=== PATIENT | male | born 1945 | race Caucasian/White ===

== ENCOUNTER 2018-06-09 17:07 | Emergency (ER) | payer MEDICARE, OTHER, SELFPAY ==
[2018-06-09 17:13] VITALS: BP 160/67; PULSE 70; RESP 17; TEMP 37.2; O2SAT 97
--- NOTE | 2018-06-09 17:29 | DI.RPTCT_ITS ---
SYMPTOM/DIAGNOSIS: FALL, PAIN NONCONTRAST HEAD CT: Comparison is made with 29 Oct 2017 There is a right frontal scalp laceration. No intracranial hemorrhage or skull fracture is seen. The ventricles are normal in size. The mastoid air cells are visualized. Sinuses appear clear. IMPRESSION: Right frontal scalp laceration. No acute abnormality. CT CERVICAL SPINE: Comparison is made with 05 October 2017. There has been no change in the previously noted C-7 compression fracture or change in alignment. No acute fracture is identified. Degenerative disc changes and facet degenerative changes are again noted. IMPRESSION: Old C-7 compression fracture. Degenerative changes. No acute abnormality.
--- NOTE | 2018-06-09 17:41 | ED.GENADUL ---
Disposition Clinical Impression: Head trauma, Laceration of head Disposition: HOME Condition: Stable Instructions: Laceration (ED) Additional Instructions: Have the sutures removed in approximately 7 days if redness spreads across the face, you have yellow/white discharge from the wound, new symptoms such as chest pain or abdominal pain return to the emergency department Medical Decision Making - Radiology Data Radiology results: report reviewed, image reviewed - Medical Decision Making pt here with fall that seems mechanical, no symptoms to suggest presyncope or syncope, do not feel lab work indicated or ecg. will obtain imaging of the head and c spine and will suture his laceration. patient's imaging shows no acute findings and he has no new pain, laceration closed without complications, will d/c home, return precautions given - Differential Diagnosis laceration, tbi, c spine injury History of Present Illness - General Chief complaint: Laceration Stated complaint: HEAD LACERATION Time Seen by Provider: 06/09/18 17:12 Source: patient Mode of arrival: ambulatory Limitations: no limitations - History of Present Illness Initial comments: 72 yo male comes in after he tripped while weed walking and hit his head on a rock. He did not lose consciousness and had not had vomit. He has a 5cm forehead laceration to right forehead. No stepoff deformities. Denies any precending symptoms such as chest pain, difficulty breathing, headaches or abodminal pain MD Complaint: head lac Onset/Timin -: hour(s) Location: head Radiation: non-radiation Severity scale (1-10): 3 Quality: aching Improves with: none Worsens with: none Treatments Prior to Arrival: none - Related Data Amlodipine Besylate [Norvasc] 1 tab PO QAM #90 01/22/13 Ascorbic Acid [Vitamin C] 1 tab PO DAILY 01/22/13 Cosopt Eye Drops 1 drp OU BID drp 01/22/13 Multivitamin [One Daily] 1 tab PO DAILY 01/22/13 [place]-3/Dha/Epa/Fish Oil [Fish Oil [place]-3 Softgel] 1 cap PO DAILY 01/22/13 Simvastatin 1 tab PO DAILY #90 tab 01/22/13 Travatan 0.004% Eye Drop 1 drp OP DAILY drp 01/22/13 Losartan Potassium [Cozaar] 1 tab PO QAM #90 tab 03/04/13 Spironolactone 25 mg PO DAILY #90 tab-cap 06/14/16 Vit A/Vit C/Vit E/Zinc/Copper [Preservision Areds Softgel] 2 each PO DAILY 10/26/17 Tamsulosin HCl 0.8 mg PO DAILY #90 tab-cap 05/10/18 Omeprazole [PriLOSEC] 10 mg PO PRN 06/09/18 Allergies Allergy/AdvReac Type Severity Reaction Status Date / Time No Known Allergies Allergy Unverified 05/10/18 12:58 Review of Systems Constitutional: denies: fever Respiratory: denies: shortness of breath Cardiovascular: denies: chest pain Gastrointestinal: denies: vomiting Musculoskeletal: denies: back pain Skin: denies: rash Comment: All other systems reviewed and negative Past Medical History - Past Medical History Medical history: arthritis, glaucoma, hyperlipidemia, hypertension Surgical history: other (hip replacement) - Social History Alcohol use: recent Drug use: none General Exam - General Limitations: no limitations General appearance: alert, in no apparent distress - Head Head exam: Present: normocephalic - Eye Eye exam: Present: normal apperance, PERRL, EOMI - ENT ENT exam: Present: mucous membranes moist - Neck Neck exam: Present: tenderness (left lateral chest pain) - Respiratory Respiratory exam: Absent: respiratory distress - Cardiovascular Cardiovascular Exam: Present: regular rate - GI/Abdominal GI/Abdominal exam: Present: soft. Absent: tenderness - Extremities Exam Extremities exam: Present: normal inspection. Absent: pedal edema, calf tenderness - Neurological Exam Neurological exam: Present: alert, oriented X3. Absent: motor sensory deficit - Psychiatric Psychiatric exam: Present: normal affect - Skin Skin exam: Present: warm Course Vital Signs - 24 hr 06/09/18 17:13 Temperature 99.0 F Pulse 70 Respiratory 17 Rate Blood Pressure 160/67 Pulse Oximetry 97 Procedures - Laceration Repair Consent Obtained: Verbal consent Time Out Performed: Yes Copious Irrigation performed: Yes (sterile saline) Laceration Length (cm): 5 Laceration Depth: Subcutaneous Bleeding Type/Amount: Minimal Complexity: Simple Anesthetic: Lidocaine 2%, With Epi Amount of Anesthetic (mls): 6 Material: Proline Suture Size: 4-0 Suture Number: 5
--- NOTE | 2018-06-09 18:49 | DI.VRAD_ITS ---
EXAM: CT Head Without Intravenous Contrast CLINICAL HISTORY: 72 years old, male; Signs and symptoms; Other: Fall, pain, head laceration. TECHNIQUE: Axial computed tomography images of the head/brain without intravenous contrast. All CT scans at this facility use at least one of these dose optimization techniques: automated exposure control; mA and/or kV adjustment per patient size (includes targeted exams where dose is matched to clinical indication); or iterative reconstruction. Coronal and sagittal reformatted images were created and reviewed. COMPARISON: No relevant prior studies available. FINDINGS: Brain: No acute intracranial hemorrhage. There is mild diffuse heterogeneity of the white matter attenuation, consistent with chronic white matter ischemic changes. Mild cerebral atrophy Ventricles: Unremarkable. No ventriculomegaly. Bones/joints: Unremarkable. No acute fracture. Soft tissues: Extracalvarial soft tissue swelling anteriorly on the right. Bubble of air in this region may indicate laceration. Sinuses: Unremarkable as visualized. No acute sinusitis. Mastoid air cells: Unremarkable as visualized. No mastoid effusion. IMPRESSION: 1. Extracalvarial soft tissue swelling anteriorly on the right. Bubble of air in this region may indicate laceration. 2. No acute intracranial hemorrhage. EXAM: CT Cervical Spine Without Intravenous Contrast CLINICAL HISTORY: 72 years old, male; Signs and symptoms; Other: Fall, pain, head laceration. TECHNIQUE: Axial computed tomography images of the cervical spine without intravenous contrast. All CT scans at this facility use at least one of these dose optimization techniques: automated exposure control; mA and/or kV adjustment per patient size (includes targeted exams where dose is matched to clinical indication); or iterative reconstruction. Coronal and sagittal reformatted images were created and reviewed. COMPARISON: CT - HEAD WITHOUT CONTRAST 2017-10-29 08:38 FINDINGS: Vertebrae: No acute fracture of the cervical spine. No subluxation or dislocation of the cervical spine. Compression fracture of C7 was present on the prior study. Increasing compression since the prior study. 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 Anterior osteophyte formation C3- T1. Posterior osteophyte formation C3-T1 Degenerative changes at C1/C2 Soft tissues: Unremarkable. Thyroid: The thyroid is unremarkable Lung apices: Unremarkable as visualized. IMPRESSION: 1. No acute fracture of the cervical spine. 2. No subluxation or dislocation of the cervical spine. Dictated and Authenticated by: Alesha Tamayo MD. Ordering:CAROLYN MCNALLY MD
[2018-06-09 18:59] VITALS: BP 153/87; PULSE 69; RESP 18; TEMP 37; O2SAT 97
== END 2018-06-09 18:57 | disposition home or self-care (01) ==
PROVIDERS: Emergency Provider Emergency Medicine; PCP Emergency Medicine
DX: S01.81XA Laceration without foreign body of other part of head, initial encounter (principal); S09.90XA Unspecified injury of head, initial encounter; W16.122A Fall into natural body of water striking bottom causing other injury, initial encounter; Y93.H2 Activity, gardening and landscaping; I10 Essential (primary) hypertension
CPT/HCPCS: 12013 ×2; 70450; 72125; 99281; 99284

== ENCOUNTER 2018-06-18 14:33 | Emergency (ER) | payer MEDICARE, OTHER, SELFPAY ==
[2018-06-18 14:40] VITALS: BP 143/76; PULSE 63; RESP 18; TEMP 36.9; O2SAT 97
--- NOTE | 2018-06-18 14:46 | ED.GENADUL_ITS ---
Disposition Clinical Impression: Encounter for removal of sutures Disposition: HOME Condition: Stable Instructions: Stitches Removal (ED) Additional Instructions: Watch for any signs of infection return immediately if these occur otherwise follow-up with your primary care provider as needed for reassessment. Continue to keep the wound clean and dry. Referrals: Aguila Thakur, [Primary Care Provider] - (As needed for reassessment) Medical Decision Making - Medical Decision Making Patient presenting the emergency department for suture removal. 5 sutures were removed from patient scalp without any complications and there were no signs of infection. Patient encouraged to watch for any signs of infection return immediately if these occur otherwise to keep wound clean dry and follow-up with primary care provider as needed. Patient denies any other complaints at this time. After discussion of diagnosis and plan of care with patient patient agreed and stated no further needs, questions, or concerns at this time. History of Present Illness - General Chief complaint: SutureRem Stated complaint: SUTURE REMOVAL Time Seen by Provider: 06/18/18 14:40 Source: patient, RN notes reviewed Mode of arrival: ambulatory Limitations: no limitations - History of Present Illness Initial comments: Patient reports he is presenting to the emergency department for suture removal from a laceration he suffered 1 week ago and had stitches placed in the emergency department. Patient denies any other symptoms states that he is otherwise well and has no complaints. Patient denies any redness, purulent drainage, or signs of complication that he is noticed. Onset/Timin -: days(s) Location: head Associated Symptoms: denies other symptoms Treatments Prior to Arrival: none - Related Data Amlodipine Besylate [Norvasc] 1 tab PO QAM #90 01/22/13 Ascorbic Acid [Vitamin C] 1 tab PO DAILY 01/22/13 Cosopt Eye Drops 1 drp OU BID drp 01/22/13 Multivitamin [One Daily] 1 tab PO DAILY 01/22/13 [place]-3/Dha/Epa/Fish Oil [Fish Oil [place]-3 Softgel] 1 cap PO DAILY 01/22/13 Simvastatin 1 tab PO DAILY #90 tab 01/22/13 Travatan 0.004% Eye Drop 1 drp OP DAILY drp 01/22/13 Losartan Potassium [Cozaar] 1 tab PO QAM #90 tab 03/04/13 Spironolactone 25 mg PO DAILY #90 tab-cap 04/04/16 Vit A/Vit C/Vit E/Zinc/Copper [Preservision Areds Softgel] 2 each PO DAILY 10/26 Tamsulosin HCl 0.8 mg PO DAILY #90 tab-cap 05/10/18 Omeprazole [PriLOSEC] 10 mg PO PRN 06/09/18 Allergies Allergy/AdvReac Type Severity Reaction Status Date / Time No Known Allergies Allergy Unverified 06/18/18 14:44 Review of Systems Constitutional: no symptoms reported Skin: as per HPI Neurological: denies: headache Past Medical History - Past Medical History Medical history: arthritis, glaucoma, hyperlipidemia, hypertension Surgical history: other (hip replacement) - Social History Smoking status: never smoker Alcohol use: recent Drug use: none General Exam - General Limitations: no limitations General appearance: alert, in no apparent distress - Head Head exam: Present: other (Patient has a scalp laceration to the right superior aspect of the scalp [address] with mild scab formation otherwise no erythema, no purulence, no dehiscence.) - Respiratory Respiratory exam: Absent: respiratory distress - Neurological Exam Neurological exam: Present: alert, oriented X3, normal gait. Absent: altered Course Vital Signs - 24 hr 06/18/18 14:40 Temperature 36.9 C Pulse 63 Respiratory 18 Rate Blood Pressure 143/76 Pulse Oximetry 97
== END 2018-06-18 15:00 | disposition home or self-care (01) ==
PROVIDERS: Emergency Provider Student in an Organized Health Care Education/Training Program; PCP Emergency Medicine
DX: S01.81XD Laceration without foreign body of other part of head, subsequent encounter (principal); W16.122D Fall into natural body of water striking bottom causing other injury, subsequent encounter; Z48.02 Encounter for removal of sutures

== ENCOUNTER 2018-11-11 11:34 | Outpatient (CLI) | payer MEDICARE, OTHER, SELFPAY ==
[2018-11-12 10:16] LABS: PSA, Diagnostic 7.8 ng/ml (0-6.5)
== END 2018-11-11 11:54 ==
PROVIDERS: PCP Emergency Medicine; Visit Provider Urology
DX: R97.20 Elevated prostate specific antigen [PSA] (principal)
CPT/HCPCS: 36415; 84153

== ENCOUNTER → 2018-12-10 11:01 | Outpatient (BNVA) | payer MEDICARE, OTHER, SELFPAY | PROVIDERS: PCP Emergency Medicine; Visit Provider Urology | DX: R35.0 Frequency of micturition (principal); R97.20 Elevated prostate specific antigen [PSA]; G20 Parkinson's disease | CPT/HCPCS: 99213 ==

== ENCOUNTER 2019-05-09 01:06 | Outpatient (CLI) | payer MEDICARE, OTHER, SELFPAY ==
--- NOTE | 2019-05-09 09:40 | DI.RAD_ITS ---
SYMPTOM/DIAGNOSIS: COUGH R05 CHEST X-RAY: PA and lateral. No priors. The heart is normal in size. The lungs are clear. The mediastinal structures and pleura appear intact. CONCLUSION: Normal chest.
== END 2019-05-09 01:26 ==
PROVIDERS: PCP Emergency Medicine; Visit Provider Emergency Medicine
DX: R05 Cough (principal)
CPT/HCPCS: 71046

== ENCOUNTER 2019-10-23 02:13 | Outpatient (CLI) | payer MEDICARE, OTHER, SELFPAY ==
--- NOTE | 2019-10-23 09:39 | DI.US_ITS ---
EXAM: US CAROTID CLINICAL HISTORY: absent right carotid pulse I65.21 OCCLUSION AND STENOSIS OF RT ARTERY TECHNIQUE: Ultrasound performed using standard protocol. COMPARISON: No exams were available for comparison FINDINGS: Bilateral duplex carotid ultrasound was performed according to the usual protocol. There is mild vis ible atheromatous plaque in the carotid bifurcations bilaterally. There is bilateral antegrade verte bral flow. Flow velocities in proximal internal carotid artery on the right are elevated with maximum observed p eak systolic velocity to 216 cm/second. These findings are consistent with 50-69 percent luminal slime meter stenosis. On the left, flow velocities are within normal limits in the common internal and external carotid art eries. 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
== END 2019-10-23 02:33 ==
PROVIDERS: PCP Emergency Medicine; Visit Provider Emergency Medicine
DX: I65.21 Occlusion and stenosis of right carotid artery (principal); R09.89 Other specified symptoms and signs involving the circulatory and respiratory systems
CPT/HCPCS: 36415; 80048; 84153; 93880

== ENCOUNTER 2019-10-23 10:02 | Outpatient (CLI) | payer MEDICARE, OTHER, SELFPAY ==
[2019-10-23 10:57] LABS: Anion Gap 9.5 mmol/L (3-11); BUN 18 mg/dL (7-18); CO2 27.5 mmol/L (21.0-32.0); CREATININE 0.75 mg/dL (0.70-1.30); Calcium 8.9 mg/dL (8.5-10.1); Chloride 106 mmol/L (98-107); Glucose 100 mg/dL (74-106); Potassium 4.2 mmol/L (3.5-5.1); Sodium 143 mmol/L (136-145)
[2019-10-24 10:14] LABS: PSA, Diagnostic 7.1 ng/mL (0.0-6.5)
== END 2019-10-23 10:22 ==
PROVIDERS: PCP Emergency Medicine; Visit Provider Emergency Medicine
DX: C61 Malignant neoplasm of prostate (principal); I10 Essential (primary) hypertension; I65.21 Occlusion and stenosis of right carotid artery
CPT/HCPCS: 36415; 80048; 84153

== ENCOUNTER → 2019-12-05 11:21 | Outpatient (BNVA) | payer MEDICARE, OTHER, SELFPAY | PROVIDERS: PCP Emergency Medicine; Referring Provider Emergency Medicine; Visit Provider Urology | DX: R97.20 Elevated prostate specific antigen [PSA] (principal) | CPT/HCPCS: 99213 ==

== ENCOUNTER 2020-06-04 17:04 | Emergency (ER) | payer MEDICARE, OTHER, SELFPAY ==
[2020-06-04 17:09] VITALS: PULSE 63; RESP 14; TEMP 36.5; O2SAT 95
--- NOTE | 2020-06-04 17:21 | ED.GENADUL_ITS ---
Discharge Plan Disposition Patient Disposition: HOME Condition: Stable Discharge Details Chief Complaint: HeadInjury Clinical Impression: Laceration of scalp Primary Care Provider: Aguila Thakur ED Provider: Clem Glez Home Meds and New Rx's Prescriptions: Continued tamsulosin 0.4 mg capsule 0.4 mg PO DAILY RF: 0 azelastine-fluticasone 137-50 mcg/spray spray,non-aerosol 1 spray DANYELLE BID Qty: 23 RF: 6 multivitamin [One Daily] 1 EACH tablet 1 tab PO DAILY RF: 0 amlodipine [Norvasc] 5 MG tablet 1 tab PO QAM Qty: 90 RF: 4 simvastatin 20 MG tablet 1 tab PO DAILY Qty: 90 RF: 4 COSOPT EYE DROPS 5 ML drops 1 drp OU BID RF: 0 TRAVATAN 0.004% EYE DROP 5 ML drops 1 drp Ophthalmic DAILY RF: 0 spironolactone 25 MG tablet 25 mg PO DAILY Qty: 90 RF: 3 PreserVision AREDS 1 EACH capsule 2 ea PO DAILY RF: 0 carbidopa-levodopa 25-100 mg tablet See Rx Instructions PO DAILY RF: 0 Discharge Instructions Instructions: Laceration (ED) Additional Instructions: return in 7-10 days for evaluation for suture removal if spreading redness, worsening pain, or yellow/white discharge return to the emergency department Medical Decision Making 74 yo male with hx of parkinson's and recent falls comes in with superior scalp laceration. Was oustide and tripped and hit his head on a rock. Denies preceding symptoms such as chest pain, pressure od difficulty breathing. Has no headache or neck pain now. HAs a small 1cm laceration on superior scalp. NO pain anywhere else. I recommended ct of his head and c spine which he declines. He has capacity to make his own decisions and understands risks of missing tbi and c spine injury including and possible disability and is willing to assume these risks. Will suture woud closed wound closed with 2 sutures. No complications and tolerated well. Will d/c and have him return in 7-10 days and sooner if signs of infection Differential Diagnosis Differential Diagnosis: laceration, abrasion Medical Records Medical records reviewed: Yes I reviewed the patient's medical records. HPI General Mode of arrival: ambulatory . Date/Time Provider Initiated Documentation: 06/04/20 17:05 . Limitations to Documentation: no limitations . Information obtained by: patient . History of Present Illness 74 year old M presents to the emergency department with the chief complaint of scalp laceration, described as mild, and is localized to the head. Patient reports no radiation. Patient started experiencing this hour(s) (2) and it has been constant. No relieving factors improve symptom(s), No exacerbating factors reported . Patient did receive the following treatments prior to arrival, none Related Data Home Medications Medication Instructions Recorded Confirmed Cosopt Eye Drops 1 drp OU BID drp 01/22/13 06/04/20 Travatan 0.004% Eye Drop 1 drp OPHTHALMIC DAILY drp 01/22/13 06/04/20 amlodipine [Norvasc] 1 tab PO QAM #90 01/22/13 06/04/20 multivitamin [One Daily] 1 tab PO DAILY 01/22/13 06/04/20 simvastatin 1 tab PO DAILY #90 tab 01/22/13 06/04/20 spironolactone 25 mg PO DAILY #90 tab-cap 04/04/16 06/04/20 PreserVision AREDS 2 ea PO DAILY 10/26/17 06/04/20 azelastine-fluticasone 137 mcg-50 1 spray DANYELLE BID #23 gm 10/03/18 06/04/20 mcg/spray nasal spray tamsulosin 0.4 mg capsule 0.4 mg PO DAILY tab-cap 10/03/18 06/04/20 carbidopa 25 mg-levodopa 100 mg See Rx Instructions PO DAILY tab 11/29/18 06/04/20 tablet Previous Rx's Medication Instructions Recorded azelastine-fluticasone 137 mcg-50 1 spray DANYELLE BID #23 gm 10/03/18 mcg/spray nasal spray Allergies Allergy/AdvReac Type Severity Reaction Status Date / Time No Known Allergies Allergy Verified 06/04/20 17:13 General Stated Complaint: HeadInjury MAY: 3 Review of Systems All systems reviewed & are unremarkable except as noted in HPI and below Constitutional Constitutional: Denies chills, Denies fever(s) and Denies weakness Cardiovascular Cardiovascular: Denies chest pain and Denies dyspnea Respiratory Respiratory: Denies cough and Denies dyspnea Gastrointestinal Gastrointestinal: Denies abdominal pain, Denies nausea and Denies vomiting Musculoskeletal Musculoskeletal: Denies joint swelling Neurologic Neurologic: Denies weakness Psychiatric Psychiatric: Denies depression [facility] Surgical History (Updated 01/03/19 @ 10:01 by Aguila Thakur DO) Colonoscopy - MAC (~2010) 2000; NEG 2010; 2 POLYPS Family History Mother Diabetes Personal history of malignant neoplasm breast Father Heart disease Sister No problems noted. Brother No problems noted. Brother No problems noted. Social History Smoking/Tobacco Use Status: Never Alcohol Intake: never Drug use: Never Substance use type: marijuana Do you feel safe at home: Yes Do you feel safe in your relationship?: Yes Exam Const General: no acute distress Orientation: alert HENMT Head: no palpable skull fracture Ears: external ears normal General nose exam: external nose normal Mouth: moist mucous membranes Eyes General: appearance normal, both eyes and all related structures Neck Neck: normal visual inspection Resp Effort & Inspection: normal respiratory effort and able to speak in complete sentences Cardio Rate: regular rate Skin General skin exam: no rashes or lesions noted Neuro General: patient alert and patient oriented x3 Extrem General: normal to inspection Psych Mental Status: mental status grossly normal Course Vital Signs Vital signs: Vital Signs Temperature 36.5 C 06/04/20 17:09 Pulse 63 06/04/20 17:09 Respiratory Rate 14 06/04/20 17:09 Pulse Oximetry 95 06/04/20 17:09 Temperature 36.5 C 06/04/20 17:09 Temperature Source Tympanic 06/04/20 17:09 Pulse 63 06/04/20 17:09 Respiratory Rate 14 06/04/20 17:09 Respiratory Effort Non-Labored 06/04/20 17:19 Respiratory Depth Normal 06/04/20 17:19 Respiratory Pattern Normal 06/04/20 17:19 Blood Pressure Position Sitting 06/04/20 17:09 Pulse Oximetry 95 06/04/20 17:09 Oxygen Delivery Method Room Air 06/04/20 17:09 Oxygen Flow Rate 0 06/04/20 17:09 Pain Level 0 06/04/20 17:09 Procedures Laceration Laceration 1: Site: scalp Size (cm): 1 Description: linear Depth: simple, single layer Local Anesthetic: Lidocaine 1% Amount of anesthesia used (mL): 4 Pre-repair: wound explored and irrigated extensively Skin layer closed with: nylon Size (cm): 5-0 Number of sutures: 2 Technique: simple, interrupted
== END 2020-06-04 17:43 | disposition home or self-care (01) ==
PROVIDERS: Emergency Provider Emergency Medicine; PCP Emergency Medicine
DX: S01.01XA Laceration without foreign body of scalp, initial encounter (principal); W01.198A Fall on same level from slipping, tripping and stumbling with subsequent striking against other object, initial encounter; R29.6 Repeated falls; G20 Parkinson's disease
CPT/HCPCS: 12001

== ENCOUNTER 2020-06-13 12:09 | Emergency (ER) | payer MEDICARE, OTHER, SELFPAY ==
[2020-06-13 12:13] VITALS: BP 152/72; PULSE 71; RESP 16; TEMP 36.3; O2SAT 98
--- NOTE | 2020-06-13 12:21 | ED.GENADUL_ITS ---
Discharge Plan Disposition Patient Disposition: HOME Condition: Stable Discharge Details Chief Complaint: SutureRem Clinical Impression: Encounter for removal of sutures Primary Care Provider: Aguila Thakur ED Provider: Imani Ricci Home Meds and New Rx's Prescriptions: No Action tamsulosin 0.4 mg capsule 0.4 mg PO DAILY RF: 0 azelastine-fluticasone 137-50 mcg/spray spray,non-aerosol 1 spray DANYELLE BID Qty: 23 RF: 6 multivitamin [One Daily] 1 EACH tablet 1 tab PO DAILY RF: 0 amlodipine [Norvasc] 5 MG tablet 1 tab PO QAM Qty: 90 RF: 4 simvastatin 20 MG tablet 1 tab PO DAILY Qty: 90 RF: 4 COSOPT EYE DROPS 5 ML drops 1 drp OU BID RF: 0 TRAVATAN 0.004% EYE DROP 5 ML drops 1 drp Ophthalmic DAILY RF: 0 spironolactone 25 MG tablet 25 mg PO DAILY Qty: 90 RF: 3 PreserVision AREDS 1 EACH capsule 2 ea PO DAILY RF: 0 carbidopa-levodopa 25-100 mg tablet See Rx Instructions PO DAILY RF: 0 Discharge Instructions Instructions: Stitches Removal (ED) Additional Instructions: Follow up with primary care provider in 3-5 days. Return to ED sooner if any worsening or concerns. Increase oral fluids. Please take Tylenol or Ibuprofen with food every 4-6 hours as needed for pain and swelling. Referrals: Aguila Thakur DO [Primary Care Provider] - [facility] General Mode of arrival: ambulatory . Date/Time Provider Initiated Documentation: 06/13/20 12:16 . Limitations to Documentation: no limitations . Information obtained by: patient . HPI Narrative: 75-year-old male presents to the ER with a chief complaint of suture removal. Patient had 2 simple interrupted sutures placed on 06/04/2020 after closed head injury. Patient denies any problems at home no complaints of headache, fever or vomiting. No surrounding erythema, swelling, drainage or signs of infection. Wound is well approximated. Related Data Home Medications Medication Instructions Recorded Confirmed Cosopt Eye Drops 1 drp OU BID drp 01/22/13 06/13/20 Travatan 0.004% Eye Drop 1 drp OPHTHALMIC DAILY drp 01/22/13 06/13/20 amlodipine [Norvasc] 1 tab PO QAM #90 01/22/13 06/13/20 multivitamin [One Daily] 1 tab PO DAILY 01/22/13 06/13/20 simvastatin 1 tab PO DAILY #90 tab 01/22/13 06/13/20 spironolactone 25 mg PO DAILY #90 tab-cap 04/04/16 06/13/20 PreserVision AREDS 2 ea PO DAILY 10/26/17 06/13/20 azelastine-fluticasone 137 mcg-50 1 spray DANYELLE BID #23 gm 10/03/18 06/13/20 mcg/spray nasal spray tamsulosin 0.4 mg capsule 0.4 mg PO DAILY tab-cap 10/03/18 06/13/20 carbidopa 25 mg-levodopa 100 mg See Rx Instructions PO DAILY tab 11/29/18 06/13/20 tablet Previous Rx's Medication Instructions Recorded azelastine-fluticasone 137 mcg-50 1 spray DANYELLE BID #23 gm 10/03/18 mcg/spray nasal spray Allergies Allergy/AdvReac Type Severity Reaction Status Date / Time No Known Allergies Allergy Verified 06/13/20 12:16 General Stated Complaint: SutureRem MAY: 5 Review of Systems All systems reviewed & are unremarkable except as noted in HPI and below PFSH Surgical History Colonoscopy - MAC (~2010) 2000; NEG 2010; 2 POLYPS Family History Mother Diabetes Personal history of malignant neoplasm breast Father Heart disease Sister No problems noted. Brother No problems noted. Brother No problems noted. Social History Smoking/Tobacco Use Status: Never Alcohol Intake: never Drug use: Never Substance use type: marijuana Do you feel safe at home: Yes Do you feel safe in your relationship?: Yes Exam Skin General skin exam: other (Repaired wound noted to middle of top of scalp. No signs of infection. ) Wounds: wounds noted (See above. 2 simple interrupted sutures in place) Course Vital Signs Vital signs: Vital Signs Temperature 36.3 C L 06/13/20 12:13 Pulse 71 06/13/20 12:13 Respiratory Rate 16 06/13/20 12:13 Blood Pressure 152/72 H 06/13/20 12:13 Pulse Oximetry 98 08/23/20 12:13 Temperature 36.3 C L 06/13/20 12:13 Temperature Source Skin 06/13/20 12:13 Pulse 71 06/13/20 12:13 Respiratory Rate 16 06/13/20 12:13 Respiratory Effort Non-Labored 06/13/20 12:13 Blood Pressure 152/72 H 06/13/20 12:13 Blood Pressure Position Sitting 06/13/20 12:13 Pulse Oximetry 98 06/13/20 12:13 Oxygen Delivery Method Room Air 06/13/20 12:13 Oxygen Flow Rate 0 06/13/20 12:13 Pain Level 0 06/13/20 12:13
== END 2020-06-13 12:26 | disposition home or self-care (01) ==
PROVIDERS: Emergency Provider Registered Nurse Emergency; PCP Emergency Medicine
DX: S01.01XD Laceration without foreign body of scalp, subsequent encounter (principal); X58.XXXD Exposure to other specified factors, subsequent encounter; Z48.02 Encounter for removal of sutures

== ENCOUNTER 2020-07-01 03:00 | Outpatient (CLI) | payer MEDICARE, OTHER, SELFPAY ==
[2020-07-01 23:07] LABS: PSA, Diagnostic 9.6 ng/mL (0.0-6.5)
== END 2020-07-01 03:20 ==
PROVIDERS: PCP Emergency Medicine; Visit Provider Urology
DX: R97.20 Elevated prostate specific antigen [PSA] (principal)
CPT/HCPCS: 36415; 84153

== ENCOUNTER → 2020-07-06 11:35 | Outpatient (BNVA) | payer MEDICARE, OTHER, SELFPAY | PROVIDERS: PCP Emergency Medicine; Referring Provider Emergency Medicine; Visit Provider Urology | DX: R97.20 Elevated prostate specific antigen [PSA] (principal) | CPT/HCPCS: 99213 ==

== ENCOUNTER 2020-07-16 20:11 | Emergency (ER) | payer MEDICARE, OTHER, SELFPAY ==
[2020-07-16 20:19] VITALS: BP 174/78; PULSE 79; RESP 16; TEMP 36.9; O2SAT 97
--- NOTE | 2020-07-16 20:27 | ED.GENADUL_ITS ---
Discharge Plan Disposition Patient Disposition: HOME Condition: Good Discharge Details Clinical Impression: Superficial laceration of hand Primary Care Provider: Aguila Thakur ED Provider: Jacob Anand Home Meds and New Rx's Prescriptions: New cephalexin [Keflex] 500 mg capsule 500 mg PO QID 7 Days Qty: 28 RF: 0 Continued azelastine-fluticasone 137-50 mcg/spray spray,non-aerosol 1 spray DANYELLE BID Qty: 23 RF: 6 multivitamin [One Daily] 1 EACH tablet 1 tab PO DAILY RF: 0 amlodipine [Norvasc] 5 MG tablet 1 tab PO QAM Qty: 90 RF: 4 simvastatin 20 MG tablet 1 tab PO DAILY Qty: 90 RF: 4 COSOPT EYE DROPS 5 ML drops 1 drp OU BID RF: 0 TRAVATAN 0.004% EYE DROP 5 ML drops 1 drp Ophthalmic DAILY RF: 0 spironolactone 25 MG tablet 25 mg PO DAILY Qty: 90 RF: 3 PreserVision AREDS 1 EACH capsule 2 ea PO DAILY RF: 0 carbidopa-levodopa 25-100 mg tablet See Rx Instructions PO DAILY RF: 0 polyethylene glycol 3350 [Miralax] 17 gram/dose powder 17 gm PO DAILY Qty: 510 RF: 8 No Action tamsulosin 0.4 mg capsule 0.4 mg PO DAILY RF: 0 Discharge Instructions Instructions: Laceration (ED) Additional Instructions: At this time you have a mild laceration that cannot be closed back up secondary to it occurring 3 to 4 days ago. At this time there does appear to be a very mild early amount of infection which I would like to treat with an antibiotic Keflex. Please take this as directed. If you notice any worsening of your symptoms, or any new symptoms such as worsening redness, swelling, vomiting, diarrhea, fever, chills, shortness of breath, chest pain, numbness, weakness, or fainting , please return immediately to the emergency department for reevaluation. Please follow up with your primary care provider as soon as possible for reassessment and reevaluation. As always, it was a pleasure participating in your medical care today. Referrals: Aguila Thakur, DO [Primary Care Provider] - Medical Decision Making 75-year-old male with a past medical history of Parkinson's, mild dementia, who presents today for evaluation of laceration onto his left hand/thumb. Patient and state that he had cut the palmar aspect of his left thumb 4 days ago on a piece of clean metal in their home. Did not immediately sought care. Presents today for evaluation of mild swelling. He denies any numbness tingling or weakness. Patient is a poor historian. whom I contacted later also states that he has been falling to a degree, and did have some bruising noted on his left side that occurred a few days ago. No other complaints at this time. No other modifying factors. Physical exam demonstrates a small superficial laceration to the palmar aspect of the left thumb at the proximal phalanges area. Notably superficial, each branch is roughly 1 cm. With the superficial component, and the laceration time being greater than 3 days ago, it is not recommended to suture at this time. He demonstrates good musculoskeletal strength, with no signs of weakness or tendon damage whatsoever. There is mild swelling around the thumb, no significant redness, this may be the very beginnings of mild cellulitis. Out of an abundance of precaution we will place the patient on Keflex, and give him his first dose now. The bruising on the left side of his abdomen has no associated tenderness, he has no tachycardia hypotension or other signs of blood loss. No peritoneal signs in the abdomen whatsoever, no pain or tenderness in the hip. No indication for further emergent imaging. I did ask the patient for his 's phone number, which she gave me, but it turns out this is actually his [id number]'s phone number. did contact us moments after this and was notably upset. I did go out to the lobby and talk to her personally after we were informed of where she was. We did a thorough discussion together about all of my findings. As well as her frustrations with not being allowed back. Per the patient's unfortunately it does not seem that she was given the opportunity on the initial assessment by the front end application developer team to make clear that the patient does have mild dementia. She was asked to stay outside of the ED abiding to current guidelines and hospital protocol. However after a long and thorough discussion with her the clear areas of problems were notably delineated, all of her questions were answered, and I did apologize personally for the challenge that this was and her frustrations which I can completely understand. The patient was walked out to the lobby where she was waiting. Patient was discharged home no further questions. Lobby where she was waiting. Patient was discharged home. No further questions by patient or family. Also of note with the patient's falls I did discuss with the patient's getting help at home or PT/OT and further assistance. Patient's made it very clear that the patient is very strong-willed and does not have a congruent line of thinking with this sort of help. She states he continues to refuse, and so because of this she would like to hold off on any additional help or assistance at home for the time being. I did encourage her to reach out anytime that she felt that the patient would be open to this. She does feel safe at home with him currently. HPI General Date/Time Provider Initiated Documentation: 07/16/20 20:19 . HPI Narrative: 75-year-old male with a past medical history of Parkinson's, mild dementia, who presents today for evaluation of laceration onto his left hand/thumb. Patient and state that he had cut the palmar aspect of his left thumb 4 days ago on a piece of clean metal in their home. Did not immediately sought care. Presents today for evaluation of mild swelling. He denies any numbness tingling or weakness. Patient is a poor historian. whom I contacted later also states that he has been falling to a degree, and did have some bruising noted on his left side that occurred a few days ago. No other complaints at this time. No other modifying factors. Related Data Home Medications Medication Instructions Recorded Confirmed Cosopt Eye Drops 1 drp OU BID drp 01/22/13 07/16/20 Travatan 0.004% Eye Drop 1 drp OPHTHALMIC DAILY drp 01/22/13 07/16/20 amlodipine [Norvasc] 1 tab PO QAM #90 01/22/13 07/16/20 multivitamin [One Daily] 1 tab PO DAILY 01/22/13 07/16/20 simvastatin 1 tab PO DAILY #90 tab 01/22/13 07/16/20 spironolactone 25 mg PO DAILY #90 tab-cap 04/04/16 07/16/20 PreserVision AREDS 2 ea PO DAILY 10/26/17 07/16/20 azelastine-fluticasone 137 mcg-50 1 spray DANYELLE BID #23 gm 10/03/18 07/16/20 mcg/spray nasal spray tamsulosin 0.4 mg capsule 0.4 mg PO DAILY tab-cap 10/03/18 07/16/20 carbidopa 25 mg-levodopa 100 mg See Rx Instructions PO DAILY tab 11/29/18 07/16/20 tablet polyethylene glycol 3350 17 17 gm PO DAILY #510 gm 06/23/20 07/16/20 gram/dose oral powder cephalexin [Keflex] 500 mg PO QID 7 Days #28 [facility] 07/16/20 Previous Rx's Medication Instructions Recorded azelastine-fluticasone 137 mcg-50 1 spray DANYELLE BID #23 gm 10/03/18 mcg/spray nasal spray polyethylene glycol 3350 17 17 gm PO DAILY #510 gm 06/23/20 gram/dose oral powder cephalexin [Keflex] 500 mg PO QID 7 Days #28 [facility] 07/16/20 Allergies Allergy/AdvReac Type Severity Reaction Status Date / Time No Known Allergies Allergy Verified 07/16/20 20:29 General Stated Complaint: Laceration MAY: 4 Review of Systems All systems reviewed & are unremarkable except as noted in HPI and below PFSH Surgical History Colonoscopy - MAC (~2010) 2000; NEG 2010; 2 POLYPS Family History Mother Diabetes Personal history of malignant neoplasm breast Father Heart disease Sister No problems noted. Brother No problems noted. Brother No problems noted. Social History Smoking/Tobacco Use Status: Never Alcohol Intake: never Drug use: Never Substance use type: marijuana Do you feel safe at home: Yes Do you feel safe in your relationship?: Yes Exam Narrative Exam Narrative: 1.Const: Well-nourished, Well-developed, appearing stated age 2.Eyes: PERRL, no conjunctival injection, and symmetrical lids. 3.ENT: Atraumatic external nose and ears. Moist MM. Neck: Symmetric, trachea midline, No thyromegaly. 4.CVS: +S1/S2, No murmurs or gallops. Peripheral pulses 2+ and equal in all extremities. Brisk capillary refill in all extremities. 5.RESP: Unlabored respiratory effort. Clear to auscultation bilaterally. No wheezes rales or rhonchi 6.GI: Soft, Nontender/Nondistended, No hepatosplenomegaly. No guarding or rebound. 7.MSK: Normocephalic. No midline cervical thoracic or lumbar spine tenderness. Mild bruising over the left lower abdomen, no pain or tenderness whatsoever, in this area on palpation. No pain or tenderness on palpation or movement of the hips. Patient ambulates well. Symmetrically palpable radial and ulnar pulses. Right hand demonstrates capillary refill less than 2 seconds to all digits. Intact sensation to light touch of the radial, median and ulnar nerves demonstrated by testing in the dorsal web space of the thumb, the distal palmar aspect of the index finger, and the lateral surface of the fifth finger. 2 point discrimination intact to 5mm (up to 6mm can be normal in digits 3-5) of discrimination in the affected digit. 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 Intact recurrent median nerve as demonstrated by ability to move maya mb fully through opposition, abduction and flexion. No snuffbox tenderness. 8.Skin: Warm, Dry. Mild bruising over the adipose tissue on the left side of the abdomen and over the hip. Small chevron shaped superficial laceration over the palmar aspect of the thumb at the proximal phalanges. Notably superficial, no deep component. 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 Sensation grossly intact, no focal neurologic deficits. 10.Psych: (AAO) x3. Appropriate mood and affect Course Vital Signs Vital signs: Vital Signs Temperature 36.9 C 07/16/20 20:19 Pulse 79 07/16/20 20:19 Respiratory Rate 16 07/16/20 20:19 Blood Pressure 174/78 H 07/16/20 20:19 Pulse Oximetry 97 07/16/20 20:19 Temperature 36.9 C 07/16/20 20:19 Temperature Source Temporal Artery Scan 07/16/20 20:19 Pulse 79 07/16/20 20:19 Respiratory Rate 16 07/16/20 20:19 Respiratory Effort Non-Labored 07/16/20 20:24 Blood Pressure 174/78 H 07/16/20 20:19 Blood Pressure Position Sitting 07/16/20 20:19 Pulse Oximetry 97 07/16/20 20:19 Oxygen Delivery Method Room Air 07/16/20 20:19 Oxygen Flow Rate 0 07/16/20 20:19 Pain Level 0 07/16/20 20:26
[2020-07-16] MEDS: Cephalexin 500 MG CAP, 4 CAPS/BTL PO (20:38)
[2020-07-16 20:47] VITALS: BP 172/79; PULSE 82; RESP 16; O2SAT 97
--- NOTE | 2020-07-17 19:19 | W.ED.FU ---
Patient's called and noted that swelling of the hand was worse and she had questions about dressing change. I advised that at this point 24 hours after initiation of antibiotics I would expect that infection should be improving. I advised that she should come to the emergency department if she is concerned about worsening condition. Patient's verbalized understanding of my instructions.
== END 2020-07-16 21:10 | disposition home or self-care (01) ==
PROVIDERS: Emergency Provider Student in an Organized Health Care Education/Training Program; PCP Emergency Medicine
DX: S61.012A Laceration without foreign body of left thumb without damage to nail, initial encounter (principal); W26.8XXA Contact with other sharp object(s), not elsewhere classified, initial encounter; L53.9 Erythematous condition, unspecified; G31.83 Neurocognitive disorder with Lewy bodies; F02.80 Dementia in other diseases classified elsewhere, unspecified severity, without behavioral disturbance, psychotic disturbance, mood disturbance, and anxiety
CPT/HCPCS: 99283

== ENCOUNTER 2020-12-03 02:31 | Outpatient (CLI) | payer MEDICARE, OTHER, SELFPAY ==
[2020-12-04 17:08] LABS: COVID-19 RT-PCR UVMMC Result Negative (Negative)
== END 2020-12-03 02:32 | disposition home or self-care (01) ==
LOC: LBO 02:32
PROVIDERS: PCP Emergency Medicine; Visit Provider Family Medicine
DX: Z20.822 Contact with and (suspected) exposure to COVID-19 (principal)
CPT/HCPCS: U0003; U0005

== ENCOUNTER 2020-12-07 03:30 | Outpatient (CLI) | payer MEDICARE, OTHER, SELFPAY ==
--- NOTE | 2020-12-08 08:56 | W.PFT ---
Date of service: 12/07/20 Time of Service: 02:05 Pulmonary Function Test Result Interpretation Spirometry: Borderline Mild obstructive airways disease with no bronchodilator response. This may represent a normal variant in an elderly patient Impression Borderline Mild obstructive airways disease with no bronchodilator response. This may represent a normal variant in an elderly patient Clinical Correlation therefore is recommended.
== END 2020-12-07 03:31 | disposition home or self-care (01) ==
LOC: RT 03:30
PROVIDERS: PCP Emergency Medicine; Visit Provider Emergency Medicine
DX: R06.09 Other forms of dyspnea (principal); G20 Parkinson's disease
CPT/HCPCS: 94060

== ENCOUNTER 2020-12-21 01:40 | Outpatient (CLI) | payer MEDICARE, OTHER, SELFPAY ==
--- NOTE | 2020-12-21 07:45 | DI.RAD_ITS ---
EXAM: XR CHEST 2V PA LATERAL CLINICAL HISTORY: dyspnea on exertion,r06.00 TECHNIQUE: 2D digital imaging was performed. COMPARISON: CR XR CHEST 2V PA LATERAL from 05/09/2019 FINDINGS: The heart is not enlarged. The lungs are clear and well expanded. No pleural effusion seen. Mediastin al contours appear intact. IMPRESSION: Normal chest. RADIATION DOSE DELIVERED: Total DLP
--- NOTE | 2020-12-21 14:00 | DI.US_ITS ---
APPROVED REPORT EXAM: Comprehensive 2D, Doppler, and color-flow Echocardiogram Patient Location: Out-Patient Room Designer: [place] Harrison RDCS (AE) Indications: DE LEON Other Information Study Quality: Fair. Technically limited study due to body habitus. Conclusion This is a technically difficult study. Left Ventricle : The left ventricle is normal size. The left ventricular systolic function is normal. The left ventricular ejection fraction is within the normal range. There is normal left ventricular wall thickness. There is normal LV segmental wall motion. The left ventricular diastolic function is normal. LVEF is 58%. Right Ventricle : Right ventricle is not well visualized. Right ventricular systolic function could n ot be assessed. The RVSP is 26.4 mmHg. Atria : The left atrium size is normal. The right atrium size is normal. Mitral Valve : The mitral valve is normal in structure. Mild mitral regurgitation. No evidence of rah ral valve stenosis. Great Vessels : The aortic root is normal in size. The ascending aorta is normal in size. Aortic arch is normal in caliber. IVC is normal in size and collapses >50% with inspiration. Please see remainder of study for further details. Wall motion Left Ventricle The left ventricle is normal size. The left ventricular systolic function is normal. The left ventric ular ejection fraction is within the normal range. There is normal left ventricular wall thickness. T here is normal LV segmental wall motion. The left ventricular diastolic function is normal. There is no ventricular septal defect visualized. LVEF is 58%. Right Ventricle Right ventricle is not well visualized. Right ventricular systolic function could not be assessed. Th e RVSP is 26.4 mmHg. Atria The left atrium size is normal. The right atrium size is normal. The interatrial septum is intact wit h no evidence for an atrial septal defect. Aortic Valve The Aortic valve is sclerotic. Aortic valve is trileaflet. There is no aortic valvular stenosis. No a ortic regurgitation is present. Mitral Valve The mitral valve is normal in structure. No evidence of mitral valve stenosis. Mild mitral regurgitat ion. Tricuspid Valve The tricuspid valve is normal in structure. There is no tricuspid valve stenosis. Trace tricuspid reg urgitation. Pulmonic Valve The pulmonary valve is normal in structure. There is no pulmonic valvular stenosis. Mild pulmonic reg urgitation. Great Vessels The aortic root is normal in size. The ascending aorta is normal in size. Aortic arch is normal in ca liber. IVC is normal in size and collapses >50% with inspiration. Pericardium There is no pericardial effusion. 2D Dimensions IVSD d PLAX 0.91 cm M: 0.6-1.2 LV Vol A2C d MOD 91.6 mL LVPW d PLAX 0.92 cm M: 0.6 - 1.2 LV Vol A4C d MOD 137.5 mL LVID d PLAX 4.54 cm M: 4.2 - 5.8 LV EF A4C MOD 58.9 % LVDs 3.15 cm M: 2.5 - 4.0 LV EF A2C MOD 56.0 % Ao Root d 3.44 cm M: 3.1 - 3.7 LV EF Biplane MOD 57.6 % RA Area A4C 13.97 cm2 SV 65.01 mL RA Vol/ BSA A4C s A-L 16.2 mL/m2 SV Index 29.53 mL/m2 Ao Asc Diam d 3.36 cm M: 2.6 - 3.4 LV EF Teichholz 57.2 % LVEF (Jones's) 57.56 % M: 52 - 72 LV Volume 82.12 mL M: 62 - 150 LV Volume Index 37.32 mL/m2 M: 34 - 74 LV Vol Biplane MOD 112.9 mL FS 29.85 % M-Mode TAPSE 2.11 cm (M/F) >1.7 LV Diastology MV E' medial 0.097 (>0.07 m/s) E/A Ratio 0.6 LV E/e MED 5.30 (<14) MV E Vmax 0.52 (0.4-1.3 m/s) MV E' lateral 0.086 (>0.1 m/s) MV A Vmax 0.85 (0.4-1.3 m/s) LV E/e LAT 6.00 (<14) MV E/A Ratio 0.61 MV E/E' medial 5.35 MV E/E' lateral 6.03 Aortic Valve LVOT Area 3.64 cm2 AoV Area Vmax 2.35 cm2 LVOT Vmax 0.90 m/s AoV Area/ BSA (Vmax) 1.07 cm2/m2 LVOT Mean Jose C. 0.60 m/s MARYAM Mean Jose C. 2.34 cm2 LVOT Peak Grad 3.2 mmHg MARYAM Mean Jose C. Index 1.06 cm2/m2 LVOT Mean Grad 1.7 mmHg LVOT VTI 0.174 m LVOT Diam s 2.15 cm AoV Vmax 1.39 m/s Velocity Ratio 0.64 AoV Mean Jose C. 0.93 m/s AoV Peak Grad 7.7 mmHg LVOT SV 63.24 mL AoV Mean Grad 4.0 mmHg AoV VTI 0.255 m AoV Area VTI 2.48 cm2 AoV Area/ BSA (VTI) 1.13 cm/m2 Mitral Valve MV DT 443 (160-240 msec) MV PHT 129 msec MV Area PHT 1.71 cm2 MV VTI 0.284 m MV Area VTI 2.23 (4.0-6.0 cm2) Pulmonary Valve PV Vmax 1.02 (0.5-1.5 m/s) RVOT Peak Gr. 1.82 mmHg PV Peak Grad 4.1 mmHg RVOT Mean Gr. 0.80 mmHg PV Mean Grad 1.9 mmHg RVOT VTI 0.128 m PV VTI 0.150 m RVOT Vmax 0.68 m/s Tricuspid Valve TR Peak Grad 23.4 mmHg TR Vmax 2.42 m/s RA Pressure 3.00 mmHg RVSP (TR) 26.4 mmHg
== END 2020-12-21 02:00 ==
PROVIDERS: PCP Emergency Medicine; Visit Provider Emergency Medicine
DX: R06.00 Dyspnea, unspecified (principal); I34.0 Nonrheumatic mitral (valve) insufficiency
CPT/HCPCS: 93306; 71046

== ENCOUNTER 2020-12-23 04:04 | Outpatient (CLI) | payer MEDICARE, OTHER, SELFPAY ==
[2020-12-23 14:45] LABS: Abs Immature Grans 0.03 10^3/uL (0.0-0.06); Absolute Basophil Count 0.02 10^3/uL (0.0-0.2); Absolute Eosinophil Count 0.04 10^3/uL (0.0-0.7); Absolute Lymphocyte Count 2.09 10^3/uL (1.2-3.4); Absolute Monocyte Count 0.56 10^3/uL (0.1-0.8); Basophils % 0.2; Eosinophils % 0.5; HCT 39.8 % (40.0-50.0); HGB 13.1 g/dL (13.5-17.5); Immature Grans % 0.4; Lymphocytes % 24.5; MCH 31.3 pg (27.0-33.0); MCHC 32.9 % (32.0-36.0); MPV 9.9 fL (8.0-11.0); Monocytes % 6.6; Neutrophils % 67.8; Nucleated RBC 0 %; Platelet Count 182 10^3/uL (130-400); RBC 4.19 10^6/uL (4.36-5.78); RDW-SD 45.1 fL; WBC 8.54 10^3/uL (4.4-10.8)
[2020-12-23 15:18] LABS: ALT 12 U/L (16-63); AST 16 U/L (15-37); Albumin 3.9 g/dL (3.4-5.0); Alkaline Phosphatase 74 U/L (46-116); Anion Gap 7.1 mmol/L (3-11); BUN 19 mg/dL (7-18); Bilirubin, Total 0.8 mg/dL (0.2-1.0); CO2 29.9 mmol/L (21.0-32.0); CREATININE 0.9 mg/dL (0.70-1.30); Chloride 105 mmol/L (98-107); Glucose 81 mg/dL (74-106); NT-proBNP 95 pg/mL (<300); Potassium 4.4 mmol/L (3.5-5.1); Sodium 142 mmol/L (136-145); Total Protein 6.9 g/dL (6.4-8.2)
[2020-12-23 15:31] LABS: C-Reactive Protein < 0.05 mg/dL (0.0-0.3)
[2020-12-23 22:22] LABS: PSA, Diagnostic 10.1 ng/mL (0.0-6.5)
[2020-12-23 22:41] LABS: ESR 5 mm/hr (<or=20)
== END 2020-12-23 04:05 | disposition home or self-care (01) ==
LOC: LBO 04:04
PROVIDERS: PCP Emergency Medicine; Visit Provider Urology
DX: I10 Essential (primary) hypertension (principal); R06.09 Other forms of dyspnea; I50.9 Heart failure, unspecified; R97.20 Elevated prostate specific antigen [PSA]
CPT/HCPCS: 36415; 80053; 85652; 83880; 84153; 85025; 86140

== ENCOUNTER → 2021-01-04 09:55 | Outpatient (BNVA) | payer MEDICARE, OTHER, SELFPAY | PROVIDERS: PCP Emergency Medicine; Referring Provider Emergency Medicine; Visit Provider Nurse Practitioner Gerontology | DX: N40.0 Benign prostatic hyperplasia without lower urinary tract symptoms (principal); G20 Parkinson's disease | CPT/HCPCS: 99213 ==

== ENCOUNTER 2021-06-20 12:40 | Emergency (ER) | payer OTHER, SELFPAY ==
[2021-06-20] VITALS (21 sets, daily range): BP systolic 129–147; BP diastolic 56–68; PULSE 65–75; RESP 17–18; TEMP 36.2; O2SAT 96–99
--- NOTE | 2021-06-20 12:45 | DI.RAD_ITS ---
Exam(s) XR HIP LT COMPLETE AP PELVIS EXAM: XR HIP LT COMPLETE AP PELVIS CLINICAL HISTORY: fall left hip pain. TECHNIQUE: 2D digital imaging was performed. COMPARISON: CR Pelvis - 1 View from 06/28/2017 CR Pelvis - 1 View from 06/28/2017 FINDINGS: BONES: There is an oblique fracture of the proximal left femur. The fracture involves the proximal d iaphysis and extends superiorly to involve the lesser trochanter. No bony destructive lesion is seen . JOINTS: No dislocation present. The patient has a left total hip replacement. SOFT TISSUE: Normal. IMPRESSION: Acute fracture involving the proximal left femur from the proximal diaphysis laterally into the lesse r trochanter medially. DATA REPOSITORY: RADIATION DOSE DELIVERED:
--- NOTE | 2021-06-20 12:45 | DI.CT_ITS ---
Exam(s) CT HEAD CERVICAL SPINE WO EXAM: CT HEAD CERVICAL SPINE WO CLINICAL HISTORY: fall, [place]. TECHNIQUE: Imaging Protocol: Axial computed tomography images with coronal and sagittal reformatted images were created and reviewed COMPARISON: CT HEAD AND CSPINE W/O CONTRAST from 06/09/2018 FINDINGS: CT Head: Ventricles and Extra axial spaces: Normal in size and morphology for the patient's age. Hemorrhage: None. Cerebral parenchyma: No acute territorial infarct. There are areas of decreased attenuation in the w samuel matter most consistent with small vessel ischemic disease. There is again seen a radiopaque for eign body in the left periorbital soft tissues. Midline shift: None. Brainstem/Cerebellum: Normal. Calvarium: Normal. Visualized Paranasal sinuses/Mastoids: Clear. Soft Tissues: Unremarkable. CT Cervical Spine: Bones: No acute fracture or subluxation. There is an old C7 compression fracture deformity. Multilev el degenerative changes are seen throughout the cervical spine. Soft Tissues: Unremarkable. Lung Apices: Clear. Thyroid gland: Unremarkable. IMPRESSION: 1. No acute intracranial process. 2. No acute fracture or subluxation in the cervical spine. 3. Results of this exam have been verbally communicated with provider. RADIATION DOSE DELIVERED: 1,632.43mGy.cm Total DLP DATA REPOSITORY: All CT scans at this facility are submitted to the National Radiology Data Registry (NRDR) Dose Index Registry (DIR) with the [employer] ([employer]). RADIATION OPTIMIZATION: All CT scans at this facility use at least one of these dose optimization te chniques: automated exposure control; mA and/or kV adjustment per patient size (includes targeted exa ms where dose is matched to clinical indication); or iterative reconstruction.
--- NOTE | 2021-06-20 12:45 | DI.RAD_ITS ---
Exam(s) XR ELBOW LT COMPLETE EXAM: XR ELBOW LT COMPLETE CLINICAL HISTORY: fall. TECHNIQUE: 2D digital imaging was performed. COMPARISON: No exams were available for comparison FINDINGS: BONES: No acute fracture is present. No bony destructive lesion is seen. Calcific tendinitis is seen at the olecranon. JOINTS: The elbow is normally aligned. No joint effusion is seen. SOFT TISSUE: Normal. IMPRESSION: No acute fracture or dislocation. DATA REPOSITORY: RADIATION DOSE DELIVERED:
--- NOTE | 2021-06-20 12:56 | DI.RAD_ITS ---
Exam(s) XR CHEST 1V IN DI DEPT EXAM: XR CHEST 1V IN DI DEPT CLINICAL HISTORY: fall, hip injury TECHNIQUE: 2D digital imaging was performed. COMPARISON: No exams were available for comparison FINDINGS: MEDIASTINUM: Normal. HEART: Normal. PULMONARY VASCULATURE: Normal. LUNGS: Clear. PLEURAL SPACE: No pleural effusion or pneumothorax. BONE:Within normal limits for the patient's age. OTHER FINDINGS:Normal. IMPRESSION: No acute pulmonary findings. DATA REPOSITORY: RADIATION DOSE DELIVERED:
--- NOTE | 2021-06-20 13:06 | ED.GENADUL_ITS ---
Discharge Plan Disposition Patient Disposition: [facility] Condition: Stable Discharge Details Clinical Impression: Swapna-prosthetic fracture around prosthetic hip, Parkinsons disease Primary Care Provider: Aguila Thakur ED Provider: Dora Alfredo Home Meds and New Rx's Prescriptions: Continued tamsulosin 0.4 mg capsule 0.4 mg PO DAILY RF: 0 carboxymethylcellulose sodium 0.5 % drops 1 drp ophthalmic (eye) 4-6XD PRNRF: 0 dorzolamide-timolol 22.3-6.8 mg/mL drops 1 drp ophthalmic (eye) BID RF: 0 latanoprost 0.005 % drops 1 drp ophthalmic (eye) QPM RF: 0 glycopyrrolate 1 mg tablet 1 mg PO TID RF: 0 multivitamin [One Daily] 1 EACH tablet 1 tab PO DAILY RF: 0 amlodipine [Norvasc] 5 MG tablet 1 tab PO QAM Qty: 90 RF: 4 simvastatin 20 MG tablet 1 tab PO DAILY Qty: 90 RF: 4 spironolactone 25 MG tablet 25 mg PO DAILY Qty: 90 RF: 3 PreserVision AREDS 1 EACH capsule 2 ea PO DAILY RF: 0 carbidopa-levodopa 25-100 mg tablet See Rx Instructions PO DAILY RF: 0 polyethylene glycol 3350 [Miralax] 17 gram/dose powder 17 gm PO DAILY Qty: 510 RF: 8 losartan 50 mg tablet 50 mg PO DAILY Qty: 90 RF: 3 Medical Decision Making I spent an extended period of time managing his with this patient approximately 2 hours on the phone with [facility], the patient was finally accepted by Dr. Ferraro, orthopedic Patient has full CODE STATUS, he has been calm and cooperative throughout the evaluation He does have a slight leukocytosis but afebrile nontoxic COVID-19 negative He declined opiate analgesia but has been agreeable to accepting acetaminophen IV, he received 1 dose of 650 mg She has remained n.p.o. since [address] head and cervical spine per radiology rotation do not show acute abnormality, x-ray of left elbow does not show acute abnormality Mistry catheter was placed for comfort Patient will be transported to [facility] after 7 PM, in stable condition Medical Records Medical records reviewed: Yes I reviewed the patient's medical records. Lab Data Lab results reviewed: Yes I reviewed the patient's lab results. HPI General Mode of arrival: ambulatory . Date/Time Provider Initiated Documentation: 06/20/21 12:41 . Limitations to Documentation: no limitations . Information obtained by: patient . HPI Narrative: 76-year-old gentleman presents with report of left elbow pain, left hip pain, head injury status. 4. Patient reportedly fell from standing. He lost his balance going down Into the garage and fell onto concrete. There was no loss of consciousness. Patient denies any additional injuries. He was able to pull himself into and call family member who is inside. He is having difficulty ambulating secondary to pain his left hip which is why he called the ambulance. He has not reportedly anticoagulated. He denies any chest pain, shortness of breath, palpitations. He states the following mechanical in nature. He denies any additional complaints at this time. Describes the pain as sharp. He denies any additional complaints at this time. Has reportedly been at baseline for the past several hours R elated Data Home Medications Medication Instructions Recorded Confirmed amlodipine [Norvasc] 1 tab PO QAM #90 01/22/13 06/20/21 multivitamin [One Daily] 1 tab PO DAILY 01/22/13 06/20/21 simvastatin 1 tab PO DAILY #90 tab 01/22/13 06/20/21 spironolactone 25 mg PO DAILY #90 tab-cap 04/04/16 06/20/21 PreserVision AREDS 2 ea PO DAILY 10/26/17 06/20/21 tamsulosin 0.4 mg capsule 0.4 mg PO DAILY tab-cap 10/03/18 06/20/21 carbidopa 25 mg-levodopa 100 mg See Rx Instructions PO DAILY tab 11/29/18 06/20/21 tablet polyethylene glycol 3350 17 17 gm PO DAILY #510 gm 06/23/20 06/20/21 gram/dose oral powder losartan 50 mg tablet 50 mg PO DAILY #90 tab 12/02/20 06/20/21 carboxymethylcellulose sodium 0.5 1 drp OPHTHALMIC (EYE) 4-6XD PRN 03/29/21 06/20/21 % eye drops dorzolamide 22.3 mg-timolol 6.8 1 drp OPHTHALMIC (EYE) BID 03/29/21 06/20/21 mg/mL eye drops glycopyrrolate 1 mg tablet 1 mg PO TID 03/29/21 06/20/21 latanoprost 0.005 % eye drops 1 drp OPHTHALMIC (EYE) QPM 03/29/21 06/20/21 Previous Rx's Medication Instructions Recorded polyethylene glycol 3350 17 17 gm PO DAILY #510 gm 06/23/20 gram/dose oral powder losartan 50 mg tablet 50 mg PO DAILY #90 tab 12/02/20 Allergies Allergy/AdvReac Type Severity Reaction Status Date / Time No Known Allergies Allergy Verified 03/29/21 14:28 General Stated Complaint: Trauma MAY: 3 Review of Systems All systems reviewed & are unremarkable except as noted in HPI and below PFSH Medical History (Updated 06/20/21 @ 18:32 by YOVANA Linn) DE LEON (dyspnea on exertion) Foot pain Surgical History Colonoscopy - MAC (~2010) 2000; NEG 2010; 2 POLYPS Family History Mother Diabetes Personal history of malignant neoplasm breast Father Heart disease Sister No problems noted. Brother No problems noted. Brother No problems noted. Social History (Updated 03/30/21 @ 14:38 by Steff Madden) Smoking/Tobacco Use Status: Never Second Hand Exposure: No Smoking risk assessment performed?: Yes Alcohol Intake: former Drug use: Never Household members: spouse and children Housing: house Communication Needs: Hard of Hearing and Corrective Lenses Do you need help understanding health information?: Often Pets and animals: Yes Pets and animals: dog(s) Sexually active: No Do you think of yourself as: straight/heterosexual Current gender identity: male What is your relationship status?: How often do you talk on the phone with friends or family?: once per week How often do you attend orthodoxy or mosque services?: 1-3 times per year Do you belong to any clubs or organized social groups?: no Panel score (0-1 are the most socially isolated patients): 1 What type of physical activity do you participate in: other Details: boxing Frequency: 1-2 times per week Kenna/Zoroastrian: Congregational Seatbelt use: always Helmet use: No Drive intox or ride w/intox stage driver: No Do you feel safe at home: Yes Do you feel safe in your relationship?: Yes Exam Const General: cooperative [facility] Head images: 1. Abrasion, no hemotympanum Other: Uvula midline Eyes Pupils: PERRL Neck Other: No visible sign of trauma, paraspinal tenderness Chest Chest: normal inspection of the chest Other: No crepitus Resp Effort & Inspection: normal respiratory effort Auscultation: clear to auscultation bilaterally Cardio Rate: regular rate Rhythm: regular rhythm Other: Development intact GI Other: No CVA tenderness, no abdominal tenderness, no bruising, Skin General skin exam: no rashes or lesions noted Neuro General: patient alert and patient oriented x3 Cranial Nerves: CN's II-XI intact bilaterally and tongue midline Speech: speech normal Extrem Other: Tenderness, no tenderness to the left hip abrasion noted Large hematoma no tenderness to left elbow, left shoulder Course Vital Signs Vital signs: Vital Signs Temperature 36.2 C L 06/20/21 12:41 Pulse 70 06/20/21 12:41 Respiratory Rate 17 06/20/21 12:41 Blood Pressure 138/68 06/20/21 12:41 Pulse Oximetry 96 06/20/21 12:41 Temperature 36.2 C L 06/20/21 12:41 Temperature Source Skin 06/20/21 12:41 Pulse 70 06/20/21 12:41 Respiratory Rate 17 06/20/21 12:41 Respiratory Effort 06/20/21 12:56 Blood Pressure 138/68 06/20/21 12:41 Blood Pressure Position Supine 06/20/21 12:41 Pulse Oximetry 96 06/20/21 12:41 Oxygen Delivery Method Room Air 06/20/21 12:41 Oxygen Flow Rate 0 06/20/21 12:41 Pain Level 2 06/20/21 12:41
[2021-06-20 14:59] LABS: Source Nasal/Nares
[2021-06-20 16:04] LABS: Abs Immature Grans 0.06 10^3/uL (0.0-0.06); Absolute Lymphocyte Count 1.63 10^3/uL (1.2-3.4); Absolute Monocyte Count 0.71 10^3/uL (0.1-0.8); Basophils % 0.1; Eosinophils % 0.1; HCT 37.9 % (40.0-50.0); HGB 12.7 g/dL (13.5-17.5); Immature Grans % 0.4; MCH 31.5 pg (27.0-33.0); MCHC 33.5 % (32.0-36.0); MPV 9.1 fL (8.0-11.0); Monocytes % 5.2; Neutrophils % 82.2; Nucleated RBC 0 %; Platelet Count 173 10^3/uL (130-400); RBC 4.03 10^6/uL (4.36-5.78); RDW 11.9 % (11.8-14.1); RDW-SD 41.3 fL; WBC 13.56 10^3/uL (4.4-10.8)
[2021-06-20 16:05] LABS: Absolute Basophil Count 0.01 10^3/uL (0.0-0.2); Absolute Eosinophil Count 0.01 10^3/uL (0.0-0.7); Absolute Neutrophil Count 11.15 10^3/uL (1.2-6.7)
--- NOTE | 2021-06-20 16:06 | NUR.NOTE ---
pt took his own parkinson med , provider is aware Nursing Note:
[2021-06-20 16:11] LABS: COVID-19 PCR Negative (Negative)
[2021-06-20 16:16] LABS: Anion Gap 9.4 mmol/L (3-11); BUN 15 mg/dL (7-18); CO2 26.6 mmol/L (21.0-32.0); CREATININE 0.7 mg/dL (0.70-1.30); Chloride 104 mmol/L (98-107); Glucose 120 mg/dL (74-106); Potassium 4.2 mmol/L (3.5-5.1); Sodium 140 mmol/L (136-145)
[2021-06-20] MEDS: Lidocaine 2% Jelly 11 ML SYR UR (18:09)
== END 2021-06-20 20:25 | disposition short-term general hospital (02) ==
PROVIDERS: Emergency Provider Physician Assistant; PCP Emergency Medicine
DX: S72.092A Other fracture of head and neck of left femur, initial encounter for closed fracture (principal); M97.02XA Periprosthetic fracture around internal prosthetic left hip joint, initial encounter; G20 Parkinson's disease; D72.829 Elevated white blood cell count, unspecified; S00.81XA Abrasion of other part of head, initial encounter; W10.8XXA Fall (on) (from) other stairs and steps, initial encounter
CPT/HCPCS: 51702; 80048; 87635; 96365; 99285; 70450; 71045; 72125; 73080; 73502; 85025; 99284; J0131

== ENCOUNTER 2021-06-24 18:06 | Emergency (ER) | payer OTHER, SELFPAY ==
[2021-06-24] VITALS (59 sets, daily range): BP systolic 107–144; BP diastolic 42–52; PULSE 70–84; RESP 13–39; TEMP 36.7–37; O2SAT 94–98
--- NOTE | 2021-06-24 18:15 | RT.EKG_ITS ---
APPROVED REPORT Exam: Resting ECG Reason for Exam: altered mentation Patient Location: E HR:74 bpm ECG Measurements Heart Rate 74 AXIS IL 166 P 42 QRSd 88 QRS -17 QT 403 T 38 QTc 446 Conclusion Sinus rhythm...normal P axis, V-rate 60- 99 Ventricular premature complex...V complex w/ short R-R interval
--- NOTE | 2021-06-24 18:15 | DI.CT_ITS ---
Exam(s) CT HEAD WO EXAM: CT HEAD WO CLINICAL HISTORY: altered mentation. TECHNIQUE: Imaging Protocol: Axial computed tomography images with coronal and sagittal reformatted images were created and reviewed COMPARISON: CT CT HEAD CERVICAL SPINE WO from 06/20/[address] HEAD CERVICAL SPINE WO from 06/20/2021 FINDINGS: Ventricles and Extra axial spaces: Normal in size and morphology for the patient's age. Hemorrhage: None. Cerebral parenchyma: Minimal white matter changes of microvascular disease. Midline shift: None. Brainstem/Cerebellum: Normal. Calvarium: Normal. Visualized Paranasal sinuses/Mastoids: Clear. Soft Tissues: Metallic foreign body left infraorbital fat, otherwiseunremarkable. IMPRESSION: No acute intracranial process. RADIATION DOSE DELIVERED: 788.27mGy.cm Total DLP DATA REPOSITORY: All CT scans at this facility are submitted to the National Radiology Data Registry (NRDR) Dose Index Registry (DIR) with the [employer] ([employer]). RADIATION OPTIMIZATION: All CT scans at this facility use at least one of these dose optimization te chniques: automated exposure control; mA and/or kV adjustment per patient size (includes targeted exa ms where dose is matched to clinical indication); or iterative reconstruction.
[2021-06-24 18:45] LABS: Abs Immature Grans 0.05 10^3/uL (0.0-0.06); Absolute Basophil Count 0.02 10^3/uL (0.0-0.2); Absolute Eosinophil Count 0.02 10^3/uL (0.0-0.7); Absolute Monocyte Count 0.93 10^3/uL (0.1-0.8); Absolute Neutrophil Count 9.15 10^3/uL (1.2-6.7); Basophils % 0.2; Eosinophils % 0.2; HCT 23.3 % (40.0-50.0); HGB 7.7 g/dL (13.5-17.5); Immature Grans % 0.4; Lymphocytes % 12.1; MCH 30.7 pg (27.0-33.0); MCV 92.8 fL (80-95); MPV 10.1 fL (8.0-11.0); Neutrophils % 79.1; Nucleated RBC 0 %; Platelet Count 162 10^3/uL (130-400); RBC 2.51 10^6/uL (4.36-5.78); RDW 13.3 % (11.8-14.1); RDW-SD 44.5 fL; WBC 11.57 10^3/uL (4.4-10.8)
--- NOTE | 2021-06-24 19:07 | W.ED.GENAD ---
Discharge Plan Disposition Patient Disposition: HOME Condition: Improving Discharge Details Clinical Impression: Altered mental status, Postoperative anemia Primary Care Provider: Aguila Thakur ED Provider: Elizabeth Go Home Meds and New Rx's Prescriptions: Continued tamsulosin 0.4 mg capsule 0.4 mg PO DAILY RF: 0 carboxymethylcellulose sodium 0.5 % drops 1 drp ophthalmic (eye) 4-6XD PRNRF: 0 dorzolamide-timolol 22.3-6.8 mg/mL drops 1 drp ophthalmic (eye) BID RF: 0 latanoprost 0.005 % drops 1 drp ophthalmic (eye) QPM RF: 0 glycopyrrolate 1 mg tablet 1 mg PO TID RF: 0 multivitamin [One Daily] 1 EACH tablet 1 tab PO DAILY RF: 0 amlodipine [Norvasc] 5 MG tablet 1 tab PO QAM Qty: 90 RF: 4 simvastatin 20 MG tablet 1 tab PO DAILY Qty: 90 RF: 4 spironolactone 25 MG tablet 25 mg PO DAILY Qty: 90 RF: 3 PreserVision AREDS 1 EACH capsule 2 ea PO DAILY RF: 0 carbidopa-levodopa 25-100 mg tablet See Rx Instructions PO DAILY RF: 0 polyethylene glycol 3350 [Miralax] 17 gram/dose powder 17 gm PO DAILY Qty: 510 RF: 8 losartan 50 mg tablet 50 mg PO DAILY Qty: 90 RF: 3 aspirin 325 mg Tablet 325 mg PO DAILY RF: 0 oxycodone 5 mg Tablet 5 mg PO .Q4 HOURS RF: 0 enoxaparin 40 mg/0.4 mL Syringe 40 mg subcut DAILY RF: 0 Discharge Instructions Instructions: Anemia (ED) Additional Instructions: Your blood counts revealed that you are anemic with a hemoglobin of 7.7. You were given 1 unit of packed red blood cells. Your hemoglobin level should be rechecked in 1 to 2 days to ensure improvement. Please contact your primary care physician to arrange follow-up. Please follow-up with your orthopedic surgeon. Return to the ER for any worsening or concerning symptoms including persistently elevated fever, further alteration of mental status, or any other concerning symptom. Referrals: Aguila Thakur DO [Primary Care Provider] - Discharge Data Discharge Date/Time-TO BE ENTERED AT DEPARTURE: 06/25/21 00:55 Medical Decision Making <Dinesh Poe MD - Last Filed: 07/07/21 20:50> 1900 --76-year-old male with history of Parkinson's disease, here with 3 days status post ORIF left hip periprosthetic fracture, concern from nursing staff home who just excepted the patient today in transfer from [facility] that he seemed lethargic. Patient's is with him and notes that he was fatigued today and seem more tired than usual. She notes that now he seems more alert and close to baseline. She is concerned that fatigue is likely related to stress of surgery, frequent nighttime assessments with poor sleep, and medications related to surgery. I agree with this concern but will rule out other causes including urinary tract infection. Patient did hit his head with his initial trauma and had negative CT head here on Sunday, I will repeat CT today to assess for subsequent bleeding. Does have patient does have baseline difficulty handling secretions with his Parkinson's disease. Consider aspiration. Will obtain chest x-ray. Screening labs were reviewed, mild leukocytosis noted likely reactive secondary to surgery. Patient is anemic with hemoglobin of 7.7. He did have significant blood loss during surgery. There is no ongoing active bleeding. 2100 --labs reviewed and nondiagnostic. Hematuria secondary to catheterization while hospitalized, no indication of urinary tract infection. CT of the head was interpreted by radiology: No acute intracranial abnormality. Chest x-ray was reviewed and interpreted by radiology: No acute cardiopulmonary abnormality. --I reviewed outside hospital records discharge summary from 06/20/2021 [facility] that notes patient had a hemoglobin of 7.4 and received 2 units of PRBCs, hemoglobin did improve to 8.0 noted on labs on 06/20/2021. Patient was reassessed and has remained stable. notes that mentation improved. Results results were reviewed with patient's . Plan to give 1 unit PRBC as I think he would benefit from this. <Elizabeth Go DO - Last Filed: 06/26/21 15:00> 2300 --please see Dr. Poe's note for initial presentation, exam and plan. Plan is for patient to be discharged after finishing his 1 unit of blood if he remains in no acute distress and hemodynamically stable. 0040 --patient received 1 unit of blood. A repeat hemoglobin was obtained. He remains hemodynamically stable. We will discharge back to the [facility] with plan for recheck of his hemoglobin in the next few days. His repeat hemoglobin after 1 unit of prbc resulted after discharge and it increased minimally from 7.7 to 7.8. Medical Records Medical records reviewed: Yes I reviewed the patient's medical records. HPI <Dinesh Poe MD - Last Filed: 07/07/21 20:50> General Mode of arrival: EMS. Date/Time Provider Initiated Documentation: 06/24/21 18:15. Limitations to Documentation: altered mental status. Information obtained by: family and EMS. HPI Narrative: 76-year-old male with history of Parkinson's presents 3 days status post left hip ORIF, sent from [facility] with concern for lethargy. [facility] concerned that he seems to fatigue and having trouble with secretions. History limited secondary to altered mental status. Patient's is here with him who notes she was with him at the sn[facility] and states that he did seem somewhat fatigued today and difficult to arouse but that he now status normal and appropriate. She wonders if the medications with surgery and postoperative pain management in combination with the stress of the surgery itself resulting in increase fatigue. Patient denies complaints. Related Data Home Medications Medication Instructions Recorded Confirmed amlodipine [Norvasc] 1 tab PO QAM #90 01/22/13 06/24/21 multivitamin [One Daily] 1 tab PO DAILY 01/22/13 06/24/21 simvastatin 1 tab PO DAILY #90 tab 01/22/13 06/24/21 spironolactone 25 mg PO DAILY #90 tab-cap 04/04/16 06/24/21 PreserVision AREDS 2 ea PO DAILY 10/26/17 06/24/21 tamsulosin 0.4 mg capsule 0.4 mg PO DAILY tab-cap 10/03/18 06/24/21 carbidopa 25 mg-levodopa 100 mg See Rx Instructions PO DAILY tab 11/29/18 06/24/21 tablet polyethylene glycol 3350 17 17 gm PO DAILY #510 gm 06/23/20 06/24/21 gram/dose oral powder losartan 50 mg tablet 50 mg PO DAILY #90 tab 12/02/20 06/24/21 carboxymethylcellulose sodium 0.5 1 drp OPHTHALMIC (EYE) 4-6XD PRN 03/29/21 06/24/21 % eye drops dorzolamide 22.3 mg-timolol 6.8 1 drp OPHTHALMIC (EYE) BID 03/29/21 06/24/21 mg/mL eye drops glycopyrrolate 1 mg tablet 1 mg PO TID 03/29/21 06/24/21 latanoprost 0.005 % eye drops 1 drp OPHTHALMIC (EYE) QPM 03/29/21 06/24/21 aspirin 325 mg PO DAILY 06/24/21 06/24/21 enoxaparin 40 mg SUBCUT DAILY 06/24/21 06/24/21 oxycodone 5 mg PO .Q4 HOURS 06/24/21 06/24/21 Previous Rx's Medication Instructions Recorded polyethylene glycol 3350 17 17 gm PO DAILY #510 gm 06/23/20 gram/dose oral powder losartan 50 mg tablet 50 mg PO DAILY #90 tab 12/02/20 Allergies Allergy/AdvReac Type Severity Reaction Status Date / Time No Known Allergies Allergy Verified 06/24/21 18:19 General Stated Complaint: GenMedical MAY: 3 Review of Systems <Dinesh Poe MD - Last Filed: 07/07/21 20:50> Narrative: Review of systems limited secondary to altered mentation, patient denies pain Constitutional Constitutional: Denies fever(s) Gastrointestinal Gastrointestinal: Denies abdominal pain PFSH <Dinesh Poe MD - Last Filed: 07/07/21 20:50> Medical History (Updated 06/24/21 @ 21:14 by Dinesh Poe MD) DE LEON (dyspnea on exertion) Foot pain Parkinsons disease Surgical History Colonoscopy - MAC (~2010) 2000; NEG 2010; 2 POLYPS Family History Mother Diabetes Personal history of malignant neoplasm breast Father Heart disease Sister No problems noted. Brother No problems noted. Brother No problems noted. Social History Smoking/Tobacco Use Status: Never Second Hand Exposure: No Smoking risk assessment performed?: Yes Alcohol Intake: former Drug use: Never Household members: spouse and children Housing: house Communication Needs: Hard of Hearing and Corrective Lenses Do you need help understanding health information?: Often Pets and animals: Yes Pets and animals: dog(s) Sexually active: No Do you think of yourself as: straight/heterosexual Current gender identity: male What is your relationship status?: How often do you talk on the phone with friends or family?: once per week How often do you attend lutheran or adventism services?: 1-3 times per year Do you belong to any clubs or organized social groups?: no Panel score (0-1 are the most socially isolated patients): 1 What type of physical activity do you participate in: other Details: boxing Frequency: 1-2 times per week Kenna/Judaism: Latter-Day Seatbelt use: always Helmet use: No Drive intox or ride w/intox regional refrigerated cdl truck driver: No Do you feel safe at home: Yes Do you feel safe in your relationship?: Yes Exam <Dinesh Poe MD - Last Filed: 07/07/21 20:50> Const General: cooperative and no acute distress HENMT Head: normocephalic and atraumatic Mouth: moist mucous membranes Eyes Conjunctivae: normal conjunctivae Sclera: normal sclerae Neck Neck: trachea midline and supple Resp Auscultation: clear to auscultation bilaterally, no rales, no rhonchi and no wheezes Cardio Rate: regular rate and not tachycardic Rhythm: regular rhythm GI Palpation: soft, not firm, no guarding, no masses, not rigid and nontender Skin General skin exam: no rashes or lesions noted Neuro General: oriented Patient Orientation: Person and Confused and tone normal Cognition: abnormal cognition Speech: speech normal Motor: other (Rebecca) Sensory Exam: no sensory deficits noted Extrem General: edema Laterality: left Left lower extremity: hip/thigh (No erythema surrounding surgical wound) Psych Appearance: grossly normal Course <Dinesh Poe MD - Last Filed: 07/07/21 20:50> Vital Signs Vital signs: Vital Signs Temperature 37.0 C 06/24/21 18:09 Pulse 84 06/24/21 18:09 Respiratory Rate 06/24/21 18:09 Blood Pressure 116/50 L 06/24/21 18:09 Pulse Oximetry 94 06/24/21 18:09 Temperature 37.0 C 06/24/21 18:09 Temperature Source Oral 06/24/21 18:09 Pulse 84 06/24/21 18:09 Respiratory Rate 06/24/21 18:09 Respiratory Effort Non-Labored 06/24/21 18:09 Blood Pressure 116/50 L 06/24/21 18:09 Blood Pressure Position Supine 06/24/21 18:09 Pulse Oximetry 94 06/24/21 18:09 Oxygen Delivery Method Room Air 06/24/21 18:09 Oxygen Flow Rate 0 06/24/21 18:09 Pain Level 0 06/24/21 18:09 Lab/Test Results Lab/Test Results: Laboratory Tests Range/Units 06/24/21 17:47 WBC (4.4-10.8) 10^3/uL 11.57 H RBC (4.36-5.78) 10^6/uL 2.51 L Hgb (13.5-17.5) g/dL 7.7 L Hct (40.0-50.0) % 23.3 L MCV (80-95) fL 92.8 MCH (27.0-33.0) pg 30.7 MCHC (32.0-36.0) % 33.0 RDW (11.8-14.1) % 13.3 Plt Count (130-400) 10^3/uL 162 MPV (8.0-11.0) fL 10.1 Immature Gran % 0.4 Neutrophils % 79.1 Lymphocytes % 12.1 Monocytes % 8.0 Eosinophils % 0.2 Basophils % 0.2 Nucleated RBC % % 0 Absolute Neutrophils (1.2-6.7) 10^3/uL 9.15 H Absolute Lymphocytes (1.2-3.4) 10^3/uL 1.40 Absolute Monocytes (0.1-0.8) 10^3/uL 0.93 H Absolute Eosinophils (0.0-0.7) 10^3/uL 0.02 Absolute Basophils (0.0-0.2) 10^3/uL 0.02 Sign Out <Dinesh Poe MD - Last Filed: 07/07/21 20:50> Sign Out Data: Sign Out Comment: Reassess patient post transfusion, plan will be for likely discharge back to [facility] after blood transfusion Last updated by Dinesh Poe MD at 06/24/21 23:37
[2021-06-24 19:15] LABS: ALT 10 U/L (16-63); AST 30 U/L (15-37); Albumin 2.4 g/dL (3.4-5.0); Alkaline Phosphatase 48 U/L (46-116); Anion Gap 6.5 mmol/L (3-11); BUN 14 mg/dL (7-18); Bilirubin, Total 0.8 mg/dL (0.2-1.0); CO2 28.5 mmol/L (21.0-32.0); CREATININE 0.7 mg/dL (0.70-1.30); Chloride 103 mmol/L (98-107); Glucose 126 mg/dL (74-106); Potassium 3.9 mmol/L (3.5-5.1); Sodium 138 mmol/L (136-145); Total Protein 5.5 g/dL (6.4-8.2)
--- NOTE | 2021-06-24 19:15 | DI.RAD_ITS ---
Exam(s) XR CHEST 2V PA LATERAL EXAM: XR CHEST 2V PA LATERAL CLINICAL HISTORY: altered from baseline TECHNIQUE: 2D digital imaging was performed. COMPARISON: CR XR ELBOW LT COMPLETE from 06/20/2021 FINDINGS: Limited exam due to patient immobility and AMS. MEDIASTINUM: Normal. HEART: Normal. Aortic calcification. PULMONARY VASCULATURE: Normal. LUNGS: Expiratory. Clear. PLEURAL SPACE: No pleural effusion or pneumothorax. BONE:Unremarkable for age. IMPRESSION: No acute abnormality. DATA REPOSITORY: RADIATION DOSE DELIVERED:
[2021-06-24 19:16] LABS: Troponin I < 0.05 ng/mL (<0.06)
--- NOTE | 2021-06-24 19:23 | DI.VRAD_ITS ---
PROCEDURE INFORMATION: Exam: CT Head Without Contrast Exam date and time: 06/24/2021 6:20 PM Age: 76 years old Clinical indication: Other: Altered mentation TECHNIQUE: Imaging protocol: Computed tomography of the head without contrast. Radiation optimization: All CT scans at this facility use at least one of these dose optimization techniques: automated exposure control; mA and/or kV adjustment per patient size (includes targeted exams where dose is matched to clinical indication); or iterative reconstruction. COMPARISON: CT HEAD CERVICAL SPINE WO 06/20/2021 1:47 PM FINDINGS: Brain: No acute large territorial infarction or intracranial hemorrhage. Mild parenchymal volume loss and nonspecific white matter hypodensity, likely chronic microangiopathy. No mass effect or midline shift. Cerebral ventricles: No hydrocephalus. Paranasal sinuses: Visualized sinuses are unremarkable. No fluid levels. Mastoid air cells: Visualized mastoid air cells are well aerated. Vasculature: Intracranial atherosclerosis. Bones/joints: No displaced calvarial fracture. Soft tissues: Unremarkable. IMPRESSION: No acute intracranial abnormality. Dictated and Authenticated by: Sandee Vela MD. Ordering:EULALIA Montiel MD
--- NOTE | 2021-06-24 20:04 | DI.VRAD_ITS ---
PROCEDURE INFORMATION: Exam: XR Chest Exam date and time: 06/24/2021 7:28 PM Age: 76 years old Clinical indication: Other: Altered mental status TECHNIQUE: Imaging protocol: XR of the chest. Views: 2 views. COMPARISON: CR XR CHEST 1V IN DI DEPT 06/20/2021 2:04 PM FINDINGS: Lungs: Lung volumes are low. Lungs are clear without consolidation. Pulmonary vessels are not congested. Pleural spaces: Unremarkable. No pleural effusion. No pneumothorax. Heart/Mediastinum: Unremarkable. No cardiomegaly. Bones/joints: Moderate degenerative changes are noted in the thoracic spine. IMPRESSION: No acute cardiopulmonary abnormality. Dictated and Authenticated by: Clem Ferrell MD. Ordering:EULALIA Montiel MD
[2021-06-24 20:30] LABS: Bilirubin Negative (Negative); Blood Large (Negative); Clarity Sl Cloudy (Clear); Glucose Negative (Negative); Ketones 40 mg/dL (Negative); Leukocyte Esterase Negative (Negative); Nitrite Negative (Negative); Specific Gravity >= 1.030 (1.005-1.025); Urobilinogen 0.2 EU/dL (Up TO 0.2); pH 5.5 (5-8)
[2021-06-24 20:39] LABS: Bacteria Negative HPF (Negative); Epithelial Cells Negative HPF (Negative); RBC >50 HPF (0-2)
[2021-06-24 20:40] LABS: C & S Indicated? No; Crystals Negative HPF (Negative); Mucus Heavy (Negative)
--- NOTE | 2021-06-24 22:46 | NUR.NOTE ---
Nursing Note: changed pt sheets, cleaned pt after bowel movement. Repositioned pt.
[2021-06-25] VITALS (8 sets, daily range): BP systolic 111–131; BP diastolic 46–54; PULSE 70–99; RESP 14–24; TEMP 36.7–36.8; O2SAT 96–97
[2021-06-25 01:00] LABS: HCT 23.5 % (40.0-50.0); HGB 7.8 g/dL (13.5-17.5); MCHC 33.2 % (32.0-36.0); MCV 93.3 fL (80-95); Platelet Count 153 10^3/uL (130-400); RBC 2.52 10^6/uL (4.36-5.78); RDW 13.6 % (11.8-14.1); RDW-SD 46.7 fL; WBC 11.87 10^3/uL (4.4-10.8)
== END 2021-06-25 00:55 | disposition home or self-care (01) ==
PROVIDERS: Student in an Organized Health Care Education/Training Program; Emergency Provider Physician Assistant; PCP Emergency Medicine
DX: R41.82 Altered mental status, unspecified (principal); D62 Acute posthemorrhagic anemia
CPT/HCPCS: 36430; 80053; 85027; 86850; 86900; 86901; 86920; 93005; 99285; 70450; 71046; 81003; 81015; 83735; 84484; 85025; 93010; 99284; P9016

== ENCOUNTER 2021-06-28 16:32 | Outpatient (REF) | payer SELFPAY ==
[2021-06-28 18:58] LABS: Abs Immature Grans 0.07 10^3/uL (0.0-0.06); Absolute Basophil Count 0.03 10^3/uL (0.0-0.2); Absolute Eosinophil Count 0.16 10^3/uL (0.0-0.7); Absolute Lymphocyte Count 1.32 10^3/uL (1.2-3.4); Absolute Monocyte Count 0.65 10^3/uL (0.1-0.8); Absolute Neutrophil Count 7.59 10^3/uL (1.2-6.7); Basophils % 0.3; Eosinophils % 1.6; HCT 25.5 % (40.0-50.0); HGB 8.2 g/dL (13.5-17.5); Immature Grans % 0.7; Lymphocytes % 13.4; MCH 30.9 pg (27.0-33.0); MCHC 32.2 % (32.0-36.0); MCV 96.2 fL (80-95); Monocytes % 6.6; Neutrophils % 77.4; Nucleated RBC 0 %; RBC 2.65 10^6/uL (4.36-5.78); RDW 13.9 % (11.8-14.1); RDW-SD 48.3 fL; WBC 9.82 10^3/uL (4.4-10.8)
[2021-06-28 19:00] LABS: Platelet Count 341 10^3/uL (130-400)
[2021-06-28 19:04] LABS: Magnesium 2.2 mg/dL (1.8-2.4)
[2021-06-28 19:38] LABS: ALT 44 U/L (16-63); AST 46 U/L (15-37); Albumin 2.7 g/dL (3.4-5.0); Alkaline Phosphatase 59 U/L (46-116); Anion Gap 9.6 mmol/L (3-11); BUN 16 mg/dL (7-18); Bilirubin, Total 1.5 mg/dL (0.2-1.0); CO2 27.4 mmol/L (21.0-32.0); CREATININE 0.8 mg/dL (0.70-1.30); Calcium 8.4 mg/dL (8.5-10.1); Chloride 102 mmol/L (98-107); Glucose 116 mg/dL (74-106); Potassium 4.2 mmol/L (3.5-5.1); Sodium 139 mmol/L (136-145); TSH (W/Ref FT4) 0.76 uIU/mL (0.36-3.74); Total Protein 5.7 g/dL (6.4-8.2); Vitamin B12 558 pg/mL (193-986)
[2021-06-28 19:42] LABS: Iron 35 ug/dL (65-175); Total Iron Binding Capacity 189 ug/dL (250-450); Transferrin Sat 19 % (20-55)
[2021-06-28 19:49] LABS: Folate > 20.0 ng/mL (8.6-20.0)
== END 2021-06-28 16:33 | disposition home or self-care (01) ==
LOC: LBN 16:32
PROVIDERS: PCP Emergency Medicine; Visit Provider Nurse Practitioner Gerontology
DX: M62.81 Muscle weakness (generalized) (principal); R53.1 Weakness; I10 Essential (primary) hypertension; E11.9 Type 2 diabetes mellitus without complications; R26.89 Other abnormalities of gait and mobility
CPT/HCPCS: 80053; 82607; 82746; 83540; 83550; 83735; 84443; 85025

== ENCOUNTER 2021-07-05 21:36 | Outpatient (REF) | payer MEDICARE, OTHER, SELFPAY ==
[2021-07-05 22:07] LABS: Abs Immature Grans 0.05 10^3/uL (0.0-0.06); Absolute Basophil Count 0.07 10^3/uL (0.0-0.2); Absolute Eosinophil Count 0.15 10^3/uL (0.0-0.7); Absolute Lymphocyte Count 1.13 10^3/uL (1.2-3.4); Absolute Monocyte Count 0.51 10^3/uL (0.1-0.8); Absolute Neutrophil Count 8.17 10^3/uL (1.2-6.7); Basophils % 0.7; Eosinophils % 1.5; HCT 30.7 % (40.0-50.0); HGB 9.4 g/dL (13.5-17.5); Immature Grans % 0.5; Lymphocytes % 11.2; MCH 31.3 pg (27.0-33.0); MCHC 30.6 % (32.0-36.0); MCV 102.3 fL (80-95); MPV 9.4 fL (8.0-11.0); Monocytes % 5.1; Nucleated RBC 0 %; Platelet Count 434 10^3/uL (130-400); RDW 15.6 % (11.8-14.1); RDW-SD 55.8 fL; WBC 10.08 10^3/uL (4.4-10.8)
== END 2021-07-05 21:37 | disposition home or self-care (01) ==
LOC: LBN 21:36
PROVIDERS: Visit Provider Internal Medicine
DX: R53.1 Weakness (principal)
CPT/HCPCS: 85025

== ENCOUNTER 2021-07-26 23:23 | Outpatient (REF) | payer MEDICARE, OTHER, SELFPAY ==
[2021-07-26 23:44] LABS: Abs Immature Grans 0.01 10^3/uL (0.0-0.06); Absolute Basophil Count 0.03 10^3/uL (0.0-0.2); Absolute Lymphocyte Count 1.67 10^3/uL (1.2-3.4); Absolute Monocyte Count 0.47 10^3/uL (0.1-0.8); Absolute Neutrophil Count 4.66 10^3/uL (1.2-6.7); Basophils % 0.4; Eosinophils % 1.4; HCT 33.6 % (40.0-50.0); HGB 10.3 g/dL (13.5-17.5); Immature Grans % 0.1; Lymphocytes % 24.1; MCH 30.7 pg (27.0-33.0); MCHC 30.7 % (32.0-36.0); MPV 9.8 fL (8.0-11.0); Monocytes % 6.8; Neutrophils % 67.2; Nucleated RBC 0 %; Platelet Count 240 10^3/uL (130-400); RBC 3.36 10^6/uL (4.36-5.78); RDW-SD 51.6 fL; WBC 6.94 10^3/uL (4.4-10.8)
[2021-07-27] LABS: ALT 19 U/L (16-63); AST 19 U/L (15-37); Albumin 2.9 g/dL (3.4-5.0); Alkaline Phosphatase 102 U/L (46-116); Anion Gap 5.1 mmol/L (3-11); BUN 9 mg/dL (7-18); Bilirubin, Total 0.5 mg/dL (0.2-1.0); CO2 29.9 mmol/L (21.0-32.0); CREATININE 0.7 mg/dL (0.70-1.30); Calcium 8.5 mg/dL (8.5-10.1); Chloride 107 mmol/L (98-107); Glucose 133 mg/dL (74-106); Iron 34 ug/dL (65-175); Potassium 4.1 mmol/L (3.5-5.1); Sodium 142 mmol/L (136-145); Total Iron Binding Capacity 182 ug/dL (250-450); Total Protein 5.7 g/dL (6.4-8.2); Transferrin Sat 19 % (20-55)
== END 2021-07-26 23:24 | disposition home or self-care (01) ==
LOC: LBN 23:23
PROVIDERS: PCP Emergency Medicine; Visit Provider Nurse Practitioner Gerontology
DX: D64.9 Anemia, unspecified (principal)
CPT/HCPCS: 80053; 83540; 83550; 85025

== ENCOUNTER 2021-09-27 14:04 | Outpatient (REF) | payer MEDICARE, OTHER, SELFPAY ==
[2021-09-27 21:38] LABS: Abs Immature Grans 0.01 10^3/uL (0.0-0.06); Absolute Basophil Count 0.03 10^3/uL (0.0-0.2); Absolute Eosinophil Count 0.04 10^3/uL (0.0-0.7); Absolute Lymphocyte Count 2.34 10^3/uL (1.2-3.4); Absolute Monocyte Count 0.46 10^3/uL (0.1-0.8); Absolute Neutrophil Count 4.33 10^3/uL (1.2-6.7); Basophils % 0.4; Eosinophils % 0.6; HCT 39.6 % (40.0-50.0); HGB 12.6 g/dL (13.5-17.5); Immature Grans % 0.1; Lymphocytes % 32.5; MCH 29.6 pg (27.0-33.0); MCHC 31.8 % (32.0-36.0); MPV 10.2 fL (8.0-11.0); Monocytes % 6.4; Nucleated RBC 0 %; Platelet Count 212 10^3/uL (130-400); RBC 4.26 10^6/uL (4.36-5.78); RDW 13.2 % (11.8-14.1); RDW-SD 44.7 fL; WBC 7.21 10^3/uL (4.4-10.8)
[2021-09-27 22:05] LABS: Iron 55 ug/dL (65-175); Total Iron Binding Capacity 239 ug/dL (250-450); Transferrin Sat 23 % (20-55)
[2021-09-27 22:07] LABS: ALT 15 U/L (16-63); AST 15 U/L (15-37); Albumin 3.8 g/dL (3.4-5.0); Alkaline Phosphatase 158 U/L (46-116); Anion Gap 5.5 mmol/L (3-11); BUN 12 mg/dL (7-18); Bilirubin, Total 0.6 mg/dL (0.2-1.0); CO2 30.5 mmol/L (21.0-32.0); CREATININE 0.7 mg/dL (0.70-1.30); Calcium 9.2 mg/dL (8.5-10.1); Chloride 106 mmol/L (98-107); Glucose 106 mg/dL (74-106); Potassium 4.6 mmol/L (3.5-5.1); Sodium 142 mmol/L (136-145); TSH 0.87 uIU/mL (0.36-3.74); Total Protein 6.9 g/dL (6.4-8.2)
[2021-09-28 23:10] LABS: PSA, Diagnostic 11.4 ng/mL (0.0-6.5)
== END 2021-09-27 14:05 | disposition home or self-care (01) ==
LOC: LBN 14:04
PROVIDERS: Nurse Practitioner Gerontology; PCP Emergency Medicine; Visit Provider Emergency Medicine
DX: D64.9 Anemia, unspecified (principal); G20 Parkinson's disease; M25.552 Pain in left hip; E03.9 Hypothyroidism, unspecified; N40.0 Benign prostatic hyperplasia without lower urinary tract symptoms; R97.20 Elevated prostate specific antigen [PSA]
CPT/HCPCS: 80053; 83540; 83550; 84153; 84443; 85025

== ENCOUNTER → 2021-10-27 15:09 | Outpatient (BNVA) | payer MEDICARE, OTHER, SELFPAY | PROVIDERS: PCP Emergency Medicine; Referring Provider Emergency Medicine; Visit Provider Nurse Practitioner Gerontology | DX: N40.0 Benign prostatic hyperplasia without lower urinary tract symptoms (principal); G20 Parkinson's disease; R97.20 Elevated prostate specific antigen [PSA] | CPT/HCPCS: 99214 ==

== ENCOUNTER 2021-11-03 04:28 | Outpatient (CLI) | payer MEDICARE, OTHER, SELFPAY ==
[2021-11-03 12:44] LABS: Abs Immature Grans 0.02 10^3/uL (0.0-0.06); Absolute Basophil Count 0.03 10^3/uL (0.0-0.2); Absolute Eosinophil Count 0.04 10^3/uL (0.0-0.7); Absolute Monocyte Count 0.45 10^3/uL (0.1-0.8); Absolute Neutrophil Count 4.74 10^3/uL (1.2-6.7); Basophils % 0.4; Eosinophils % 0.5; HCT 38.1 % (40.0-50.0); HGB 12.2 g/dL (13.5-17.5); Immature Grans % 0.3; Lymphocytes % 27.5; MCH 30.3 pg (27.0-33.0); MCV 94.5 fL (80-95); MPV 9.2 fL (8.0-11.0); Monocytes % 6.2; Neutrophils % 65.1; Nucleated RBC 0 %; Platelet Count 217 10^3/uL (130-400); RBC 4.03 10^6/uL (4.36-5.78); RDW 13.3 % (11.8-14.1); RDW-SD 46.5 fL; WBC 7.28 10^3/uL (4.4-10.8)
[2021-11-03 13:32] LABS: Iron 93 ug/dL (65-175); Total Iron Binding Capacity 218 ug/dL (250-450); Transferrin Sat 43 % (20-55)
[2021-11-03 14:00] LABS: ALT 11 U/L (16-63); AST 13 U/L (15-37); Albumin 3.5 g/dL (3.4-5.0); Alkaline Phosphatase 95 U/L (46-116); Bilirubin, Direct 0.2 mg/dL (0.0-0.2); Bilirubin, Total 0.6 mg/dL (0.2-1.0); C-Reactive Protein 1.88 mg/dL (0.0-0.3); GGT 27 U/L (15-85); Total Protein 6.8 g/dL (6.4-8.2)
== END 2021-11-03 04:29 | disposition home or self-care (01) ==
LOC: LBO 04:29
PROVIDERS: PCP Emergency Medicine; Visit Provider Emergency Medicine
DX: D64.9 Anemia, unspecified (principal)
CPT/HCPCS: 36415; 80076; 82977; 83540; 83550; 85025; 86140

== ENCOUNTER 2021-12-16 04:09 | Observation (INO) | payer OTHER, MEDICARE, SELFPAY ==
[2021-12-16] VITALS (122 sets, daily range): BP systolic 106–162; BP diastolic 44–102; PULSE 55–76; RESP 11–34; TEMP 36.3–36.6; O2SAT 96–100
--- NOTE | 2021-12-16 04:00 | RT.EKG_ITS ---
APPROVED REPORT Exam: Resting ECG Reason for Exam: altered Patient Location: E HR:57 bpm ECG Measurements Heart Rate 57 AXIS ID [id number] P [id number] QRSd 98 QRS 1 QT 441 T 59 QTc 431 Conclusion Junctional rhythm...absent P waves, slow V-rate Physician: no stemi.
--- NOTE | 2021-12-16 04:00 | DI.CT_ITS ---
Exam(s) CT HEAD WO EXAM: CT HEAD WO CLINICAL HISTORY: altered, combative. TECHNIQUE: Imaging Protocol: Axial computed tomography images with coronal and sagittal reformatted images were created and reviewed COMPARISON: No exams were available for comparison FINDINGS: There are no skull fractures nor fluid in the visualized paranasal sinuses. There is no evidence of intracranial hemorrhage, mass effect, or shift of midline structures. There are no extra-axial fluid collections. The ventricles are not enlarged or shifted and there is no blo od within the ventricular system nor within the basal cisterns. IMPRESSION: No acute intracranial findings on this noninfused CT scan of the brain. RADIATION DOSE DELIVERED: 851.52mGy.cm Total DLP DATA REPOSITORY: All CT scans at this facility are submitted to the National Radiology Data Registry (NRDR) Dose Index Registry (DIR) with the [employer] ([employer]). RADIATION OPTIMIZATION: All CT scans at this facility use at least one of these dose optimization te chniques: automated exposure control; mA and/or kV adjustment per patient size (includes targeted exa ms where dose is matched to clinical indication); or iterative reconstruction.
--- NOTE | 2021-12-16 04:00 | DI.CT_ITS ---
Exam(s) CT CHEST WO EXAM: CT CHEST WO CLINICAL HISTORY: altered, combative, r/o pneumonia. TECHNIQUE: Multi planar reconstructions were performed. CONTRAST MATERIAL: None COMPARISON: No exams were available for comparison FINDINGS: CHEST: LUNGS: Mild increased markings-infiltrate noted in the left lung base posterior basal segment. No as sociated pleural effusion. The right hemidiaphragm is elevated. There are no focal findings in the right lung. Small benign calcific pleural based density seen posteriorly in the superior segment of the left lower lobe. Nodular density is noted in the lower trachea at the carinal level. MEDIASTINUM: There is no obvious hilar nor mediastinal adenopathy. Visualized thyroid unremarkable.No obvious axillary adenopathy CARDIAC: Heart size is normal. There is no pericardial effusion.Caliber of the thoracic aorta is wit hin normal limits. VISUALIZED UPPER ABDOMEN:No significant adrenal masses. OSSEOUS: No significant osseous lesions.. IMPRESSION: 1. There is mild infiltrate in the left lower lobe posterior basal segment. No pleural effusions 2. No intrathoracic adenopathy. Study 1st read by [facility] Final report called by myself to ER physician 12/16/2021 7:58 a.m. RADIATION DOSE DELIVERED: 537.94mGy.cm Total DLP DATA REPOSITORY: All CT scans at this facility are submitted to the National Radiology Data Registry (NRDR) Dose Index Registry (DIR) with the [employer] ([employer]). RADIATION OPTIMIZATION: All CT scans at this facility use at least one of these dose optimization te chniques: automated exposure control; mA and/or kV adjustment per patient size (includes targeted exa ms where dose is matched to clinical indication); or iterative reconstruction.
--- NOTE | 2021-12-16 04:28 | ED.GENADUL_ITS ---
Discharge Plan Disposition Patient Disposition: [facility] INPATIENT Condition: Stable Discharge Details Clinical Impression: Acute confusion, Delirium Primary Care Provider: Aguila Thakur ED Provider: Fabiano Otero Home Meds and New Rx's Prescriptions: Continued carbidopa-levodopa 25-100 mg tablet 2 tab PO Q1-4H 0RF glycopyrrolate 1 mg tablet 1 mg PO TID 0RF Label Comments: TAKE 1 TABLET BY MOUTH THREE TIMES DAILY tamsulosin 0.4 mg Capsule 0.4 mg PO DAILY 0RF spironolactone 25 mg Tablet 25 mg PO DAILY 0RF losartan 50 mg Tablet 50 mg PO DAILY 0RF latanoprost 0.005 % Drops 1 drp OPHTHALMIC (EYE) QPM 0RF dorzolamide-timolol 22.3-6.8 mg/mL Drops 1 drp ophthalmic (eye) BID 0RF No Action tamsulosin 0.4 mg capsule 0.4 mg PO DAILY 0RF carboxymethylcellulose sodium 0.5 % drops 1 drp ophthalmic (eye) 4-6XD PRN0RF dorzolamide-timolol 22.3-6.8 mg/mL drops 1 drp ophthalmic (eye) BID 0RF latanoprost 0.005 % drops 1 drp ophthalmic (eye) QPM 0RF glycopyrrolate 1 mg tablet 1 mg PO TID 0RF multivitamin [One Daily] 1 EACH tablet 1 tab PO DAILY 0RF amlodipine [Norvasc] 5 MG tablet 1 tab PO QAM Qty: 90 4RF simvastatin 20 MG tablet 1 tab PO DAILY Qty: 90 4RF spironolactone 25 MG tablet 25 mg PO DAILY Qty: 90 3RF PreserVision AREDS 1 EACH capsule 2 ea PO DAILY 0RF carbidopa-levodopa 25-100 mg tablet See Rx Instructions PO DAILY 0RF Label Comments: start date 11/22/[address] Smith. 1/2 tab x1 week ,then 1/2 tab bid x 1 week, then 1/2 tab tid x 1 week, then 1 tab bid x 1 week, then 1 tab tid Rx Instructions: start date 11/22/[address] Smith. 1/2 tab x1 week ,then 1/2 tab bid x 1 week, then 1/2 tab tid x 1 week, then 1 tab bid x 1 week, then 1 tab tid polyethylene glycol 3350 [Miralax] 17 gram/dose powder 17 gm PO DAILY Qty: 510 8RF losartan 50 mg tablet 50 mg PO DAILY Qty: 90 3RF aspirin 325 mg Tablet 325 mg PO DAILY 0RF oxycodone 5 mg Tablet 5 mg PO .Q4 HOURS 0RF enoxaparin 40 mg/0.4 mL Syringe 40 mg subcut DAILY 0RF Discharge Instructions Instructions: Acute Delirium (ED) Additional Instructions: At this time your work-up is very reassuring. There is no evidence of significant laboratory abnormality, signs of stroke, or infection as the cause of the symptoms last night. It was likely combination as we discussed together of his PTSD and owning. Please make sure that he is drinking plenty of fluids staying well-hydrated. If you notice any worsening of your symptoms, or any new symptoms such as vomiting, diarrhea, fever, chills, shortness of breath, chest pain, numbness, weakness, or fainting , please return immediately to the emergency department for reevaluation. Please follow up with your primary care provider as soon as possible for reassessment and reevaluation. As always, it was a pleasure participating in your medical care today. Referrals: Aguila Thakur DO [Primary Care Provider] - Medical Decision Making <Jacob Anand DO - Last Filed: 12/16/21 07:12> 86-year-old male with no known past medical history who presents with the [place] presents via EMS after progression and altered mental status. EMS states they were called to the family members Patient because he was acting defensively, providing, and being violent against family thinks was not his tong status. Family told EMS normally functioning very well with apparently mild dementia. Tonight he became notably confrontational and family was uncertain if this is the reason why this. Upon EMS arrival patient was notably violent, so EMS passed for [employer] control to administer ketamine to bring the patient in for medical evaluation. 160 mg of ketamine was administered IM the patient was brought to the ER for further evaluation. Currently the patient is notably sedated, but breathing well, protecting his airway well with stable vital signs. EMS has no additional lab historical components. No apparent known modifying factors at this time Exam demonstrates a well sedation patient that was administered ketamine by EMS. No evidence of gross trauma on exam. Lung sounds are clear. No nuchal rigidity. Vital signs stable. Will evaluate for potential metabolic cause of his altered mental status and aggression. We will get a CT scan of the head and chest. Monitor closely and reassess. Family is on their way but not currently here yet. And we will gain the duration of this to work with records at that time. Patient is a [facility] we will seek his records from there. 5:04 AM After the patient's arrived it appears that he is actually not new to the system, but rather we were just given the wrong age/date of as well as the wrong spelling of the last name by EMS which led to a negative search on our original system. Patient has been to [facility] before. In fact I had seen him in the distant past for a skin laceration a few years ago. Patient's past medical history is positive for Parkinson's disease, mild Alzheimer's, high cholesterol, BPH, hypertension. Patient has been doing well here in the ER during his time. He is gradually waking up. CT scan of the head is negative for acute process. CT scan of the chest is negative for any evidence of pneumonia or other significant abnormality. is at bedside, and she feels that tonight's episode sundowning for him, and she expects that if she is feeling better when he wakes up she can take him home. She states that she feels safe taking him home. We will continue to evaluate for metabolic cause of his confrontational affect this evening, but this may simply be a combination of sundowning and his history of PTSD from [place] and agent orange. feels that this is likely a combination of those social issues. 6:52 AM Patient's laboratory work-up has returned unremarkable. CT scan of the chest and head is negative for acute process. No clear metabolic or infectious reason for the patient's previous agitation at home. I suspect clinically that it was likely secondary to sundowning and his PTSD. Patient has remained stable while here. He still remains quite sleepy, and his states that he is very sensitive to medications, additionally he did not sleep at all through the night secondary to him being notably aggressive and altered at home. We will continue to let the patient return to his normal mental status. In a safe and monitored environment, and then when his team appropriate for discharge he will be discharged with family. Case will be signed out to my colleague Dr. Sherley Jama for reassessment and then expected discharge. Additionally as of note the patient was watching a lot of the current [place] invasion of [place], and is concerned that this triggered his PTSD last night. FINDINGS: Lungs: Trace linear atelectasis in the left lower lobe. No significant airspace consolidation concerning for pneumonia. Pleural spaces: No pleural effusion. No pneumothorax. Heart: Mild coronary calcifications noted. The heart is within normal limits for size. Aorta: The aorta is nonaneurysmal. Lymph nodes: The supraclavicular region appears normal. There are no enlarged lymph nodes in the axilla. There are no enlarged lymph nodes in the mediastinal or hilar regions. Diaphragm: Mild elevation of the FINDINGS: Brain: There is no evidence of acute infarct, mass, shift of midline or parenchymal hemorrhage. Patchy periventricular white matter low attenuation present, a nonspecific finding but likely related to chronic small vessel ischemic change. No acute extra-axial fluid collection Cerebral ventricles: Moderate dilatation of the ventricular system and sulci diffusely, compatible with volume loss. Paranasal sinuses: Visualized sinuses are unremarkable. No fluid levels. Mastoid air cells: Visualized mastoid air cells are well aerated. Bones/joints: Unremarkable. No acute fracture. Soft tissues: Unremarkable. IMPRESSION: No evidence of acute intracranial process Thank you for allowing us to participate in the care of your patient. <Fabiano Otero MD - Last Filed: 12/16/21 12:08> 86-year-old male with no known past medical history who presents with the [facility] after progression and altered mental status. EMS states they were called to the family members Patient because he was acting defensively, providing, and being violent against family thinks was not his tong status. Family told EMS normally functioning very well with apparently mild dementia. Tonight he became notably confrontational and family was uncertain if this is the reason why this. Upon EMS arrival patient was notably violent, so EMS passed for med control to administer ketamine to bring the patient in for medical evaluation. 160 mg of ketamine was administered IM the patient was brought to the ER for further evaluation. Currently the patient is notably sedated, but breathing well, prote cting his airway well with stable vital signs. EMS has no additional lab historical components. No apparent known modifying factors at this time Exam demonstrates a well sedation patient that was administered ketamine by EMS. No evidence of gross trauma on exam. Lung sounds are clear. No nuchal rigidity. Vital signs stable. Will evaluate for potential metabolic cause of his altered mental status and aggression. We will get a CT scan of the head and chest. Monitor closely and reassess. Family is on their way but not currently here yet. And we will gain the duration of this to work with records at that time. Patient is a [facility] patient compliant we will seek his records from there. 5:04 AM After the patient's arrived it appears that he is actually not new to the system, but rather we were just given the wrong age/date of as well as the wrong spelling of the last name by EMS which led to a negative search on our original system. Patient has been to [facility] before. In fact I had seen him in the distant past for a skin laceration a few years ago. Patient's past medical history is positive for Parkinson's disease, mild Alzheimer's, high cholesterol, BPH, hypertension. Patient has been doing well here in the ER during his time. He is gradually waking up. CT scan of the head is negative for acute process. CT scan of the chest is negative for any evidence of pneumonia or other significant abnormality. is at bedside, and she feels that tonight's episode sundowning for him, and she expects that if she is feeling better when he wakes up she can take him home. She states that she feels safe taking him home. We will continue to evaluate for metabolic cause of his confrontational affect this evening, but this may simply be a combination of sundowning and his history of PTSD from [place] and agent orange. feels that this is likely a combination of those social issues. 6:52 AM Patient's laboratory work-up has returned unremarkable. CT scan of the chest and head is negative for acute process. No clear metabolic or infectious reason for the patient's previous agitation at home. I suspect clinically that it was likely secondary to sundowning and his PTSD. Patient has remained stable while here. He still remains quite sleepy, and his states that he is very sensitive to medications, additionally he did not sleep at all through the night secondary to him being notably aggressive and altered at home. We will continue to let the patient return to his normal mental status. In a safe and monitored environment, and then when his team appropriate for discharge he will be discharged with family. Case will be signed out to my colleague Dr. Sherley Jama for reassessment and then expected discharge. Additionally as of note the patient was watching a lot of the current [place] invasion of [place], and is concerned that this triggered his PTSD last night. FINDINGS: Lungs: Trace linear atelectasis in the left lower lobe. No significant airspace consolidation concerning for pneumonia. Pleural spaces: No pleural effusion. No pneumothorax. Heart: Mild coronary calcifications noted. The heart is within normal limits for size. Aorta: The aorta is nonaneurysmal. Lymph nodes: The supraclavicular region appears normal. There are no enlarged lymph nodes in the axilla. There are no enlarged lymph nodes in the mediastinal or hilar regions. Diaphragm: Mild elevation of the FINDINGS: Brain: There is no evidence of acute infarct, mass, shift of midline or parenchymal hemorrhage. Patchy periventricular white matter low attenuation present, a nonspecific finding but likely related to chronic small vessel ischemic change. No acute extra-axial fluid collection Cerebral ventricles: Moderate dilatation of the ventricular system and sulci diffusely, compatible with volume loss. Paranasal sinuses: Visualized sinuses are unremarkable. No fluid levels. Mastoid air cells: Visualized mastoid air cells are well aerated. Bones/joints: Unremarkable. No acute fracture. Soft tissues: Unremarkable. IMPRESSION: No evidence of acute intracranial process Thank you for allowing us to participate in the care of your patient. 12: 06 patient persistently in a semicatatonic state, intermittently moving to stimuli and commands however staring blankly the space, a second VBG was drawn to assess for CO2 narcosis however his respiratory rate and CO2 level are normal. Imaging and labs unremarkable, no evidence of pneumonia clinically patient is afebrile not hypoxic no cough no white count consider CT showing atelectasis. Concern for patient safety if discharged as he has nonfunctional at this point in I believe his have a hard time caring for him at home, I called the hospitalist was assessed the patient at the bedside and agrees the patient should be admitted for further observation rest and to continue with his carbidopa levodopa consider component of dementia. If patient does not improve potential for placement. HPI <Jacob Anand DO - Last Filed: 12/16/21 07:12> General Date/Time Provider Initiated Documentation: 12/16/21 04:10 . HPI Narrative: 86-year-old male with no known past medical history who [facility] with [facility] after progression and altered mental status. EMS states they were called to the family members Patient because he was acting defensively, providing, and being violent against family thinks was not his tong status. Family told EMS normally functioning very well with apparently mild dementia. Tonight he became notably confrontational and family was uncertain if this is the reason why this. Upon EMS arrival patient was notably violent, so EMS passed for med control to administer ketamine to bring the patient in for medical evaluation. 160 mg of ketamine was administered IM the patient was brought to the ER for further evaluation. Currently the patient is notably sedated, but breathing well, protecting his airway well with stable vital signs. EMS has no additional lab historical components. No apparent known modifying factors at this time Related Data Home Medications Medication Instructions Recorded Confirmed amlodipine 5 mg tablet (Norvasc) 1 tab PO QAM #90 01/22/13 12/16/21 multivitamin (One Daily) 1 tab PO DAILY 01/22/13 12/16/21 simvastatin 20 mg tablet 1 tab PO DAILY #90 tab 01/22/13 12/16/21 spironolactone 25 mg tablet 25 mg PO DAILY #90 tab-cap 04/04/16 12/16/21 vitamins A,C,T-ocfe-phbwua 14,320 2 ea PO DAILY 10/26/17 12/16/21 unit-226 mg-200 unit capsule (PreserVision AREDS) tamsulosin 0.4 mg capsule 0.4 mg PO DAILY tab-cap 10/03/18 12/16/21 carbidopa 25 mg-levodopa 100 mg See Rx Instructions PO DAILY tab 11/29/18 12/16/21 tablet polyethylene glycol 3350 17 17 gm PO DAILY #510 gm 06/23/20 12/16/21 gram/dose oral powder (Miralax) losartan 50 mg tablet 50 mg PO DAILY #90 tab 12/02/20 12/16/21 carboxymethylcellulose sodium 0.5 1 drp OPHTHALMIC (EYE) 4-6XD PRN 03/29/21 12/16/21 % eye drops dorzolamide 22.3 mg-timolol 6.8 1 drp OPHTHALMIC (EYE) BID 03/29/21 12/16/21 mg/mL eye drops glycopyrrolate 1 mg tablet 1 mg PO TID 03/29/21 12/16/21 latanoprost 0.005 % eye drops 1 drp OPHTHALMIC (EYE) QPM 03/29/21 12/16/21 aspirin 325 mg tablet 325 mg PO DAILY 06/24/21 12/16/21 enoxaparin 40 mg/0.4 mL 40 mg SUBCUT DAILY 06/24/21 12/16/21 subcutaneous syringe oxycodone 5 mg tablet 5 mg PO .Q4 HOURS 06/24/21 12/16/21 carbidopa 25 mg-levodopa 100 mg 2 tab PO Q1-4H 12/16/21 12/16/21 tablet dorzolamide 22.3 mg-timolol 6.8 1 drp OPHTHALMIC (EYE) BID 12/16/21 12/16/21 mg/mL eye drops glycopyrrolate 1 mg tablet 1 mg PO TID 12/16/21 12/16/21 latanoprost 0.005 % eye drops 1 drp OPHTHALMIC (EYE) QPM 12/16/21 12/16/21 losartan 50 mg tablet 50 mg PO DAILY 12/16/21 12/16/21 spironolactone 25 mg tablet 25 mg PO DAILY 12/16/21 12/16/21 tamsulosin 0.4 mg capsule 0.4 mg PO DAILY 12/16/21 12/16/21 Previous Rx's Medication Instructions Recorded polyethylene glycol 3350 17 17 gm PO DAILY #510 gm 06/23/20 gram/dose oral powder (Miralax) losartan 50 mg tablet 50 mg PO DAILY #90 tab 12/02/20 Allergies Allergy/AdvReac Type Severity Reaction Status Date / Time No Known Allergies Allergy Verified 12/16/21 08:01 General Stated Complaint: GenMedical MAY: 1 Review of Systems <Jacob Anand DO - Last Filed: 12/16/21 07:12> All systems reviewed & are unremarkable except as noted in HPI and below PFSH <Jacob Anand DO - Last Filed: 12/16/21 07:12> All Active Problems (Updated 12/16/21 @ 12:08 by Fabiano Otero MD) Acute confusion (Acute) Delirium (Acute) Pain in left hip (Chronic) History of Surgical Procedure (Chronic) a. Colonoscopy for which he's had excision of a polyp. b. Perirectal abscess treated in the past. c. Tonsillectomy. d. Extraction of molars. 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 Glaucoma (Chronic) Hearing decreased (Chronic) Elevated PSA (Chronic) a. In April 2013. 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) RIGHT EAR CANAL BCCa left upper chest 2018: excised Cellulitis (Chronic) Glaucoma (Chronic) decreased vision left Hyperlipidemia (Chronic) Polyp of colon (Chronic 09/20/10) Raised prostate specific antigen (Chronic 03/05/13) 6.82 06/19/16, 8.29 05/19/15 @ [facility] check value [facility] december and june Status post left hip replacement (Chronic 07/31/14) Parkinsons disease (Chronic) Constipation (Chronic) Sensorineural hearing loss of both ears (Acute) [place] LE[place] (dyspnea on exertion) (Acute) Foot pain (Acute) Swapna-prosthetic fracture around prosthetic hip (Acute) Altered mental status (Acute) Postoperative anemia (Acute) Fx femur shaft-closed (Acute) left ORIF Anemia (Chronic) Impacted cerumen, bilateral (Acute) Conductive hearing loss, external ear (Acute) Surgical History (Updated 12/16/21 @ 08:01 by Tamara Resendiz) Colonoscopy - MAC (~2010) 2000; NEG 2010; 2 POLYPS Family History (System 12/16/21 @ 08:01 by Tamara Resendiz) Mother Diabetes Personal history of malignant neoplasm breast Father Heart disease Sister No problems noted. Brother No problems noted. Brother No problems noted. Social History (System 12/16/21 @ 08:01 by Tamara Resendiz) Smoking/Tobacco Use Status: Never Second Hand Exposure: No Smoking risk assessment performed?: Yes Alcohol Intake: never Drug use: Never Household members: spouse and children Housing: house Communication Needs: Hard of Hearing and Corrective Lenses Do you need help understanding health information?: Often Pets and animals: Yes Pets and animals: dog(s) Sexually active: No Do you think of yourself as: straight/heterosexual Current gender identity: male What is your relationship status?: How often do you talk on the phone with friends or family?: once per week How often do you attend mormon or orthodoxy services?: 1-3 times per year Do you belong to any clubs or organized social groups?: no Panel score (0-1 are the most socially isolated patients): 1 What type of physical activity do you participate in: other Details: boxing Frequency: 1-2 times per week Kenna/Confucianism: Orthodoxy Seatbelt use: always Helmet use: No Drive intox or ride w/intox utility driver: No Do you feel safe at home: Yes Do you feel safe in your relationship?: Yes Exam <Jacob Anand DO - Last Filed: 12/16/21 07:12> Narrative Exam Narrative: 1.Const: Well-nourished, Well-developed, appearing stated age 2.Eyes: PERRL, no conjunctival injection, and symmetrical lids. 3.ENT: Atraumatic external nose and ears. Dry MM. Neck: Symmetric, trachea midline, No thyromegaly. No nuchal rigidity. 4.CVS: +S1/S2, No murmurs or gallops. Peripheral pulses 2+ and equal in all extremities. Brisk capillary refill in all extremities. 5.RESP: Unlabored respiratory effort. Clear to auscultation bilaterally. No wheezes rales or rhonchi 6.GI: Soft, Nontender/Nondistended, No hepatosplenomegaly. No guarding or rebound. 7.MSK: Normocephalic/Atraumatic, Extremities w/o deformity or ttp No cyanosis or clubbing. 8.Skin: Warm, Dry. There is a small abrasion of the patient's left hand. No other significant trauma. 9.Neuro: Patient is sedated from ketamine, breathing well with an intact gag reflex. 10.Psych: (AAO) x0 Course <Jacob Anand DO - Last Filed: 12/16/21 07:12> Vital Signs Vital signs: Vital Signs Temperature 36.5 C 12/16/21 04:09 Pulse 62 12/16/21 04:09 Respiratory Rate 20 12/16/21 04:09 Blood Pressure 106/55 L 12/16/21 04:09 Pulse Oximetry 98 12/16/21 04:09 Temperature 36.5 C 12/16/21 04:09 Temperature Source Temporal Artery Scan 12/16/21 04:09 Pulse 62 02/25/22 04:09 Respiratory Rate 20 12/16/21 04:09 Blood Pressure 106/55 L 12/16/21 04:09 Blood Pressure Position Supine 12/16/21 04:09 Pulse Oximetry 98 12/16/21 04:09 Oxygen Delivery Method Room Air 12/16/21 04:09 Oxygen Flow Rate 0 12/16/21 04:09 Lab/Test Results Lab/Test Results: 12/16/21 04:12 Blood Blood Culture - Pending 12/16/21 04:12 Blood Blood Culture - Pending Sign Out <Jacob Anand DO - Last Filed: 12/16/21 07:12> Sign Out Data: Sign Out Comment: Had sundowning and delirium last night, was given 160 mg of ketamine via EMS. Still slightly sleepy, pending reassessment after fatigue wears off. Suspect that it is secondary to ketamine administration. Work-up otherwise unremarkable. Last updated by Jacob Anand DO at 12/16/21 06:58
[2021-12-16 04:35] LABS: Source Nasal/Nares
[2021-12-16 04:36] LABS: Abs Immature Grans 0.02 10^3/uL (0.0-0.06); Absolute Basophil Count 0.03 10^3/uL (0.0-0.2); Absolute Eosinophil Count 0.05 10^3/uL (0.0-0.7); Absolute Lymphocyte Count 1.45 10^3/uL (1.2-3.4); Absolute Monocyte Count 0.53 10^3/uL (0.1-0.8); Absolute Neutrophil Count 5.47 10^3/uL (1.2-6.7); Basophils % 0.4; Eosinophils % 0.7; HCT 37.6 % (40.0-50.0); HGB 12.3 g/dL (13.5-17.5); Immature Grans % 0.3; Lactate 1.5 mmol/L (0.6-1.4); Lymphocytes % 19.2; MCH 31.3 pg (27.0-33.0); MCHC 32.7 % (32.0-36.0); MCV 95.7 fL (80-95); MPV 9.1 fL (8.0-11.0); Neutrophils % 72.4; Nucleated RBC 0 %; Platelet Count 180 10^3/uL (130-400); RBC 3.93 10^6/uL (4.36-5.78); RDW 12.7 % (11.8-14.1); RDW-SD 45.1 fL; WBC 7.55 10^3/uL (4.4-10.8)
[2021-12-16] MEDS: Normal Saline 1,000 ML 150 ML IV (04:42)
[2021-12-16 04:44] LABS: Bilirubin Negative (Negative); Blood Trace-intact (Negative); Clarity Clear (Clear); Glucose Negative (Negative); Ketones Negative (Negative); Leukocyte Esterase Negative (Negative); Nitrite Negative (Negative); Specific Gravity >= 1.030 (1.005-1.025); Urobilinogen 0.2 EU/dL (Up TO 0.2); pH 5.5 (5-8)
--- NOTE | 2021-12-16 04:45 | DI.VRAD_ITS ---
PROCEDURE INFORMATION: Exam: CT Head Without Contrast Exam date and time: 12/16/2021 4:11 AM Age: 86 years old Clinical indication: Other: Altered, combative, TECHNIQUE: Imaging protocol: Computed tomography of the head without contrast. Radiation optimization: All CT scans at this facility use at least one of these dose optimization techniques: automated exposure control; mA and/or kV adjustment per patient size (includes targeted exams where dose is matched to clinical indication); or iterative reconstruction. COMPARISON: No relevant prior studies available. FINDINGS: Brain: There is no evidence of acute infarct, mass, shift of midline or parenchymal hemorrhage. Patchy periventricular white matter low attenuation present, a nonspecific finding but likely related to chronic small vessel ischemic change. No acute extra-axial fluid collection Cerebral ventricles: Moderate dilatation of the ventricular system and sulci diffusely, compatible with volume loss. Paranasal sinuses: Visualized sinuses are unremarkable. No fluid levels. Mastoid air cells: Visualized mastoid air cells are well aerated. Bones/joints: Unremarkable. No acute fracture. Soft tissues: Unremarkable. IMPRESSION: No evidence of acute intracranial process Dictated and Authenticated by: Jessica Griffin MD. Ordering:EZRA James MD
[2021-12-16 04:57] LABS: INR 1.1 (0.9-1.1); PTT Activated 24.7 sec (21.0-27.5)
[2021-12-16 04:58] LABS: Ammonia 14 umol/L (11-32)
--- NOTE | 2021-12-16 05:00 | DI.VRAD_ITS ---
PROCEDURE INFORMATION: Exam: CT Chest Without Contrast; Diagnostic Exam date and time: 12/16/2021 4:11 AM Age: 86 years old Clinical indication: Other: Altered, combative, R/O pna TECHNIQUE: Imaging protocol: Diagnostic computed tomography of the chest without contrast. 3D rendering (Not supervised by radiologist): MIP and/or 3D reconstructed images were created by the technologist. Radiation optimization: All CT scans at this facility use at least one of these dose optimization techniques: automated exposure control; mA and/or kV adjustment per patient size (includes targeted exams where dose is matched to clinical indication); or iterative reconstruction. COMPARISON: No relevant prior studies available. FINDINGS: Lungs: Trace linear atelectasis in the left lower lobe. No significant airspace consolidation concerning for pneumonia. Pleural spaces: No pleural effusion. No pneumothorax. Heart: Mild coronary calcifications noted. The heart is within normal limits for size. Aorta: The aorta is nonaneurysmal. Lymph nodes: The supraclavicular region appears normal. There are no enlarged lymph nodes in the axilla. There are no enlarged lymph nodes in the mediastinal or hilar regions. Diaphragm: Mild elevation of the right hemidiaphragm. Intestine: Interposition of the colon along the anterior margin of the liver and diaphragm. Bones/joints: Multilevel degenerative changes in the spine. Soft tissues: Unremarkable. IMPRESSION: No significant airspace consolidation concerning for pneumonia. Dictated and Authenticated by: Bradly Montez MD. Ordering:EZRA James MD
[2021-12-16 05:07] LABS: Salicylate < 2.8 mg/dL (<2.8)
[2021-12-16 05:08] LABS: Acetaminophen < 2 ug/mL (10-30)
[2021-12-16 05:09] LABS: ALT 6 U/L (16-63); AST 17 U/L (15-37); Albumin 3.5 g/dL (3.4-5.0); Alkaline Phosphatase 88 U/L (46-116); Anion Gap 9.7 mmol/L (3-11); BUN 15 mg/dL (7-18); Bilirubin, Total 0.8 mg/dL (0.2-1.0); CO2 26.3 mmol/L (21.0-32.0); CREATININE 0.7 mg/dL (0.70-1.30); Chloride 104 mmol/L (98-107); Glucose 111 mg/dL (74-106); Potassium 3.4 mmol/L (3.5-5.1); Sodium 140 mmol/L (136-145); TSH (W/Ref FT4) 1.42 uIU/mL (0.36-3.74); Total Protein 6.9 g/dL (6.4-8.2); Troponin I < 50 ng/L (<or=60)
[2021-12-16 05:13] LABS: ETHANOL BLOOD < 3.0 mg/dL (<10)
[2021-12-16 05:14] LABS: Bacteria Few HPF (Negative); Casts 10-20 Hyaline LPF (Negative); Crystals Few Calcium Oxalate HPF (Negative); Epithelial Cells Rare HPF (Negative); Mucus Moderate (Negative); Other Cells Rare Renal (Negative)
[2021-12-16 05:15] LABS: C & S Indicated? No
[2021-12-16 05:21] LABS: COVID-19 PCR Negative (Negative)
[2021-12-16 05:32] LABS: BE (Venous) 0 mmol/L (-2-3); HCO3 (Venous) 26 mmol/L (23-28); O2 Sat (Venous) 93 %; TCO2 (Venous) 23 mmol/L (24-29); pCO2 (Venous) 44 mmHg (41-51); pH (Venous) 7.37 (7.31-7.41); pO2 (Venous) 63 mmHg
[2021-12-16 09:06] LABS: BE (Venous) 3 mmol/L (-2-3); HCO3 (Venous) 29 mmol/L (23-28); O2 Sat (Venous) 55 %; TCO2 (Venous) 26 mmol/L (24-29); pCO2 (Venous) 50 mmHg (41-51); pH (Venous) 7.37 (7.31-7.41); pO2 (Venous) 30 mmHg
[2021-12-16] MEDS: Carbidopa 25/Levodopa 100 TAB PO ×5 (12:14→21:07)
--- NOTE | 2021-12-16 12:21 | W.PM.HP.N ---
Date of service: 12/16/21 Time of Service: 12:21 Assessment and Plan Assessment and plan (1) Altered mental status: Status: Acute Assessment and plan: I think his altered mental status is a combination of underlying dementia along with lack of sleep over the last few nights along with worsening of his parkinsonism. Furthermore patient was treated with ketamine which also probably altered his mental status. Present time I be try to get his usual doses of his Sinemet into him and give him something for sleep tonight to ensure that he gets adequate sleep. I am trying to avoid any atypical antipsychotic medication such as Seroquel or Geodon because of the interaction with his Sinemet. Patient received IV fluids in the emergency department which should correct his dehydration. His BUN and creatinine were not really elevated but his urinalysis suggests that he was on the dry side. I will withhold his spironolactone for now. I will repeat his BMP in the morning. He will receive some oral potassium supplementation and will recheck his labs in the morning. I will consult PT to evaluate and treat him to evaluate his ambulatory status. He will be admitted on observation and assuming that he improves we will discharge him in the morning. (2) Parkinsons disease: Status: Chronic Assessment and plan: Resume his Sinemet at the previous dose of 25-102 tablets p.o. every 3 hours x5 doses per day. Note his neurologist is Dr. Smith in [facility]. (3) Dehydration: Status: Acute Assessment and plan: Patient's received adequate fluids in the emergency department. If he does not eat and drink we may need to resume IV fluids. (4) Hypertension: Status: Chronic Assessment and plan: Continue his losartan and Norvasc but hold his spironolactone. Qualifiers: Hypertension type: essential hypertension Qualified Code(s): I10 - Essential (primary) hypertension (5) Glaucoma: Status: Chronic Assessment and plan: Resume his home eyedrops of latanoprost and dorzolamide/timolol (6) Hypokalemia: Status: Acute Assessment and plan: Correct with oral supplementation repeat levels in the morning (7) DVT prophylaxis: Status: Acute Assessment and plan: Enoxaparin for DVT prophylaxis (8) Discharge planning issues: Status: Acute Assessment and plan: Discharge home in the morning assuming that he is back to his baseline. He may need referral for home health including nursing and PT. History of Present Illness History of Present Illness Chief Complaint: delirium Narrative: 76-year-old male with a history of parkinsonism, essential hypertension, mild dementia, PTSD, of the [place] War who lives with his who called EMS early this morning because of acute agitation and combativeness that began around 1:00 this morning. Patient has been having difficulty sleeping at night and the patient's sat up with him last night until he went to sleep. She says that he has been obsessed with watching the news regarding the [place] invasion of [facility]. She thinks this may have set off his PTSD. She says in the past when he has not been getting enough sleep he would become more agitated but usually this resolves with a good night sleep. He will occasionally have periods which will have exacerbation of his parkinsonism which will become more stiff but with a good night's sleep and his Sinemet he usually improves. Today when he became combative adn agitated she could not control him and she called EMS who gave him ketamine. In the ER he has been nearly catatonic and very stiff almost rigid. Dr. Farmer, ER attending, did a workup that included routine labs including CBC, CMP, TSH, UA, SARS-COV2 PCR, troponin I and CT scan of head and chest. CT head did not demonstrate any acute abnormalities. CT of the chest suggested a mild infiltrate in left lung base. Clinically he did not present w/ pneumonia (i.e., no fever, dyspnea or leukocytosis . His CMP was remarkable for mild hypokalemia (K+ 3.4, but otherwise was unremarkable w/ normal renal and liver function. CBC showed a mild stable anemia w/ Hb 12.3 gm and no leukocytosis nor any left shift. UA was remarkable for dehydration w/ SG >1.030 w/ trace of blood and 5-10 RBC/HPF, no leukocyte esterase and neg for nitrites. But w/ calcium oxalate crystals and 10 to 120 hyaline casts. Patient was given iv fluids (NS X 1000 mL) and was given a dose of his Sinemet. I evaluated the patient in the ER and spoke w/ his . He has some dysphagia problems and requires supervised feedings and takes a dysphagia diet of pureed foods and thickened liquids. He sometime will have choking spells but was able to take his meds while in the ER despite his nearly catatonic state. Review of Systems Unobtainable due to mental condition [facility] All Active Problems (Updated 12/16/21 @ 19:35 by Ananth Yates) DVT prophylaxis (Acute) Discharge planning issues (Acute) Hypokalemia (Acute) Dehydration (Acute) Acute confusion (Acute) Delirium (Acute) Pain in left hip (Chronic) History of Surgical Procedure (Chronic) a. Colonoscopy for which he's had excision of a polyp. b. Perirectal abscess treated in the past. c. Tonsillectomy. d. Extraction of molars. 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 Glaucoma (Chronic) Hearing decreased (Chronic) Elevated PSA (Chronic) a. In April 2013. 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) RIGHT EAR CANAL BCCa left upper chest 2018: excised Cellulitis (Chronic) Glaucoma (Chronic) decreased vision left Hyperlipidemia (Chronic) Polyp of colon (Chronic 09/20/10) Raised prostate specific antigen (Chronic 03/05/13) 6.82 06/19/16, 8.29 [facility] Status post left hip replacement (Chronic 07/31/14) Parkinsons disease (Chronic) Constipation (Chronic) Sensorineural hearing loss of both ears (Acute) DE LEON (dyspnea on exertion) (Acute) Foot pain (Acute) Swapna-prosthetic fracture around prosthetic hip (Acute) Altered mental status (Acute) Postoperative anemia (Acute) Fx femur shaft-closed (Acute) left ORIF Anemia (Chronic) Impacted cerumen, bilateral (Acute) Conductive hearing loss, external ear (Acute) Surgical History Colonoscopy - MAC (~2010) 2000; NEG 2010; 2 POLYPS Family History Mother Diabetes Personal history of malignant neoplasm breast Father Heart disease Sister No problems noted. Brother No problems noted. Brother No problems noted. Social History Smoking/Tobacco Use Status: Never Second Hand Exposure: No Smoking risk assessment performed?: Yes Alcohol Intake: never Drug use: Never Household members: spouse and children Housing: house Communication Needs: Hard of Hearing and Corrective Lenses Do you need help understanding health information?: Often Pets and animals: Yes Pets and animals: dog(s) Sexually active: No Do you think of yourself as: straight/heterosexual Current gender identity: male What is your relationship status?: How often do you talk on the phone with friends or family?: once per week How often do you attend shinto or zoroastrianism services?: 1-3 times per year Do you belong to any clubs or organized social groups?: no Panel score (0-1 are the most socially isolated patients): 1 What type of physical activity do you participate in: other Details: boxing Frequency: 1-2 times per week Kenna/Presybeterian: Denominational Seatbelt use: always Helmet use: No Drive intox or ride w/intox city bus driver: No Do you feel safe at home: Yes Do you feel safe in your relationship?: Yes Meds Allergies and Home Medications Allergies Allergy/AdvReac Type Severity Reaction Status Date / Time No Known Allergies Allergy Verified 12/16/21 08:01 Home Medications Medication Instructions Recorded Confirmed Type amlodipine 5 mg tablet (Norvasc) 1 tab PO QAM #90 01/22/13 12/16/21 History multivitamin (One Daily) 1 tab PO DAILY 01/22/13 12/16/21 History simvastatin 20 mg tablet 1 tab PO DAILY #90 tab 01/22/13 12/16/21 History tamsulosin 0.4 mg capsule 0.4 mg PO DAILY tab-cap 10/03/18 12/16/21 History carbidopa 25 mg-levodopa 100 mg 2 tab PO 5X/DAY tab 11/29/18 12/16/21 History tablet polyethylene glycol 3350 17 17 gm PO DAILY #510 gm 06/23/20 12/16/21 Rx gram/dose oral powder (Miralax) losartan 50 mg tablet 50 mg PO DAILY #90 tab 12/02/20 12/16/21 Rx carboxymethylcellulose sodium 0.5 1 drp OPHTHALMIC (EYE) 4-6XD PRN 03/29/21 12/16/21 History % eye drops glycopyrrolate 1 mg tablet 1 mg PO TID 03/29/21 12/16/21 History latanoprost 0.005 % eye drops 1 drp OPHTHALMIC (EYE) QPM 03/29/21 12/16/21 History carbidopa 25 mg-levodopa 100 mg 2 tab PO HS PRN PRN 12/16/21 12/16/21 History tablet dorzolamide 22.3 mg-timolol 6.8 1 drp OPHTHALMIC (EYE) BID 12/16/21 12/16/21 History mg/mL eye drops spironolactone 25 mg tablet 25 mg PO DAILY 12/16/21 12/16/21 History Exam Narrative Exam Narrative: Elderly white male lying on a gurney in the emergency department lying on his back in a semifowler position. 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 He is staring at the ceiling. There is no facial fasciculations. He does track me with his eyes as I move around the room. He does not respond to anything I ask him and does not respond any simple commands. HEENT is remarkable for some dry mucous membranes. No facial asymmetry. He is speechless. Neck is nontender and although I cannot say that his neck is supple there is no meningismus. Veins are flat carotid pulses are normal Lungs are clear to auscultation Heart regular rate and rhythm Abdomen soft nondistended normal bowel sounds Lower extremities without peripheral cyanosis or edema. He has hammertoes of both feet. Neuro exam he is very stiff and rigid it is extremities but has normal pole frame construction worker strength in his hands. I cannot get him to follow any simple commands. He is speechless. Visual ochoa could not be assessed but grossly he seemed to see me and track me with his eyes as I moved around the room. Results Labs Result diagrams: 12/16/21 04:20 12/16/21 04:20 Labs: Laboratory Results - last 24 hr 12/16/21 12/16/21 12/16/21 04:20 04:20 04:20 WBC RBC Hgb Hct MCV MCH MCHC RDW Plt Count MPV Immature Gran % Neutrophils % Lymphocytes % Monocytes % Eosinophils % Basophils % Nucleated RBC % Absolute Neutrophils Absolute Lymphocytes Absolute Monocytes Absolute Eosinophils Absolute Basophils PT INR APTT VBG pH VBG pCO2 VBG pO2 VBG HCO3 VBG Total CO2 VBG O2 Saturation VBG Base Excess VBG Lactate 1.5 H Sodium 140 Potassium 3.4 L Chloride 104 Carbon Dioxide 26.3 Anion Gap 9.7 BUN 15 Creatinine 0.7 Estimated GFR/1.73 m2 >= 60.00 Glucose 111 H Calcium 9.0 Total Bilirubin 0.8 AST 17 ALT 6 L Alkaline Phosphatase 88 Ammonia 14 Troponin I < 50 Total Protein 6.9 Albumin 3.5 TSH 1.42 Urine Color Urine Clarity Urine pH Ur Specific [place] Urine Protein Urine Ketones Urine Blood Urine Nitrite Urine Bilirubin Urine Urobilinogen Ur Leukocyte Esterase Urine RBC Urine WBC Ur Epithelial Cells Urine Crystals Urine Bacteria Urine Casts Urine Mucus Urine Other Ur Culture Indicated? Urine Glucose Salicylates Acetaminophen Ethyl Alcohol < 3.0 COVID-19 Source SARS-CoV-2 (PCR) 12/16/21 12/16/21 12/16/21 04:20 04:20 04:27 WBC 7.55 RBC 3.93 L Hgb 12.3 L Hct 37.6 L MCV 95.7 H MCH 31.3 MCHC 32.7 RDW 12.7 Plt Count 180 MPV 9.1 Immature Gran % 0.3 Neutrophils % 72.4 Lymphocytes % 19.2 Monocytes % 7.0 Eosinophils % 0.7 Basophils % 0.4 Nucleated RBC % 0 Absolute Neutrophils 5.47 Absolute Lymphocytes 1.45 Absolute Monocytes 0.53 Absolute Eosinophils 0.05 Absolute Basophils 0.03 PT 11.0 INR 1.1 APTT 24.7 VBG pH VBG pCO2 VBG pO2 VBG HCO3 VBG Total CO2 VBG O2 Saturation VBG Base Excess VBG Lactate Sodium Potassium Chloride Carbon Dioxide Anion Gap BUN Creatinine Estimated GFR/1.73 m2 Glucose Calcium Total Bilirubin AST ALT Alkaline Phosphatase Ammonia Troponin I Total Protein Albumin TSH Urine Color Urine Clarity Urine pH Ur Specific [place] Urine Protein Urine Ketones Urine Blood Urine Nitrite Urine Bilirubin Urine Urobilinogen Ur Leukocyte Esterase Urine RBC Urine WBC Ur Epithelial Cells Urine Crystals Urine Bacteria Urine Casts Urine Mucus Urine Other Ur Culture Indicated? Urine Glucose Salicylates Acetaminophen Ethyl Alcohol COVID-19 Source Nasal/Nares SARS-CoV-2 (PCR) Negative 12/16/21 12/16/21 12/16/21 04:36 04:37 04:37 WBC RBC Hgb Hct MCV MCH MCHC RDW Plt Count MPV Immature Gran % Neutrophils % Lymphocytes % Monocytes % Eosinophils % Basophils % Nucleated RBC % Absolute Neutrophils Absolute Lymphocytes Absolute Monocytes Absolute Eosinophils Absolute Basophils PT INR APTT VBG pH 7.37 VBG pCO2 44 VBG pO2 63 VBG HCO3 26 VBG Total CO2 23 L VBG O2 Saturation 93 VBG Base Excess 0 VBG Lactate Sodium Potassium Chloride Carbon Dioxide Anion Gap BUN Creatinine Estimated GFR/1.73 m2 Glucose Calcium Total Bilirubin AST ALT Alkaline Phosphatase Ammonia Troponin I Total Protein Albumin TSH Urine Color Yellow Urine Clarity Clear Urine pH 5.5 Ur Specific [place] >= 1.030 H Urine Protein Negative Urine Ketones Negative Urine Blood Trace-intact H Urine Nitrite Negative Urine Bilirubin Negative Urine Urobilinogen 0.2 Ur Leukocyte Esterase Negative Urine RBC 5-10 H Urine WBC 3-5 Ur Epithelial Cells Rare Urine Crystals Few Calcium Oxalate Urine Bacteria Few Urine Casts 10-20 Hyaline Urine Mucus Moderate Urine Other Rare Renal Ur Culture Indicated? No Urine Glucose Negative Salicylates < 2.8 Acetaminophen < 2 Ethyl Alcohol COVID-19 Source SARS-CoV-2 (PCR) 12/16/21 08:55 WBC RBC Hgb Hct MCV MCH MCHC RDW Plt Count MPV Immature Gran % Neutrophils % Lymphocytes % Monocytes % Eosinophils % Basophils % Nucleated RBC % Absolute Neutrophils Absolute Lymphocytes Absolute Monocytes Absolute Eosinophils Absolute Basophils PT INR APTT VBG pH 7.37 VBG pCO2 50 VBG pO2 30 VBG HCO3 29 H VBG Total CO2 26 VBG O2 Saturation 55 VBG Base Excess 3 VBG Lactate Sodium Potassium Chloride Carbon Dioxide Anion Gap BUN Creatinine Estimated GFR/1.73 m2 Glucose Calcium Total Bilirubin AST ALT Alkaline Phosphatase Ammonia Troponin I Total Protein Albumin TSH Urine Color Urine Clarity Urine pH Ur Specific [place] Urine Protein Urine Ketones Urine Blood Urine Nitrite Urine Bilirubin Urine Urobilinogen Ur Leukocyte Esterase Urine RBC Urine WBC Ur Epithelial Cells Urine Crystals Urine Bacteria Urine Casts Urine Mucus Urine Other Ur Culture Indicated? Urine Glucose Salicylates Acetaminophen Ethyl Alcohol COVID-19 Source SARS-CoV-2 (PCR) Last Vital Signs Temp 36.5 C 12/16/21 04:09 Pulse 70 12/16/21 10:16 Resp 22 12/16/21 10:16 BP 136/69 12/16/21 10:16 Pulse Ox 97 12/16/21 10:16
--- NOTE | 2021-12-16 13:27 | NUR.NOTE ---
At 10:[address] Otero pt was given his Carbidopa-Levadopa 2 tabs from home bottle, administered whole in applesauce by his , María.
[2021-12-16] MEDS: Enoxaparin 40 MG/0.4 ML SYR SC (14:10)
[2021-12-16] MEDS: Glycopyrrolate 1 MG TAB PO ×2 (14:10→18:27)
[2021-12-16] MEDS: Milk of Magnesia 30 ML CUP PO (18:49)
[2021-12-16] MEDS: Simvastatin 20 MG TAB PO (21:07)
[2021-12-16] MEDS: Potassium Chloride 10 MEQ CAPCR 20 MEQ PO (21:07)
[2021-12-16] MEDS: Zolpidem 6.25 MG TABCR PO (21:07)
[2021-12-17 05:57] VITALS: BP 153/76; PULSE 61; RESP 16; TEMP 36.6; O2SAT 98
[2021-12-17] MEDS: Carbidopa 25/Levodopa 100 TAB PO ×3 (07:10→13:51)
[2021-12-17] MEDS: Tamsulosin 0.4 MG CAPCR PO (08:01)
[2021-12-17] MEDS: Glycopyrrolate 1 MG TAB PO (08:01)
[2021-12-17] MEDS: Aspirin 325 MG TAB PO (08:01)
[2021-12-17] MEDS: amLODIPine 5 MG TAB PO (08:02)
[2021-12-17] MEDS: Multivitamin TAB 1 TAB PO (08:02)
[2021-12-17] MEDS: Losartan 50 MG TAB PO (08:02)
[2021-12-17] MEDS: Normal Saline Flush 10 ML SYR IVP (08:02)
[2021-12-17 08:43] LABS: Anion Gap 7.8 mmol/L (3-11); BUN 9 mg/dL (7-18); CO2 27.2 mmol/L (21.0-32.0); CREATININE 0.7 mg/dL (0.70-1.30); Chloride 106 mmol/L (98-107); Glucose 89 mg/dL (74-106); Sodium 141 mmol/L (136-145)
--- NOTE | 2021-12-17 10:00 | PDOC.CMIN ---
- If Service Date Differs Date of service: 12/17/21 Time of Service: 10:00 Care Management Initial Assess REASON FOR HOSPITALIZATION:: altered mental status PAST MEDICAL HISTORY/PAST SURGICAL HISTORY:: All Active Problems (Updated 12/16/21 @ 19:35 by Ananth Yates). DVT prophylaxis (Acute). Discharge planning issues (Acute). Hypokalemia (Acute). Dehydration (Acute). Acute confusion (Acute). Delirium (Acute). Pain in left hip (Chronic). History of Surgical Procedure (Chronic). a. Colonoscopy for which he's had excision of a polyp. b. Perirectal abscess treated in the past. c. Tonsillectomy. d. Extraction of molars. Back pain (Chronic). a. Related to DJD. Glaucoma (Chronic). Hearing decreased (Chronic). Elevated PSA (Chronic). a. In April 2013. Hypertension (Chronic). Elevated lipids (Chronic). Difficult intubation (Chronic). Abnormal gait (Chronic 11/19/17). BPH (benign prostatic hyperplasia) (Chronic). Basal cell carcinoma of right ear (Chronic). RIGHT EAR CANAL. BCCa left upper chest 2018: excised. Cellulitis (Chronic). Glaucoma (Chronic). decreased vision left. Hyperlipidemia (Chronic). Polyp of colon (Chronic 09/20/10). Raised prostate specific antigen (Chronic 03/05/13). 6.82 06/19/16, 8.29 [facility]. Status post left hip replacement (Chronic 07/31/14). Parkinsons disease (Chronic). Constipation (Chronic). Sensorineural hearing loss of both ears (Acute). DE LEON (dyspnea on exertion) (Acute). Foot pain (Acute). Swapna-prosthetic fracture around prosthetic hip (Acute). Altered mental status (Acute). Postoperative anemia (Acute). Fx femur shaft-closed (Acute). left ORIF. Anemia (Chronic). Impacted cerumen, bilateral (Acute). Conductive hearing loss, external ear (Acute). Surgical History . Colonoscopy - MAC (~2010). 2000; NEG. 2010; 2 POLYPS PREVIOUS FUNCTIONAL STATUS/SOCIAL/FAMILY SUPPORTS:: Dominic lives in [place] with his Shaila. He has Parkinson's Disease and mild dementia and needs assistance with meals and ADLs which his provides. CURRENT FUNCTIONAL STATUS:: Zach was very agitated today. He was up pacing in the room and required a sitter to keep him safe. He had just finally fallen asleep when CM came to see him and CM was asked not to wake him. The decision was made to discharge him back home with his to a familiar environment. ADVANCE DIRECTIVES:: none on file Has patient been provided with info about the portal/API?: Yes Did the patient sign up for the portal?: No CODE STATUS:: Full Code INSURANCE COVERAGE / FINANCIAL ISSUES:: Medicare. [facility] PRIMARY CARE PHYSICIAN:: Aguila Thakur POTENTIAL DISCHARGE NEEDS:: follow up with community providers and plan of care PATIENT/FAMILY EDUCATION NEEDS:: Review of discharge instructions, limitations, activity, follow up plan, discuss Ask Me Three TRANSPORTATION:: via private vehicle with PLAN:: Zach will be discharged home with his with no new services. He will follow up with his community providers and plan of care and transport with his spouse.
[2021-12-17] MEDS: ALPRAZolam 0.25 MG TAB PO (10:44)
--- NOTE | 2021-12-17 10:50 | PT.INIE ---
Date of service: 12/17/21 Time of Service: 10:50 PT Notes Visit Reasons: Exacerbation of Parkinson's disease,Catatonia Physical Therapy Inpatient Initial Evaluation Date: 12/17/2021 Referring Doctor: Fabiano Walsh MD PT Orders: PT CONSULT: Eval/treat. Precautions: Fall. Standard. Activity as tolerated. Impaired safety awareness. Patient Profile/Admitting Diagnosis: Zach is a 76-year-old male with diagnosis of altered mental status, Parkinson's disease, dehydration, hypertension, glaucoma, and hypokalemia with referral to physical therapy to evaluate ambulatory status. PMHX: All Active Problems?(Updated 12/16/21 @ 19:35 by Ananth Yates) DVT prophylaxis (Acute) Discharge planning issues (Acute) Hypokalemia (Acute) Dehydration (Acute) Acute confusion (Acute) Delirium (Acute) Pain in left hip (Chronic) History of Surgical Procedure (Chronic) a. Colonoscopy for which he's had excision of a polyp. b. Perirectal abscess treated in the past. c. Tonsillectomy. . Extraction of molars. 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Glaucoma (Chronic) Hearing decreased (Chronic) Elevated PSA (Chronic) a. 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 Colonoscopy - MAC (~2010) 2000; NEG 2010; 2 POLYPS Social History/Home Situation: Lives with in a private home with 4 steps to enter without rails. There is 15 steps to the second floor of the house where his bedroom is. Equipment Owned/DME: FWW Subjective: Agreeable to PT consult. Objective: General Observation: in NAD. Seated on chair. Sitter/MAMMAL KEEPER Ana with patient on arrivla of PT. Nurse Harper assiting with mobility assessment for safety. Mental Status: Alert and able to follow single step commands albeit a little delayed each time. Pain: Denies ROM: Right Upper Extremity: Grossly WFL Left Upper Extremity: Grossly WFL Right Lower Extremity: Grossly WFL Left Lower Extremity: Grossly WFL Strength: Right Upper Extremity: Grossly 5/5 Left Upper Extremity: Grossly 5/5 Right Lower Extremity: Grossly 5/5 Left Lower Extremity: Grossly 5/5 Bed Mobility/Transfers: Sit to stand with standby assist Stand to sit with standby assist Bed to reclining chair with standby assist Gait: Instructed patient with level surface ambulation of 250 feet requiring contact-guard assist to FWW as patient has a poor ability to manage walker. Minimal path deviation. Requires constant holding onto walker by caregiver as patient deviates path or has trouble changing directions. Nurse Harper assisted with ambulation assessment for safety. Balance: Static Sitting: Normal Dynamic Sitting: Normal Static Standing: Good Dynamic Standing: Fair Special Tests: Mobility Limitations Standardized Measure [facility] AM-PAC 6 clicks Basic Mobility Inpatient Short Form: Raw Score: 21 CMS Score: 29% deficit Informed Consent/Education: Patient was instructed in purpose of PT consult and plan of care. Agreeable to proceed with established PT POC to achieve personal goals. Assessment: Zach is able to negotiate level surface ambulation with front-wheeled walker as long as there is constant supervision of another caregiver. May perform well at home where everything and everybody are familiar to him. Patient is assessed as a 24226 moderate complexity based on the following: History: 76-year-old malewith past medical history as indicated above Examination: Demonstrable impairment in strength, balance, and mobility level with underlying impairments and functional limitations as exhibited above as well as deficit score of 29% utilizing the [facility] Mobility Inpatient Short Form Presentation: Evolving Decision Makin moderate complexity Goals: Goals X1 week 1. Supine-Sit supervision 2. Sit-Supine supervision 3. Sit-Stand supervision 4. Stand-Sit supervision with FWW 5. Bed-Chair supervision with FWW 6. Chair-Bed supervision with FWW 7. Supervision gait on level surface with use of FWW for at least 300 feet without report of pain nor dyspnea Plan of Care/Treatment Plan: 1-2x/day, 7 days/week x 1 week. Plan of care has been reviewed with the SUPERINTENDENT TRANSMISSION providing the service under Physical Therapy direction. Initiate Physical Therapy intervention for pain management as needed, strengthening, bed mobility, transfers, gait, stairs, balance training, and use of assistive device. DISCHARGE RECOMMENDATIONS: [] Home with no services [] [X] Home with services. Home when medically cleared by hospitalist. Patient will benefit from home health PT services in order to progress mobility level using least restrictive assistive ambulatory device, assess home safety, identify additional equipment needs, and establish a functional maintenance program that will increase ability of patient to remain at home. [] Home with outpatient PT [] [] SNF for continued rehabilitation [] [] Group Home Care [] [] SNF versus LTC based on ability to participate and progress [] TREATMENT CODE/TIME: 24684 x 25 minutes beginning at 10:50 AM. Thank you for the opportunity to participate in the care of this patient. Adali Delvalle PT, DPT, CLT [facility] [place], [place]
--- NOTE | 2021-12-17 13:44 | W.PM.DS.N ---
Date of service: 12/17/21 Time of Service: 13:44 DS: Diagnosis Discharge Diagnosis (1) Altered mental status: Status: Acute (2) Parkinsons disease: Status: Chronic (3) Dehydration: Status: Acute (4) Hypertension: Status: Chronic (5) Glaucoma: Status: Chronic (6) Hypokalemia: Status: Acute (7) DVT prophylaxis: Status: Acute (8) Discharge planning issues: Status: Acute Discharge Plan Disposition Patient Disposition: HOME Condition: Stable Discharge Details Reason For Visit: Exacerbation of Parkinson's disease,Catatonia Admit Date/Time: 12/16/21 11:53 Admit Provider: Ananth Yates Attending Provider: Ananth Yates Primary Care Provider: Aguila Thakur Hospital Course Hospital Course: 76-year-old male with a history of parkinsonism, essential hypertension, mild dementia, PTSD, of the [place] War who lives with his who called EMS early this morning because of acute agitation and combativeness that began around 1:00 this morning.? Patient has been having difficulty sleeping at night and the patient's sat up with him last night until he went to sleep.? She says that he has been obsessed with watching the news regarding the [place] invasion of [facility].? She thinks this may have set off his PTSD.? She says in the past when he has not been getting enough sleep he would become more agitated but usually this resolves with a good night sleep.? He will occasionally have periods which will have exacerbation of his parkinsonism which will become more stiff but with a good night's sleep and his Sinemet he usually improves. Today when he became combative adn agitated she could not control him and she called EMS who gave him ketamine. In the ER he was nearly catatonic and very stiff almost rigid. Dr. Farmer, ER attending, did a workup that included routine labs including CBC, CMP, TSH, UA, SARS-COV2 PCR, troponin I and CT scan of head and chest. CT head did not demonstrate any acute abnormalities. CT of the chest suggested a mild infiltrate in left lung base. Clinically he did not present w/ pneumonia (i.e., no fever, dyspnea or leukocytosis . His CMP was remarkable for mild hypokalemia (K+ 3.4, but otherwise was unremarkable w/ normal renal and liver function. CBC showed a mild stable? anemia w/ Hb 12.3 gm and no leukocytosis nor any left shift. UA was remarkable for dehydration w/ SG >1.030? w/ trace of blood and 5-10 RBC/HPF, no leukocyte esterase and neg for nitrites. But w/ calcium oxalate crystals and 10 to 120 hyaline casts. Patient was given iv fluids (NS X 1000 mL) and was given a dose of his Sinemet. He has some dysphagia problems and requires supervised feedings and takes a dysphagia diet of pureed foods and thickened liquids. He sometime will have choking spells but was able to take his meds while in the ER despite his nearly catatonic state. With the resumption of his Sinemet, he returned to his baseline level of mobility, though he tended to fatigued more readily it appeared to his . He was given Ambien CR 6.25mg at night and slept well. His will administer Ambien prn on the nights when he is restless. F/U with PCP in 1-2 weeks. Home Meds and New Rx's Prescriptions: New aspirin 325 mg Tablet 325 mg PO DAILY Qty: 0 0RF polyethylene glycol 3350 17 gram Powder In Packet 17 g PO DAILY PRN PRN (Reason: Constipation) Qty: 0 0RF zolpidem [Ambien CR] 6.25 mg tablet,ext release multiphase 6.25 mg PO QHS PRNQty: 30 0RF zolpidem [Ambien CR] 6.25 mg tablet,ext release multiphase 6.25 mg PO QHS PRNQty: 30 0RF zolpidem [Ambien CR] 6.25 mg tablet,ext release multiphase 6.25 mg PO QHS PRNQty: 7 0RF Continued tamsulosin 0.4 mg capsule 0.4 mg PO DAILY 0RF carboxymethylcellulose sodium 0.5 % drops 1 drp ophthalmic (eye) 4-6XD PRN0RF latanoprost 0.005 % drops 1 drp ophthalmic (eye) QPM 0RF glycopyrrolate 1 mg tablet 1 mg PO TID 0RF multivitamin [One Daily] 1 EACH tablet 1 tab PO DAILY 0RF amlodipine [Norvasc] 5 MG tablet 1 tab PO QAM Qty: 90 4RF simvastatin 20 MG tablet 1 tab PO DAILY Qty: 90 4RF carbidopa-levodopa 25-100 mg tablet 2 tab PO 5X/DAY 0RF polyethylene glycol 3350 [Miralax] 17 gram/dose powder 17 gm PO DAILY Qty: 510 8RF losartan 50 mg tablet 50 mg PO DAILY Qty: 90 3RF carbidopa-levodopa 25-100 mg tablet 2 tab PO HS PRN PRN0RF spironolactone 25 mg Tablet 25 mg PO DAILY 0RF dorzolamide-timolol 22.3-6.8 mg/mL Drops 1 drp ophthalmic (eye) BID 0RF Discharge Instructions Referrals: Aguila Thakur DO [Primary Care Provider] - Activity:: Activity as Tolerated Equipment/Supplies:: No Equipment Needed Diet:: Resume home diet Discharge Orders Discharge Orders: Discharge Order (Routine); Ordered 12/17/21 Ordered By: Fabiano Walsh DS: Summary Time Spent with Patient providing and/or coordinating discharge services: Greater than 30 minutes Status at Discharge Functional status at discharge: independent ambulation Overall status at discharge: patient is back to baseline Mental Status: other Speech and Movement: other (Verbalizes with single words or very short sentences. Intelligable speech) Mood: other Affect: blunted Exam Narrative Exam Narrative: Elderly white male sitting reclined in the recliner. He is staring at the ceiling and doesn't answer my questions. He does, however, respond and answer questions asked by the sitter. HEENT: sclera clear. Lungs are clear to auscultation Heart regular rate and rhythm Abdomen soft nondistended normal bowel sounds Lower extremities without edema. He has hammertoes of both feet. Neuro exam he is very stiff and rigid it is extremities but has normal clinical laboratory technologist strength in his hands. He intermittently flexes at knees and then extends. He doesn't follow commands. Psych Mental Status: other Speech and Movement: other (Verbalizes with single words or very short sentences. Intelligable speech) Mood: other Affect: blunted DS: Data Vitals/I&O Vitals and I&O: Vital Signs Temperature 36.6 C 12/17/21 05:57 Temperature Source Tympanic 12/17/21 05:57 Pulse 61 12/17/21 05:57 Pulse Rhythm Regular 12/17/21 07:19 Pulse 70 12/16/21 10:16 Respiratory Rate 16 12/17/21 05:57 Respiratory Effort Non-Labored 12/17/21 07:19 Respiratory Depth Normal 12/17/21 07:19 Respiratory Pattern Normal 12/17/21 07:19 Blood Pressure 153/76 H 12/17/21 05:57 Blood Pressure Mean 81 12/16/21 12:44 Blood Pressure Position Supine 12/16/21 04:09 Pulse Oximetry 98 12/17/21 05:57 Respiratory End-tidal CO2 37 12/16/21 09:46 Oxygen Delivery Method Room Air 12/17/21 05:57 Oxygen Flow Rate 0 12/17/21 05:57 Pain Level 0 12/16/21 23:10 Comment 12/17/21 05:57 Intake & Output 12/16/21 12/17/21 12/17/21 23:59 11:59 23:59 Intake Total 1480 / 1780 360 / 360 Balance 1480 / 755 360 / 360 Intake: IV 1000 / 1000 Oral 480 / 780 360 / 360 Other: Urine Color Yellow Urine Appearance Clear Clear Urine Odor Normal Comment Pt went to the bathroom and was unable to sit on toilet and urinated on the floor. Stool Size Small Stool Characteristics Soft Formed Voiding Methods Incontinent Data Completed and Pending Labs on day of discharge: Labs from last 24 hours 12/17/21 08:05 Sodium 141 Potassium 4.0 Chloride 106 Carbon Dioxide 27.2 Anion Gap 7.8 BUN 9 D Creatinine 0.7 Estimated GFR/1.73 m2 >= 60.00 Glucose 89 Calcium 9.0 Preliminary micro results at discharge 12/16/21 04:37 Blood Culture - Preliminary Blood NO GROWTH 24 HOURS PFSH All Active Problems DVT prophylaxis (Acute) Discharge planning issues (Acute) Hypokalemia (Acute) Dehydration (Acute) Acute confusion (Acute) Delirium (Acute) Pain in left hip (Chronic) History of Surgical Procedure (Chronic) a. Colonoscopy for which he's had excision of a polyp. b. Perirectal abscess treated in the past. c. Tonsillectomy. d. Extraction of molars. 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 Glaucoma (Chronic) Hearing decreased (Chronic) Elevated PSA (Chronic) a. In April 2013. 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) RIGHT EAR CANAL BCCa left upper chest 2018: excised Cellulitis (Chronic) Glaucoma (Chronic) decreased vision left Hyperlipidemia (Chronic) Polyp of colon (Chronic 09/20/10) Raised prostate specific antigen (Chronic 03/05/13) 6.82 06/19/16, 8.29 05/19/15 [facility] june Status post left hip replacement (Chronic 07/31/14) Parkinsons disease (Chronic) Constipation (Chronic) Sensorineural hearing loss of both ears (Acute) DE LEON (dyspnea on exertion) (Acute) Foot pain (Acute) Swapna-prosthetic fracture around prosthetic hip (Acute) Altered mental status (Acute) Postoperative anemia (Acute) Fx femur shaft-closed (Acute) left ORIF Anemia (Chronic) Impacted cerumen, bilateral (Acute) Conductive hearing loss, external ear (Acute) Surgical History Colonoscopy - MAC (~2010) 2000; NEG 2010; 2 POLYPS Family History Mother Diabetes Personal history of malignant neoplasm breast Father Heart disease Sister No problems noted. Brother No problems noted. Brother No problems noted. Social History Smoking/Tobacco Use Status: Never Second Hand Exposure: No Smoking risk assessment performed?: Yes Alcohol Intake: never Drug use: Never Household members: spouse and children Housing: house Communication Needs: Hard of Hearing and Corrective Lenses Do you need help understanding health information?: Often Pets and animals: Yes Pets and animals: dog(s) Sexually active: No Do you think of yourself as: straight/heterosexual Current gender identity: male What is your relationship status?: How often do you talk on the phone with friends or family?: once per week How often do you attend yazidism or protestant services?: 1-3 times per year Do you belong to any clubs or organized social groups?: no Panel score (0-1 are the most socially isolated patients): 1 What type of physical activity do you participate in: other Details: boxing Frequency: 1-2 times per week Kenna/Presybeterian: Restoration Seatbelt use: always Helmet use: No Drive intox or ride w/intox milk pickup driver: No Do you feel safe at home: Yes Do you feel safe in your relationship?: Yes
--- NOTE | 2021-12-17 15:56 | PDOC.CMDIS ---
- If Service Date Differs Date of service: 12/17/21 Time of Service: 15:56 LACE Index Scoring Tool - Questions: Length of Stay (in days): 1 Acuity (Admit via E.D.?): Yes Comorbidities: Dementia E.D. Visits: 3 - Answers: Total Score: 10 Risk of Readmission: High Risk Care Management Discharge Reason for Hospitalization: altered mental status Discharge Plan: Zach will be discharged home with his with no new services. He will follow up with his community providers and plan of care and transport with his spouse. Patient/Family Education Needs: Review of discharge instructions, limitations, activity, follow up plan, discuss Ask Me Three
--- NOTE | 2021-12-19 17:30 | PT.INDS ---
Date of service: 12/19/21 PT Notes Visit Reasons: Exacerbation of Parkinson's disease,Catatonia Physical Therapy Discharge Summary Date: 12/19/2021 Dates of Service: 12/19/2021 only This is a clinical summary of care provided for the duration of dates listed above. No charge was made in the completion of this documentation. Referring Doctor: Fabiano Walsh MD PT Orders: PT CONSULT: Eval/treat. Precautions: Fall. Standard. Activity as tolerated.? Impaired safety awareness. Patient Profile/Admitting Diagnosis: Zach is a 76-year-old male with diagnosis of altered mental status, Parkinson's disease, dehydration, hypertension, glaucoma, and hypokalemia with referral to physical therapy to evaluate ambulatory status. PMHX: All Active Problems?(Updated 12/16/21 @ 19:35 by Ananth Yates) DVT prophylaxis (Acute) Discharge planning issues (Acute) Hypokalemia (Acute) Dehydration (Acute) Acute confusion (Acute) Delirium (Acute) Pain in left hip (Chronic) History of Surgical Procedure (Chronic) a. Colonoscopy for which he's had excision of a polyp. b. Perirectal abscess treated in the past. c. Tonsillectomy. . Extraction of molars. 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Glaucoma (Chronic) Hearing decreased (Chronic) Elevated PSA (Chronic) a. 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 Colonoscopy - MAC (~2010) 2001; NEG 2011; 2 POLYPS Social History/Home Situation: Lives with in a private home with 4 steps to enter without rails.? There is 15 steps to the second floor of the house where his bedroom is. Equipment Owned/DME: FWW Subjective: NT. See most recent FIREWALL ADMINISTRATOR notes. Objective: General Observation: iNT. See most recent FIREWALL ADMINISTRATOR notes. Mental Status: NT. See most recent FIREWALL ADMINISTRATOR notes. Pain: NT. See most recent FIREWALL ADMINISTRATOR notes. ROM: Right Upper Extremity: ? Grossly WFL Left Upper Extremity:? Grossly WFL Right Lower Extremity: Grossly WFL Left Lower Extremity: Grossly WFL Strength: Right Upper Extremity: Grossly 5/5 Left Upper Extremity: Grossly 5/5 Right Lower Extremity: Grossly 5/5 Left Lower Extremity: Grossly 5/5 Bed Mobility/Transfers: Sit to stand with standby assist Stand to sit with standby assist Bed to reclining chair with standby assist Gait: Instructed patient with level surface ambulation of 250 feet requiring contact-guard assist to FWW as patient has a poor ability to manage walker.? Minimal path deviation.? Requires constant holding onto walker by caregiver as patient deviates path or has trouble changing directions.? Nurse Harper assisted with ambulation assessment for safety. Balance: Static Sitting: Normal Dynamic Sitting: Normal Static Standing: Good Dynamic Standing: Fair Assessment: Zach is able to negotiate level surface ambulation with front-wheeled walker as long as there is constant supervision of another caregiver.? May perform well at home where everything and everybody are familiar to him.? Goals: Goals X1 week 1. Supine-Sit supervision NOT MET 2. Sit-Supine supervision NOT MET 3. Sit-Stand supervision NOT MET 4. Stand-Sit supervision with FWW NOT MET 5. Bed-Chair supervision with FWW NOT MET 6. Chair-Bed supervision with FWW NOT MET 7.? Supervision gait on level surface with use of FWW for at least 300 feet without report of pain nor dyspnea NOT MET DISCHARGE RECOMMENDATIONS: [] ? Home with no services [] [X] ? Home with services.? Home when medically cleared by hospitalist.? Patient will benefit from home health PT services in order to progress mobility level using least restrictive assistive ambulatory device, assess home safety, identify additional equipment needs, and establish a functional maintenance program that will increase ability of patient to remain at home. [] ? Home with outpatient PT [] [] ? SNF for continued rehabilitation [] [] ? [facility] [] [] ? SNF versus LTC based on ability to participate and progress [] TREATMENT CODE/TIME: NC Thank you for the opportunity to participate in the care of this patient. Adali Delvalle PT, DPT, CLT [facility] [place], [place]
== END 2021-12-17 14:33 | disposition home or self-care (01) ==
LOC: ER 12:26 → MS 13:05
PROVIDERS: Student in an Organized Health Care Education/Training Program; Admitting Provider Internal Medicine; Emergency Provider Emergency Medicine; PCP Emergency Medicine; Visit Provider Internal Medicine
DX: E86.0 Dehydration; F06.1 Catatonic disorder due to known physiological condition; G20 Parkinson's disease; R41.82 Altered mental status, unspecified; I10 Essential (primary) hypertension; H40.9 Unspecified glaucoma; F02.80 Dementia in other diseases classified elsewhere, unspecified severity, without behavioral disturbance, psychotic disturbance, mood disturbance, and anxiety; E87.6 Hypokalemia; F43.10 Post-traumatic stress disorder, unspecified; E78.5 Hyperlipidemia, unspecified; D64.9 Anemia, unspecified; Z85.3 Personal history of malignant neoplasm of breast
CPT/HCPCS: 36415; 51702; 71250; 80048; 80053; 82805; 87040; 87635; 93005; 96360; 96361; 97162; 99285; J1650; 70450; 80320; 80329; 81003; 81015; 82140; 83605; 84443; 84484; 85025; 85610; 85730; 93010; 99217; 99219; G0378; J3490

== ENCOUNTER 2021-12-30 09:52 | Inpatient (IN) | payer OTHER, SELFPAY ==
[2021-12-30] VITALS (17 sets, daily range): BP systolic 101–123; BP diastolic 49–60; PULSE 58–68; RESP 17–25; TEMP 36.5–37.9; O2SAT 96–100
--- NOTE | 2021-12-30 10:00 | DI.RAD_ITS ---
Exam(s) XR ELBOW LT COMPLETE EXAM: XR ELBOW LT COMPLETE CLINICAL HISTORY: fall, injury. TECHNIQUE: 2D digital imaging was performed. COMPARISON: CR XR ELBOW LT COMPLETE from 06/20/2021 FINDINGS: There is no evidence of acute fracture or joint effusion and there is no swelling of the olecranon bu rsa. Two small calcific densities are again noted in the olecranon bursa region, unchanged and witho ut swelling in this region. The radial head and neck appear unremarkable as does the capitellum. So me bony density off the medial epicondyles again noted consistent with probable epicondylitis. No ra diopaque foreign body. IMPRESSION: No acute fracture. No obvious joint effusion. Other findings as above. DATA REPOSITORY: RADIATION DOSE DELIVERED:
--- NOTE | 2021-12-30 10:00 | RT.EKG_ITS ---
APPROVED REPORT Exam: Resting ECG Reason for Exam: falls, chest pain Patient Location: E HR:61 bpm ECG Measurements Heart Rate 61 AXIS ND 62 P 0 QRSd 95 QRS -25 QT 422 T 40 QTc 424 Conclusion Sinus rhythm...normal P axis, V-rate 60- 99
--- NOTE | 2021-12-30 10:00 | DI.CT_ITS ---
Exam(s) CT CHEST/ABD/PEL W EXAM: CT CHEST/ABD/PEL W CLINICAL HISTORY: fall, left rib pain, ams. TECHNIQUE: Imaging Protocol: Axial computed tomography images with coronal and sagittal reformatted images were created and reviewed CONTRAST MATERIAL: Intravenous: Omnipaque 350 Contrast volume:100 ml Oral: None COMPARISON: CR XR CHEST 2V PA LATERAL from 12/21/[address] CHEST WO from 12/16/2021 FINDINGS: CHEST: LUNGS: There is now patchy infiltrate throughout the entire left lung as well as part of the right up per lobe. There is no large pleural effusion or pneumothorax. No new significant findings in the op posite-right lung. There is subcutaneous emphysema over the anterior lateral left chest wall, without evidence of acute left rib fractures. This extends to the supraclavicular region.. Healed fractures of the left 7th a nd 8th ribs are again noted. No acute ipsilateral clavicle nor scapular fracture nor humeral head-ne ck fracture. Degenerative changes in the left glenohumeral joint and loose intra-articular body agai n noted. No subcutaneous emphysema over the opposite-right hemithorax nor right rib fractures. No v ertebral fractures evident. No sternal fracture. MEDIASTINUM: No evidence of mediastinal hematoma. Visualized thyroid unremarkable. There is no nghia r nor mediastinal adenopathy. CARDIAC: Heart size is normal. There is no pericardial effusion.Caliber of the thoracic aorta is wit hin normal limits. No dissection. OSSEOUS: No significant osseous lesions.No acute fractures. ABDOMEN: There is no ascites. No evidence of mesenteric nor bowel wall hematoma. LIVER: There are no focal hepatic lesions nor dilatation of intrahepatic ducts. No evidence of a pat ent laceration. GALLBLADDER/BILIARY: No obvious gallbladder pathology. CBD is not dilated. PANCREAS: Atrophic. No obvious pancreatic mass. SPLEEN: Spleen size normal. No evidence of splenic laceration. Splenic and portal veins are patent. ADRENALS: There are no significant adrenal masses. KIDNEYS: No evidence of renal laceration or subcapsular hematoma none. A benign cyst in the lower po le of the right kidney measuring 2.5 x 2.2 cm is noted.. No calculi. No solid renal masses. No hyd ronephrosis. ABDOMINAL AORTA: Abdominal aorta is not enlarged. LYMPH NODES: There is no retroperitoneal nor paraaortic adenopathy. ABDOMINAL WALL: No evidence of significant anterior abdominal wall nor inguinal hernia. GI: Abundant fecal material noted in the colon, similar to previous.No evidence of mesenteric nor bow el wall hematoma. PELVIS: LYMPH NODES: There is no intrapelvic nor inguinal adenopathy. GI: No evidence of appendicitis.Prominent amount fecal material noted rectum.. No evidence of acute diverticulitis in the sigmoid. URINARY BLADDER: No calculi nor masses evident REPRODUCTIVE: Enlarged prostate. Extends into the urinary bladder. Bladder is not distended. OSSEOUS: No acute fractures. Left hip prosthesis noted. Ankylosis of the SI joints noted. Multilev el chronic degenerative disc disease. No compression fractures. IMPRESSION: 1. The main finding is a prominent amount of infiltrate involving most of the left lower lobe and par t of the left upper lobe with a minimal amount of left pleural fluid. There is subcutaneous emphysem a over the left chest wall but not associated with acute rib fractures. There are unchanged healed f ractures of the left 7th and 8th ribs. 2. No significant trauma sequelae in the abdomen and pelvis. Report called by myself to ER provider peer RADIATION DOSE DELIVERED: 1,539.25mGy.cm Total DLP DATA REPOSITORY: All CT scans at this facility are submitted to the National Radiology Data Registry (NRDR) Dose Index Registry (DIR) with the [employer] (ACR). RADIATION OPTIMIZATION: All CT scans at this facility use at least one of these dose optimization te chniques: automated exposure control; mA and/or kV adjustment per patient size (includes targeted exa ms where dose is matched to clinical indication); or iterative reconstruction.
--- NOTE | 2021-12-30 10:36 | W.ED.GENAD ---
Discharge Plan Disposition Patient Disposition: HOME Condition: Serious Discharge Details Clinical Impression: Subcutaneous emphysema due to trauma, Aspiration pneumonia, Parkinsons disease, Skin tear of elbow without complication Primary Care Provider: Raad Strauss ED Provider: Dora Alfredo Discharge Data Discharge Date/Time-TO BE ENTERED AT DEPARTURE: 12/30/21 14:25 Medical Decision Making Case discussed with Dr. Mandujano knee surgery and recommend monitoring clinically for pneumothorax and treating with supplemental oxygen with respiratory assessment and spirometry regularly Patient also has pneumonia, aspiration related given history, he will be treated empirically with Zosyn Knee.. Or SIRS criteria and so I did not order blood pressure blockade I discussed with regarding patient's CODE STATUS and he is to be maintained They are agreeable to admission at this time Patient at baseline mentation per CT scan results discussed with Dr. Borja, radiology cutaneous emphysema left with right upper lobe lower lobe infiltrate X-ray of left elbow does not show abnormality covid test pending, declines new respiratory complaints Case discussed with Dr. Walsh, agreeable to admitting patient Medical Records Medical records reviewed: Yes I reviewed the patient's medical records. Lab Data Lab results reviewed: Yes I reviewed the patient's lab results. HPI General Date/Time Provider Initiated Documentation: 12/30/21 10:00. HPI Narrative: This 76-year-old male presents with Report of fall today at approximately 3 AM. EMS was called and placed him back in bed, however secondary to persistent pain this morning he presents. He reportedly is at his baseline since being discharged recently. As patient is unable to contribute to HPI secondary to dementia history, history is obtained from and EMS. states she thinks he injured his left ribs. Denies any loss of consciousness denies any acute change in mentation. denies vomiting or known loc. has been more tired in the past several weeks reportedly Related Data Home Medications Medication Instructions Recorded Confirmed amlodipine 5 mg tablet (Norvasc) 1 tab PO QAM #90 01/22/13 12/30/21 multivitamin (One Daily) 1 tab PO DAILY 01/22/13 12/30/21 simvastatin 20 mg tablet 1 tab PO DAILY #90 tab 01/22/13 12/30/21 tamsulosin 0.4 mg capsule 0.4 mg PO DAILY tab-cap 10/03/18 12/30/21 carbidopa 25 mg-levodopa 100 mg 2 tab PO 5X/DAY tab 11/29/18 12/30/21 tablet polyethylene glycol 3350 17 17 gm PO DAILY #510 gm 06/23/20 12/30/21 gram/dose oral powder (Miralax) losartan 50 mg tablet 50 mg PO DAILY #90 tab 12/02/20 12/30/21 carboxymethylcellulose sodium 0.5 1 drp OPHTHALMIC (EYE) 4-6XD PRN 03/29/21 12/30/21 % eye drops glycopyrrolate 1 mg tablet 1 mg PO TID 03/29/21 12/30/21 latanoprost 0.005 % eye drops 1 drp OPHTHALMIC (EYE) QPM 03/29/21 12/30/21 carbidopa 25 mg-levodopa 100 mg 2 tab PO HS PRN PRN 12/16/21 12/30/21 tablet dorzolamide 22.3 mg-timolol 6.8 1 drp OPHTHALMIC (EYE) BID 12/16/21 12/30/21 mg/mL eye drops spironolactone 25 mg tablet 25 mg PO DAILY 12/16/21 12/30/21 aspirin 325 mg tablet 325 mg PO DAILY #0 tab 12/17/21 12/30/21 polyethylene glycol 3350 17 gram 17 g PO DAILY PRN PRN #0 ea 12/17/21 12/30/21 oral powder packet zolpidem 6.25 mg tablet,extended 6.25 mg PO QHS PRN #30 tab 12/17/21 12/30/21 release,multiphase (Ambien CR) Previous Rx's Medication Instructions Recorded polyethylene glycol 3350 17 17 gm PO DAILY #510 gm 06/23/20 gram/dose oral powder (Miralax) losartan 50 mg tablet 50 mg PO DAILY #90 tab 12/02/20 aspirin 325 mg tablet 325 mg PO DAILY #0 tab 12/17/21 polyethylene glycol 3350 17 gram 17 g PO DAILY PRN PRN #0 ea 12/17/21 oral powder packet zolpidem 6.25 mg tablet,extended 6.25 mg PO QHS PRN #30 tab 12/17/21 release,multiphase (Ambien CR) Allergies Allergy/AdvReac Type Severity Reaction Status Date / Time No Known Allergies Allergy Verified 12/30/21 10:15 General Stated Complaint: Trauma MAY: 3 Review of Systems All systems reviewed & are unremarkable except as noted in HPI and below PFSH All Active Problems (Updated 12/31/21 @ 08:32 by YOVANA Linn) Skin tear of elbow without complication (Acute) Aspiration pneumonia (Acute) Subcutaneous emphysema due to trauma (Acute) Pain in left hip (Chronic) History of Surgical Procedure (Chronic) a. Colonoscopy for which he's had excision of a polyp. b. Perirectal abscess treated in the past. c. Tonsillectomy. d. Extraction of molars. 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 Glaucoma (Chronic) Hearing decreased (Chronic) Elevated PSA (Chronic) a. In April 2013. 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 Brother No problems noted. Brother No problems noted. Social History Smoking/Tobacco Use Status: Never Second Hand Exposure: No Smoking risk assessment performed?: Yes Alcohol Intake: never Drug use: Never Household members: spouse and children Housing: house Communication Needs: Hard of Hearing and Corrective Lenses Do you need help understanding health information?: Often Pets and animals: Yes Pets and animals: dog(s) Sexually active: No Do you think of yourself as: straight/heterosexual Current gender identity: male What is your relationship status?: How often do you talk on the phone with friends or family?: once per week How often do you attend adventist or druze services?: 1-3 times per year Do you belong to any clubs or organized social groups?: no Panel score (0-1 are the most socially isolated patients): 1 What type of physical activity do you participate in: other Details: boxing Frequency: 1-2 times per week Kenna/Evangelical: Moravian Seatbelt use: always Helmet use: No Drive intox or ride w/intox local flatbed driver: No Do you feel safe at home: Yes Do you feel safe in your relationship?: Yes Exam Const General: cooperative, comfortable and no acute distress Orientation: alert and confused HENMI Head: normal to inspection Other: Uvula midline, no evidence of intraoral trauma Eyes Pupils: PERRL Neck Other: No visible sign of trauma Chest Other: Left-sided crepitus overlying anterior chest wall Resp Effort & Inspection: normal respiratory effort Auscultation: clear to auscultation bilaterally Other: Rhonchi noted Cardio Rate: regular rate Rhythm: regular rhythm GI Inspection: normal to inspection Back/Spine/Pelvis Other: No visible sign of trauma Skin General skin exam: no rashes or lesions noted Neuro General: patient alert Extrem Other: Left elbow with skin tear noted no evidence of open fracture, neuro vascularly intactvascularly intact Course Vital Signs Vital signs: Vital Signs Temperature 36.7 C 12/30/21 10:02 Pulse 62 12/30/21 10:02 Respiratory Rate 18 12/30/21 10:02 Blood Pressure 107/54 L 12/30/21 10:02 Pulse Oximetry 99 12/30/21 10:02 Temperature 36.7 C 12/30/21 10:02 Temperature Source Temporal Artery Scan 12/30/21 10:02 Pulse 62 12/30/21 10:02 Respiratory Rate 18 12/30/21 10:02 Respiratory Effort 12/30/21 10:09 Respiratory Depth Normal 12/30/21 10:09 Respiratory Pattern Normal 12/30/21 10:09 Blood Pressure 107/54 L 12/30/21 10:02 Blood Pressure Position Supine 12/30/21 10:02 Pulse Oximetry 99 12/30/21 10:02 Oxygen Delivery Method Room Air 12/30/21 10:02 Oxygen Flow Rate 0 12/30/21 10:02 Comment 12/30/21 10:02
[2021-12-30] MEDS: MORPHine 10 MG/ML VIAL 2 MG IVP (10:42)
[2021-12-30 10:43] LABS: Abs Immature Grans 0.04 10^3/uL (0.0-0.06); Absolute Basophil Count 0.04 10^3/uL (0.0-0.2); Absolute Monocyte Count 0.63 10^3/uL (0.1-0.8); Basophils % 0.3; Eosinophils % 0.2; HCT 36.8 % (40.0-50.0); Immature Grans % 0.3; Lymphocytes % 15.9; MCH 31.3 pg (27.0-33.0); MCHC 32.6 % (32.0-36.0); MCV 96.1 fL (80-95); MPV 8.8 fL (8.0-11.0); Monocytes % 5.2; Neutrophils % 78.1; Nucleated RBC 0 %; Platelet Count 217 10^3/uL (130-400); RBC 3.83 10^6/uL (4.36-5.78); RDW 12.5 % (11.8-14.1); RDW-SD 43.8 fL; WBC 12.05 10^3/uL (4.4-10.8)
[2021-12-30] MEDS: Lactated Ringers 1,000 ML 500 ML IV (10:43)
[2021-12-30 10:44] LABS: Absolute Eosinophil Count 0.02 10^3/uL (0.0-0.7); Absolute Lymphocyte Count 1.92 10^3/uL (1.2-3.4); Absolute Neutrophil Count 9.41 10^3/uL (1.2-6.7)
[2021-12-30 10:46] LABS: Bilirubin Negative (Negative); Blood Negative (Negative); Clarity Clear (Clear); Glucose Negative (Negative); Ketones Trace mg/dL (Negative); Leukocyte Esterase Negative (Negative); Nitrite Negative (Negative); Specific Gravity >= 1.030 (1.005-1.025); Urobilinogen 0.2 EU/dL (Up TO 0.2)
[2021-12-30 10:53] LABS: Bacteria Negative HPF (Negative); C & S Indicated? No; Casts Negative LPF (Negative); Crystals Negative HPF (Negative); Epithelial Cells Rare HPF (Negative); Mucus Negative (Negative); RBC 0-2 HPF (0-2); WBC 0-2 HPF (0-5)
[2021-12-30 11:06] LABS: ALT 7 U/L (16-63); AST 19 U/L (15-37); Albumin 3.4 g/dL (3.4-5.0); Alkaline Phosphatase 82 U/L (46-116); Anion Gap 7.2 mmol/L (3-11); BUN 16 mg/dL (7-18); CO2 26.8 mmol/L (21.0-32.0); CREATININE 0.7 mg/dL (0.70-1.30); Calcium 8.8 mg/dL (8.5-10.1); Chloride 104 mmol/L (98-107); Glucose 107 mg/dL (74-106); Magnesium 2.2 mg/dL (1.8-2.4); Potassium 3.9 mmol/L (3.5-5.1); Sodium 138 mmol/L (136-145); Total Protein 7.1 g/dL (6.4-8.2); Troponin I < 50 ng/L (<or=60)
--- NOTE | 2021-12-30 11:09 | CMPROGNOTE_ITS ---
- If Service Date Differs Date of service: 12/30/21 Time of Service: 11:09 Care Management Progress Note Dominic presents in the ED for persistent pain after falling out of bed during the international specialist hours. At the request of ED provider, CM meets with Dominic and his , Shaila, to assess needs. Shaila shares that Dominic is disabled and his disability is 100% service connected due to exposure to agent orange while in the . She states the [facility] pays her to be her 's caregive r. Shaila goes on to say that she is doing okay but she would like to have an afternoon off each week so she can attend to her own health needs and says she has recently met with someone who is an COMPUTERIZED MACHINE FABRIC CUTTER who might be available to care for Dominic one afternoon per week. Shaila states she is working closely with Tiera Benson RN Care Manager at the [facility], and Tiera has been a great resource for her. CM will contact Tiera to ensure close follow up.
--- NOTE | 2021-12-30 11:09 | PDOC.ERCMPRO ---
- If Service Date Differs Date of service: 12/30/21 Time of Service: 11:09 Care Management Progress Note Dominic presents in the ED for persistent pain after falling out of bed during the behavioral technician hours. At the request of ED provider, PARRISH meets with Dominic and his , Shaila, to assess needs. Shaila shares that Dominic is disabled and his disability is 100% service connected due to exposure to agent orange while in the . She states the [facility] pays her to be her 's caregiver. Shaila goes on to say that she is doing okay but she would like to have an afternoon off each week so she can attend to her own health needs and says she has recently met with someone who is an PIPE PRODUCTION WORKER who might be available to care for Dominic one afternoon per week. Shaila states she is working closely with Tiera Benson RN Care Manager at the [facility], and Tiera has been a great resource for her. PARRISH will contact Tiera to ensure close follow up.
--- NOTE | 2021-12-30 11:21 | DI.CT_ITS ---
Exam(s) CT HEAD CERVICAL SPINE WO EXAM: CT HEAD CERVICAL SPINE WO CLINICAL HISTORY: fall, unwitness, ams. TECHNIQUE: Imaging Protocol: Axial computed tomography images with coronal and sagittal reformatted images were created and reviewed COMPARISON: CT CT HEAD CERVICAL SPINE WO from 06/20/[address] HEAD WO from 12/16/2021 FINDINGS: BRAIN: There are no skull fractures nor fluid in the visualized paranasal sinuses. There is no evidence of intracranial hemorrhage, mass effect, or shift of midline structures. There are no extra-axial fluid collections. The ventricles are not enlarged or shifted and there is no blo od within the ventricular system nor within the basal cisterns. CERVICAL SPINE: There is wedge compression of C7 vertebral body, unchanged from prior CT scan of 06/20/2021. Multilevel chronic degenerative disc disease and degenerative facet joint changes are again noted. There is no significant facet joint malalignment. No significant osseous lesions evident. IMPRESSION: No acute intracranial findings on this noninfused CT scan of the brain. No evidence of acute cervical spine fracture, malalignment, nor acute compromise of the cervical spin al canal. Nonacute compression deformity of C7 vertebral body is again noted. RADIATION DOSE DELIVERED: 1,628.54mGy.cm Total DLP DATA REPOSITORY: All CT scans at this facility are submitted to the National Radiology Data Registry (NRDR) Dose Index Registry (DIR) with the [employer] (ACR). RADIATION OPTIMIZATION: All CT scans at this facility use at least one of these dose optimization te chniques: automated exposure control; mA and/or kV adjustment per patient size (includes targeted exa ms where dose is matched to clinical indication); or iterative reconstruction.
[2021-12-30] MEDS: Omnipaque 350 MG/ML 100 ML BTL IJ (11:29)
[2021-12-30] MEDS: PIPERACILLIN/TAZO 3.375 GM in Normal Saline 50 ML IVPB ×3 (12:31→23:53)
[2021-12-30 12:55] LABS: Source Nasal/Nares
[2021-12-30 13:41] LABS: COVID-19 PCR Negative (Negative)
[2021-12-30] MEDS: Carbidopa 25/Levodopa 100 TAB PO ×3 (16:23→21:06)
[2021-12-30] MEDS: Glycopyrrolate 1 MG TAB PO ×2 (16:23→21:06)
--- NOTE | 2021-12-30 19:07 | HPE_ITS ---
Date of service: 12/30/21 Time of Service: 17:05 Assessment and Plan Assessment and plan (1) Subcutaneous emphysema due to trauma: Status: Acute Assessment and plan: General surgery following. No supplemental O2 currently required. IS CXR this AM pending. No chest wall pain/tenderness (2) Hypertension: Status: Chronic Assessment and plan: BP controlled. Cont losartan and amlodipine Monitor Qualifiers: Hypertension type: essential hypertension Qualified Code(s): I10 - Essential (primary) hypertension (3) Hyperlipidemia: Status: Chronic Assessment and plan: Cont simvistatin (4) BPH (benign prostatic hyperplasia): Status: Chronic Assessment and plan: Cont tamsulosin and monitor for urinary retention. (5) Aspiration pneumonia: Status: Acute Assessment and plan: Left sided infiltrates. Cont Zosyn WBC count decreasing; monitor. (6) Parkinsons disease: Status: Chronic Assessment and plan: Cont home Sinemet dosing; can take extra dose in the night prn. Cont robinul for secretions. Modified diet. (7) Skin tear of elbow without complication: Status: Acute Assessment and plan: Simple skin dress; telfa then gauze. History of Present Illness History of Present Illness Chief Complaint: Fall onto left side with chest wall pain Narrative: This is a 76 yo male with a PMH of HTN, HLD, BPH, Parkinsons disease, sensorineural hearing loss. He presented to the ED after a fall with complaint of left chest pain. Initially, his called EMS and they placed him back in bed during the night prior to presentation. The pain persisted the following day (day of presentation) and he presented to the ED. No CP/palpitations noted prior to the fall. No fever/chills. No N/V/abd pain. No cough/congestion. In the ED CT of chest/abd/pelvis showed: prominent amount of infiltrate involving most of the left lower lobe and part of the left upper lobe with a minimal amount of left pleural fluid.? There is subcutaneous emphysema over the left chest wall but not associated with acute rib fractures.? There are unchanged healed fractures of the left 7th and 8th ribs. CT head/c-spine showed no acute findings. It did show a nonacute compression deformity of C7 vertebral body that was previously known. Xray of left elbow w/o acute findings. His WBC count was 12.05. Hgb 12.0. Lytes normal. Urine unremarkable Surgery consulted for evaluation of subcutaneous emphysema. No pneumothorax no rachana. Suggested IS and repeat CXR in AM. Zosyn initiated in the ED for presummed aspiration pneumonia. Review of Systems All systems reviewed & are unremarkable except as noted in HPI and below PFSH All Active Problems (Updated 12/31/21 @ 07:52 by Fabiano Walsh MD) Skin tear of elbow without complication (Acute) Aspiration pneumonia (Acute) Subcutaneous emphysema due to trauma (Acute) Pain in left hip (Chronic) History of Surgical Procedure (Chronic) a. Colonoscopy for which he's had excision of a polyp. b. Perirectal abscess treated in the past. c. Tonsillectomy. d. Extraction of molars. 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 Glaucoma (Chronic) Hearing decreased (Chronic) Elevated PSA (Chronic) a. In April 2013. 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 Brother No problems noted. Brother No problems noted. Social History Smoking/Tobacco Use Status: Never Second Hand Exposure: No Smoking risk assessment performed?: Yes Alcohol Intake: never Drug use: Never Household members: spouse and children Housing: house Communication Needs: Hard of Hearing and Corrective Lenses Do you need help understanding health information?: Often Pets and animals: Yes Pets and animals: dog(s) Sexually active: No Do you think of yourself as: straight/heterosexual Current gender identity: male What is your relationship status?: How often do you talk on the phone with friends or family?: once per week How often do you attend scientologist or mandaen services?: 1-3 times per year Do you belong to any clubs or organized social groups?: no Panel score (0-1 are the most socially isolated patients): 1 What type of physical activity do you participate in: other Details: boxing Frequency: 1-2 times per week Kenna/Caodaism: Presybeterian Seatbelt use: always Helmet use: No Drive intox or ride w/intox class c driver: No Do you feel safe at home: Yes Do you feel safe in your relationship?: Yes Meds Allergies and Home Medications Allergies Allergy/AdvReac Type Severity Reaction Status Date / Time No Known Allergies Allergy Verified 12/30/21 10:15 Home Medications Medication Instructions Recorded Confirmed Type amlodipine 5 mg tablet (Norvasc) 1 tab PO QAM #90 01/22/13 12/30/21 History multivitamin (One Daily) 1 tab PO DAILY 01/22/13 12/30/21 History simvastatin 20 mg tablet 1 tab PO DAILY #90 tab 01/22/13 12/30/21 History tamsulosin 0.4 mg capsule 0.4 mg PO DAILY tab-cap 10/03/18 12/30/21 History carbidopa 25 mg-levodopa 100 mg 2 tab PO 5X/DAY tab 11/29/18 12/30/21 History tablet polyethylene glycol 3350 17 17 gm PO DAILY #510 gm 06/23/20 12/30/21 Rx gram/dose oral powder (Miralax) losartan 50 mg tablet 50 mg PO DAILY #90 tab 12/02/20 12/30/21 Rx carboxymethylcellulose sodium 0.5 1 drp OPHTHALMIC (EYE) 4-6XD PRN 03/29/21 12/30/21 History % eye drops glycopyrrolate 1 mg tablet 1 mg PO TID 03/29/21 12/30/21 History latanoprost 0.005 % eye drops 1 drp OPHTHALMIC (EYE) QPM 03/29/21 12/30/21 History carbidopa 25 mg-levodopa 100 mg 2 tab PO HS PRN PRN 12/16/21 12/30/21 History tablet dorzolamide 22.3 mg-timolol 6.8 1 drp OPHTHALMIC (EYE) BID 12/16/21 12/30/21 History mg/mL eye drops spironolactone 25 mg tablet 25 mg PO DAILY 12/16/21 12/30/21 History aspirin 325 mg tablet 325 mg PO DAILY #0 tab 12/17/21 12/30/21 Rx polyethylene glycol 3350 17 gram 17 g PO DAILY PRN PRN #0 ea 12/17/21 12/30/21 Rx oral powder packet zolpidem 6.25 mg tablet,extended 6.25 mg PO QHS PRN #30 tab 12/17/21 12/30/21 Rx release,multiphase (Ambien CR) Exam Narrative Exam Narrative: Lying supine bed. is at the bedside. Const General: cooperative and no acute distress Nutritional Appearance: average body habitus Orientation: alert [facility] Head: atraumatic, no abrasions and no contusions Ears: hearing grossly abnormal bilaterally Eyes General: appearance normal, both eyes and all related structures Sclera: sclerae normal Chest Chest: normal inspection of the chest, normal palpation of entire chest wall and no tenderness Resp Effort & Inspection: normal respiratory effort Auscultation: rhonchi upper bilaterally Cardio Rate: regular rate Rhythm: regular rhythm Heart Sounds: S1 normal and S2 normal GI Palpation: soft and nontender Auscultation: normal bowel sounds Skin General skin exam: no rashes or lesions noted Trauma: laceration (left elbow skin tear; hemostatic) Neuro General: moves all extremities (rigidity of joints noted) Speech: speech normal (low word volume with speech) Motor: other (cogwheel rigidity of BUEs) Extrem General: no pedal edema and no calf tenderness Psych Appearance: grossly normal Affect: blunted Results Labs Result diagrams: 12/31/21 06:38 12/31/21 06:38 Labs: Laboratory Results - last 24 hr 12/30/21 12/30/21 12/30/21 10:30 10:30 10:30 WBC 12.05 H RBC 3.83 L Hgb 12.0 L Hct 36.8 L MCV 96.1 H MCH 31.3 MCHC 32.6 RDW 12.5 Plt Count 217 MPV 8.8 Immature Gran % 0.3 Neutrophils % 78.1 Lymphocytes % 15.9 Monocytes % 5.2 Eosinophils % 0.2 Basophils % 0.3 Nucleated RBC % 0 Absolute Neutrophils 9.41 H Absolute Lymphocytes 1.92 Absolute Monocytes 0.63 Absolute Eosinophils 0.02 Absolute Basophils 0.04 Sodium 138 Potassium 3.9 Chloride 104 Carbon Dioxide 26.8 Anion Gap 7.2 BUN 16 Creatinine 0.7 Estimated GFR/1.73 m2 >= 60.00 Glucose 107 H Calcium 8.8 Magnesium 2.2 Total Bilirubin 1.0 AST 19 ALT 7 L Alkaline Phosphatase 82 Troponin I < 50 Total Protein 7.1 Albumin 3.4 Urine Color Urine Clarity Urine pH Ur Specific [place] Urine Protein Urine Ketones Urine Blood Urine Nitrite Urine Bilirubin Urine Urobilinogen Ur Leukocyte Esterase Urine RBC Urine WBC Ur Epithelial Cells Urine Crystals Urine Bacteria Urine Casts Urine Mucus Ur Culture Indicated? Urine Glucose COVID-19 Source SARS-CoV-2 (PCR) Patient ABO/Rh O Positive Antibody Screen NEGATIVE 12/30/21 12/30/21 10:30 12:55 WBC RBC Hgb Hct MCV MCH MCHC RDW Plt Count MPV Immature Gran % Neutrophils % Lymphocytes % Monocytes % Eosinophils % Basophils % Nucleated RBC % Absolute Neutrophils Absolute Lymphocytes Absolute Monocytes Absolute Eosinophils Absolute Basophils Sodium Potassium Chloride Carbon Dioxide Anion Gap BUN Creatinine Estimated GFR/1.73 m2 Glucose Calcium Magnesium Total Bilirubin AST ALT Alkaline Phosphatase Troponin I Total Protein Albumin Urine Color Yellow Urine Clarity Clear Urine pH 6.0 Ur Specific [place] >= 1.030 H Urine Protein Trace H Urine Ketones Trace H Urine Blood Negative Urine Nitrite Negative Urine Bilirubin Negative Urine Urobilinogen 0.2 Ur Leukocyte Esterase Negative Urine RBC 0-2 Urine WBC 0-2 Ur Epithelial Cells Rare Urine Crystals Negative Urine Bacteria Negative Urine Casts Negative Urine Mucus Negative Ur Culture Indicated? No Urine Glucose Negative COVID-19 Source Nasal/Nares SARS-CoV-2 (PCR) Negative Patient ABO/Rh Antibody Screen Last Vital Signs Temp 36.6 C 12/30/21 14:55 Pulse 61 12/30/21 14:55 Resp 17 12/30/21 14:55 BP 101/59 L 12/30/21 14:55 Pulse Ox 97 12/30/21 14:55
[2021-12-30] MEDS: Simvastatin 20 MG TAB PO (21:06)
[2021-12-30] MEDS: Latanoprost 0.005% 2.5 ML BTL OP (21:07)
[2021-12-30] MEDS: Acetaminophen 325 MG TAB PO (21:20)
--- NOTE | 2021-12-30 21:33 | SCONE_ITS ---
Date of service: 12/30/21 Time of Service: 13:30 Assessment and Plan Assessment and plan (1) Subcutaneous emphysema due to trauma: Status: Acute Assessment and plan: -Recommend treatment similar to pneumothorax; telemtry, supplemental oxygen, incentive spirometer if able to participate, chest x-ray in AM -Infiltrates could be complicated by pulmonary contusion, difficult to rule out entirely -Recommend PT evaluation to ensure optimal home safety measures being taken to prevent future falls (2) Back pain: Status: Chronic (3) Hypertension: Status: Chronic Qualifiers: Hypertension type: essential hypertension Qualified Code(s): I10 - Essential (primary) hypertension (4) Abnormal gait: Status: Chronic (5) Parkinsons disease: Status: Chronic History of Present Illness Narrative: 76 year old male with history of parkinsons who had a mechanical fall overnight which resulted in left sided chest discomfort. Patient's is at the bedside and reports he gets up at night in the dark and tries to get around with his walker and often has mechanical falls. He is able to yell and get assistance getting up and back into bed. He went back to sleep after the fall but was still not feeling right. Patient denies head trauma or loss of consciousness. CT scans done in the ER revealed old rib fractures and isolated left sided subcutaneous emphysema as well as pneumonia vs pulmonary contusions. Patient's reports the patient never having pneumonia before but on review of previous CT scans he has had a left basilar infiltrate in the past. Likely aspiration pneumonia given his advanced Parkinsonism and liquid diet. Regardless, I was asked to see the patient secondary to traumatic injury and subcutaneous emphysema. Recommended tr eatment relayed to ER provider similar to pneumothorax with telemetry, supplemental oxygen and incentive spirometer with repeat chest x-ray in AM. Consults Consult date: 12/30/21 Requesting physician: Fabiano Walsh Review of Systems Constitutional Constitutional: Reports as per HPI, Reports frequent falls, Reports poor appetite and Reports weakness ENT Ears, Nose, Mouth, and Throat: Reports dysphagia (chronic ) Cardiovascular Cardiovascular: Reports chest pain, Reports chest pain with activity and Denies dyspnea Respiratory Respiratory: Denies dyspnea Gastrointestinal Gastrointestinal: Denies abdominal pain, Reports dysphagia (chronic ), Denies nausea and Denies vomiting Musculoskeletal Musculoskeletal: Reports abnormal gait and Reports muscle weakness Neurologic Neurologic: Reports as per HPI, Reports abnormal gait, Reports frequent falls and Reports weakness PFSH All Active Problems (Updated 12/30/21 @ 21:45 by Mary Harmon DO) Subcutaneous emphysema due to trauma (Acute) Pain in left hip (Chronic) History of Surgical Procedure (Chronic) a. Colonoscopy for which he's had excision of a polyp. b. Perirectal abscess treated in the past. c. Tonsillectomy. d. Extraction of molars. 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 Glaucoma (Chronic) Hearing decreased (Chronic) Elevated PSA (Chronic) a. In April 2013. 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 Brother No problems noted. Brother No problems noted. Social History Smoking/Tobacco Use Status: Never Second Hand Exposure: No Smoking risk assessment performed?: Yes Alcohol Intake: never Drug use: Never Household members: spouse and children Housing: house Communication Needs: Hard of Hearing and Corrective Lenses Do you need help understanding health information?: Often Pets and animals: Yes Pets and animals: dog(s) Sexually active: No Do you think of yourself as: straight/heterosexual Current gender identity: male What is your relationship status?: How often do you talk on the phone with friends or family?: once per week How often do you attend judaism or hinduism services?: 1-3 times per year Do you belong to any clubs or organized social groups?: no Panel score (0-1 are the most socially isolated patients): 1 What type of physical activity do you participate in: other Details: boxing Frequency: 1-2 times per week Kenna/Denominational: Taoist Seatbelt use: always Helmet use: No Drive intox or ride w/intox wheelchair van driver: No Do you feel safe at home: Yes Do you feel safe in your relationship?: Yes Exam Const General: cooperative, comfortable, no acute distress, well developed, ill appearing and lethargic Nutritional Appearance: average body habitus Eyes Periorbital: periorbital findings normal Eyelids: eyelids normal Conjunctivae: conjunctivae normal Resp Effort & Inspection: normal respiratory effort, no audible wheezes, no respiratory distress, no stridor, not tachypneic and no use of accessory muscles Other: no crepitus appreciated Cardio Rate: regular rate Rhythm: regular rhythm GI Inspection: normal to inspection and non-distended Palpation: soft and nontender Percussion: normal to percussion Skin General skin exam: no rashes or lesions noted Neuro General: patient alert, patient awake and patient oriented x3 Cognition: normal cognition Motor: fasciculations, muscle tone abnormal and strength abnormal Results Last Vital Signs Temp 100.2 F H 12/30/21 21:20 Pulse 61 12/30/21 14:55 Resp 17 12/30/21 14:55 BP 101/59 L 12/30/21 14:55 Pulse Ox 97 12/30/21 14:55 Labs Result diagrams: 12/30/21 10:30 12/30/21 10:30 Labs: Laboratory Results - last 24 hr 12/30/21 12/30/21 12/30/21 10:30 10:30 10:30 WBC 12.05 H RBC 3.83 L Hgb 12.0 L Hct 36.8 L MCV 96.1 H MCH 31.3 MCHC 32.6 RDW 12.5 Plt Count 217 MPV 8.8 Immature Gran % 0.3 Neutrophils % 78.1 Lymphocytes % 15.9 Monocytes % 5.2 Eosinophils % 0.2 Basophils % 0.3 Nucleated RBC % 0 Absolute Neutrophils 9.41 H Absolute Lymphocytes 1.92 Absolute Monocytes 0.63 Absolute Eosinophils 0.02 Absolute Basophils 0.04 Sodium 138 Potassium 3.9 Chloride 104 Carbon Dioxide 26.8 Anion Gap 7.2 BUN 16 Creatinine 0.7 Estimated GFR/1.73 m2 >= 60.00 Glucose 107 H Calcium 8.8 Magnesium 2.2 Total Bilirubin 1.0 AST 19 ALT 7 L Alkaline Phosphatase 82 Troponin I < 50 Total Protein 7.1 Albumin 3.4 Urine Color Urine Clarity Urine pH Ur Specific [place] Urine Protein Urine Ketones Urine Blood Urine Nitrite Urine Bilirubin Urine Urobilinogen Ur Leukocyte Esterase Urine RBC Urine WBC Ur Epithelial Cells Urine Crystals Urine Bacteria Urine Casts Urine Mucus Ur Culture Indicated? Urine Glucose COVID-19 Source SARS-CoV-2 (PCR) Patient ABO/Rh O Positive Antibody Screen NEGATIVE 12/30/21 12/30/21 10:30 12:55 WBC RBC Hgb Hct MCV MCH MCHC RDW Plt Count MPV Immature Gran % Neutrophils % Lymphocytes % Monocytes % Eosinophils % Basophils % Nucleated RBC % Absolute Neutrophils Absolute Lymphocytes Absolute Monocytes Absolute Eosinophils Absolute Basophils Sodium Potassium Chloride Carbon Dioxide Anion Gap BUN Creatinine Estimated GFR/1.73 m2 Glucose Calcium Magnesium Total Bilirubin AST ALT Alkaline Phosphatase Troponin I Total Protein Albumin Urine Color Yellow Urine Clarity Clear Urine pH 6.0 Ur Specific [place] >= 1.030 H Urine Protein Trace H Urine Ketones Trace H Urine Blood Negative Urine Nitrite Negative Urine Bilirubin Negative Urine Urobilinogen 0.2 Ur Leukocyte Esterase Negative Urine RBC 0-2 Urine WBC 0-2 Ur Epithelial Cells Rare Urine Crystals Negative Urine Bacteria Negative Urine Casts Negative Urine Mucus Negative Ur Culture Indicated? No Urine Glucose Negative COVID-19 Source Nasal/Nares SARS-CoV-2 (PCR) Negative Patient ABO/Rh Antibody Screen
[2021-12-30] MEDS: Zolpidem 6.25 MG TABCR PO (23:53)
[2021-12-31 00:13] VITALS: TEMP 36.5
[2021-12-31 03:23] VITALS: BP 129/70; PULSE 68; RESP 16; TEMP 36.6; O2SAT 98
[2021-12-31] MEDS: PIPERACILLIN/TAZO 3.375 GM in Normal Saline 50 ML IVPB (05:20)
[2021-12-31] MEDS: Carbidopa 25/Levodopa 100 TAB PO ×3 (05:21→14:25)
[2021-12-31 07:21] LABS: Abs Immature Grans 0.03 10^3/uL (0.0-0.06); Absolute Basophil Count 0.04 10^3/uL (0.0-0.2); Absolute Eosinophil Count 0.08 10^3/uL (0.0-0.7); Absolute Lymphocyte Count 1.45 10^3/uL (1.2-3.4); Absolute Monocyte Count 0.61 10^3/uL (0.1-0.8); Absolute Neutrophil Count 8.69 10^3/uL (1.2-6.7); Basophils % 0.4; Eosinophils % 0.7; HCT 34.6 % (40.0-50.0); HGB 11.2 g/dL (13.5-17.5); Immature Grans % 0.3; Lymphocytes % 13.3; MCH 30.9 pg (27.0-33.0); MCHC 32.4 % (32.0-36.0); MCV 95.3 fL (80-95); MPV 9.2 fL (8.0-11.0); Monocytes % 5.6; Neutrophils % 79.7; Nucleated RBC 0 %; Platelet Count 208 10^3/uL (130-400); RBC 3.63 10^6/uL (4.36-5.78); RDW 12.4 % (11.8-14.1); RDW-SD 43.5 fL
[2021-12-31 07:28] VITALS: BP 125/73; PULSE 71; RESP 19; TEMP 37.3; O2SAT 95
[2021-12-31 07:33] LABS: Anion Gap 6.6 mmol/L (3-11); BUN 11 mg/dL (7-18); CO2 26.4 mmol/L (21.0-32.0); CREATININE 0.7 mg/dL (0.70-1.30); Calcium 8.5 mg/dL (8.5-10.1); Chloride 106 mmol/L (98-107); Glucose 100 mg/dL (74-106); Potassium 3.7 mmol/L (3.5-5.1); Sodium 139 mmol/L (136-145)
--- NOTE | 2021-12-31 08:05 | INITIAL_ITS ---
- If Service Date Differs Date of service: 12/31/21 Time of Service: 08:05 Care Management Initial Assess REASON FOR HOSPITALIZATION:: Aspiration Pneumonia. PAST MEDICAL HISTORY/PAST SURGICAL HISTORY:: All Active Problems: Skin tear of elbow without complication (Acute),. Aspiration pneumonia (Acute), Subcutaneous emphysema due to trauma (Acute), Pain in left hip (Chronic), History of Surgical Procedure (Chronic) - a. Colonoscopy for which he's had excision of a polyp, b. Perirectal abscess treated in the past, c. Tonsillectomy, d. Extraction of molars, Back pain (Chronic) - a. Related to DJD, Glaucoma (Chronic), Hearing decreased (Chronic), Elevated PSA (Chronic) - a. In April 2013, Hypertension (Chronic), Elevated lipids (Chronic), Difficult intubation (Chronic), Abnormal gait (Chronic 11/19/17), BPH (benign prostatic hyperplasia) (Chronic), Basal cell carcinoma of right ear (Chronic) - RIGHT EAR CANAL, BCCa left upper chest 2018: excised, Cellulitis (Chronic),. Glaucoma (Chronic) - decreased vision left, Hyperlipidemia (Chronic),. 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 Parkinsons disease (Chronic), Constipation (Chronic), Sensorineural hearing loss of both ears (Acute), DE LEON (dyspnea on exertion) (Acute),. Foot pain (Acute), Swapna-prosthetic fracture around prosthetic hip (Acute),. Postoperative anemia (Acute), Fx femur shaft-closed (Acute) - left ORIF,. Anemia (Chronic), Impacted cerumen, bilateral (Acute), and Conductive hearing loss, external ear (Acute). Surgical History: [place] [facility] [place]; NEG and 2010; 2 POLYPS. PREVIOUS FUNCTIONAL STATUS/SOCIAL/FAMILY SUPPORTS:: Dominic lives in [place] with his , Shaila. He has Parkinson's Disease, mild dementia, and has 100% service [facility] disability [facility]. His provides assistance with meals and is his caregiver. CURRENT FUNCTIONAL STATUS:: Dominic is laying in bed when CM comes to meet with him. He minimally engages in conversation and says he is doing okay. A Palliative Care consult has been ordered and will occur on an outpatient basis if Dominic is discharged from the hospital before Sunday. CM will continue to follow. ADVANCE DIRECTIVES:: None on file. Has patient been provided with info about the portal/API?: Yes Did the patient sign up for the portal?: No CODE STATUS:: Full Code INSURANCE COVERAGE / FINANCIAL ISSUES:: [place] [employer] [place] and Medicare. CURRENT HOME/COMMUNITY SERVICES/EQUIPMENT:: FWW and hospital bed. His , Shaila, is his caregiver. PRIMARY CARE PHYSICIAN:: Raad Strauss MD ([facility]). POTENTIAL DISCHARGE NEEDS:: Follow up appointment with PCP and discharge plan of care. PATIENT/FAMILY EDUCATION NEEDS:: Review discharge instructions with Dominic and his , Shaila, including medications and follow up plan of care. ANTICIPATED BARRIERS TO DISCHARGE:: None identified at this time. TRANSPORTATION:: Via private vehicle with . PLAN:: Dominic will be discharged home with no new services when medically cleared by provider. He will follow up with his PCP and plan of care as directed. His will transport him home via private vehicle when ready. CM will continue to follow. Readmission - Within the Past 30 Days Yes or No: Y - Date of First Admission Date of 1st Admission: 12/16/21 - Date of this Admission Date of Admission: 12/30/21 This admission was: Through ED - Office Visit Since 1st Admission Have you seen your PCP in the office since discharge?: No Had an appointment Been Scheduled?: No - I. Interview patient and/or Family Difficulty reaching your doctor or getting an office appt?: No Have you had trouble purchasing/ or taking medication?: No How do you take your medications and set up your pills?: gives medications as prescribed. Have you had trouble with getting meals at home?: No Describe your typical meals since you have been home: cooks meals. Did you feel ready for discharge when you left the last time: Yes Did you call your physician beore you came to the ED?: No How do you think you became sick enough to come back?: Per , patient fell out of bed in the middle of the night. In the morning, he complained of pain so she drove him to the hospital. - Ask the Care Team Members: What do you think caused the patient to be readmitted: Patient is believed to have aspiration pneumonia due to liquid diet. - ED visits How many ED visits in the past 12 months: 4 - Assessment for Readmission Summary of readmission circumstances, based upon interviews: Dominic fell out of bed in the middle of the night. called EMS and Dominic was placed back in bed. The next morning, Dominic complained of left chest pain and he subsequently presented in the ED after the pain continued to persist. In the ED, he was presumed to have aspiration pneumonia, so was admitted to inpatient for treatment.
[2021-12-31 08:14] VITALS: PULSE 72
--- NOTE | 2021-12-31 08:30 | DI.RAD_ITS ---
Exam(s) XR PORTABLE CHEST AP EXAM: XR PORTABLE CHEST AP CLINICAL HISTORY: trauma, subcutaneous emphysema. TECHNIQUE: 2D digital imaging was performed. COMPARISON: CR,XR XR CHEST 2V PA LATERAL from 06/24/2021 FINDINGS: Single AP portable view Heart size is upper normal. The mediastinum is not widened. There is increasing infiltrate in the left lower lobe. Right lung clear. No pleural effusions. IMPRESSION: Left lower lobe infiltrate. No obvious pleural effusions on this portable AP view. DATA REPOSITORY: RADIATION DOSE DELIVERED: All CT scans at this facility use at least one of these dose optimization techniques: automated exposure control; mA and/or kV adjustment per patient size (includes targeted e xams where dose is matched to clinical indication); or iterative reconstruction.
--- NOTE | 2021-12-31 08:51 | DI.VRAD_ITS ---
PROCEDURE INFORMATION: Exam: XR Chest Exam date and time: 12/31/2021 12:00 AM Age: 76 years old Clinical indication: Other: Trauma, subcutaneous emphysema TECHNIQUE: Imaging protocol: XR of the chest. Views: 1 view. COMPARISON: CT CHEST/ABD/PEL W 12/30/2021 11:22 AM FINDINGS: Tubes, catheters and devices: Overlying telemetry leads. Lungs: Lungs are hypoinflated. Patchy opacities of the lung appear similar to recent CT. Pleural spaces: No radiographically evident pneumothorax. No pleural effusion. Heart/Mediastinum: Heart size is normal. Atherosclerosis of aortic arch. Bones/joints: Degenerative changes of spine. Soft tissues: Subtle soft tissue gas at the left chest wall and neck again noted. IMPRESSION: Patchy left pulmonary opacities appear unchanged from recent CT. Dictated and Authenticated by: Holly Packer MD. Ordering:DELISA Hernandez MD
[2021-12-31] MEDS: Polyethylene Glycol 3350 17 GM PACKET PO (09:49)
[2021-12-31] MEDS: Normal Saline Flush 10 ML SYR IVP ×2 (09:49→14:24)
[2021-12-31] MEDS: Aspirin 325 MG TAB PO (09:50)
[2021-12-31] MEDS: Tamsulosin 0.4 MG CAPCR PO (09:50)
[2021-12-31] MEDS: Losartan 50 MG TAB PO (09:51)
[2021-12-31] MEDS: Glycopyrrolate 1 MG TAB PO ×2 (09:51→14:26)
[2021-12-31] MEDS: amLODIPine 5 MG TAB PO (09:51)
[2021-12-31] MEDS: Multivitamin TAB 1 TAB PO (09:51)
[2021-12-31] MEDS: Spironolactone 25 MG TAB PO (09:51)
[2021-12-31] MEDS: Acetaminophen 325 MG TAB PO (09:51)
[2021-12-31 11:41] VITALS: BP 131/68; PULSE 67; RESP 19; TEMP 36.5; O2SAT 92
[2021-12-31] MEDS: LORazepam 0.5 MG TAB PO (12:29)
--- NOTE | 2021-12-31 13:51 | W.PM.DS.N ---
Date of service: 12/31/21 Time of Service: 13:52 DS: Diagnosis Discharge Diagnosis (1) Subcutaneous emphysema due to trauma: Status: Acute (2) Hypertension: Status: Chronic (3) Hyperlipidemia: Status: Chronic (4) BPH (benign prostatic hyperplasia): Status: Chronic (5) Aspiration pneumonia: Status: Acute (6) Parkinsons disease: Status: Chronic (7) Skin tear of elbow without complication: Status: Acute Discharge Plan Disposition Patient Disposition: HOME Condition: Good Discharge Details Reason For Visit: Aspiration Pneumonia Admit Date/Time: 12/30/21 12:50 Admit Provider: Fabiano Walsh Attending Provider: Fabiano Walsh Primary Care Provider: Raad Strauss Hospital Course Hospital Course: This is a 76 yo male with a PMH of HTN, HLD, BPH, Parkinsons disease, sensorineural hearing loss.? He presented to the ED after a fall with complaint of left chest pain. Initially, his called EMS and they placed him back in bed during the night prior to presentation.? The pain persisted the following day (day of presentation) and he presented to the ED.? No CP/palpitations noted prior to the fall.? No fever/chills.? No N/V/abd pain.? No cough/congestion. In the ED CT of chest/abd/pelvis showed:?prominent amount of infiltrate involving most of the left lower lobe and part of the left upper lobe with a minimal amount of left pleural fluid.? There is subcutaneous emphysema over the left chest wall but not associated with acute rib fractures.? There are unchanged healed fractures of the left 7th and 8th ribs. CT head/c-spine showed no acute findings.? It did show a nonacute compression deformity of C7 vertebral body that was previously known. Xray of left elbow w/o acute findings. His WBC count was 12.05.? Hgb 12.0. Lytes normal. Urine unremarkable Surgery consulted for evaluation of subcutaneous emphysema.? No pneumothorax noted.? Suggested IS and repeat CXR in AM.? Zosyn initiated in the ED for presummed aspiration pneumonia.??? He remained afebrile. WBC count decreased to a near normal level. No hypoxia, cough/sputum. He pulled his IV out and Augmentin was initiated; he will continue Augmentin 875mg BID for 12 doses. Follow up with PCP in 1-2 weeks. Home Meds and New Rx's Prescriptions: New amoxicillin-pot clavulanate 875-125 mg Tablet 1 tab PO BID Qty: 12 0RF Continued tamsulosin 0.4 mg capsule 0.4 mg PO DAILY 0RF carboxymethylcellulose sodium 0.5 % drops 1 drp ophthalmic (eye) 4-6XD PRN0RF latanoprost 0.005 % drops 1 drp ophthalmic (eye) QPM 0RF glycopyrrolate 1 mg tablet 1 mg PO TID 0RF multivitamin [One Daily] 1 EACH tablet 1 tab PO DAILY 0RF amlodipine [Norvasc] 5 MG tablet 1 tab PO QAM Qty: 90 4RF simvastatin 20 MG tablet 1 tab PO DAILY Qty: 90 4RF carbidopa-levodopa 25-100 mg tablet 2 tab PO 5X/DAY 0RF polyethylene glycol 3350 [Miralax] 17 gram/dose powder 17 gm PO DAILY Qty: 510 8RF carbidopa-levodopa 25-100 mg tablet 2 tab PO HS PRN PRN0RF spironolactone 25 mg Tablet 25 mg PO DAILY 0RF dorzolamide-timolol 22.3-6.8 mg/mL Drops 1 drp ophthalmic (eye) BID 0RF aspirin 325 mg Tablet 325 mg PO DAILY Qty: 0 0RF polyethylene glycol 3350 17 gram Powder In Packet 17 g PO DAILY PRN PRN (Reason: Constipation) Qty: 0 0RF zolpidem [Ambien CR] 6.25 mg tablet,ext release multiphase 6.25 mg PO QHS PRNQty: 30 0RF No Action losartan 50 mg tablet 50 mg PO DAILY Qty: 90 3RF Discharge Instructions Activity:: Activity as Tolerated Equipment/Supplies:: No Equipment Needed Diet:: Resume usual diet Discharge Orders Discharge Orders: Discharge Order (Routine); Ordered 12/31/21 Ordered By: Fabiano Walsh DS: Summary Time Spent with Patient providing and/or coordinating discharge services: Greater than 30 minutes Status at Discharge Functional status at discharge: uses cane/walker Overall status at discharge: patient is back to baseline Mental Status: mental status grossly normal Speech and Movement: other (Speech clear; pausity of verbage. Stiff movements.) Mood: congruent mood Affect: blunted (Parkinsons facies) Exam Narrative Exam Narrative: Lying supine bed. is at the bedside. Const General: cooperative and no acute distress Nutritional Appearance: average body habitus Orientation: alert HENOR Head: atraumatic, no abrasions and no contusions Ears: hearing grossly abnormal bilaterally Eyes General: appearance normal, both eyes and all related structures Sclera: sclerae normal Chest Chest: normal inspection of the chest, normal palpation of entire chest wall and no tenderness Resp Effort & Inspection: normal respiratory effort Auscultation: rhonchi upper bilaterally Cardio Rate: regular rate Rhythm: regular rhythm Heart Sounds: S1 normal and S2 normal GI Palpation: soft and nontender Auscultation: normal bowel sounds Skin General skin exam: no rashes or lesions noted Trauma: laceration (left elbow skin tear; hemostatic) Neuro General: moves all extremities (rigidity of joints noted) Speech: speech normal (low word volume with speech) Motor: other (cogwheel rigidity of BUEs) Extrem General: no pedal edema and no calf tenderness Psych Appearance: grossly normal Mental Status: mental status grossly normal Speech and Movement: other (Speech clear; pausity of verbage. Stiff movements.) Mood: congruent mood Affect: blunted (Parkinsons facies) DS: Data Vitals/I&O Vitals and I&O: Vital Signs Temperature 36.5 C 12/31/21 11:41 Temperature Source Tympanic 12/31/21 11:41 Pulse 67 12/31/21 11:41 Pulse Rhythm Regular 12/31/21 08:17 Pulse 61 12/30/21 13:31 Respiratory Rate 19 12/31/21 11:41 Respiratory Effort Non-Labored 12/31/21 08:17 Respiratory Depth Normal 12/31/21 08:17 Respiratory Pattern Normal 12/31/21 08:17 Blood Pressure 131/68 12/31/21 11:41 Blood Pressure Mean 70 12/30/21 13:31 Blood Pressure Position Supine 12/30/21 10:02 Pulse Oximetry 92 12/31/21 11:41 Oxygen Delivery Method Room Air 12/31/21 11:41 Oxygen Flow Rate 0 12/31/21 11:41 Pain Level 0 12/30/21 22:38 Comment 12/30/21 10:02 Intake & Output 12/30/21 12/31/21 12/31/21 23:59 11:59 23:59 Intake Total 1290 / 1355 190 / 280 90 / 280 Balance 1290 / 955 190 / 280 90 / 280 Intake: IV 1050 / 1115 100 / 100 Oral 240 / 240 90 / 180 90 / 180 Other: Urine Color Yellow Urine Appearance Clear Clear Comment diaper change incontinent in brief Stool Size Moderate Small Stool Characteristics Soft Liquid Liquid Brown Voiding Methods Diaper Diaper Incontinent Data Completed and Pending Labs on day of discharge: Labs from last 24 hours 12/31/21 12/31/21 06:38 06:38 WBC 10.90 H RBC 3.63 L Hgb 11.2 L Hct 34.6 L MCV 95.3 H MCH 30.9 MCHC 32.4 RDW 12.4 Plt Count 208 MPV 9.2 Immature Gran % 0.3 Neutrophils % 79.7 Lymphocytes % 13.3 Monocytes % 5.6 Eosinophils % 0.7 Basophils % 0.4 Nucleated RBC % 0 Absolute Neutrophils 8.69 H Absolute Lymphocytes 1.45 Absolute Monocytes 0.61 Absolute Eosinophils 0.08 Absolute Basophils 0.04 Sodium 139 Potassium 3.7 Chloride 106 Carbon Dioxide 26.4 Anion Gap 6.6 BUN 11 Creatinine 0.7 Estimated GFR/1.73 m2 >= 60.00 Glucose 100 Calcium 8.5 12/30/21 22:38 Blood Blood Culture - Pending 12/30/21 22:32 Blood Blood Culture - Pending Preliminary micro results at discharge 12/30/21 22:38 Blood Culture - Pending Blood 12/30/21 22:32 Blood Culture - Pending Blood PFSH All Active Problems Skin tear of elbow without complication (Acute) Aspiration pneumonia (Acute) Subcutaneous emphysema due to trauma (Acute) Pain in left hip (Chronic) History of Surgical Procedure (Chronic) a. Colonoscopy for which he's had excision of a polyp. b. Perirectal abscess treated in the past. c. Tonsillectomy. d. Extraction of molars. 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 Glaucoma (Chronic) Hearing decreased (Chronic) Elevated PSA (Chronic) a. In April 2013. 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 Brother No problems noted. Brother No problems noted. Social History Smoking/Tobacco Use Status: Never Second Hand Exposure: No Smoking risk assessment performed?: Yes Alcohol Intake: never Drug use: Never Household members: spouse and children Housing: house Communication Needs: Hard of Hearing and Corrective Lenses Do you need help understanding health information?: Often Pets and animals: Yes Pets and animals: dog(s) Sexually active: No Do you think of yourself as: straight/heterosexual Current gender identity: male What is your relationship status?: How often do you talk on the phone with friends or family?: once per week How often do you attend orthodox or scientologist services?: 1-3 times per year Do you belong to any clubs or organized social groups?: no Panel score (0-1 are the most socially isolated patients): 1 What type of physical activity do you participate in: other Details: boxing Frequency: 1-2 times per week Kenna/Denominational: Hoahaoism Seatbelt use: always Helmet use: No Drive intox or ride w/intox p d driver: No Do you feel safe at home: Yes Do you feel safe in your relationship?: Yes
--- NOTE | 2021-12-31 15:28 | PDOC.CMDIS ---
- If Service Date Differs Date of service: 12/31/21 Time of Service: 15:28 LACE Index Scoring Tool - Questions: Length of Stay (in days): 1 Acuity (Admit via E.D.?): Yes Comorbidities: Dementia E.D. Visits: 4 - Answers: Total Score: 11 Risk of Readmission: High Risk Care Management Discharge Reason for Hospitalization: Aspiration Pneumonia. Discharge Plan: Dominic is discharged home on oral antibiotics with no new services. He will follow up with his PCP and plan of care as directed. His drives him home via private vehicle. Patient/Family Education Needs: Review discharge instructions including medications and follow up plan of care.
== END 2021-12-31 14:40 | disposition home or self-care (01) | DRG 199 ==
LOC: ER 14:11 → MS 14:24
PROVIDERS: Admitting Provider Family Medicine; Emergency Provider Physician Assistant; PCP Family Medicine; Visit Provider Family Medicine
DX: T79.7XXA Traumatic subcutaneous emphysema, initial encounter (principal); J69.0 Pneumonitis due to inhalation of food and vomit; S51.012A Laceration without foreign body of left elbow, initial encounter; M25.552 Pain in left hip; G89.29 Other chronic pain; H40.9 Unspecified glaucoma; I10 Essential (primary) hypertension; E78.5 Hyperlipidemia, unspecified; M47.819 Spondylosis without myelopathy or radiculopathy, site unspecified; R26.9 Unspecified abnormalities of gait and mobility; N40.0 Benign prostatic hyperplasia without lower urinary tract symptoms; G20 Parkinson's disease; K59.00 Constipation, unspecified; D64.9 Anemia, unspecified; W19.XXXA Unspecified fall, initial encounter
CPT/HCPCS: 36415; 51701; 74177; 80048; 80053; 86850; 86900; 86901; 87040; 87635; 93005; 96361; 96374; 96375; 99285; 70450; 71045; 71260; 72125; 73080; 81003; 81015; 83735; 84484; 85025; 93010; 99223; 99239; J0131; J2270; J2543; J3490

== ENCOUNTER 2022-01-06 14:42 | Inpatient (IN) | payer OTHER, SELFPAY ==
[2022-01-06] VITALS (11 sets, daily range): BP systolic 90–114; BP diastolic 45–61; PULSE 58–71; RESP 16–25; TEMP 36.2–36.7; O2SAT 94–99
--- NOTE | 2022-01-06 14:45 | RT.EKG_ITS ---
APPROVED REPORT Exam: Resting ECG Reason for Exam: [facility] Patient Location: E HR:62 bpm ECG Measurements Heart Rate 62 AXIS UT 194 P 51 QRSd 93 QRS -9 QT 413 T 27 QTc 420 Conclusion Sinus rhythm...normal P axis, V-rate 60- 99
[2022-01-06] MEDS: Normal Saline 500 ML IV (14:50)
--- NOTE | 2022-01-06 15:06 | ED.GENADUL_ITS ---
Discharge Plan Disposition Patient Disposition: [facility] INPATIENT Condition: Stable Discharge Details Clinical Impression: Agitation due to dementia Admit Date/Time: 01/06/22 16:49 Admit Provider: Ananth Yates Attending Provider: Ananth Yates Primary Care Provider: Raad Strauss ED Provider: Dora Alfredo Discharge Data Discharge Date/Time-TO BE ENTERED AT DEPARTURE: 01/06/22 18:21 Medical Decision Making <YOVANA Linn - Last Filed: 01/07/22 19:04> I had a long discussion with Shaila, patient's , she says she does not feel comfortable with patient going home appears very agitated and hard her today When asked specifically regarding placement patient feels like she would try to take patient home tomorrow She feels as though patient needs something to help him sleep and report but his psychiatrist was going to start him on a new medication, however is yet to begin this medication She request patient is admitted to the hospital for mood stabilization Patient was initially quite sedated from 5 mg of Versed and was administered by EMS, he is maintaining his airway He does open his eyes to position change At time of reassessment he is slightly agitated, he will likely have a second- generation antipsychotic administered upstairs, I will give him 1 mg of Ativan in the emergency department He had imaging, however he had CT scan approximately a week ago and it did not show acute abnormality and he had no additional trauma present time Also not a new presentation for this patient His urinalysis does not show evidence of acute abnormality aside from red blood cells, no obvious secondary infection Case discussed with Dr. Gregg, willing to admit at this time Medical Records Medical records reviewed: Yes I reviewed the patient's medical records. Lab Data Lab results reviewed: Yes I reviewed the patient's lab results. ECG Data Prior ECG tracings: available for review HPI <YOVANA Linn - Last Filed: 01/07/22 19:04> General Date/Time Provider Initiated Documentation: 01/06/22 14:57 . HPI Narrative: This 76-year-old gentleman with history of dementia and Parkinson's disease with recent hospitalization for fall presents with acute agitation. Patient was out running errands with his when reports he became very agitated, grabbing her arm and not releasing. EMS called concern for safety and patient was very combative and agitated with EMS. They administered 5 mg of Versed secondary to safety concerns. Unable patient unable to give additional history secondary to sedation Related Data Home Medications Medication Instructions Recorded Confirmed amlodipine 5 mg tablet (Norvasc) 1 tab PO QAM #90 01/22/13 01/06/22 multivitamin (One Daily) 1 tab PO DAILY 01/22/13 01/06/22 simvastatin 20 mg tablet 1 tab PO DAILY #90 tab 01/22/13 01/06/22 tamsulosin 0.4 mg capsule 0.4 mg PO DAILY tab-cap 10/03/18 01/06/22 carbidopa 25 mg-levodopa 100 mg 2 tab PO 5X/DAY tab 11/29/18 01/06/22 tablet polyethylene glycol 3350 17 17 gm PO DAILY #510 gm 06/23/20 01/06/22 gram/dose oral powder (Miralax) losartan 50 mg tablet 50 mg PO DAILY #90 tab 12/02/20 01/06/22 carboxymethylcellulose sodium 0.5 1 drp OPHTHALMIC (EYE) 4-6XD PRN 03/29/21 01/06/22 % eye drops glycopyrrolate 1 mg tablet 1 mg PO TID 03/29/21 01/06/22 latanoprost 0.005 % eye drops 1 drp OPHTHALMIC (EYE) QPM 03/29/21 01/06/22 carbidopa 25 mg-levodopa 100 mg 2 tab PO HS PRN PRN 12/16/21 01/06/22 tablet dorzolamide 22.3 mg-timolol 6.8 1 drp OPHTHALMIC (EYE) BID 12/16/21 01/06/22 mg/mL eye drops spironolactone 25 mg tablet 25 mg PO DAILY 12/16/21 01/06/22 aspirin 325 mg tablet 325 mg PO DAILY #0 tab 12/17/21 01/06/22 polyethylene glycol 3350 17 gram 17 g PO DAILY PRN PRN #0 ea 12/17/21 01/06/22 oral powder packet zolpidem 6.25 mg tablet,extended 6.25 mg PO QHS PRN #30 tab 12/17/21 01/06/22 release,multiphase (Ambien CR) amoxicillin 875 mg-potassium 1 tab PO BID #12 tab 12/31/21 01/06/22 clavulanate 125 mg tablet Previous Rx's Medication Instructions Recorded polyethylene glycol 3350 17 17 gm PO DAILY #510 gm 06/23/20 gram/dose oral powder (Miralax) losartan 50 mg tablet 50 mg PO DAILY #90 tab 12/02/20 aspirin 325 mg tablet 325 mg PO DAILY #0 tab 12/17/21 polyethylene glycol 3350 17 gram 17 g PO DAILY PRN PRN #0 ea 12/17/21 oral powder packet zolpidem 6.25 mg tablet,extended 6.25 mg PO QHS PRN #30 tab 12/17/21 release,multiphase (Ambien CR) amoxicillin 875 mg-potassium 1 tab PO BID #12 tab 12/31/21 clavulanate 125 mg tablet Allergies Allergy/AdvReac Type Severity Reaction Status Date / Time No Known Allergies Allergy Verified 01/06/22 17:32 General Stated Complaint: AMS/LOC MAY: 3 Review of Systems <YOVANA Linn - Last Filed: 01/07/22 19:04> Unobtainable due to mental status PFSH <YOVANA Linn - Last Filed: 01/07/22 19:04> All Active Problems (Updated 01/07/22 @ 19:03 by YOVANA Linn) Agitation due to dementia (Acute) Skin tear of elbow without complication (Acute) Aspiration pneumonia (Acute) Subcutaneous emphysema due to trauma (Acute) Pain in left hip (Chronic) Glaucoma (Chronic) Hearing decreased (Chronic) Hypertension (Chronic) Elevated lipids (Chronic) Abnormal gait (Chronic 11/19/17) BPH (benign prostatic hyperplasia) (Chronic) Glaucoma (Chronic) decreased vision left Hyperlipidemia (Chronic) Raised prostate specific antigen (Chronic 03/05/13) 6.82 06/19/16, 8.29 05/19/15 [facility] june Parkinsons disease (Chronic) Constipation (Chronic) Sensorineural hearing loss of both ears (Acute) Foot pain (Acute) Swapna-prosthetic fracture around prosthetic hip (Acute) Postoperative anemia (Acute) Fx femur shaft-closed (Acute) left ORIF Anemia (Chronic) Conductive hearing loss, external ear (Acute) Medical History (Updated 01/07/22 @ 19:03 by YOVANA Linn) Basal cell carcinoma of right ear RIGHT EAR CANAL BCCa left upper chest 2018: excised Difficult intubation Elevated PSA a. In April 2013. Polyp of colon (09/20/10) Surgical History (Updated 01/06/22 @ 19:17 by Ananth Yates) Colonoscopy - MAC (~2010) 2000; NEG 2010; 2 POLYPS History of Surgical Procedure a. Colonoscopy for which he's had excision of a polyp. b. Perirectal abscess treated in the past. c. Tonsillectomy. d. Extraction of molars. Status post left hip replacement (07/31/14) Family History Mother Diabetes Personal history of malignant neoplasm breast Father Heart disease Sister No problems noted. Brother No problems noted. Brother No problems noted. Social History Smoking/Tobacco Use Status: Never Second Hand Exposure: No Smoking risk assessment performed?: Yes Alcohol Intake: never Drug use: Never Substance use type: does not use Household members: spouse and children Housing: house Communication Needs: Hard of Hearing and Corrective Lenses Do you need help understanding health information?: Often Pets and animals: Yes Pets and animals: dog(s) Sexually active: No Do you think of yourself as: straight/heterosexual Current gender identity: male What is your relationship status?: How often do you talk on the phone with friends or family?: once per week How often do you attend uatsdin or episcopalian services?: 1-3 times per year Do you belong to any clubs or organized social groups?: no Panel score (0-1 are the most socially isolated patients): 1 What type of physical activity do you participate in: other Details: boxing Frequency: 1-2 times per week Kenna/Methodist: Alevism Seatbelt use: always Helmet use: No Drive intox or ride w/intox driver starting gate: No Do you feel safe at home: Yes Do you feel safe in your relationship?: Yes Exam <YOVANA Linn - Last Filed: 01/07/22 19:04> Const General: well hydrated and other (sleeping) Nutritional Appearance: average body habitus Other: awakes to rub HENMT Head: normal to inspection Throat: uvula midline Other: moist mucous membranes Eyes Pupils: PERRL Neck Other: no visible signs of trauma Chest Chest: normal inspection of the chest Resp Effort & Inspection: normal respiratory effort Auscultation: clear to auscultation bilaterally Cardio Rate: regular rate Rhythm: regular rhythm GI Inspection: normal to inspection Rectal Exam: visual inspection normal Skin General skin exam: no rashes or lesions noted Neuro General: patient alert Other: Alert/agitated reassessment, confused Extrem General: normal to inspection Course <YOVANA Linn - Last Filed: 01/07/22 19:04> Vital Signs Vital signs: Vital Signs Temperature 36.7 C 01/06/22 14:46 Pulse 66 01/06/22 14:46 Respiratory Rate 16 01/06/22 14:46 Blood Pressure 93/45 L 01/06/22 14:46 Pulse Oximetry 97 01/06/22 14:46 Temperature 36.7 C 01/06/22 14:46 Temperature Source Temporal Artery Scan 01/06/22 14:46 Pulse 66 01/06/22 14:46 Respiratory Rate 16 01/06/22 14:46 Respiratory Effort Non-Labored 01/06/22 14:51 Blood Pressure 93/45 L 01/06/22 14:46 Blood Pressure Position Supine 01/06/22 14:46 Pulse Oximetry 97 01/06/22 14:46 Oxygen Delivery Method Room Air 01/06/22 14:46 Oxygen Flow Rate 0 01/06/22 14:46 Pain Level 0 01/06/22 14:46 Assessment & Plan <YOVANA Linn - Last Filed: 01/07/22 19:04> Plan Detail Total time on date of encounter, ([id number] and non afar-[id number]-nvyp) (minutes): 30 Time was spent: reviewing prior notes and diagnostics <Andrea Zhao MD - Last Filed: 01/06/22 17:39> Plan Patient independently examined, discussed with Ms. Alfredo. I agree with her assessment and plan.
[2022-01-06 15:15] LABS: Abs Immature Grans 0.02 10^3/uL (0.0-0.06); Absolute Basophil Count 0.01 10^3/uL (0.0-0.2); Absolute Eosinophil Count 0.04 10^3/uL (0.0-0.7); Absolute Lymphocyte Count 1.33 10^3/uL (1.2-3.4); Absolute Monocyte Count 0.58 10^3/uL (0.1-0.8); Absolute Neutrophil Count 6.04 10^3/uL (1.2-6.7); Basophils % 0.1; Eosinophils % 0.5; HCT 33.1 % (40.0-50.0); HGB 10.8 g/dL (13.5-17.5); Immature Grans % 0.2; Lymphocytes % 16.6; MCH 31.1 pg (27.0-33.0); MCHC 32.6 % (32.0-36.0); MCV 95.4 fL (80-95); Monocytes % 7.2; Neutrophils % 75.4; Nucleated RBC 0 %; Platelet Count 240 10^3/uL (130-400); RBC 3.47 10^6/uL (4.36-5.78); RDW 12.4 % (11.8-14.1); RDW-SD 43.2 fL; WBC 8.02 10^3/uL (4.4-10.8)
[2022-01-06 15:25] LABS: ALT 13 U/L (16-63); AST 17 U/L (15-37); Albumin 2.9 g/dL (3.4-5.0); Alkaline Phosphatase 66 U/L (46-116); Anion Gap 8.5 mmol/L (3-11); BUN 18 mg/dL (7-18); Bilirubin, Total 0.5 mg/dL (0.2-1.0); CO2 27.5 mmol/L (21.0-32.0); CREATININE 0.7 mg/dL (0.70-1.30); Calcium 8.7 mg/dL (8.5-10.1); Chloride 105 mmol/L (98-107); Glucose 103 mg/dL (74-106); Magnesium 2.2 mg/dL (1.8-2.4); Potassium 3.8 mmol/L (3.5-5.1); Sodium 141 mmol/L (136-145); Total Protein 6.6 g/dL (6.4-8.2)
--- NOTE | 2022-01-06 15:28 | DI.RAD_ITS ---
Exam(s) XR PORTABLE CHEST AP EXAM: XR PORTABLE CHEST AP CLINICAL HISTORY: ams. TECHNIQUE: 2D digital imaging was performed. COMPARISON: CR,XR XR PORTABLE CHEST AP from 12/31/2021 FINDINGS: LUNGS: Clear. No pleural abnormality seen. HEART: Normal. MEDIASTINUM: Normal. OTHER FINDINGS: None. IMPRESSION: No acute pulmonary findings. DATA REPOSITORY: RADIATION DOSE DELIVERED: Total DLP
[2022-01-06 15:48] LABS: Bilirubin Negative (Negative); Blood Trace-lysed (Negative); Clarity Clear (Clear); Glucose Negative (Negative); Ketones Trace mg/dL (Negative); Leukocyte Esterase Negative (Negative); Nitrite Negative (Negative); Specific Gravity 1.025 (1.005-1.025); Urobilinogen 0.2 EU/dL (Up TO 0.2)
[2022-01-06 16:19] LABS: Bacteria Negative HPF (Negative); C & S Indicated? No; Casts Negative LPF (Negative); Crystals Negative HPF (Negative); Epithelial Cells Negative HPF (Negative); Mucus Negative (Negative); Other Cells Negative (Negative); RBC 20-50 HPF (0-2); WBC 0-2 HPF (0-5)
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
[2022-01-06] MEDS: LORazepam 1 MG TAB PO (17:23)
[2022-01-06] MEDS: Midazolam 2 MG/2 ML VIAL IM (18:03)
[2022-01-06 18:04] LABS: Source Nasal/Nares
[2022-01-06 19:01] LABS: COVID-19 PCR Negative (Negative)
--- NOTE | 2022-01-06 19:15 | RT.EKG_ITS ---
APPROVED REPORT Exam: Resting ECG Reason for Exam: QTc monitoring Patient Location: I HR:61 bpm ECG Measurements Heart Rate 61 AXIS HI 188 P 21 QRSd 92 QRS -27 QT 423 T 35 QTc 426 Conclusion Sinus rhythm...normal P axis, V-rate 50- 99 Borderline left axis deviation...QRS axis (-15,-29) Borderline low voltage, extremity leads...all extremity leads <0.6mV
[2022-01-06] MEDS: Ziprasidone 20 MG VIAL IM (19:33)
[2022-01-06] MEDS: Water,Injection,Sterile 10 ML VIAL (19:36)
[2022-01-06] MEDS: Enoxaparin 40 MG/0.4 ML SYR SC (19:41)
[2022-01-07 03:35] VITALS: BP 117/61; PULSE 57; RESP 20; TEMP 36.6; O2SAT 97
[2022-01-07] MEDS: amLODIPine 5 MG TAB PO (08:30)
[2022-01-07] MEDS: Aspirin 325 MG TAB PO (08:30)
[2022-01-07] MEDS: Multivitamin TAB 1 TAB PO (08:30)
[2022-01-07] MEDS: Glycopyrrolate 1 MG TAB PO ×3 (08:30→19:47)
[2022-01-07] MEDS: Spironolactone 25 MG TAB PO (08:31)
[2022-01-07] MEDS: Tamsulosin 0.4 MG CAPCR PO (08:31)
[2022-01-07] MEDS: Losartan 50 MG TAB PO (08:31)
[2022-01-07] MEDS: Amoxicillin 875/Clav. 125 TAB PO ×2 (08:31→19:47)
--- NOTE | 2022-01-07 08:40 | PDOC.CMIN ---
- If Service Date Differs Date of service: 01/07/22 Time of Service: 08:40 Care Management Initial Assess REASON FOR HOSPITALIZATION:: Agitation due to dementia, Aspiration pneumonia PAST MEDICAL HISTORY/PAST SURGICAL HISTORY:: All Active Problems (Updated 01/06/22 @ 19:20 by Ananth Yates). Agitation due to dementia (Acute). Skin tear of elbow without complication (Acute). Aspiration pneumonia (Acute). Subcutaneous emphysema due to trauma (Acute). Pain in left hip (Chronic). Glaucoma (Chronic). Hearing decreased (Chronic). Hypertension (Chronic). Elevated lipids (Chronic). Abnormal gait (Chronic 11/19/17). BPH (benign prostatic hyperplasia) (Chronic). Glaucoma (Chronic). decreased vision left. Hyperlipidemia (Chronic). Raised prostate specific antigen (Chronic 03/05/13). 6.82 06/19/16, 8.29 05/19/15 @ [place]. check value in december and june. Parkinsons disease (Chronic). Constipation (Chronic). Sensorineural hearing loss of both ears (Acute). Foot pain (Acute). Swapna-prosthetic fracture around prosthetic hip (Acute). Postoperative anemia (Acute). Fx femur shaft-closed (Acute). left ORIF. Anemia (Chronic). Conductive hearing loss, external ear (Acute). Medical History (Updated 01/06/22 @ 19:20 by Ananth Yates). Basal cell carcinoma of right ear. RIGHT EAR CANAL. BCCa left upper chest 2018: excised. Difficult intubation. Elevated PSA. a. In April 2013. Polyp of colon (09/20/10). Surgical History (Updated 01/06/22 @ 19:17 by Ananth Yates). Colonoscopy - MAC (~2010). 2000; NEG. 2010; 2 POLYPS. History of Surgical Procedure. a. Colonoscopy for which he's had excision of a polyp. b. Perirectal abscess treated in the past. c. Tonsillectomy. d. Extraction of molars. Status post left hip replacement (07/31/14) PREVIOUS FUNCTIONAL STATUS/SOCIAL/FAMILY SUPPORTS:: Dominic lives in [place] with his , Shaila. He has Parkinson's Disease, mild dementia, and has 100% [facility]. His provides assistance with meals and is his caregiver. CURRENT FUNCTIONAL STATUS:: Dominic was lying in bed sleeping when CM tried to meet with him. ADVANCE DIRECTIVES:: None on file Has patient been provided with info about the portal/API?: Yes Did the patient sign up for the portal?: No CODE STATUS:: Full Code INSURANCE COVERAGE / FINANCIAL ISSUES:: [employer] [place] [employer] [place] and Medicare. CURRENT HOME/COMMUNITY SERVICES/EQUIPMENT:: FWW and hospital bed. His , Shaila, is his caregiver. He is followed by neurology at [place] PRIMARY CARE PHYSICIAN:: Raad Strauss MD ([facility]). POTENTIAL DISCHARGE NEEDS:: Follow up appointment with PCP and discharge plan of care. PATIENT/FAMILY EDUCATION NEEDS:: Review discharge instructions with Dominic and his , Shaila, including medications and follow up plan of care. ANTICIPATED BARRIERS TO DISCHARGE:: None identified at this time. TRANSPORTATION:: Via private vehicle with . PLAN:: Dominic requires inpatient admission for medication managment and additional testing/monitoring. Anticipate, Dominic will be discharged home when medically cleared by provider. He will follow up with his community providers and plan of care as directed. His will transport him home via private vehicle when ready. CM will continue to follow. Readmission - Within the Past 30 Days Yes or No: Y - Date of First Admission Date of 1st Admission: 12/17/21 ([facility]) - Date of this Admission Date of Admission: 12/31/21 ( ) This admission was: Through ED - Office Visit Since 1st Admission Have you seen your PCP in the office since discharge?: No Had an appointment Been Scheduled?: Yes Date of Scheduled Appointment: 01/23/22 - Speicalist Appointments Have you seen any other specialist since your 1st Admission?: No - I. Interview patient and/or Family Difficulty reaching your doctor or getting an office appt?: No Have you had trouble purchasing/ or taking medication?: No How do you take your medications and set up your pills?: gives medications as prescribed. Have you had trouble with getting meals at home?: No Describe your typical meals since you have been home: cooks meals. Did you feel ready for discharge when you left the last time: Yes Did you call your physician beore you came to the ED?: No How do you think you became sick enough to come back?: Dominic has a hx of dementia and Parkinson's disease with recent hospitalization for fall presents with acute agitation. Per they were out running errands when he became very agitated. would like to bring him home when he is ready. - Ask the Care Team Members: What do you think caused the patient to be readmitted: He became agitated due to his dementia. - ED visits How many ED visits in the past 12 months: 5 - Assessment for Readmission Summary of readmission circumstances, based upon interviews: Dominic has a hx of dementia and Parkinson's disease with recent hospitalization for fall presents with acute agitation. Per they were out running errands when he became very agitated. would like to bring him home when he is ready.
[2022-01-07] MEDS: Carbidopa 25/Levodopa 100 TAB PO ×4 (10:32→19:47)
[2022-01-07 15:16] VITALS: BP 94/55; PULSE 76; RESP 16; TEMP 36.2; O2SAT 92
--- NOTE | 2022-01-07 16:21 | PGE_ITS ---
Date of Service Date of service: 01/07/22 Time of Service: 16:21 Assessment and Plan Assessment and plan (1) Agitation due to dementia: Status: Acute Assessment and plan: decr. geodon to 20 mg bid; monitor response; goal is for calming demeanor but avoid excessive somnolence; avoids benzodiazepines. (2) Parkinsons disease: Status: Chronic Assessment and plan: continue his current Sinemet treatment. He is followed by neurology at [place]. Pharmacy has worked w/ nursing and patient's to give his Sinement every 3hr (3) Aspiration pneumonia: Status: Acute Assessment and plan: He is not hypoxemic and not febrile. This is a dx he had one week ago when he was hospitalized from 12/30 to 12/31. I will continue his Augmentin for 3 more days and recheck his CXR (4) Skin tear of elbow without complication: Status: Acute Assessment and plan: topical care w/ Mepilex. Nursing also reports redness of his sacral area and nursing has applied Mepilex to this area as well. (5) Constipation: Status: Chronic Assessment and plan: will keep him on bowel regimen that he has been on at home of Miralax Qualifiers: Constipation type: drug induced constipation Qualified Code(s): K59.03 - Drug induced constipation (6) Glaucoma: Status: Chronic Assessment and plan: continue his current glaucoma eye drops (7) Hypertension: Status: Chronic Assessment and plan: continue his spironolactone and norvasc and losartan Qualifiers: Hypertension type: essential hypertension Qualified Code(s): I10 - Essential (primary) hypertension (8) BPH (benign prostatic hyperplasia): Status: Chronic Assessment and plan: continue flomax Subjective Subjective Interval history since last seen: Patient is very sedated this afternoon. He has been medicated with his Geodon. I think that his dose needs to be reduced. He is currently on 40 mg twice a day. I will cut this dose down to 20 mg twice a day. I met with his today she was upset that the patient has not been getting his Sinemet every 3 hours as he takes at home. I have asked nursing staff to coordinate with pharmacist to make sure he gets his Sinemet every 3 hours 5 times a day. He also has dysphagia problems from his parkinsonism is indicates that he takes pur?ed foods and nectar consistency thickened liquids. Certain foods he does not like taking pur?ed but sounds like he cannot swallow whole pieces of fruit and meats. Exam Narrative Exam Narrative: Patient is somnolent difficult to arouse. He has some coarse upper airway noises. Lungs with diminished breath sounds at the left base right side is clear. Heart regular rate and rhythm Abdomen soft nondistended Objective Last Vital Signs Temp 36.2 C L 01/07/22 15:16 Pulse 76 01/07/22 15:16 Resp 16 01/07/22 15:16 BP 94/55 L 01/07/22 15:16 Pulse Ox 92 01/07/22 15:16 Laboratory Results - last 24 hr 01/06/22 18:00 COVID-19 Source Nasal/Nares SARS-CoV-2 (PCR) Negative
[2022-01-07] MEDS: Ziprasidone 20 MG CAP PO (18:00)
[2022-01-07] MEDS: Enoxaparin 40 MG/0.4 ML SYR SC (18:01)
[2022-01-07] MEDS: Simvastatin 20 MG TAB PO (19:48)
[2022-01-07 23:20] VITALS: BP 101/63; PULSE 73; RESP 16; TEMP 37.9; O2SAT 96
[2022-01-08] VITALS (7 sets, daily range): BP systolic 112–147; BP diastolic 55–67; PULSE 63–94; RESP 20–26; TEMP 36.6–38; O2SAT 91–96
[2022-01-08 06:03] LABS: HCT 34.6 % (40.0-50.0); HGB 11.4 g/dL (13.5-17.5); MCH 31.2 pg (27.0-33.0); MCHC 32.9 % (32.0-36.0); MCV 94.8 fL (80-95); MPV 8.9 fL (8.0-11.0); Platelet Count 270 10^3/uL (130-400); RBC 3.65 10^6/uL (4.36-5.78); RDW 12.5 % (11.8-14.1); RDW-SD 43.8 fL; WBC 10.61 10^3/uL (4.4-10.8)
--- NOTE | 2022-01-08 07:15 | NUR.NOTE ---
pt met barely responsive, his V/S were stable. Lungs clear, HR regular. Pt was barely able to take his med and choked on one episode. Suctioned the airway. Pt became more unresponsive later in the shift. parish nurse notified who informed the MD. MD ordered NPO and to continue to monitor at this time. pt was repositioned 2hly and V/S were stable throughout the shift. The last set of vitals were Bp:125/55, R 24, o2 92, P 66. Report given to Caty for further mgtment
[2022-01-08] MEDS: Glycopyrrolate 1 MG TAB PO ×3 (08:43→21:08)
[2022-01-08] MEDS: Multivitamin TAB 1 TAB PO (08:44)
[2022-01-08] MEDS: amLODIPine 5 MG TAB PO (08:44)
[2022-01-08] MEDS: Docusate Sodium 100 MG CAP PO ×3 (08:44→21:08)
[2022-01-08] MEDS: Amoxicillin 875/Clav. 125 TAB PO (08:44)
[2022-01-08] MEDS: Tamsulosin 0.4 MG CAPCR PO (08:44)
[2022-01-08] MEDS: Losartan 50 MG TAB PO (08:44)
[2022-01-08] MEDS: Spironolactone 25 MG TAB PO (08:44)
[2022-01-08] MEDS: Aspirin 325 MG TAB PO (08:45)
[2022-01-08] MEDS: Carbidopa 25/Levodopa 100 TAB PO ×4 (10:41→19:02)
--- NOTE | 2022-01-08 11:17 | PHA.REVIEW ---
Pharmacy Admission Review - Admission Clinical Review (Last Updated 01/06/22 @ 19:17 by Ananth Yates) Agitation due to dementia (Acute) Skin tear of elbow without complication (Acute) Aspiration pneumonia (Acute) No Known Allergies Allergy (Verified 01/06/22 17:32) Resuscitation Status Full Code Height 6 ft Weight 77.4 kg - Renal Dosing Renal Dosing: BUN 18 mg/dL (7-18) 01/06/22 14:55 Creatinine 0.7 mg/dL (0.70-1.30) 01/06/22 14:55 Medications needing adjustments: N/A (crcr ~86ml/min) - Anticoagulation Anticoagulation: Hgb 11.4 g/dL (13.5-17.5) L 01/08/22 05:44 Hct 34.6 % (40.0-50.0) L 01/08/22 05:44 Plt Count 270 10^3/uL (130-400) 01/08/22 05:44 Creatinine 0.7 mg/dL (0.70-1.30) 01/06/22 14:55 DVT Prophylaxis: Reviewed Medications: Enoxaparin Therapeutic Anticoagulation: N/A - Relevant Labs Sodium 141 mmol/L (136-145) 01/06/22 14:55 Potassium 3.8 mmol/L (3.5-5.1) 01/06/22 14:55 Chloride 105 mmol/L (98-107) 01/06/22 14:55 Magnesium 2.2 mg/dL (1.8-2.4) 01/06/22 14:55 Electrolytes, C-Reactive P, ESR: Reviewed - DM Control DM Control: Glucose 103 mg/dL (74-106) 01/06/22 14:55 Finger Stick Blood Glucose 107 Finger Stick Blood Glucose 107 Insulin Dosing: N/A - BP Control BP Control: Blood Pressure 128/67 Blood Pressure 125/55 Blood Pressure 112/64 Blood Pressure 101/63 If elevated: N/A - Qtc Review If Elevated: N/A (420 on admission) - Home Meds Home Med List reviewed: Reviewed (zolpidem not ordered) - Current meds Current Medication Order Review: Reviewed - Comments Comments/Follow Ups: tried ziprasidone but pt had decreased responsive episode and med is now stopped
--- NOTE | 2022-01-08 13:17 | W.PM.PROGNOT ---
Date of Service Date of service: 01/08/22 Time of Service: 13:17 Assessment and Plan Assessment and plan (1) Agitation due to dementia: Status: Acute Assessment and plan: Patient would benefit from a telepsych consult. Apparently his PCP Dr. Candelario has arranged for the patient to see a team of psychiatrist and psychologist at the [facility]. Patient's parkinsonism is being managed by Dr. Smith from [facility]. (2) Aspiration pneumonia: Status: Acute Assessment and plan: Continue Augmentin and recheck chest x-ray I will ask for speech therapy to evaluate his dysphagia. (3) Parkinsons disease: Status: Chronic Assessment and plan: Continue current Sinemet schedule of 2 tablets 5 times a day given 3 hours apart. This is a schedule that his insists on and is prescribed by Dr. Smith. I think the patient would benefit from a second opinion neurology consult. I do not believe that his parkinsonism is as well-controlled as it could be. (4) Dysphagia: Status: Acute Assessment and plan: patient currently on pureed foods w/ moderately thickened liquids. I will ask for S.T. consult Subjective Subjective Interval history since last seen: Patient became very sedated yesterday from Geodon. Geodon has since been discontinued. He is more alert and reactive this afternoon. His is feeding him lunch. Patient does have choking episodes after feedings. Patient is currently on a pur?ed diet with moderately thickened liquids. His was given him a strawberry shake when he had a couple of coughing choking spells which she was able to clear once he was sitting bolt upright and would bear down. Unfortunately she was feeding him in a semifowler position in which his head of his bed was only about 60 degrees. I explained her that he should be bolt upright at 90 degrees at all times for feedings. He should remain upright for 30 minutes after meals and 15 minutes after meds. I told his that I would reach out to Dr. Hodges, psychiatrist contracted with [facility] to perform a telepsych consult on her to make recommendations on the best antipsychotic medications with the least antiparkinsonism effect. Exam Narrative Exam Narrative: Elderly white male sitting up in bed just having finished having a coughing choking spell after eating. He did seem to clear his throat after much coughing. He is very rigid and stiff. Lungs with diminished breath sounds at the bases no rhonchi Heart regular rate and rhythm Abdomen soft nondistended Objective Last Vital Signs Temp 37.0 C 01/08/22 07:55 Pulse 63 01/08/22 07:55 Resp 26 H 01/08/22 07:55 BP 128/67 01/08/22 07:55 Pulse Ox 96 01/08/22 07:55 Laboratory Results - last 24 hr 01/08/22 05:44 WBC 10.61 RBC 3.65 L Hgb 11.4 L Hct 34.6 L MCV 94.8 MCH 31.2 MCHC 32.9 RDW 12.5 Plt Count 270 MPV 8.9
[2022-01-08] MEDS: Enoxaparin 40 MG/0.4 ML SYR SC (18:05)
[2022-01-08] MEDS: Latanoprost 0.005% 2.5 ML BTL OP (21:08)
[2022-01-08] MEDS: QUEtiapine 25 MG TAB 12.5 MG PO (21:08)
[2022-01-08] MEDS: Simvastatin 20 MG TAB PO (21:09)
[2022-01-08] MEDS: Acetaminophen 325 MG TAB PO (21:19)
[2022-01-09] VITALS (8 sets, daily range): BP systolic 88–130; BP diastolic 50–78; PULSE 68–77; RESP 14–18; TEMP 36.1–36.6; O2SAT 91–95
[2022-01-09] MEDS: Carbidopa 25/Levodopa 100 TAB PO ×5 (06:59→18:41)
[2022-01-09] MEDS: Glycopyrrolate 1 MG TAB PO ×3 (08:14→19:39)
[2022-01-09] MEDS: Spironolactone 25 MG TAB PO (08:14)
[2022-01-09] MEDS: Losartan 50 MG TAB PO (08:15)
[2022-01-09] MEDS: amLODIPine 5 MG TAB PO (08:15)
[2022-01-09] MEDS: QUEtiapine 25 MG TAB 12.5 MG PO ×2 (08:15→19:39)
[2022-01-09] MEDS: Tamsulosin 0.4 MG CAPCR PO (08:15)
[2022-01-09] MEDS: Aspirin 325 MG TAB PO (08:26)
--- NOTE | 2022-01-09 09:34 | NS.NUTBLAN_ITS ---
Date of service: 01/09/22 Time of Service: 09:34 Nutritional Consult ASSESSMENT: 76 year old male admitted with agitation/dementia with dysphagia and noted with a 36 lbs weight loss in last 12 months. NPO today, over weekend, started on puree/mildly thick liquids. LABOR RELATIONS OFFICER consult pending. PO intake over weekend varied from 25-50%. Estimated Needs: 3064-2311 kcal, 77-92 g protein, 2300 ml fluid. Not meeting nutrient needs. NUTRITIONAL DIAGNOSIS: Moderate malnutrition in view of significant weight loss in last year. Inadequate nutrient intake due to poor appetite INTERVENTION: Diet per LABOR RELATIONS OFFICER recommendations supplement with ensure plus shake BID. Consider appetite stimulant such as megace as marinol contraindicated MONITORING AND EVALUATION: weight, poi ntake, labs Time Spent in Nutritional Counseling and Treatment: 20
[2022-01-09] MEDS: Acetaminophen 325 MG TAB PO (10:04)
--- NOTE | 2022-01-09 11:45 | RT.EKG_ITS ---
APPROVED REPORT Exam: Resting ECG Reason for Exam: chest pain Patient Location: I HR:69 bpm ECG Measurements Heart Rate 69 AXIS MO 54 P 0 QRSd 100 QRS -39 QT 399 T 17 QTc 428 Conclusion Sinus rhythm...normal P axis, V-rate 50- 99 Ventricular premature complex...V complex w/ short R-R interval Short MO interval...MO <110mS RSR' in V1 or V2, probably normal variant...small R' only Inferior infarct, old...Q >35mS, II III aVF
--- NOTE | 2022-01-09 12:10 | W.PM.PROGNOT ---
Date of Service Date of service: 01/09/22 Time of Service: 12:10 Assessment and Plan Assessment and plan (1) Agitation due to dementia: Status: Acute Assessment and plan: Agitation has improved on the Seroquel. I will keep the current dose 12.5 mg bid for couple days but if his behavior worsens then will titrate by 25 mg/day until desired effect. (2) Aspiration pneumonia: Status: Acute Assessment and plan: check follow up CXR today; oxygen applied as his room air saturation was only 88 to 89% (3) Parkinsons disease: Status: Chronic Assessment and plan: Continue current Sinemet schedule of 2 tablets 5 times a day given 3 hours apart. This is a schedule that his insists on and is prescribed by Dr. Smith. I think the patient would benefit from a second opinion neurology consult. I do not believe that his parkinsonism is as well-controlled as it could be. I will talk w/ Dr. Smith per his 's request. (4) Dysphagia: Status: Acute Assessment and plan: patient currently on pureed foods w/ moderately thickened liquids. I have consulted S.T. Subjective Subjective Interval history since last seen: Patient's behavior has responded well to the Seroquel w/out over sedation. However this morning he developed left sided chest pain (pressure) and complained of throat discomfort. Throat discomfort was alleviated after nursing suctioned his oropharynx. Patient has severe dysphagia problems from his Parkinsonism. Patient has no known CAD. He has a moist cough and has been on treatment for left sided aspiration pneumonia. Exam Narrative Exam Narrative: Elderly white male sitting upright in bed, stairing straight a head, has masked facies appearance typical for Parkinsonism Chest wall is nontender to palpation LUngs: left base w/ rhonchi and some expiratory wheezing; right side is clear Abdomen: soft, nontender Objective Last Vital Signs Temp 36.1 C L 01/09/22 11:43 Pulse 77 01/09/22 11:43 Resp 18 01/09/22 11:43 BP 102/78 01/09/22 11:43 Pulse Ox 94 01/09/22 11:43
[2022-01-09 12:46] LABS: Troponin I < 50 ng/L (<or=60)
[2022-01-09] MEDS: Docusate Sodium 100 MG CAP PO (14:26)
[2022-01-09 16:49] LABS: Troponin I < 50 ng/L (<or=60)
--- NOTE | 2022-01-09 16:53 | PDOC.CMPRO ---
- If Service Date Differs Date of service: 01/09/22 Time of Service: 16:54 Care Management Progress Note S/O: Dominic remains inpatient at this time. Per MD, agitation has improved with addition of Seroquel. CM continues to follow. A: 76 year old admitted 01/06/22 for dementia w/agitation and aggressive behavior P: Dominic requires inpatient admission for medication managment and additional testing/monitoring. Anticipate, Dominic will be discharged home when medically cleared by provider. He will follow up with his community providers and plan of care as directed. His will transport him home via private vehicle when ready. CM will continue to follow.
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
[2022-01-09] MEDS: Simvastatin 20 MG TAB PO (19:39)
[2022-01-09] MEDS: Latanoprost 0.005% 2.5 ML BTL OP (19:58)
[2022-01-10 06:00] VITALS: O2SAT 92
[2022-01-10] MEDS: Carbidopa 25/Levodopa 100 TAB PO ×5 (06:29→19:30)
[2022-01-10 07:27] VITALS: BP 123/61; PULSE 61; RESP 28; TEMP 36.4; O2SAT 91
[2022-01-10] MEDS: Losartan 50 MG TAB PO (09:36)
[2022-01-10] MEDS: Spironolactone 25 MG TAB PO (09:36)
[2022-01-10] MEDS: Aspirin 325 MG TAB PO (09:36)
[2022-01-10] MEDS: Glycopyrrolate 1 MG TAB PO ×3 (09:36→19:29)
[2022-01-10] MEDS: amLODIPine 5 MG TAB PO (09:37)
[2022-01-10] MEDS: Docusate Sodium 100 MG CAP PO ×2 (09:37→13:00)
[2022-01-10] MEDS: QUEtiapine 25 MG TAB 12.5 MG PO ×3 (09:37→21:33)
[2022-01-10] MEDS: Tamsulosin 0.4 MG CAPCR PO (09:37)
[2022-01-10] MEDS: Multivitamin TAB 1 TAB PO (09:37)
--- NOTE | 2022-01-10 10:07 | IN_ITS ---
Date of service: 01/10/22 Time of Service: 10:07 PT Notes Visit Reasons: Dementia w/Agitation and Aggressive Behavior Physical Therapy Inpatient Initial Evaluation Date: 01/10/2022 Referring Doctor: Ananth Yates MD PT Orders: PT CONSULT: Evaluate and treat for general weakness d/t Parknsonism Precautions: Fall. Standard. Activity as tolerated.? Impaired safety awareness. Patient Profile/Admitting Diagnosis: Zach is a 76-year-old male with diagnosis of altered mental status, Parkinson's disease, dehydration, hypertension, glaucoma, and hypokalemia with referral to physical therapy to evaluate ambulatory status. PMHX: All Active Problems?(Updated 01/06/22 @ 19:20 by Ananth Yates) Agitation due to dementia (Acute) Skin tear of elbow without complication (Acute) Aspiration pneumonia (Acute) Subcutaneous emphysema due to trauma (Acute) Pain in left hip (Chronic) Glaucoma (Chronic) Hearing decreased (Chronic) Hypertension (Chronic) Elevated lipids (Chronic) Abnormal gait (Chronic 11/19/17) BPH (benign prostatic hyperplasia) (Chronic) Glaucoma (Chronic) decreased vision left Hyperlipidemia (Chronic) Raised prostate specific antigen (Chronic 03/05/13) 6.82 06/19/16, 8.29 05/19/15 [facility] de[facility] and june Parkinsons disease (Chronic) Constipation (Chronic) Sensorineural hearing loss of both ears (Acute) Foot pain (Acute) Swapna-prosthetic fracture around prosthetic hip (Acute) Postoperative anemia (Acute) Fx femur shaft-closed (Acute) left ORIF Anemia (Chronic) Conductive hearing loss, external ear (Acute) Medical History?(Updated 01/06/22 @ 19:20 by Ananth Yates) Basal cell carcinoma of right ear RIGHT EAR CANAL BCCa left upper chest 2018: excised Difficult intubation Elevated PSA a. In April 2013. Polyp of colon (09/20/10) Surgical History?(Updated 01/06/22 @ 19:17 by Ananth Yates) Colonoscopy - MAC (~2010) 2000; NEG 2010; 2 POLYPS History of Surgical Procedure a. Colonoscopy for which he's had excision of a polyp. b. Perirectal abscess treated in the past. c. Tonsillectomy. d. Extraction of molars. Status post left hip replacement (07/31/14) Social History/Home Situation: Lives with in a private home with 4 steps to enter without rails.? There are 15 steps to the second floor of the house where his bedroom is however states that he no longer needs to go upstairs as they have made everything accessible for on the main floor. Independent with FWW indoors. Equipment Owned/DME: FWW Subjective: Agreeable to PT consult.?Nurse Selena assisted with encouraging patient to participate in therapy. Objective: General Observation: in NAD.? Supine in bed eyes closed but was able to open eyes as his name was called.? Nurse Harper assiting with mobility assessment for safety. Bradykinesic. Mental Status: Alert and able to follow single step commands. Responses both motor and verbal delayed. Pain: Denies ROM: Right Upper Extremity: ? Grossly WFL Left Upper Extremity:? Grossly WFL Right Lower Extremity: Grossly WFL Left Lower Extremity: Grossly WFL Strength: Right Upper Extremity: Grossly 4/5 Left Upper Extremity: Grossly 4/5 Right Lower Extremity: Grossly 4/5 Left Lower Extremity: Grossly 4/5 Bed Mobility/Transfers: Nurse Saleem assisting with mobility assessment for safety. Supine to sit standby assist Sit to supine minimal assist to BLE as patient reports fatigue after ambulation activity Sit to stand with hand-held assist x2 Stand to sit with hand-held assist x2 Bed to reclining chair with hand-held assist x2 Gait: Instructed patient with level surface ambulation of 300 feet requiring hand-held assist x 2.? Minimal path deviation.? Nurse Harper assisted with ambulation assessment for safety. Cues given for direction only. Breanne decreased. Step height decreased. Stairs: Able to negotiate up-and-down 6 x 4 inch steps and 4 x 6 inch steps holding onto bilateral rails with contact-guard assist using step over step pattern. Balance: Static Sitting: Good Dynamic Sitting: Fair Static Standing: Fair Dynamic Standing: Fair Special Tests: Mobility Limitations Standardized Measure [facility] AM-PAC 6 clicks Basic Mobility Inpatient Short Form: Raw Score: 19 ? CMS Score: 42% deficit? ? ? Informed Consent/Education:? Patient was instructed in purpose of PT consult and plan of care. Agreeable to proceed with established PT POC to achieve personal goals. Assessment: Zach requires the assistance of 2 caregivers at this time for safety. Patient presents with clinical signs and symptoms consistent with current/admitting diagnoses that have resulted to mobility limitations, gait instability, generalized weakness, and overall ADL decline as demonstrated by the following impairment level findings: 1. Decreased strength to B UEs/LE major muscle groups 2. Impaired sitting/standing balance 3. Impaired activity tolerance 4. Impaired safety awareness Impairments are contributing to the following functional limitations: 1. Decline in bed mobility skills 2. Decline in transfer skills 3. Difficulty with ambulation without physical assistance 4. Increased completion time for mobility ADL performance 5. Increased risk for falls 6. Difficulty with managing steps alone safely Patient is assessed [place] a 41670 moderatecomplexity based on the following: History: 76-year-old male with past medical history as indicated above Examination: Demonstrable impairment in strength, balance, and mobility level with underlying impairments and functional limitations as exhibited above as well as deficit score of 42% utilizing the [facility] Mobility Inpatient Short Form Presentation: Evolving Decision Makin moderate complexity Goals: Goals X1 week 1. Supine-Sit independent 2. Sit-Supine independent 3. Sit-Stand independent 4. Stand-Sit independent with FWW 5. Bed-Chair independent with FWW 6. Chair-Bed independent with FWW 7.? Supervision gait on level surface with use of FWW for at least 300 feet without report of pain nor dyspnea Plan of Care/Treatment Plan: 1-2x/day, 7 days/week x 1 week. Plan of care has been reviewed with the MEDICAL TECHNOLOGIST CLINICAL providing the service under Physical Therapy direction. Initiate Physical Therapy intervention for pain management as needed, strengthening, bed mobility, transfers, gait, stairs, balance training, and use of assistive device. DISCHARGE RECOMMENDATIONS: [] ? Home with no services [] [X] ? Home with services.? Home when medically cleared by hospitalist.? Patient will benefit from home health PT services in order to progress mobility level using least restrictive assistive ambulatory device, assess home safety, identify additional equipment needs, and establish a functional maintenance program that will increase ability of patient to remain at home. [] ? Home with outpatient PT [] [] ? SNF for continued rehabilitation [] [] ? Field Specialist Care [] [] ? SNF versus LTC based on ability to participate and progress [] TREATMENT CODE/TIME: 81746 x 26 minutes beginning at 10:07 AM. Thank you for the opportunity to participate in the care of this patient. Adali Delvalle PT, DPT, CLT [facility] [place], [place]
--- NOTE | 2022-01-10 11:35 | PDOC.CMPRO ---
- If Service Date Differs Date of service: 01/10/22 Time of Service: 11:35 Care Management Progress Note S/O: Per PT, Dominic did well and followed directives while holding the hand of TAPAN Jeffrey and walked the loop of the M/S floor. CERTIFIED COURT INTERPRETER reports Dominic enjoys the sunlight coming in his room during the day. He has been drowsy, but appropriate in behavior per report. S/T recommendations noted in chart. Dominic remains inpatient at this time. CM continues to follow. A: 76 year old admitted 01/06/22 for dementia w/agitation and aggressive behavior P: Dominic will be discharged home when medically cleared by provider with increased services (RN/ST) anticipated unless his refuses. He will follow up with his community providers and plan of care as directed. His will transport him home via private vehicle when ready, she has refused palliative consult and [facility] neurology at this time. CM will continue to follow.
--- NOTE | 2022-01-10 14:00 | PT.INTREAT ---
Date of service: 01/10/22 Time of Service: 14:00 PT Notes Visit Reasons: Dementia w/Agitation and Aggressive Behavior Physical Therapy Inpatient Treatment Note Date: 01/10/2022 Precautions: Fall. Standard. Activity as tolerated.? Impaired safety awareness. Subjective: Agreeable to PT session with nurse Selena present to assist with encouraging patient to move. Objective: General Observation: In NAD.? Supine in bed with eyes closed but was able to open eyes as his name was called.? Nurse Harper assisting with mobility assessment for safety.? Bradykinesic. Mental Status: Alert and able to follow single step commands.? Responses both motor and verbal delayed. Pain: Denies Bed Mobility/Transfers: Nurse Harper assisting with mobility assessment for safety. Supine to sit standby assist Sit to supine standby assist Sit to stand with contact-guard assist Stand to sit with contact-guard assist Bed to reclining chair with contact-guard assist Gait: Instructed patient with level surface ambulation of 200 feet + 200 feet requiring contact-guard assist of PT and standby assist of for safety.? Minimal path deviation.? Verbal cues given for direction only, tactile cues provided for walker management. Breanne decreased.? Step height decreased. Stairs: Able to negotiate up-and-down 6 x 4 inch steps and 4 x 6 inch steps holding onto bilateral rails with contact-guard assist using step over step pattern.? Balance: Static Sitting: Good Dynamic Sitting: Fair Static Standing: Fair Dynamic Standing: Fair Assessment: Performed a lot better in the afternoon using the FWW with needing minimal help just to manage the FWW and for direcitonal changes. is hopeful that they may be able to go home as soon as they are cleared. Will do well in a familiar environement with HH PT/OT/ST. has ll equipment at home. DISCHARGE RECOMMENDATIONS: [] ? Home with no services [] [X] ? Home with services.? Home when medically cleared by hospitalist.? Patient will benefit from home health PT services in order to progress mobility level using least restrictive assistive ambulatory device, assess home safety, identify additional equipment needs, and establish a functional maintenance program that will increase ability of patient to remain at home. [] ? Home with outpatient PT [] [] ? SNF for continued rehabilitation [] [] ? [facility]chandising Lead [facility] [] [] ? SNF versus LTC based on ability to participate and progress [] TREATMENT CODE/TIME: 15000 x 20 minutes, 46920 x 32 minutes beginning at 14:00 PM.
[2022-01-10 15:40] VITALS: BP 103/64; PULSE 68; RESP 24; TEMP 36.4; O2SAT 92
--- NOTE | 2022-01-10 15:48 | W.SPSTE ---
Date of service: 01/10/22 Time of Service: 14:30 Subjective Patient was initially contacted in the morning, somnolent, difficult to rouse, frequently falling asleep. Over the course of several visits throughout the day to monitor his appropriateness for PO intake and MBSS, he was intermittently alert and responsive but frequently again becoming somnolent/minimally responsive. Patient unwilling to participate in MBSS this date. Per RN he received seroquel this morning and has been more sedated today than yesterday, though per PT, he did participate in 2 physical therapy sessions this date. Per MD, plan to hold AM seroquel to improve alertness, will maintain evening dose to target improved overnight sleep. Continues to be sensitive to light. Patient's expressing frustration with level of concern that hospital staff have re: swallow function he's been like this for 4 years, it's nothing new, SEE PRIOR INNOVATIONS PARAPROFESSIONAL RECOMMENDATIONS NOTE for HPI, referral info, and additional medical history. Objective Objective Respiratory Status: Tolerating room air without s/sx dyspnea. Patient with congested cough, wet vocal quality intermittently at baseline, noting expectoration of miramontes/brown sputum without PO intake. Mental Status: Fluctuating - patient largely observed to be somnolent this date, difficult to rouse, but intermittently responsive and agreeable to participate in PO trials. Improved responsiveness to RN and his . Communication Status: 1-2 word utterances, sporadically responsive 2/2 AMS Oral Motor Exam: Not completed, patient unable to respond to most requests/directions this date - especially those that are not naturalistic (e.g., opening mouth in response to spoon touching lips). - Patient appears with adequate cough strength, but at times unable to coordinate cough and will phonate instead. Food items tested: ?? Ice: x IDDSI 0: 1/2 tsp x3 IDDSI 1: x IDDSI 2: via cup edge, feeding assist x IDDSI 3: via cup edge, feeding assist IDDSI 4: IDDSI 5: IDDSI 6: IDDSI 7: x Pill/tablet: one at a time with (3) Moderately thickened liquids Oral phase: WFL Leakage from mouth Difficulty with bolus manipulation X Difficulty with a-p transport (patient noted to expectorate pill after swallowing liquid) Difficulty chewing Pocketing x Residue (very mild with puree) ? Pharyngeal phase: WFL X Delayed swallow initiation Reduced hyolaryngeal elevation/excursion X Cough after swallow X Voice change after swallow? X Throat clearing? Endorsed stasis? Education provided: ? X Anatomy/physiology of swallowing mechanism ? X Overt s/sx aspiration ? X Rationale for improved oral care and instructions ? X Relationship between respiratory fxn and deglutition ? X Rationale for recommended strategies as below ? Assessment Patient presents with moderate-severe s/sx aspiration across all liquid consistencies, though appears with increased tolerance and comfort with moderately thickened liquids at this time over thin liquids (delayed vs immediate cough, less severe cough). With puree (applesauce trialed this date), he demonstrates mildly delayed, significant wet vocal quality. Patient with tendency to spontaneously cough/clear pharyngeal vs laryngeal residue, benefits from verbal cues to complete secondary swallow. Suspect significant delayed swallow onset per palpitation this date. Patient/caregiver are aware of aspiration risk across consistencies, and wish to continue to prioritize PO intake at this time. Suspect further diet modifications or strategies will not significantly impact patient's risk of aspiration at this time. Oral care should be a primary focus in minimizing risk of pulmonary complications at this time as patient's is reluctant to discuss additional swallow strategies. With time was able to discuss her goals of care for Dominic (prioritizing quality of life/enjoyment of food over reduction/elimination of aspiration risk), though also voicing concern re: caloric intake throughout sessions (he needs to eat,). At this time he does appear with significant discomfort with PO intake, but also observed requesting water and food at times. Agree with recommendation for palliative consult. Suspect patient will continue to decline MBSS, and results not likely to significantly impact our diet recommendations given apparent severity and chronic/progressive nature of his symptoms. Will revisit this possibility pending patient status and goals of care. Discharge: Pt to continue to work with established INNOVATIONS PARAPROFESSIONAL on outpatient basis through [facility]. Recommendations: Diet Texture Modification(s): IDDSI Level(s) 4-Pureed Solids 3-Moderately Thick Liquids S/sx aspiration are likely to occur, but continue to offer PO per patient's preference (patient/ are aware of current aspiration risk) except as follows: STOP PO INTAKE IF PATIENT RESPIRATORY STATUS WORSENS (shortness of breath, wheezing, nasal flaring, increased respiratory rate, color changes, etc). Medication Intake: Whole with 4-Extremely Thick Liquids/Puree - one at a time Alter medications only as advised by MD or Pharmacist Oral hygiene - Assist patient with frequent, thorough oral care, including use of in-line suctioning as needed Frequency: q4h/every 4 hours and before/after PO intake using friction with toothbrush on all oral structures as tolerated HOB upright as tolerated; upright for all PO intake. Encourage physical mobility as tolerated. Level of Assistance/Supervision: 1:1 close supervision for all PO intake, assistive feeding by trained staff/family PO intake only when awake/alert? Strategies/Adaptations/Assistive Equipment: Reduce auditory and/or visual distractions when eating, Provide verbal and/or visual cues to use recommended strategies, Small sips and bites when eating, Slow rate of intake, Alternate intake of liquids and solids, Sensory enhancement (flavor, texture, temperature), Small+frequent meals throughout day Posture/Positioning Needs: Maintain upright position at least 30 minutes after meals, Avoid meals/snacks 2-3 hours prior to reclining/sleeping, Sleep with head of bed elevated to reduce likelihood of nocturnal reflux Plan INNOVATIONS PARAPROFESSIONAL to follow patient while on unit. Oxygen System Tester Goals: = Short Term Goals, for now 1. Patient/caregivers will demonstrate or verbalize understanding of education r/t role of INNOVATIONS PARAPROFESSIONAL, normal vs disordered swallow function, impact of Parkinson's disease on swallow function, rationale for diet modification and recommended strategies including increased frequency of oral care x1-2 sessions. Yusra Caba MS, [facility]-INNOVATIONS PARAPROFESSIONAL Speech Language Pathologist ? INNOVATIONS PARAPROFESSIONAL CPT Code: 59048 Clinical Swallowing Evaluation Time spent: 75 minutes Coding
--- NOTE | 2022-01-10 17:07 | W.PM.PROGNOT ---
Date of Service Date of service: 01/10/22 Time of Service: 17:07 Assessment and Plan Assessment and plan (1) Agitation due to dementia: Status: Acute Assessment and plan: Decrease seroquel to 12.5 mg PO QHS with 12.5 mg prn for agitation as needed. (2) Aspiration pneumonia: Status: Acute Assessment and plan: Aspiration is a recurrent issue and an old issue. The is not interested in making adjustments in the diet at this time. There is no clinical evidence of PNA. Not requiring O2 at this time. Continue pureed diet with thickened liquids. (3) Parkinsons disease: Status: Chronic Assessment and plan: Dr Smith recommended addition of sinemet ER 50/200 at HS to the current short acting regimen. (4) Dysphagia: Status: Acute Assessment and plan: As above: continue pureed foods w/ moderately thickened liquids. (5) Discharge planning issues: Status: Acute Assessment and plan: Full code Patient's is not interested in palliative care at this time. Plan is for discharge home when more consistently awake during the day (hopefully, tomorrow). (6) DVT prophylaxis: Status: Acute Assessment and plan: SC enoxaparin Subjective Subjective Interval history since last seen: Mr Rodriguez has been somnolent today. He was able to work with PT. He is not awake enough to answer my questions. He was not able to participate with a swallow eval. The made it clear that she was comfortable with staying with his previously prescribed diet. She requested that I make contact with the patient's neurologist, which I did. Dr Clark recommended scheduling 12.5 mg of seroquel at night with 12.5 mg of prn seroquel for agitation and addition of sinemet ER 50/200 mg at night. The is ok with these changes. She is not interested in having a palliative care consult. Exam Narrative Exam Narrative: General: Lethargic/somnolent elderly male who does not wake up enough to answer my questions or follow commands HEENT: eyes closed, MMM Heart: RRR Lungs: CTAB Abdomen: soft, nontender, nondistended Extremities: no edema BLEs Objective Last Vital Signs Temp 36.4 C L 01/10/22 15:40 Pulse 68 01/10/22 15:40 Resp 24 01/10/22 15:40 BP 103/64 01/10/22 15:40 Pulse Ox 92 01/10/22 15:40
[2022-01-10] MEDS: Simvastatin 20 MG TAB PO (19:28)
[2022-01-10] MEDS: Latanoprost 0.005% 2.5 ML BTL OP (19:32)
[2022-01-10] MEDS: Carbidopa 50/Levodopa 200 CR TABCR 1 TAB PO (21:33)
[2022-01-10 23:10] VITALS: BP 125/65; PULSE 72; RESP 24; TEMP 36.8; O2SAT 93
[2022-01-11] MEDS: QUEtiapine 25 MG TAB 12.5 MG PO ×2 (01:43→16:39)
[2022-01-11] MEDS: Acetaminophen 325 MG TAB PO (01:44)
[2022-01-11 07:08] VITALS: BP 130/67; PULSE 61; RESP 32; TEMP 36.4; O2SAT 93
--- NOTE | 2022-01-11 08:43 | STREC_ITS ---
Date of service: 01/11/22 Time of Service: 08:[address] Speech [address] ST Recommendations: SHOW WORKER Communication / Non-Treatment Note Chart reviewed. SHOW WORKER spoke with patient's RN re: current patient status: patient is receiving assistance with oral feeding by staff currently this AM; discussed importance of thorough oral care recommendations and intermittent need for oral suctioning as patient demonstrates significant difficulties w ith swallow initiation, however is likely to request oral intake for oral gratification - Offering controlled po intake with assist continues to be appropriate at this time, as long as current risk management guidelines are followed; reviewed patient-centered plan of care/discussion from previous date between spouse & SHOW WORKER with RN this AM; RN verbalized comprehension. No changes in po intake / risk management recommendations at this time. Plan: SHOW WORKER to return this afternoon PRN, pending patient level of alertness/need for counseling and/or education with spouse, provide updated recommendations PRN; patient is otherwise recommended to continue with outpatient SHOW WORKER services via [facility] and/or SHOW WORKER per patient/spouse preference upon discharge. M/S staff encouraged to contact SHOW WORKER dept if any concerns arise in the meantime. Current Recommendations: Please see SHOW WORKER note dated 01/10. Janelle Euceda MA CCC-SHOW WORKER Speech-Language Pathologist [place]#[phone] Coding
--- NOTE | 2022-01-11 08:43 | PDOC.STREC ---
Date of service: 01/11/22 Time of Service: 08:[address] Speech Therapy [address] ST Recommendations: NATURAL RESOURCES ENGINEER Communication / Non-Treatment Note Chart reviewed. NATURAL RESOURCES ENGINEER spoke with patient's RN re: current patient status: patient is receiving assistance with oral feeding by staff currently this AM; discussed importance of thorough oral care recommendations and intermittent need for oral suctioning as patient demonstrates significant difficulties with swallow initiation, however is likely to request oral intake for oral gratification - Offering controlled po intake with assist continues to be appropriate at this time, as long as current risk management guidelines are followed; reviewed patient-centered plan of care/discussion from previous date between spouse & NATURAL RESOURCES ENGINEER with RN this AM; RN verbalized comprehension. No changes in po intake / risk management recommendations at this time. Plan: NATURAL RESOURCES ENGINEER to return this afternoon PRN, pending patient level of alertness/need for counseling and/or education with spouse, provide updated recommendations PRN; patient is otherwise recommended to continue with outpatient NATURAL RESOURCES ENGINEER services via [facility] and/or NATURAL RESOURCES ENGINEER per patient/spouse preference upon discharge. M/S staff encouraged to contact NATURAL RESOURCES ENGINEER dept if any concerns arise in the meantime. Current Recommendations: Please see NATURAL RESOURCES ENGINEER note dated 01/10. Janelle Euceda MA CCC-NATURAL RESOURCES ENGINEER Speech-Language Pathologist [place]#[phone] Coding
[2022-01-11] MEDS: Losartan 50 MG TAB PO (08:49)
[2022-01-11] MEDS: Aspirin 325 MG TAB PO (08:50)
[2022-01-11] MEDS: Tamsulosin 0.4 MG CAPCR PO (08:50)
[2022-01-11] MEDS: amLODIPine 5 MG TAB PO (08:50)
[2022-01-11] MEDS: Carbidopa 25/Levodopa 100 TAB PO ×4 (08:50→16:39)
[2022-01-11] MEDS: Docusate Sodium 100 MG CAP PO (08:50)
[2022-01-11] MEDS: Glycopyrrolate 1 MG TAB PO ×2 (08:50→13:07)
[2022-01-11] MEDS: Spironolactone 25 MG TAB PO (08:50)
[2022-01-11] MEDS: Multivitamin TAB 1 TAB PO (08:50)
--- NOTE | 2022-01-11 13:25 | PT.INTREAT ---
Date of service: 01/11/22 Time of Service: 13:25 PT Notes Visit Reasons: Dementia w/Agitation and Aggressive Behavior Physical Therapy Inpatient Treatment Note Date: 01/11/2022 Precautions: Fall. As of 01/11/2022: Enteric contact precautions. Activity as tolerated.? Impaired safety awareness. Subjective: Agreeable to PT session with prodding and encouragement from PT for both sessions. Objective: General Observation: Impaired movement initiation and movement completion. Bradykinesic. Mental Status: Alert and able to follow single step commands.? Responses both motor and verbal delayed. Pain: Denies Bed Mobility/Transfers: Supine to sit standby assist Sit to supine standby assist; minimal assist to BLE due to fatigue in the afternoon Sit to stand with contact-guard assist; standby assist in the afternoon Stand to sit with contact-guard assist Bed to reclining chair with contact-guard assist; standby assist in the afternoon Gait: Instructed patient with level surface ambulation of 300 feet in the morning and 400 feet in the afternoon requiring contact-guard assist of PT.? Minimal path deviation.? Verbal cues given for direction only, tactile cues provided for walker management.? Breanne decreased.? Step height decreased. THERA EX: Sit to stand x10 at edge of bed in the morning NuStep: In the morning patient was able to pedal for 2 sets for 15 seconds for the first set and at 2 minutes for the second set with resistance of a 10. In the afternoon, patient was able to do 2 sets of 2 minutes with a resistance of 13. Balance: Static Sitting: Good Dynamic Sitting: Fair Static Standing: Fair Dynamic Standing: Fair Assessment: Activity tolerance continuing to improve. Impairment and initiation and completion of activity apparent resulting from Parkinson's disease. Continues to require encouragement to participate in PT. DISCHARGE RECOMMENDATIONS: [] ? Home with no services [] [X] ? Home with services.? Home when medically cleared by hospitalist.? Patient will benefit from home health PT services in order to progress mobility level using least restrictive assistive ambulatory device, assess home safety, identify additional equipment needs, and establish a functional maintenance program that will increase ability of patient to remain at home. [] ? Home with outpatient PT [] [] ? SNF for continued rehabilitation [] [] ? Retirement Care [] [] ? SNF versus LTC based on ability to participate and progress [] TREATMENT CODE/TIME: Session 1??44330 x 17 minutes, 33130 x 15 minutes beginning at 10:25 AM. Session 2??70703 x 25 minutes, 73160 x 11 minutes beginning at 13:25 PM.
--- NOTE | 2022-01-11 13:32 | PGE_ITS ---
Date of Service Date of service: 01/11/22 Time of Service: 12:00 Assessment and Plan Assessment and plan (1) Agitation due to dementia: Status: Acute Assessment and plan: Increase seroquel to 25 mg and change the time to 8 pm. Continue seroquel 12.5 mg prn for agitation as needed. (2) Aspiration pneumonia: Status: Ruled-out Assessment and plan: Aspiration is a recurrent issue and an old issue. The is not interested in making adjustments in the diet at this time. There is no clinical evidence of PNA at this time, and the was clear that she did not want empiric antibiotics unless we were absolutely sure re need. Will hold off of abx. Not requiring O2 at this time. Afebrile. Continue pureed diet with thickened liquids. (3) Antibiotic-associated diarrhea: Status: Acute Assessment and plan: Avoid abx. Start probiotics. Check C.diff. (4) Parkinsons disease: Status: Chronic Assessment and plan: Continue sinemet 5x daily with addition of long acting sinement 50/200 at HS, as recommended by Dr Smith. (5) Dysphagia: Status: Acute Assessment and plan: As above: continue pureed foods w/ moderately thickened liquids. I think the patient would benefit from having a suction setup at home to help manage secretions - above was communicated to case management. (6) Discharge planning issues: Status: Acute Assessment and plan: Full code Patient's is not interested in palliative care at this time. Plan is for discharge home hopefully tomorrow. The is interested in a possibility of home health nurse and/or aide, which I think would be beneficial. would like to have the patient follow with h is outpatient PT and speech therapist rather than have them come to his house. Would benefit from having a suction set up at home. (7) DVT prophylaxis: Status: Acute Assessment and plan: SC enoxaparin Subjective Subjective Interval history since last seen: Mrs Rodriguez feels that Zach is doing better today. He is not answering my questions but does wake up when I am in the room. His tray has evidence of his having eaten a small amount. Mrs Rodriguez reports to me that at home, when he was started on antibiotics for a suspected aspiration pneumonia, he developed diarrhea. For this reason, unless I am absolutely certain that he needs antibiotics at this time, she would like for me not to start them. I told to the that I did not have absolute certainty in his need for antibiotics right now because his CXR was negative and he is afebrile and not requiring O2, so we agreed that I will not start antibiotics at this time. He is, in fact, being documented by nursing to be having diarrhea. Last night the patient did require an extra dose of seroquel to fall asleep. I discussed with the the plan to increase the evening dose to 25 mg and keep the prn dose of 12.5 mg. She is in agreement with this plan. The is interested in having a suction set up to help manage the patient's secretions at home. I communicated this to case management. The is not interested in home health PT or speech therapy, but would like someone to come to the house for a few hours a couple of times a week to help. This, too, was communicated to case management. Exam Narrative Exam Narrative: General: Lethargic/somnolent elderly male sitting up in a chair, does wake up, groans, appears comfortable; gurgling on his secretions HEENT: EOMI, MMM Heart: RRR Lungs: upper airway respiratory secretions resonating throughout the lungs (sounds like rales) Abdomen: soft, nontender, nondistended Extremities: no edema BLEs Objective Last Vital Signs Temp 36.4 C L 01/11/22 07:08 Pulse 61 01/11/22 07:08 Resp 32 H 01/11/22 07:08 BP 130/67 01/11/22 07:08 Pulse Ox 93 01/11/22 07:08
[2022-01-11 15:37] VITALS: BP 91/55; PULSE 71; RESP 35; TEMP 36.6; O2SAT 95
--- NOTE | 2022-01-11 15:53 | CMPROGNOTE_ITS ---
- If Service Date Differs Date of service: 01/11/22 Time of Service: 15:53 Care Management Progress Note S/O: Dominic was lying in bed with his at his bedside when CM met with him. Anticipate, Dominic will discharge home tomorrow with new [facility] RN services. declines [facility] PT or ST at this time as he has both services covered by the [facility] as an [facility]. Per Sybil at the [facility], will need to pay out of pocket for CALENDER OPERATOR HELPER services. CM spoke with Angelia at [facility] and they are checking to see if [facility] services are appropriated since he is able to go to out patient therapy. Meds for 7 days will need to be sent to [facility] in [place], while patient waits for [facility] mail order meds. In addition, would like a pill dairy cattle farm worker and a suction for Dominic's secretions. Sybil from the [facility] was notified and will let CM know tomorrow if these requests can be granted. A: 76 year old admitted 01/06/22 for dementia w/agitation and aggressive behavior P: Dominic will be discharged home when medically cleared by provider with increased services (RN/ST) anticipated unless his refuses. He will follow up with his community providers and plan of care as directed. His will transport him home via private vehicle when ready, she has refused palliative consult and [facility] neurology at this time. CM will continue to follow.
--- NOTE | 2022-01-11 15:53 | PDOC.CMPRO ---
- If Service Date Differs Date of service: 01/11/22 Time of Service: 15:53 Care Management Progress Note S/O: Dominic was lying in bed with his at his bedside when CM met with him. Anticipate, Dominic will discharge home tomorrow with new [facility] RN services. declines [facility] PT or ST at this time as he has both services [facility] by the [facility] as an [facility]. Per [facility] at the [facility], will need to pay out of pocket for DOCKET CLERK services. CM spoke with Angelia at [facility] and they are checking to see if [facility] services are appropriated since he is able to go to out patient therapy. Meds for 7 days will need to be sent to [facility] in [place], while patient waits for [facility] mail order meds. In addition, would like a pill biology teacher and a suction for Dominic's secretions. Sybil from the [facility] was notified and will let CM know tomorrow if these requests can be granted. A: 76 year old admitted 01/06/22 for dementia w/agitation and aggressive behavior P: Dominic will be discharged home when medically cleared by provider with increased services (RN/ST) anticipated unless his refuses. He will follow up with his community providers and plan of care as directed. His will transport him home via private vehicle when ready, she has refused palliative consult and [facility] neurology at this time. CM will continue to follow.
[2022-01-11] MEDS: Ondansetron O.D.T. 4 MG TABEF PO (16:46)
[2022-01-11] MEDS: QUEtiapine 25 MG TAB PO (22:42)
[2022-01-11 23:11] VITALS: BP 102/55; PULSE 62; RESP 28; TEMP 37.2; O2SAT 93
[2022-01-12] MEDS: Carbidopa 25/Levodopa 100 TAB PO ×3 (07:01→12:38)
[2022-01-12 07:49] VITALS: BP 112/59; PULSE 54; RESP 16; TEMP 36.7; O2SAT 97
[2022-01-12 08:09] LABS: HCT 33.5 % (40.0-50.0); HGB 10.8 g/dL (13.5-17.5); MCH 30.6 pg (27.0-33.0); MCHC 32.2 % (32.0-36.0); MCV 94.9 fL (80-95); Platelet Count 276 10^3/uL (130-400); RBC 3.53 10^6/uL (4.36-5.78); RDW 12.4 % (11.8-14.1); RDW-SD 43.7 fL; WBC 9.45 10^3/uL (4.4-10.8)
[2022-01-12] MEDS: Multivitamin TAB 1 TAB PO (09:06)
[2022-01-12] MEDS: Aspirin 325 MG TAB PO (09:06)
[2022-01-12] MEDS: Losartan 50 MG TAB PO (09:06)
[2022-01-12] MEDS: amLODIPine 5 MG TAB PO (09:06)
[2022-01-12] MEDS: Tamsulosin 0.4 MG CAPCR PO (09:06)
[2022-01-12] MEDS: Spironolactone 25 MG TAB PO (09:06)
[2022-01-12] MEDS: Glycopyrrolate 1 MG TAB PO (09:06)
--- NOTE | 2022-01-12 12:35 | DSE_ITS ---
Date of service: 01/12/22 Time of Service: 12:35 DS: Diagnosis Discharge Diagnosis (1) Agitation due to dementia: Status: Acute (2) Parkinsons disease: Status: Chronic (3) Aspiration pneumonia: Status: Ruled-out (4) Antibiotic-associated diarrhea: Status: Resolved (5) Dysphagia: Status: Acute Discharge Plan Disposition Patient Disposition: HOME Condition: Stable Discharge Details Reason For Visit: Dementia w/Agitation and Aggressive Behavior Admit Date/Time: 01/06/22 16:49 Admit Provider: Ananth Yates Attending Provider: Ananth Yates Primary Care Provider: Raad Strauss Hospital Course Hospital Course: Mr Rodriguez is a 76 year old male with PMHx of Parkinson's disease with dementia and chronic dysphagia as well as h/o prior aspiration pneumonia who was admitted to [facility] hospitalist services on 01/06/22 due to agitation in setting of Parkinson's disease, with his concerned for her safety. The patient receied versed by EMS and versed. His medical workup was negative, even though there was initial concern for aspiration pneumonia, which was ruled out. The patient was initiated on geodon, but this was too sedating, so he was transitioned to seroquel after seeking consultation with psychiatry (Dr Hodges). The patient was too sedated during the day on seroquel 12.5 mg BID, so we transitioned him to seroquel 12.5 mg PO QHS and ended up increasing the dose to 25 mg QHS as he was still having difficulty falling asleep. We sought a phone consultation with the patient's outpatient neurologist, Dr Baer who agreed with above and recommended addition of sinemet ER 50/200 QHS as the patient was still quite stiff on prior regimen of sinemet 25/100 2 tab 5x daily. The patient is doing well with PT, is awake today and is cooperative. We recommend addition of probiotics to his regimen since the reports frequent diarrhea at home; we were not able to test it for C.Diff here. The patient is being discharged to resumption of his outpatient PT, speech therapy, neurology. He would benefit from having a pill fish trapper as well as a suction set up at home. 45 minutes were spent on care for patient as well as completion of his discharge instructions on day of discharge. Home Meds and New Rx's Prescriptions: New megestrol 400 mg/10 mL (40 mg/mL) Suspension 800 mg PO DAILY Qty: 240 0RF carbidopa-levodopa 50-200 mg Tablet Extended Release 1 tab PO HS Qty: 7 0RF docusate sodium [Colace] 100 mg Capsule 100 mg PO TID PRN PRNQty: 21 0RF quetiapine 25 mg Tablet 25 mg PO DAILY@2000 Qty: 7 0RF quetiapine 25 mg Tablet 12.5 mg PO DAILY PRN PRNQty: 10 0RF ondansetron 4 mg Tablet,Disintegrating 4 mg PO Q6H PRN PRNQty: 10 0RF Bio-K plus 50 billion cell capsule,delayed release(DR/EC) 1 cap PO DAILY Qty: 7 0RF Continued tamsulosin 0.4 mg capsule 0.4 mg PO DAILY 0RF carboxymethylcellulose sodium 0.5 % drops 1 drp ophthalmic (eye) 4-6XD PRN0RF latanoprost 0.005 % drops 1 drp ophthalmic (eye) QPM 0RF glycopyrrolate 1 mg tablet 1 mg PO TID 0RF multivitamin [One Daily] 1 EACH tablet 1 tab PO DAILY 0RF amlodipine [Norvasc] 5 MG tablet 1 tab PO QAM Qty: 90 4RF simvastatin 20 MG tablet 1 tab PO DAILY Qty: 90 4RF carbidopa-levodopa 25-100 mg tablet 2 tab PO 5X/DAY 0RF polyethylene glycol 3350 [Miralax] 17 gram/dose powder 17 gm PO DAILY Qty: 510 8RF losartan 50 mg tablet 50 mg PO DAILY Qty: 90 3RF carbidopa-levodopa 25-100 mg tablet 2 tab PO HS PRN PRN0RF spironolactone 25 mg Tablet 25 mg PO DAILY 0RF dorzolamide-timolol 22.3-6.8 mg/mL Drops 1 drp ophthalmic (eye) BID 0RF aspirin 325 mg Tablet 325 mg PO DAILY Qty: 0 0RF polyethylene glycol 3350 17 gram Powder In Packet 17 g PO DAILY PRN PRN (Reason: Constipation) Qty: 0 0RF Discontinued amoxicillin-pot clavulanate 875-125 mg Tablet 1 tab PO BID Qty: 12 0RF zolpidem [Ambien CR] 6.25 mg tablet,ext release multiphase 6.25 mg PO QHS PRNQty: 30 0RF Discharge Instructions Instructions: Quetiapine (By mouth) Additional Instructions: Return to the hospital with uncontrolled violent behaviors at home, with fever, bleeding, chest pain, or shortness of breath. Follow up with the PCP in 1-2 weeks. Follow up with Dr Baer. Resume outpatient PT and Speech therapy. Stand Alone Forms: Nursing Discharge Form Referrals: Raad Strauss MD [Primary Care Provider] - Scout Smith [ NON-[facility] STAFF PHYSICIAN] - Activity:: Activity as Tolerated Equipment/Supplies:: No Equipment Needed Diet:: pureed mildly thickened Discharge Orders Discharge Orders: Discharge Order (Routine); Ordered 01/12/22 Ordered By: Merna Dewey DS: Summary Time Spent with Patient providing and/or coordinating discharge services: Greater than 30 minutes Status at Discharge Functional status at discharge: uses cane/walker Overall status at discharge: patient is back to baseline Mental Status: mental status grossly normal Speech and Movement: slowed movement (stiffness associated with Parkinson's disease) Mood: congruent mood Affect: blunted Exam Narrative Exam Narrative: General: Lethargic/somnolent elderly male sitting up in a chair, working with PT, following commands HEENT: EOMI, MMM Heart: RRR Lungs: upper airway respiratory secretions resonating throughout the lungs (sounds like rales) Abdomen: soft, nontender, nondistended Extremities: no edema BLEs Psych Mental Status: mental status grossly normal Speech and Movement: slowed movement (stiffness associated with Parkinson's disease) Mood: congruent mood Affect: blunted DS: Data Vitals/I&O Vitals and I&O: Vital Signs Temperature 36.7 C 01/12/22 07:49 Temperature Source Tympanic 01/12/22 07:49 Pulse 54 L 01/12/22 07:49 Pulse Rhythm Regular 01/12/22 09:55 Pulse 71 01/06/22 16:30 Respiratory Rate 16 01/12/22 07:49 Respiratory Effort Non-Labored 01/12/22 09:55 Respiratory Depth Normal 01/12/22 09:55 Respiratory Pattern Normal 01/12/22 09:55 Blood Pressure 112/59 L 01/12/22 07:49 Blood Pressure Mean 72 01/06/22 16:30 Blood Pressure Position Supine 01/06/22 14:46 Pulse Oximetry 97 01/12/22 07:49 Oxygen Delivery Method Room Air 01/12/22 07:49 Oxygen Flow Rate 0 01/12/22 07:49 Pain Level 0 01/11/22 23:11 Comment 01/11/22 07:08 Intake & Output 01/11/22 01/12/22 01/12/22 23:59 11:59 23:59 Weight 75.5 kg Other: Urine Color Straw Urine Appearance Clear Comment pT dry at this time Pt dry. Voiding Methods Diaper Incontinent Incontinent Data Completed and Pending Completed studies during hospitalization [Text1]: CXR: No acute pulmonary findings. Labs on day of discharge: Labs from last 24 hours 01/12/22 07:56 WBC 9.45 RBC 3.53 L Hgb 10.8 L Hct 33.5 L MCV 94.9 MCH 30.6 MCHC 32.2 RDW 12.4 Plt Count 276 MPV 9.0 PFSH All Active Problems (Updated 01/12/22 @ 12:36 by Merna Dewey MD) DVT prophylaxis (Acute) Discharge planning issues (Acute) Dysphagia (Acute) Agitation due to dementia (Acute) Skin tear of elbow without complication (Acute) Subcutaneous emphysema due to trauma (Acute) Pain in left hip (Chronic) Glaucoma (Chronic) Hearing decreased (Chronic) Hypertension (Chronic) Elevated lipids (Chronic) Abnormal gait (Chronic 11/19/17) BPH (benign prostatic hyperplasia) (Chronic) Glaucoma (Chronic) decreased vision left Hyperlipidemia (Chronic) Raised prostate specific antigen (Chronic 03/05/13) 6.82 06/19/16, 8.29 05/19/15 [facility]une Parkinsons disease (Chronic) Constipation (Chronic) Sensorineural hearing loss of both ears (Acute) Foot pain (Acute) Swapna-prosthetic fracture around prosthetic hip (Acute) Postoperative anemia (Acute) Fx femur shaft-closed (Acute) left ORIF Anemia (Chronic) Conductive hearing loss, external ear (Acute) Medical History (Updated 01/12/22 @ 12:36 by Merna Dewey MD) Basal cell carcinoma of right ear RIGHT EAR CANAL BCCa left upper chest 2018: excised Difficult intubation Elevated PSA a. In April 2013. Polyp of colon (09/20/10) Surgical History (Updated 01/06/22 @ 19:17 by Ananth Yates) Colonoscopy - MAC (~2010) 2000; NEG 2010; 2 POLYPS History of Surgical Procedure a. Colonoscopy for which he's had excision of a polyp. b. Perirectal abscess treated in the past. c. Tonsillectomy. d. Extraction of molars. Status post left hip replacement (07/31/14) Family History Mother Diabetes Personal history of malignant neoplasm breast Father Heart disease Sister No problems noted. Brother No problems noted. Brother No problems noted. Social History Smoking/Tobacco Use Status: Never Second Hand Exposure: No Smoking risk assessment performed?: Yes Alcohol Intake: never Drug use: Never Substance use type: does not use Household members: spouse and children Housing: house Communication Needs: Hard of Hearing and Corrective Lenses Do you need help understanding health information?: Often Pets and animals: Yes Pets and animals: dog(s) Sexually active: No Do you think of yourself as: straight/heterosexual Current gender identity: male What is your relationship status?: How often do you talk on the phone with friends or family?: once per week How often do you attend sabianism or yarsanism services?: 1-3 times per year Do you belong to any clubs or organized social groups?: no Panel score (0-1 are the most socially isolated patients): 1 What type of physical activity do you participate in: other Details: boxing Frequency: 1-2 times per week Kenna/Zoroastrian: Restorationism Seatbelt use: always Helmet use: No Drive intox or ride w/intox racecar driver: No Do you feel safe at home: Yes Do you feel safe in your relationship?: Yes
--- NOTE | 2022-01-12 12:56 | INDS_ITS ---
Date of service: 01/12/22 PT Notes Visit Reasons: Dementia w/Agitation and Aggressive Behavior Physical Therapy Inpatient Discharge Summary Date: 01/12/2022 Dates of service: 01/10/2021 3 01/12/2021 Referring Doctor: Ananth Yates MD PT Orders: PT CONSULT: Evaluate and treat for general weakness d/t Parknsonism Precautions: Fall. Standard. Activity as tolerated.? Impaired safety awareness. Patient Profile/Admitting Diagnosis: Zach is a 76-year-old male with diagnosis of altered mental status, Parkinson's disease, dehydration, hypertension, glaucoma, and hypokalemia with referral to physical therapy to evaluate ambulatory status. PMHX: All Active Problems?(Updated 01/06/22 @ 19:20 by Ananth Yates) Agitation due to dementia (Acute) Skin tear of elbow without complication (Acute) Aspiration pneumonia (Acute) Subcutaneous emphysema due to trauma (Acute) Pain in left hip (Chronic) Glaucoma (Chronic) Hearing decreased (Chronic) Hypertension (Chronic) Elevated lipids (Chronic) Abnormal gait (Chronic 11/19/17) BPH (benign prostatic hyperplasia) (Chronic) Glaucoma (Chronic) decreased vision left Hyperlipidemia (Chronic) Raised prostate specific antigen (Chronic 03/05/13) 6.82 06/19/16, 8.29 05/19/15 [facility] and june Parkinsons disease (Chronic) Constipation (Chronic) Sensorineural hearing loss of both ears (Acute) Foot pain (Acute) Swapna-prosthetic fracture around prosthetic hip (Acute) Postoperative anemia (Acute) Fx femur shaft-closed (Acute) left ORIF Anemia (Chronic) Conductive hearing loss, external ear (Acute) Medical History?(Updated 01/06/22 @ 19:20 by Ananth Yates) Basal cell carcinoma of right ear RIGHT EAR CANAL BCCa left upper chest 2018: excised Difficult intubation Elevated PSA a. In April 2013. Polyp of colon (09/20/10) Surgical History?(Updated 01/06/22 @ 19:17 by Ananth Yates) Colonoscopy - MAC (~2010) 2000; NEG 2010; 2 POLYPS History of Surgical Procedure a. Colonoscopy for which he's had excision of a polyp. b. Perirectal abscess treated in the past. c. Tonsillectomy. d. Extraction of molars. Status post left hip replacement (07/31/14) Social History/Home Situation: Lives with in a private home with 4 steps to enter without rails.? There are 15 steps to the second floor of the house where his bedroom is however states that he no longer needs to go upstairs as they have made everything accessible for on the main floor.? Independent with FWW indoors. Equipment Owned/DME: FWW Subjective: Agreeable to PT session. Objective: General Observation: in NAD.? Supine in bed eyes closed but was able to open eyes as his name was called.? Nurse [place] assiting with mobility assessment for safety.? Bradykinesic. Mental Status: Alert and able to follow single step commands.? Responses both motor and verbal delayed. Pain: Denies ROM: Right Upper Extremity: ? Grossly WFL Left Upper Extremity:? Grossly WFL Right Lower Extremity: Grossly WFL Left Lower Extremity: Grossly WFL Strength: Right Upper Extremity: Grossly 4/5 Left Upper Extremity: Grossly 4/5 Right Lower Extremity: Grossly 4/5 Left Lower Extremity: Grossly 4/5 Bed Mobility/Transfers: Nurse [place] assisting with mobility assessment for safety. Supine to sit standby assist Sit to supine minimal assist to BLE as patient reports fatigue after ambulation activity Sit to stand with standby assist Stand to sit with standby assist Bed to reclining chair with standby assist Gait: Instructed patient with level surface ambulation of 400 feet requiring contact-guard assist with tactile cues provided for walker management Minimal path deviation and impaired navigational skills. Stairs: Able to negotiate up-and-down 6 x 4 inch steps and 4 x 6 inch steps holding onto bilateral rails with contact-guard assist using step over step pattern.? Balance: Static Sitting: Good Dynamic Sitting: Fair Static Standing: Fair Dynamic Standing: Fair Assessment: Zach continues to require physical therapy services in order to address ongoing functional impairments and functional deficits as listed below. Presents with clinical signs and symptoms consistent with current/admitting diagnoses that have resulted to mobility limitations, gait instability, genera lized weakness, and overall ADL decline as demonstrated by the following impairment level findings: 1.? Decreased strength to B UEs/LE major muscle groups 2.? Impaired sitting/standing balance 3.? Impaired activity tolerance 4.? Impaired safety awareness Impairments are contributing to the following functional limitations: 1.? Decline in bed mobility skills 2.? Decline in transfer skills 3.? Difficulty with ambulation without physical assistance 4.? Increased completion time for mobility ADL performance 5.? Increased risk for falls 6.? Difficulty with managing steps alone safely Goals: Goals X1 week 1. Supine-Sit independent NOT MET 2. Sit-Supine independent NOT MET 3. Sit-Stand independent NOT MET 4. Stand-Sit independent with FWW NOT MET 5. Bed-Chair independent with FWW NOT MET 6. Chair-Bed independent with FWW NOT MET 7.? Supervision gait on level surface with use of FWW for at least 300 feet without report of pain nor dyspnea NOT MET DISCHARGE RECOMMENDATIONS: [] ? Home with no services [] [X] ? Home with services.? Home when medically cleared by hospitalist.? Patient will benefit from home health PT services in order to progress mobility level using least restrictive assistive ambulatory device, assess home safety, identify additional equipment needs, and establish a functional maintenance program that will increase ability of patient to remain at home. [] ? Home with outpatient PT [] [] ? SNF for continued rehabilitation [] [] ? Hr Assistant Care [] [] ? SNF versus LTC based on ability to participate and progress [] TREATMENT CODE/TIME: 54972 x 20 minutes, 64058 x 13 minutes beginning at 12:56 PM. Thank you for the opportunity to participate in the care of this patient. Adali Delvalle PT, DPT, CLT [facility] [place], [place]
--- NOTE | 2022-01-12 15:04 | PDOC.CMDIS ---
- If Service Date Differs Date of service: 01/12/22 Time of Service: 15:04 LACE Index Scoring Tool - Questions: Length of Stay (in days): 4 - 6 Acuity (Admit via E.D.?): Yes Comorbidities: Any Tumor, Dementia E.D. Visits: 5 - Answers: Total Score: 16 Risk of Readmission: High Risk Care Management Discharge Reason for Hospitalization: Agitation due to dementia, Aspiration pneumonia Discharge Plan: Dominic will discharge home via private vehicle with , with no new [facility] RN, PT, OT services per . Pt will follow up with outpatient PT and ST. He will follow up with his PCP and plan of care as directed. [facility]. can supervisor opening and picking 7 days of meds locally at [facility] while waiting for [facility] mail [facility]. In addition, Sybil [facility] the [facility] is aware of order for suction and 's request for a pill pattern drum maker. gets funding through [facility] to hire a STRIP DEBURRER, if needed. Patient/Family Education Needs: Review discharge instructions, limitations, medications and plan to follow up with community providers. ask me three. Services Needed at Discharge: Outpatient Therapy (Pt goes to [facility] at [facility] as an outpatient.)
== END 2022-01-12 14:15 | disposition home or self-care (01) | DRG 884 ==
LOC: ER 15:52 → MS 17:49
PROVIDERS: Internal Medicine; Admitting Provider Internal Medicine; Emergency Provider Physician Assistant; PCP Family Medicine; Visit Provider Internal Medicine
DX: F03.91 Unspecified dementia, unspecified severity, with behavioral disturbance (principal); G20 Parkinson's disease; H40.9 Unspecified glaucoma; I10 Essential (primary) hypertension; E78.5 Hyperlipidemia, unspecified; R97.20 Elevated prostate specific antigen [PSA]; H90.3 Sensorineural hearing loss, bilateral; D64.9 Anemia, unspecified; R26.9 Unspecified abnormalities of gait and mobility; R45.1 Restlessness and agitation; K59.03 Drug induced constipation; N40.0 Benign prostatic hyperplasia without lower urinary tract symptoms; S51.019A Laceration without foreign body of unspecified elbow, initial encounter; W19.XXXA Unspecified fall, initial encounter; Z96.642 Presence of left artificial hip joint; R13.10 Dysphagia, unspecified
CPT/HCPCS: 36415; 80053; 85027; 87635; 92610; 93005; 96360; 96372; 97110; 97162; 97530; 99285; J1650; 71045; 81003; 81015; 83735; 84484; 85025; 93010; 99222; 99232; 99233; 99239; J2250; J3486; J3490; J9999

== ENCOUNTER 2022-02-05 19:01 | Inpatient (IN) | payer OTHER, SELFPAY ==
[2022-02-05] VITALS (35 sets, daily range): BP systolic 93–154; BP diastolic 51–74; PULSE 62–82; RESP 14–26; TEMP 36.2; O2SAT 91–98
--- NOTE | 2022-02-05 19:00 | RT.EKG_ITS ---
APPROVED REPORT Exam: Resting ECG Reason for Exam: ams Patient Location: E HR:61 bpm ECG Measurements Heart Rate 61 AXIS ME 189 P 78 QRSd 85 QRS -30 QT 419 T 60 QTc 421 Conclusion Sinus rhythm...normal P axis, V-rate 60- 99 Left axis deviation...QRS axis (-30,-90) Physician: no stemi, intervals stable
[2022-02-05 20:00] LABS: ALT 19 U/L (16-63); AST 21 U/L (15-37); Albumin 3.1 g/dL (3.4-5.0); Alkaline Phosphatase 86 U/L (46-116); Anion Gap 5.2 mmol/L (3-11); BUN 11 mg/dL (7-18); Bilirubin, Total 0.6 mg/dL (0.2-1.0); CO2 28.8 mmol/L (21.0-32.0); CREATININE 0.7 mg/dL (0.70-1.30); Calcium 8.9 mg/dL (8.5-10.1); Chloride 104 mmol/L (98-107); Glucose 85 mg/dL (74-106); Potassium 3.9 mmol/L (3.5-5.1); Sodium 138 mmol/L (136-145); Total Protein 6.9 g/dL (6.4-8.2)
[2022-02-05 20:02] LABS: Abs Immature Grans 0.02 10^3/uL (0.0-0.06); Absolute Basophil Count 0.03 10^3/uL (0.0-0.2); Absolute Eosinophil Count 0.08 10^3/uL (0.0-0.7); Absolute Lymphocyte Count 2.04 10^3/uL (1.2-3.4); Absolute Monocyte Count 0.61 10^3/uL (0.1-0.8); Absolute Neutrophil Count 5.63 10^3/uL (1.2-6.7); Basophils % 0.4; HCT 40.2 % (40.0-50.0); HGB 12.7 g/dL (13.5-17.5); Immature Grans % 0.2; Lymphocytes % 24.3; MCH 30.1 pg (27.0-33.0); MCHC 31.6 % (32.0-36.0); MCV 95.3 fL (80-95); MPV 9.4 fL (8.0-11.0); Monocytes % 7.3; Neutrophils % 66.8; Platelet Count 237 10^3/uL (130-400); RBC 4.22 10^6/uL (4.36-5.78); RDW 12.3 % (11.8-14.1); RDW-SD 42.4 fL; WBC 8.41 10^3/uL (4.4-10.8)
[2022-02-05 20:11] LABS: Bilirubin Negative (Negative); Blood Trace-intact (Negative); Clarity Clear (Clear); Glucose Negative (Negative); Ketones Negative (Negative); Leukocyte Esterase Negative (Negative); Nitrite Negative (Negative); Urobilinogen 0.2 EU/dL (Up TO 0.2)
--- NOTE | 2022-02-05 20:14 | ED.GENADUL_ITS ---
Discharge Plan Disposition Patient Disposition: [facility] INPATIENT Condition: Stable Discharge Details Clinical Impression: Agitation, Dementia Admit Date/Time: 02/05/22 21:19 Admit Provider: Bradly Randall Attending Provider: Bradly Randall Primary Care Provider: Raad Strauss ED Provider: Dora Alfredo Medical Decision Making Patient with given Versed as sedation prior to arrival in the emergency department secondary to acute agitation and has remained sleeping throughout the encounter, he awakens to voice There is no visible sign of trauma Recommended CT imaging, have refused and there is no visible evidence of trauma cyanotic Reasonable at this time Diagnostic labs do not show acute abnormality there is no evidence of urinary tract infection is also comfortable with patient being discharged home, she does [facility] however we are unable to transfer him secondary to being unable to contact them this evening Care management may be involved in the morning to expedite transfer if able to the [facility] which patient's has requested He is remained stable with vitals throughout this encounter Dr. Randall will admit patient to his service Medical Records Medical records reviewed: Yes I reviewed the patient's medical records. Lab Data Lab results reviewed: Yes I reviewed the patient's lab results. HPI General Date/Time Provider Initiated Documentation: 02/05/22 19:05 . HPI Narrative: This 76-year-old male with history of dementia and Parkinson's disease presents with report of agitation today. Has had numerous episodes similar to this in the past. Was trying to physically hold his with both auditory and visual hallucinations. Denies any recent falls or injuries. Denies any urinary complaints. Denies any fever or chills. Episode is similar to prior in the past. Continues to request that [facility] be [facility] the [facility]. Related Data Home Medications Medication Instructions Recorded Confirmed amlodipine 5 mg tablet (Norvasc) 1 tab PO QAM #90 01/22/13 02/05/22 multivitamin (One Daily) 1 tab PO DAILY 01/22/13 02/05/22 simvastatin 20 mg tablet 1 tab PO DAILY #90 tab 01/22/13 01/06/22 tamsulosin 0.4 mg capsule 0.4 mg PO DAILY tab-cap 10/03/18 02/05/22 carbidopa 25 mg-levodopa 100 mg 2 tab PO 5X/DAY tab 11/29/18 02/05/22 tablet polyethylene glycol 3350 17 17 gm PO DAILY #510 gm 06/23/20 01/06/22 gram/dose oral powder (Miralax) losartan 50 mg tablet 50 mg PO DAILY #90 tab 12/02/20 02/05/22 carboxymethylcellulose sodium 0.5 1 drp OPHTHALMIC (EYE) 4-6XD PRN 03/29/21 01/06/22 % eye drops glycopyrrolate 1 mg tablet 1 mg PO TID 03/29/21 02/05/22 latanoprost 0.005 % eye drops 1 drp OPHTHALMIC (EYE) QPM 03/29/21 02/05/22 carbidopa 25 mg-levodopa 100 mg 2 tab PO HS PRN PRN 12/16/21 02/05/22 tablet dorzolamide 22.3 mg-timolol 6.8 1 drp OPHTHALMIC (EYE) BID 12/16/21 02/05/22 mg/mL eye drops spironolactone 25 mg tablet 25 mg PO DAILY 12/16/21 01/06/22 polyethylene glycol 3350 17 gram 17 g PO DAILY PRN PRN #0 ea 12/17/21 01/06/22 oral powder packet L. acidophilus,casei,rhamnosus 50 1 cap PO DAILY #7 cap 01/12/22 billion cell capsule,delayed release (Bio-K plus) carbidopa ER 50 mg-levodopa 200 mg 1 tab PO HS #7 tab 01/12/22 02/05/22 tablet,extended release docusate sodium 100 mg capsule 100 mg PO TID PRN PRN #21 cap 01/12/22 (Colace) megestrol 400 mg/10 mL (40 mg/mL) 800 mg (20 mL) PO DAILY #240 ml 01/12/22 oral suspension ondansetron 4 mg disintegrating 4 mg PO Q6H PRN PRN #10 tab 01/12/22 tablet quetiapine 25 mg tablet 12.5 mg PO DAILY PRN PRN #10 tab 01/12/22 quetiapine 25 mg tablet 25 mg PO DAILY@2000 #7 tab 01/12/22 aspirin 325 mg tablet 81 mg PO DAILY 02/05/22 fluoxetine 10 mg capsule 10 mg PO DAILY 02/05/22 02/05/22 olanzapine 2.5 mg tablet 2.5 mg PO HS 02/05/22 02/05/22 trazodone 50 mg tablet 50 mg PO TID 02/05/22 02/05/22 Previous Rx's Medication Instructions Recorded polyethylene glycol 3350 17 17 gm PO DAILY #510 gm 06/23/20 gram/dose oral powder (Miralax) losartan 50 mg tablet 50 mg PO DAILY #90 tab 12/02/20 polyethylene glycol 3350 17 gram 17 g PO DAILY PRN PRN #0 ea 12/17/21 oral powder packet L. acidophilus,casei,rhamnosus 50 1 cap PO DAILY #7 cap 01/12/22 billion cell capsule,delayed release (Bio-K plus) carbidopa ER 50 mg-levodopa 200 mg 1 tab PO HS #7 tab 01/12/22 tablet,extended release docusate sodium 100 mg capsule 100 mg PO TID PRN PRN #21 cap 01/12/22 (Colace) megestrol 400 mg/10 mL (40 mg/mL) 800 mg (20 mL) PO DAILY #240 ml 01/12/22 oral suspension ondansetron 4 mg disintegrating 4 mg PO Q6H PRN PRN #10 tab 01/12/22 tablet quetiapine 25 mg tablet 12.5 mg PO DAILY PRN PRN #10 tab 01/12/22 quetiapine 25 mg tablet 25 mg PO DAILY@2000 #7 tab 01/12/22 Allergies Allergy/AdvReac Type Severity Reaction Status Date / Time No Known Allergies Allergy Verified 02/05/22 19:10 General Stated Complaint: AMS/LOC MAY: 2 Review of Systems All systems reviewed & are unremarkable except as noted in HPI and below PFSH All Active Problems (Updated 02/05/22 @ 23:20 by YOVANA Linn) Dementia (Chronic) Agitation (Acute) Subcutaneous emphysema due to trauma (Acute) Pain in left hip (Chronic) Hearing decreased (Chronic) Elevated lipids (Chronic) Abnormal gait (Chronic 11/19/17) Glaucoma (Chronic) decreased vision left Hyperlipidemia (Chronic) Raised prostate specific antigen (Chronic 03/05/13) 6.82 06/19/16, 8.29 05/19/15 [facility] Sensorineural hearing loss of both ears (Acute) Foot pain (Acute) Swapna-prosthetic fracture around prosthetic hip (Acute) Postoperative anemia (Acute) Fx femur shaft-closed (Acute) left ORIF Anemia (Chronic) Conductive hearing loss, external ear (Acute) Medical History Agitation due to dementia Basal cell carcinoma of right ear RIGHT EAR CANAL BCCa left upper chest 2018: excised BPH (benign prostatic hyperplasia) Constipation Difficult intubation Dysphagia Elevated PSA a. In April 2013. Glaucoma Hypertension Parkinsons disease Polyp of colon (09/20/10) Skin tear of elbow without complication Surgical History Colonoscopy - MAC (~2010) 2000; NEG 2010; 2 POLYPS History of Surgical Procedure a. Colonoscopy for which he's had excision of a polyp. b. Perirectal abscess treated in the past. c. Tonsillectomy. d. Extraction of molars. Status post left hip replacement (07/31/14) Family History Mother Diabetes Personal history of malignant neoplasm breast Father Heart disease Sister No problems noted. Brother No problems noted. Brother No problems noted. Social History Smoking/Tobacco Use Status: Never Second Hand Exposure: No Smoking risk assessment performed?: Yes Alcohol Intake: never Drug use: Never Substance use type: does not use Household members: spouse and children Housing: house Communication Needs: Hard of Hearing and Corrective Lenses Do you need help understanding health information?: Often Pets and animals: Yes Pets and animals: dog(s) Sexually active: No Do you think of yourself as: straight/heterosexual Current gender identity: male What is your relationship status?: How often do you talk on the phone with friends or family?: once per week How often do you attend voodoo or confucianist services?: 1-3 times per year Do you belong to any clubs or organized social groups?: no Panel score (0-1 are the most socially isolated patients): 1 What type of physical activity do you participate in: other Details: boxing Frequency: 1-2 times per week Kenna/Moravian: Evangelical Seatbelt use: always Helmet use: No Drive intox or ride w/intox otr van cdl truck driver: No Do you feel safe at home: Yes Do you feel safe in your relationship?: Yes Exam Const Nutritional Appearance: average body habitus Orientation: alert Eyes Pupils: PERRL Chest Chest: normal inspection of the chest Resp Effort & Inspection: normal respiratory effort Cardio Rate: regular rate GI Other: non-tender abdominal exam Neuro Other: opens eyes to voice Course Vital Signs Vital signs: Vital Signs Pulse 71 02/05/22 18:57 Respiratory Rate 24 02/05/22 18:57 Blood Pressure 104/60 02/05/22 18:57 Pulse Oximetry 98 02/05/22 18:57 Pulse 71 02/05/22 18:57 Respiratory Rate 23 02/05/22 19:01 Respiratory Effort 02/05/22 19:01 Respiratory Depth Normal 02/05/22 19:01 Respiratory Pattern Normal 02/05/22 19:01 Blood Pressure 104/60 02/05/22 18:57 Blood Pressure Position Supine 02/05/22 18:57 Pulse Oximetry 98 02/05/22 18:57 Oxygen Delivery Method Room Air 02/05/22 18:57 Oxygen Flow Rate 0 02/05/22 18:57 Lab/Test Results Lab/Test Results: Laboratory Tests Range/Units 02/05/22 02/05/22 02/05/22 19:25 19:25 19:25 WBC (4.4-10.8) 10^3/uL 8.41 RBC (4.36-5.78) 10^6/uL 4.22 L Hgb (13.5-17.5) g/dL 12.7 L Hct (40.0-50.0) % 40.2 MCV (80-95) fL 95.3 H MCH (27.0-33.0) pg 30.1 MCHC (32.0-36.0) % 31.6 L RDW (11.8-14.1) % 12.3 Plt Count (130-400) 10^3/uL 237 MPV (8.0-11.0) fL 9.4 Immature Gran % 0.2 Neutrophils % 66.8 Lymphocytes % 24.3 Monocytes % 7.3 Eosinophils % 1.0 Basophils % 0.4 Nucleated RBC % (0.0-0.3) % 0.0 Absolute Neutrophils (1.2-6.7) 10^3/uL 5.63 Absolute Lymphocytes (1.2-3.4) 10^3/uL 2.04 Absolute Monocytes (0.1-0.8) 10^3/uL 0.61 Absolute Eosinophils (0.0-0.7) 10^3/uL 0.08 Absolute Basophils (0.0-0.2) 10^3/uL 0.03 Sodium (136-145) mmol/L 138 Potassium (3.5-5.1) mmol/L 3.9 Chloride (98-107) mmol/L 104 Carbon Dioxide (21.0-32.0) mmol/L 28.8 Anion Gap (3-11) mmol/L 5.2 BUN (7-18) mg/dL 11 Creatinine (0.70-1.30) mg/dL 0.7 Estimated GFR/1.73 m2 (mL/min/1.73m2) >= 60.00 Glucose (74-106) mg/dL 85 Calcium (8.5-10.1) mg/dL 8.9 Total Bilirubin (0.2-1.0) mg/dL 0.6 AST (15-37) U/L 21 ALT (16-63) U/L 19 Alkaline Phosphatase (46-116) U/L 86 Total Protein (6.4-8.2) g/dL 6.9 Albumin (3.4-5.0) g/dL 3.1 L Urine Color (Yellow) Yellow Urine Clarity (Clear) Clear Urine pH (5-8) 7.0 Ur Specific [place] (1.005-1.025) 1.020 Urine Protein (Negative) mg/dL Negative Urine Ketones (Negative) mg/dL Negative Urine Blood (Negative) Trace-intact H Urine Nitrite (Negative) Negative Urine Bilirubin (Negative) Negative Urine Urobilinogen (Up TO 0.2) EU/dL 0.2 Ur Leukocyte Esterase (Negative) Negative Urine Glucose (Negative) mg/dL Negative
[2022-02-05 20:19] LABS: Bacteria Negative HPF (Negative); C & S Indicated? No; Casts Negative LPF (Negative); Crystals Negative HPF (Negative); Epithelial Cells Negative HPF (Negative); Mucus Negative (Negative); Other Cells Negative (Negative); RBC 0-2 HPF (0-2); WBC 0-2 HPF (0-5)
--- NOTE | 2022-02-05 21:05 | W.PM.HP.N ---
Date of service: 02/05/22 Time of Service: 21:06 Assessment and Plan Assessment and plan (1) Agitation: Status: Acute Assessment and plan: Agitation, probably multifactorial, whether due to dementia, psychiatric illness or medication toxicity -- or all three. I will continue present regimen for tonight, with prn benzo (to which he seemed to respond acutely) or additional Seroquel, but from the sound of things he might benefit from evaluation in an inpatient geriatric psychiatric facility. History of Present Illness History of Present Illness Chief Complaint: agitation Narrative: 76 male with parkinson's and dementia, has had ongoing issues with agitation and aggressive behaviors, multiple visits for same -- brings him in tonight due to agitation and he was physically aggressive towards her to the point where she feels unsafe. En route received 5 mg versed per ER with good effect. Laboratory workup unrevealing, and declines imaging. Due to unsafe nature of circumstance he is admitted for further management. Note that is requesting transfer to [place] but ER reports they are unavailable for consultation. Patient states that he has no pain, but minimal history otherwise. History is obtained from ER and from . Review of Systems Narrative: per HPI PFSH All Active Problems (Updated 02/05/22 @ 21:14 by Bradly Randall MD) Agitation (Acute) Subcutaneous emphysema due to trauma (Acute) Pain in left hip (Chronic) Hearing decreased (Chronic) Elevated lipids (Chronic) Abnormal gait (Chronic 11/19/17) Glaucoma (Chronic) decreased vision left Hyperlipidemia (Chronic) Raised prostate specific antigen (Chronic 03/05/13) 6.82 06/19/16, 8.29 05/19/15 [facility] june Sensorineural hearing loss of both ears (Acute) Foot pain (Acute) Swapna-prosthetic fracture around prosthetic hip (Acute) Postoperative anemia (Acute) Fx femur shaft-closed (Acute) left ORIF Anemia (Chronic) Conductive hearing loss, external ear (Acute) Medical History Agitation due to dementia Basal cell carcinoma of right ear RIGHT EAR CANAL BCCa left upper chest 2018: excised BPH (benign prostatic hyperplasia) Constipation Difficult intubation Dysphagia Elevated PSA a. In April 2013. Glaucoma Hypertension Parkinsons disease Polyp of colon (09/20/10) Skin tear of elbow without complication Surgical History Colonoscopy - MAC (~2010) 2000; NEG 2010; 2 POLYPS History of Surgical Procedure a. Colonoscopy for which he's had excision of a polyp. b. Perirectal abscess treated in the past. c. Tonsillectomy. d. Extraction of molars. Status post left hip replacement (07/31/14) Family History Mother Diabetes Personal history of malignant neoplasm breast Father Heart disease Sister No problems noted. Brother No problems noted. Brother No problems noted. Social History Smoking/Tobacco Use Status: Never Second Hand Exposure: No Smoking risk assessment performed?: Yes Alcohol Intake: never Drug use: Never Substance use type: does not use Household members: spouse and children Housing: house Communication Needs: Hard of Hearing and Corrective Lenses Do you need help understanding health information?: Often Pets and animals: Yes Pets and animals: dog(s) Sexually active: No Do you think of yourself as: straight/heterosexual Current gender identity: male What is your relationship status?: How often do you talk on the phone with friends or family?: once per week How often do you attend congregational or yazidism services?: 1-3 times per year Do you belong to any clubs or organized social groups?: no Panel score (0-1 are the most socially isolated patients): 1 What type of physical activity do you participate in: other Details: boxing Frequency: 1-2 times per week Kenna/Religious: Pentecostal Seatbelt use: always Helmet use: No Drive intox or ride w/intox marine engine driver: No Do you feel safe at home: Yes Do you feel safe in your relationship?: Yes Meds Allergies and Home Medications Allergies Allergy/AdvReac Type Severity Reaction Status Date / Time No Known Allergies Allergy Verified 02/05/22 19:10 Home Medications Medication Instructions Recorded Confirmed Type amlodipine 5 mg tablet (Norvasc) 1 tab PO QAM #90 01/22/13 02/05/22 History multivitamin (One Daily) 1 tab PO DAILY 01/22/13 02/05/22 History simvastatin 20 mg tablet 1 tab PO DAILY #90 tab 01/22/13 01/06/22 History tamsulosin 0.4 mg capsule 0.4 mg PO DAILY tab-cap 10/03/18 02/05/22 History carbidopa 25 mg-levodopa 100 mg 2 tab PO 5X/DAY tab 11/29/18 02/05/22 History tablet polyethylene glycol 3350 17 17 gm PO DAILY #510 gm 06/23/20 01/06/22 Rx gram/dose oral powder (Miralax) losartan 50 mg tablet 50 mg PO DAILY #90 tab 12/02/20 02/05/22 Rx carboxymethylcellulose sodium 0.5 1 drp OPHTHALMIC (EYE) 4-6XD PRN 03/29/21 01/06/22 History % eye drops glycopyrrolate 1 mg tablet 1 mg PO TID 03/29/21 02/05/22 History latanoprost 0.005 % eye drops 1 drp OPHTHALMIC (EYE) QPM 03/29/21 02/05/22 History carbidopa 25 mg-levodopa 100 mg 2 tab PO HS PRN PRN 12/16/21 02/05/22 History tablet dorzolamide 22.3 mg-timolol 6.8 1 drp OPHTHALMIC (EYE) BID 12/16/21 02/05/22 History mg/mL eye drops spironolactone 25 mg tablet 25 mg PO DAILY 12/16/21 01/06/22 History polyethylene glycol 3350 17 gram 17 g PO DAILY PRN PRN #0 ea 12/17/21 01/06/22 Rx oral powder packet L. acidophilus,casei,rhamnosus 50 1 cap PO DAILY #7 cap 01/12/22 Rx billion cell capsule,delayed release (Bio-K plus) carbidopa ER 50 mg-levodopa 200 mg 1 tab PO HS #7 tab 01/12/22 02/05/22 Rx tablet,extended release docusate sodium 100 mg capsule 100 mg PO TID PRN PRN #21 cap 01/12/22 Rx (Colace) megestrol 400 mg/10 mL (40 mg/mL) 800 mg (20 mL) PO DAILY #240 ml 01/12/22 Rx oral suspension ondansetron 4 mg disintegrating 4 mg PO Q6H PRN PRN #10 tab 01/12/22 Rx tablet quetiapine 25 mg tablet 12.5 mg PO DAILY PRN PRN #10 tab 01/12/22 Rx quetiapine 25 mg tablet 25 mg PO DAILY@1999 #7 tab 01/12/22 Rx aspirin 325 mg tablet 81 mg PO DAILY 02/05/22 History fluoxetine 10 mg capsule 10 mg PO DAILY 02/05/22 02/05/22 History olanzapine 2.5 mg tablet 2.5 mg PO HS 02/05/22 02/05/22 History trazodone 50 mg tablet 50 mg PO TID 02/05/22 02/05/22 History Exam Narrative Exam Narrative: 104/60, 71, 36.7, 23, 98% RA. HEENT atraumatic, Parkinsonian facies; neck supple; lungs limited effort, grossly clear; heart RRR; abdomen soft and NT; extremities w/o edema; neuro awake, Ox2, and knows President. motor 4/5 throughout, no cogwheeling, no tremor Results Labs Result diagrams: 02/05/22 19:25 02/05/22 19:25 Labs: Laboratory Results - last 24 hr 02/05/22 02/05/22 02/05/22 19:25 19:25 19:25 WBC 8.41 RBC 4.22 L Hgb 12.7 L Hct 40.2 MCV 95.3 H MCH 30.1 MCHC 31.6 L RDW 12.3 Plt Count 237 MPV 9.4 Immature Gran % 0.2 Neutrophils % 66.8 Lymphocytes % 24.3 Monocytes % 7.3 Eosinophils % 1.0 Basophils % 0.4 Nucleated RBC % 0.0 Absolute Neutrophils 5.63 Absolute Lymphocytes 2.04 Absolute Monocytes 0.61 Absolute Eosinophils 0.08 Absolute Basophils 0.03 Sodium 138 Potassium 3.9 Chloride 104 Carbon Dioxide 28.8 Anion Gap 5.2 BUN 11 Creatinine 0.7 Estimated GFR/1.73 m2 >= 60.00 Glucose 85 Calcium 8.9 Total Bilirubin 0.6 AST 21 ALT 19 Alkaline Phosphatase 86 Total Protein 6.9 Albumin 3.1 L Urine Color Yellow Urine Clarity Clear Urine pH 7.0 Ur Specific [place] 1.020 Urine Protein Negative Urine Ketones Negative Urine Blood Trace-intact H Urine Nitrite Negative Urine Bilirubin Negative Urine Urobilinogen 0.2 Ur Leukocyte Esterase Negative Urine RBC 0-2 Urine WBC 0-2 Ur Epithelial Cells Negative Urine Crystals Negative Urine Bacteria Negative Urine Casts Negative Urine Mucus Negative Urine Other Negative Ur Culture Indicated? No Urine Glucose Negative Last Vital Signs Pulse 71 02/05/22 18:57 Resp 23 02/05/22 19:01 BP 104/60 02/05/22 18:57 Pulse Ox 98 02/05/22 18:57
[2022-02-05 22:20] LABS: Source Nasal/Nares
[2022-02-05 23:16] LABS: COVID-19 PCR Negative (Negative)
[2022-02-05] MEDS: LORazepam 2 MG/ML VIAL 1 MG IM (23:55)
[2022-02-05] MEDS: Carbidopa 50/Levodopa 200 CR TABCR 1 TAB PO (23:56)
[2022-02-05] MEDS: QUEtiapine 25 MG TAB PO (23:56)
[2022-02-05] MEDS: OLANZapine 2.5 MG TAB PO (23:56)
[2022-02-05] MEDS: Carbidopa 25/Levodopa 100 TAB PO (23:56)
[2022-02-06 06:03] VITALS: BP 106/56; PULSE 63; RESP 18; TEMP 36.5; O2SAT 98
[2022-02-06] MEDS: Carbidopa 25/Levodopa 100 TAB PO ×3 (06:08→18:24)
[2022-02-06] MEDS: FLUoxetine 10 MG TAB PO (07:59)
[2022-02-06] MEDS: Tamsulosin 0.4 MG CAPCR PO (08:00)
[2022-02-06] MEDS: Losartan 50 MG TAB PO (08:00)
[2022-02-06] MEDS: traZODone 50 MG TAB PO ×2 (08:00→14:19)
[2022-02-06] MEDS: amLODIPine 5 MG TAB PO (08:00)
[2022-02-06] MEDS: Glycopyrrolate 1 MG TAB PO ×2 (08:00→14:19)
--- NOTE | 2022-02-06 08:29 | PDOC.CMIN ---
- If Service Date Differs Date of service: 02/06/22 Time of Service: 08:29 Care Management Initial Assess REASON FOR HOSPITALIZATION:: agitation PAST MEDICAL HISTORY/PAST SURGICAL HISTORY:: All Active Problems (Updated 02/05/22 @ 21:14 by Bradly Randall MD). Agitation (Acute). Subcutaneous emphysema due to trauma (Acute). Pain in left hip (Chronic). Hearing decreased (Chronic). Elevated lipids (Chronic). Abnormal gait (Chronic 11/19/17). Glaucoma (Chronic). decreased vision left. Hyperlipidemia (Chronic). Raised prostate specific antigen (Chronic 03/05/13). 6.82 06/19/16, 8.29 05/19/15 @ [facility] check value in december and june. Sensorineural hearing loss of both ears (Acute). Foot pain (Acute). Swapna-prosthetic fracture around prosthetic hip (Acute). Postoperative anemia (Acute). Fx femur shaft-closed (Acute). left ORIF. Anemia (Chronic). Conductive hearing loss, external ear (Acute). Medical History . Agitation due to dementia. Basal cell carcinoma of right ear. RIGHT EAR CANAL. BCCa left upper chest 2018: excised. BPH (benign prostatic hyperplasia). Constipation. Difficult intubation. Dysphagia. Elevated PSA. a. In April 2013. Glaucoma. Hypertension. Parkinsons disease. Polyp of colon (09/20/10). Skin tear of elbow without complication. Surgical History . [place] [facility] [place] 2000; NEG. 2010; 2 POLYPS. History of Surgical Procedure. a. Colonoscopy for which he's had excision of a polyp. b. Perirectal abscess treated in the past. c. Tonsillectomy. d. Extraction of molars. Status post left hip replacement (07/31/14) PREVIOUS FUNCTIONAL STATUS/SOCIAL/FAMILY SUPPORTS:: Dominic lives in [place] with his , Shaila. He has Parkinson's Disease, mild dementia, and has 100% service connected disability through the [facility]. His provides assistance with meals and is his caregiver. CURRENT FUNCTIONAL STATUS:: Zach was asleep each time CM came to see him, however his María was present this afternoon. She informed that she is no longer able to care for Zach at home and is requesting group home placement for him. As he is 100% VA connected, he will not require a 3 night stay as long as he goes to a facility with a VA contract. At this time she requested that a referral be sent to [facility] and also [facility] in [place], [place] if it is a VA approved facility. María shared some of the challenges she and Zach have faced in the past few years since he was diagnosed with Parkinson's Disease. She indicated that he fell and broke his hip last May and has not been the same since. He spent 2 months recovering at [facility] but his mental staus and dementia seem to have declined since that time. ADVANCE DIRECTIVES:: none on file Has patient been provided with info about the portal/API?: Yes Did the patient sign up for the portal?: No CODE STATUS:: Full Code INSURANCE COVERAGE / FINANCIAL ISSUES:: Medicare. [facility] CURRENT HOME/COMMUNITY SERVICES/EQUIPMENT:: is his paid caregiver PRIMARY CARE PHYSICIAN:: Raad Strauss POTENTIAL DISCHARGE NEEDS:: follow up with PCP and plan of care PATIENT/FAMILY EDUCATION NEEDS:: Review of discharge instyructions, limitations, follow up plan, activity, Ask Me Three TRANSPORTATION:: via private vehicle with PLAN:: Dominic will likely be transferred to a long term facility for group home care. He will follow up with the facility providers and plan of care and transport via EMS or with family. CM will continue to support Zach and assess for discharge planning needs.
[2022-02-06 16:08] VITALS: BP 143/67; PULSE 69; RESP 19; TEMP 37.6; O2SAT 94
--- NOTE | 2022-02-06 16:58 | PGE_ITS ---
Date of Service Date of service: 02/06/22 Time of Service: 16:58 Assessment and Plan Assessment and plan (1) Agitation: Status: Acute Assessment and plan: The patient just started on his olanzapine 2.5 mg at HS and has only had two nights of this. I will continue this for couple days before increasing the dose. I will also changed the time to be given at 8 pm instead of 10 pm. I will change the trazodone from 50 mg tid (which is the way it was ordered on admission) to 25 mg at 830 am and 1400 and then 50 mg at 1999. I have left his Sinemet dose unchanged. I will also try to contact the [place] psychiatric nurse practitioner in the morning to discuss his care and also try to discuss his care w/ Dr. Smith. (2) Dementia: Status: Chronic Assessment and plan: as above (3) Parkinsons disease: Assessment and plan: cont. current dosing/schedule of his Sinemet Subjective Subjective Interval history since last seen: 76 yr male w/ PMH of Parkinsonism w/ dementia and agitation and aggressive behavior who has been hospitalized multiple times in the past d/t aggressive behavior at home towards his to the point that she can not control him. He also has PTSD and is a [facility] . He was brought to the ED last night d/t aggression towards his . Patient has been under the care of Dr. Smith, neurologist at [place], who treats the patient's Parkinsonism. Dr. Smith recently prescribe olanzapine 2.5 mg at bedtime however the patient's had not started the patient on this until two days ago after she called [facility] nurse key person. He is also prescribed trazodone 50 mg bid prn agitation and 50 mg at HS. He is also under the care of a sales support consultant at the [facility] ([facility]). Last night the patient's wanted him transferred to [facility] however they did not have bed capacity. Patient's states that he frequently will sundown in the mid afternoon and become more agitated at which time she will give him 1/2 of a trazodone. Workup in the ER last night included CBC, CMP, UA all which were unremarkable. Exam Narrative Exam Narrative: Elderly male lying supine in bed, staring at the ceiling. He hears me and seems to respond to me but does not answer me. While I and his were talking about him he apparently did not like some of the things we were discussing and he gave me the middle finger. When I attempted to examine him he grabbed my left forearm in a assistant director of plant operations and would not let go. I had to pry his fingers off my arm. When we were talking he waved his left hand in a circular fashion which his indicated was his way of saying to wrap up the conversation and when we did not that is when he gave me the middle finger. Objective Last Vital Signs Temp 37.6 C 02/06/22 16:08 Pulse 69 02/06/22 16:08 Resp 19 02/06/22 16:08 BP 143/67 H 02/06/22 16:08 Pulse Ox 94 02/06/22 16:08 Laboratory Results - last 24 hr 02/05/22 02/05/22 02/05/22 19:25 19:25 19:25 WBC 8.41 RBC 4.22 L Hgb 12.7 L Hct 40.2 MCV 95.3 H MCH 30.1 MCHC 31.6 L RDW 12.3 Plt Count 237 MPV 9.4 Immature Gran % 0.2 Neutrophils % 66.8 Lymphocytes % 24.3 Monocytes % 7.3 Eosinophils % 1.0 Basophils % 0.4 Nucleated RBC % 0.0 Absolute Neutrophils 5.63 Absolute Lymphocytes 2.04 Absolute Monocytes 0.61 Absolute Eosinophils 0.08 Absolute Basophils 0.03 Sodium 138 Potassium 3.9 Chloride 104 Carbon Dioxide 28.8 Anion Gap 5.2 BUN 11 Creatinine 0.7 Estimated GFR/1.73 m2 >= 60.00 Glucose 85 Calcium 8.9 Total Bilirubin 0.6 AST 21 ALT 19 Alkaline Phosphatase 86 Total Protein 6.9 Albumin 3.1 L Urine Color Yellow Urine Clarity Clear Urine pH 7.0 Ur Specific [place] 1.020 Urine Protein Negative Urine Ketones Negative Urine Blood Trace-intact H Urine Nitrite Negative Urine Bilirubin Negative Urine Urobilinogen 0.2 Ur Leukocyte Esterase Negative Urine RBC 0-2 Urine WBC 0-2 Ur Epithelial Cells Negative Urine Crystals Negative Urine Bacteria Negative Urine Casts Negative Urine Mucus Negative Urine Other Negative Ur Culture Indicated? No Urine Glucose Negative COVID-19 Source SARS-CoV-2 (PCR) 02/05/22 22:17 WBC RBC Hgb Hct MCV MCH MCHC RDW Plt Count MPV Immature Gran % Neutrophils % Lymphocytes % Monocytes % Eosinophils % Basophils % Nucleated RBC % Absolute Neutrophils Absolute Lymphocytes Absolute Monocytes Absolute Eosinophils Absolute Basophils Sodium Potassium Chloride Carbon Dioxide Anion Gap BUN Creatinine Estimated GFR/1.73 m2 Glucose Calcium Total Bilirubin AST ALT Alkaline Phosphatase Total Protein Albumin Urine Color Urine Clarity Urine pH Ur Specific [place] Urine Protein Urine Ketones Urine Blood Urine Nitrite Urine Bilirubin Urine Urobilinogen Ur Leukocyte Esterase Urine RBC Urine WBC Ur Epithelial Cells Urine Crystals Urine Bacteria Urine Casts Urine Mucus Urine Other Ur Culture Indicated? Urine Glucose COVID-19 Source Nasal/Nares SARS-CoV-2 (PCR) Negative
[2022-02-07 01:15] VITALS: BP 112/60; PULSE 70; RESP 20; TEMP 36.4; O2SAT 94
[2022-02-07 05:34] VITALS: BP 116/64; PULSE 69; RESP 20; TEMP 36.7; O2SAT 94
[2022-02-07 08:05] VITALS: BP 118/65; PULSE 67; RESP 25; TEMP 36.8; O2SAT 95
[2022-02-07] MEDS: Tamsulosin 0.4 MG CAPCR PO (08:18)
[2022-02-07] MEDS: Glycopyrrolate 1 MG TAB PO ×3 (08:18→19:42)
[2022-02-07] MEDS: Losartan 50 MG TAB PO (08:18)
[2022-02-07] MEDS: traZODone 50 MG TAB 25 MG PO ×3 (08:18→16:40)
[2022-02-07] MEDS: amLODIPine 5 MG TAB PO (08:18)
[2022-02-07] MEDS: FLUoxetine 10 MG TAB PO (08:18)
--- NOTE | 2022-02-07 09:53 | PDOC.CMPRO ---
- If Service Date Differs Date of service: 02/07/22 Time of Service: 09:53 Care Management Progress Note S/O:Zach was sitting up in a chair visiting with his when CM met with him. He did not speak to CM but did wave at one point. CM received a denial for the referral sent to [facility] but [facility] has not responded yet. María informed CM that she has finally been able to get some rest at night with Zach safe in the hospital and is feeling better. Clinically Zach is doing well. The provider was able to speak to his providers in [place] and at the [place] and is making medication adjustments based on their recommendations. A: Dominic is a 76 year old man admitted on 02/05/22 with agitation P:Dominic will likely be transferred to a long-term facility for correction care. He will follow up with the facility providers and plan of care and transport via EMS or with family. CM will continue to support Zach and assess for discharge planning needs.
[2022-02-07] MEDS: Carbidopa 25/Levodopa 100 TAB PO (13:28)
--- NOTE | 2022-02-07 14:11 | W.PM.PROGNOT ---
Date of Service Date of service: 02/07/22 Time of Service: 14:11 Assessment and Plan Assessment and plan (1) Agitation: Status: Acute Assessment and plan: After I met with the patient and his family, I spoke w/ Delisa Reilly from [facility]. When I told her what I was doing w/ his meds including his olanzapine and Desyrel. She told me that she concurred w/ my approach to try to load more of the Desyrel and olanzapine at night and use prn dosing of Desyrel during the day. She deferred to Dr. Owen's recommendations as to how much we can titrate up the olanzapine safely without worsening his Parkinsonism. Dr. Owen called me back and indicated that olanzapine has a high tolerability in Parkinsonism. He recommend that if the patient is having more aggression during the day, that I should titrate his dose to 2.5 mg bid but if he gets too sedated during the day after doing this then give all of it at night, i.e. 5 mg at night. He said we could safely increase this to 10 mg nightly. I will continue his nightly dose of Desyrel but use it during the day for break through agitation. Dr. Owen indicated that we could use Nuplazid if Zach is having more hallucinations. (2) Dementia: Status: Chronic Assessment and plan: as above (3) Parkinsons disease: Assessment and plan: cont. current dosing/schedule of his Sinemet Subjective Subjective Interval history since last seen: Nursing reports that the patient slep well last night. However, this afternoon, he is more agitated. He had some coughing spells after eating lunch. he was fed by his family rather than nursing. I met with the patient's and daughter. I indicated to them that I had not yet spoken w/ Dr. Owen nor with the patient's psychiatric nurse practitioner, Rekha Reilly but will attempt to do so this afternoon. Exam Narrative Exam Narrative: Patient is sitting up in his recliner chair. He has his eyes closed but when stimulated will start moaning. Coarse breath sounds that clear after deep coughing Heart: RRR Abdomen: soft, nontender, nondistended Arms and legs are stiff (nursing reports that he missed the last two doses of his Sinemet d/t spitting out his meds) Objective Last Vital Signs Temp 36.8 C 02/07/22 08:05 Pulse 67 02/07/22 08:05 Resp 25 H 02/07/22 08:05 BP 118/65 02/07/22 08:05 Pulse Ox 95 02/07/22 08:05
[2022-02-07 15:35] VITALS: BP 131/68; PULSE 82; RESP 22; TEMP 36.5; O2SAT 94
--- NOTE | 2022-02-07 17:52 | NUR.NOTE ---
Nursing Note: At approximatly 1615 this evening this DEVELOPMENTAL TRAINING COUNSELOR was alerted that the pt needed a PRN for agitation. This DEVELOPMENTAL TRAINING COUNSELOR went in the room to medicate pt. Pt was trying to grab at other people and showing signs of excalation/aggression. Pt took trazedone no issues, pt continues to show signs of irritability with so she decided it was best for her to leave. Shortly after left, the chair alarm began going off, this DEVELOPMENTAL TRAINING COUNSELOR and MOLD SHEET CLEANER Philomena went to pt room, pt was trying to get out of chair when he grabbed MOLD SHEET CLEANER and had one arm wrapped around her with his fingers digging underneath her ribs and squeezing her left hand fingers. Called out for more assistance, DAIJA Donahue came to room to assist. Pt ultimately climbed into bed without further escalation and went to sleep.
[2022-02-07] MEDS: OLANZapine 2.5 MG TAB PO (19:43)
[2022-02-07] MEDS: traZODone 50 MG TAB PO (19:43)
[2022-02-07 23:02] VITALS: BP 120/65; PULSE 67; RESP 24; TEMP 36.7; O2SAT 95
[2022-02-08] MEDS: Carbidopa 25/Levodopa 100 TAB PO ×5 (06:30→21:30)
[2022-02-08 08:00] VITALS: BP 134/64; PULSE 59; RESP 22; TEMP 36.5; O2SAT 98
--- NOTE | 2022-02-08 08:54 | CMPROGNOTE_ITS ---
- If Service Date Differs Date of service: 02/08/22 Time of Service: 08:54 Care Management Progress Note S/O:Zach was sitting up in bed visiting with his when CM met with him. He did not engage in conversation during the visit, but rather just sat staring straight ahead. CM received feedback from both facilities to which referrals were sent and both have declined to make a bed offer. CM discussed the situation with his María and provided her with a list of all of the facilities in [place] and [place] that currently are contracted with the [place]. María chose 3 additional facilities to send referrals to: [facility], [place] and [place]. CM sent the referrals as requested. 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 Referrals were sent to [facility] but both facilities declined to make a bed offer. Additional referrals were sent today as above. Zach will follow up with the facility providers and plan of care and transport via EMS or with family. CM will continue to support Zach and assess for discharge planning needs.
[2022-02-08] MEDS: Tamsulosin 0.4 MG CAPCR PO (10:09)
[2022-02-08] MEDS: amLODIPine 5 MG TAB PO (10:10)
[2022-02-08] MEDS: Losartan 50 MG TAB PO (10:10)
[2022-02-08] MEDS: FLUoxetine 10 MG TAB PO (10:10)
[2022-02-08] MEDS: Glycopyrrolate 1 MG TAB PO ×3 (10:11→19:50)
[2022-02-08] MEDS: OLANZapine 2.5 MG TAB PO (10:11)
[2022-02-08] MEDS: traZODone 50 MG TAB 25 MG PO (14:47)
[2022-02-08 15:30] VITALS: BP 95/50; RESP 34; TEMP 37.2
--- NOTE | 2022-02-08 16:09 | W.PM.PROGNOT ---
Date of Service Date of service: 02/08/22 Time of Service: 16:09 Assessment and Plan Assessment and plan (1) Acute urinary retention: Status: Acute Assessment and plan: Secondary to underlying BPH plus or minus anticholinergic effects of his antipsychotic medications and trazodone. I have ordered straight cath to be performed as needed every 6 hours for urine residual of 250 mL or more. If he has to be straight cath more than a couple of times he may need an indwelling Mistry catheter. He is currently on tamsulosin 0.4 mg daily. I will increase the dose to 0.8 mg and see if this helps. (2) BPH (benign prostatic hyperplasia): Assessment and plan: Increase Flomax to 0.8 mg (3) Dementia: Status: Chronic Assessment and plan: Patient is currently on fluoxetine as prescribed by his psychiatric nurse practitioner Rekha Reilly through the [facility]. Olanzapine has been added to help with his agitation. I will titrate his olanzapine dose from 2.5 mg twice daily to 5 mg twice daily. He is also on trazodone 50 mg at night and 25 mg q. afternoon as needed agitation (4) Agitation: Status: Acute Assessment and plan: patient required Ativan given 1 mg IM to calm him down this afternoon so he could be straight cath for his urinary retention (5) Parkinsons disease: Assessment and plan: according to his , we were not giving his Sinemet every 3hr as it is prescribed. I told her that it was ordered the way it was documented in the ER and she had given the ER staff his bottle. It has not been corrected. (6) Discharge planning issues: Status: Acute Assessment and plan: per the patient's would like Zach placed in SNF as she can no longer manage him at home. Per there are only a few SNF that are acceptable to the [facility] them. has sent out referrals to [facility] and will send out other referrals but these may need to go out of the area further than his would like. Subjective Subjective Interval history since last seen: Zach has been more combative today. He also is retaining urine; bladder scanned for 500 mL. requiring straight cath. Exam Narrative Exam Narrative: Zach is agitated and moaning however when he is breathing quietly his lung sounds are clear. Heart regular rate and rhythm Abdomen soft but is tender over the suprapubic area. There is no rebound tenderness or guarding. Objective Last Vital Signs Temp 36.5 C 02/08/22 08:00 Pulse 59 L 02/08/22 08:00 Resp 22 02/08/22 08:00 BP 134/64 02/08/22 08:00 Pulse Ox 98 02/08/22 08:00 Reviewed Pertinent PMH: Yes
[2022-02-08] MEDS: LORazepam 2 MG/ML VIAL 1 MG IM (16:13)
--- NOTE | 2022-02-08 16:19 | CHAPLAIN ---
Zach was resting in bed when I visited. I spoke with his , María. I explained my role and offered support. Zach began trying to get out of bed. María has been caring for Zach at home, and is getting some rest now that he is here. Care Management is working to get Zach admitted to a long-term care facility connected to the [place].
[2022-02-08 17:47] LABS: Bilirubin Negative (Negative); Blood Negative (Negative); Clarity Clear (Clear); Glucose Negative (Negative); Ketones Negative (Negative); Leukocyte Esterase Negative (Negative); Nitrite Negative (Negative); Specific Gravity 1.025 (1.005-1.025); Urobilinogen 0.2 EU/dL (Up TO 0.2); pH 6.5 (5-8)
[2022-02-08] MEDS: traZODone 50 MG TAB PO (19:50)
[2022-02-08] MEDS: OLANZapine 5 MG TAB PO (19:51)
[2022-02-08] MEDS: Carbidopa 50/Levodopa 200 CR TABCR 1 TAB PO (21:30)
[2022-02-08] MEDS: Latanoprost 0.005% 2.5 ML BTL OU (21:30)
[2022-02-08 23:41] VITALS: BP 99/60; PULSE 72; RESP 18; TEMP 36.9; O2SAT 92
[2022-02-09] MEDS: Carbidopa 25/Levodopa 100 TAB PO ×2 (05:26→16:11)
[2022-02-09 07:39] VITALS: BP 106/56; PULSE 60; RESP 18; TEMP 36.7; O2SAT 96
[2022-02-09] MEDS: OLANZapine 5 MG TAB PO (07:52)
[2022-02-09] MEDS: Glycopyrrolate 1 MG TAB PO ×2 (07:52→16:11)
[2022-02-09] MEDS: amLODIPine 5 MG TAB PO (07:52)
[2022-02-09] MEDS: Losartan 50 MG TAB PO (07:52)
[2022-02-09] MEDS: Tamsulosin 0.4 MG CAPCR 0.8 MG PO (07:52)
[2022-02-09] MEDS: FLUoxetine 10 MG TAB PO (07:52)
--- NOTE | 2022-02-09 12:41 | W.NUTCONSULT ---
Date of service: 02/09/22 Time of Service: 12:41 Nutritional Consult ASSESSMENT: 76 year old male admitted to ICU with urinary retnetion, dementia, agitation. Medical chart review indicates 13 lbs weight loss in last 90 days- considered significant and of concern. BMI wnl. 7.6% weight loss indicative of moderate malnutrition. Following pureed diet with mod. thick liquids with poor intake since admission. At high nutritional risk. NUTRITIONAL DIAGNOSIS: moderate malnutrition in view of significant weight loss in last 90 days INTERVENTION: Continue current meal plan with supplementation of ensure plus BID- thicken as needed MONITORING AND EVALUATION: weight, po intake, labs Time Spent in Nutritional Counseling and Treatment: 0
--- NOTE | 2022-02-09 14:34 | PDOC.CMPRO ---
- If Service Date Differs Date of service: 02/09/22 Time of Service: 14:34 Care Management Progress Note S/O:Zach was very sleepy today and did not interact with CM . CM met with his María and daughter Laura several times to discuss both placement issues as well as code status. María reiterated that she would not be able to take Zach home. She is requesting placement as close to her home in [place] as possible. So far she has identified 5 facilities that she would find acceptable and referrals were sent to all of them. So far only 2 have responded and they have been denials.. Messages were left for the other three and followup calls will be made again tomorrow. CM also discussed Advanced Directives and code status with María and Laura. María informed CM that she had paperwork designating her as DPOA which included some directives regarding end of life decisions. María went home and retrieved the document, a copper plater[y of which is now on Zach's chart. Because the document was not as clear as María thought it was, Dr. Dewey clarified code status and Zach has been changed from full code to DNR/DNI status. Dr. Dewey also ordered a Palliative Care consult after much discussion with María as well as a PT consult. CM contacted Tiera Benson at the [place]. Tiera agreed to clarify the payment status of Zach's stay at [facility] and which services would be covered bu the [place]. CM is awaiting the final decision. It may be necessary for Zach to enter SB-[facility] or 2 if no placement can be secured. Alternatively, Zach might benefit from a stay at [facility] to adjust his medications and help to control his agitation and aggression if [facility] by the [facility].. 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 Referrals were sent to [facility] [place] [facility] but both facilities declined to make a bed offer. Additional referrals were sent yesterday but no determinations have been made. Zach will follow up with the facility providers and plan of care and transport via EMS or with family. CM will continue to support Zach and assess for discharge planning needs.
[2022-02-09 14:47] VITALS: BP 108/73; PULSE 67; RESP 17; TEMP 36.4; O2SAT 91
--- NOTE | 2022-02-09 17:13 | PGE_ITS ---
Date of Service Date of service: 02/09/22 Time of Service: 17:13 Assessment and Plan Assessment and plan (1) Dementia with behavioral disturbance: Status: Acute Assessment and plan: In setting of Parkinson's disease. Continue zyprexa 5 mg PO BID as well as scheduled and prn trazodone. On fluoxetine 10 mg PO daily. (2) Parkinsons disease: Assessment and plan: Sinemet doses adjusted to outpatient schedule. Consult physical therapy and palliative care. (3) Acute urinary retention: Status: Acute Assessment and plan: Continue increased dose of flomax. Monitor PVRs. PRN bladder scans. (4) BPH (benign prostatic hyperplasia): Assessment and plan: As above - continue Flomax to 0.8 mg (5) Discharge planning issues: Status: Acute Assessment and plan: Code status changed to DNR/DNI, per 's wishes. He does not have a COLST form - palliative care consulted ( consents). Consult PT. Subjective Subjective Interval history since last seen: Mr Rodriguez has spent the majority of the day somnolent, per his . He has not urinated on his own. He has been getting prn straight caths. He is not awake enough during my presence in the room to answer questions or follow commands. He was able to eat with his feeding him. Discussed case with : she would like the patient to be DNR/DNI. She is willing to have a palliative care consult to discuss goals of care. She is clear that he cannot come home and will need to be placed. She brought in the sinemet medication bottle and the directions on it are now duplicated. Exam Narrative Exam Narrative: General: Elderly male who is resting comfortably, not waking up to voice HEENT: eyes closed, MMM Heart: RRR, no m/r/g Lungs: CTAB anteriorly Abdomen: soft, nondistended Extremities: no edema Objective Last Vital Signs Temp 36.4 C L 02/09/22 14:47 Pulse 67 02/09/22 14:47 Resp 17 02/09/22 14:47 BP 108/73 02/09/22 14:47 Pulse Ox 91 L 02/09/22 14:47 Laboratory Results - last 24 hr 02/08/22 16:56 Urine Color Yellow Urine Clarity Clear Urine pH 6.5 Ur Specific [place] 1.025 Urine Protein Negative Urine Ketones Negative Urine Blood Negative Urine Nitrite Negative Urine Bilirubin Negative Urine Urobilinogen 0.2 Ur Leukocyte Esterase Negative Urine Glucose Negative
[2022-02-09] MEDS: Latanoprost 0.005% 2.5 ML BTL OU (21:11)
[2022-02-09] MEDS: Carbidopa 50/Levodopa 200 CR TABCR 1 TAB PO (21:21)
[2022-02-09 23:26] VITALS: BP 125/68; PULSE 74; RESP 16; TEMP 36.8; O2SAT 96
[2022-02-10] MEDS: Carbidopa 25/Levodopa 100 TAB PO ×5 (02:58→21:07)
[2022-02-10] MEDS: traZODone 50 MG TAB PO ×2 (02:59→18:39)
[2022-02-10] MEDS: LORazepam 2 MG/ML VIAL 1 MG IM ×2 (06:43→23:13)
[2022-02-10 07:59] VITALS: BP 115/54; PULSE 82; RESP 18; TEMP 36; O2SAT 99
[2022-02-10 09:55] LABS: Platelet Count 193 10^3/uL (130-400)
[2022-02-10] MEDS: Enoxaparin 40 MG/0.4 ML SYR SC (09:55)
--- NOTE | 2022-02-10 10:27 | PDOC.CMPRO ---
- If Service Date Differs Date of service: 02/10/22 Time of Service: 10:27 Care Management Progress Note S/O:Zach was medicated early this morning for agitation and has been sleeping much of the day. He did wake up for a short time and ambulated to the bathroom and his chair with staff. A PT consult was ordered for today but could not be completed this morning because Zach was too sedated. A referral was sent to [facility] today but no response has been received as yet. Per the [facility], [facility]'s [facility] hospital stay will be paid by the [place]. It is hoped that if he is accepted at [facility], that stay will be covered by the [place] as well. A Palliative Care Consult was done today and a COLST form completed. María and daughter Laura participated in the consult. A: Dominic is a 76 year old man admitted on 02/05/22 with agitation P:Dominic will likely be transferred to a retirement facility for long term care social worker care. Referrals were sent to [facility] but both facilities declined to make a bed offer. Additional referrals were sent yesterday but no determinations have been made. Zach will follow up with the facility providers and plan of care and transport via EMS or with family. CM will continue to support Zach and assess for discharge planning needs.
[2022-02-10] MEDS: amLODIPine 5 MG TAB PO (12:01)
[2022-02-10] MEDS: Tamsulosin 0.4 MG CAPCR 0.8 MG PO (12:01)
[2022-02-10] MEDS: Losartan 50 MG TAB PO (12:01)
[2022-02-10] MEDS: Glycopyrrolate 1 MG TAB PO ×3 (12:02→21:01)
[2022-02-10] MEDS: FLUoxetine 10 MG TAB PO (12:02)
[2022-02-10] MEDS: OLANZapine 5 MG TAB PO ×2 (12:02→21:01)
--- NOTE | 2022-02-10 13:54 | PCNE_ITS ---
Date of service: 02/10/22 Time of Service: 14:21 History of Present Illness Narrative: Dominic is a 76 year old man with a past medical history significant for Parkinson's disease with dementia and agitation. He has been hospitalized 4 times over the last 2 months, primarily due to agitation. He has been living at home with his but she states she is unable to continue caring for him at home. She is hoping to get him placed at correction facility. Palliative was consulted to discuss goals of care. I met with Dominic's /DPOA, Shaila and daughter, Laura. Shaila discussed CODE status with Dr. Dewey yesterday and decided to change him to DNR/DNI. We reviewed this again today and completed a COLST form to reflect his wishes. His family is clear that he would not want a feeding tube. They would like him to be transferred to the hospital, they would agree to IV fluids to see if he returns to baseline, determine the use or limitation of Abx when infection occurs with comfort as goal, they would want comfort focused care overall. His daughter is concerned about him not getting his medications as he would at home. If he spits his medications out, they would expect nursing to try to give the medications again. He has been referred to [facility], they have a family member who works there. They are hoping that he can go to [facility] and have medications adjusted. From there he will need to go to a SNF. Laura reports that he said he has pain all over when they questioned how he was doing today. She said this is the first time he has reported having pain. It is possible that his agitation is due to pain. This was discussed with his family. Assessment and Plan Assessment and plan (1) Dementia with behavioral disturbance: Status: Acute (2) Agitation: Status: Acute (3) Parkinsons disease: (4) Dysphagia: (5) BPH (benign prostatic hyperplasia): (6) Physician orders for life-sustaining treatment (POLST) form indicates patient wish for ua-lfs-cfeaohuvwkh status: Status: Acute (7) DNR (do not resuscitate): Status: Acute (8) DNI (do not intubate): Status: Acute (9) Goals of care, counseling/discussion: Status: Acute Assessment and plan: Dominic is a 76 year old man with Parkinson's disease and dementia with agitation. He has been hospitalized 4 times over the last 2 months, primarily due to agitation. Palliative care was consulted to discuss goals of care. I met with his , Shaila and his daughter, Laura. We reviewed his CODE status, which was changed yesterday to DNR/DNI. We completed a COLST form. His family is hopeful that he will transfer to [facility] to be stabilized prior to discharge to a SNF. His states she can no longer care for him at home. We briefly discussed Hospice as a possible option. His family wants him to go to [facility] first and get his mood stabilized then figure out where to go after that. He stated that he was in pain all over to his family today. Consider pain as a cause of some of his agitation. Follow up with palliative care after discharge if he is placed within the community. Palliative will continue to follow as needed if he remains at [facility] for an extended period of time. Review of Systems Narrative: unable due to mental condition [facility] All Active Problems (Updated 02/10/22 @ 16:13 by Tamara Chi NP) DNI (do not intubate) (Acute) DNR (do not resuscitate) (Acute) Physician orders for life-sustaining treatment (POLST) form indicates patient wish for vq-eiw-jzxjcpspmwm status (Acute) Goals of care, counseling/discussion (Acute) Dementia with behavioral disturbance (Acute) Discharge planning issues (Acute) Acute urinary retention (Acute) Dementia (Chronic) Agitation (Acute) Subcutaneous emphysema due to trauma (Acute) Pain in left hip (Chronic) Hearing decreased (Chronic) Elevated lipids (Chronic) Abnormal gait (Chronic 11/19/17) Glaucoma (Chronic) decreased vision left Hyperlipidemia (Chronic) Raised prostate specific antigen (Chronic 03/05/13) 6.82 06/19/16, 8.29 05/19/15 [facility]une Sensorineural hearing loss of both ears (Acute) Foot pain (Acute) Swapna-prosthetic fracture around prosthetic hip (Acute) Postoperative anemia (Acute) Fx femur shaft-closed (Acute) left ORIF Anemia (Chronic) Conductive hearing loss, external ear (Acute) Medical History Agitation due to dementia Basal cell carcinoma of right ear RIGHT EAR CANAL BCCa left upper chest 2018: excised BPH (benign prostatic hyperplasia) Constipation Difficult intubation Dysphagia Elevated PSA a. In April 2013. Glaucoma Hypertension Parkinsons disease Polyp of colon (09/20/10) Skin tear of elbow without complication Surgical History Colonoscopy - MAC (~2010) 2000; NEG 2010; 2 POLYPS History of Surgical Procedure a. Colonoscopy for which he's had excision of a polyp. b. Perirectal abscess treated in the past. c. Tonsillectomy. d. Extraction of molars. Status post left hip replacement (07/31/14) Family History Mother Diabetes Personal history of malignant neoplasm breast Father Heart disease Sister No problems noted. Brother No problems noted. Brother No problems noted. Social History Smoking/Tobacco Use Status: Never Second Hand Exposure: No Smoking risk assessment performed?: Yes Alcohol Intake: never Drug use: Never Substance use type: does not use Household members: spouse and children Housing: house Communication Needs: Hard of Hearing and Corrective Lenses Do you need help understanding health information?: Often Pets and animals: Yes Pets and animals: dog(s) Sexually active: No Do you think of yourself as: straight/heterosexual Current gender identity: male What is your relationship status?: How often do you talk on the phone with friends or family?: once per week How often do you attend mosque or jain services?: 1-3 times per year Do you belong to any clubs or organized social groups?: no Panel score (0-1 are the most socially isolated patients): 1 What type of physical activity do you participate in: other Details: boxing Frequency: 1-2 times per week Kenna/Bahai: Hoahaoism Seatbelt use: always Helmet use: No Drive intox or ride w/intox livery car driver: No Do you feel safe at home: Yes Do you feel safe in your relationship?: Yes Exam Narrative Exam Narrative: Sitting up in bed, awake, quietly talking, arms raised in the air. and daughter present. He is thin. He does not appear to be in any distress. Results Last Vital Signs Temp 36 C L 02/10/22 07:59 Pulse 82 02/10/22 07:59 Resp 18 02/10/22 07:59 BP 115/54 L 02/10/22 07:59 Pulse Ox 99 02/10/22 07:59 Labs Result diagrams: 02/10/22 09:47 02/05/22 19:25 Labs: Laboratory Results - last 24 hr 02/10/22 09:47 Plt Count 193
[2022-02-10 14:29] VITALS: BP 126/65; PULSE 69; RESP 16; TEMP 36.1; O2SAT 98
--- NOTE | 2022-02-10 15:13 | W.PM.PROGNOT ---
Date of Service Date of service: 02/10/22 Time of Service: 15:14 Assessment and Plan Assessment and plan (1) Dementia with behavioral disturbance: Status: Acute Assessment and plan: In setting of Parkinson's disease. Still having uncontrolled behaviors on current tx. Continue zyprexa 5 mg PO BID as well as scheduled and prn trazodone. On fluoxetine 10 mg PO daily. Would benefit from going to [facility] for further geripsychiatric stabilization. (2) Parkinsons disease: Assessment and plan: Continue Sinemet (doses adjusted to outpatient schedule). Consult physical therapy and palliative care. (3) Acute urinary retention: Status: Acute Assessment and plan: Continue increased dose of flomax. Monitor PVRs. PRN bladder scans. (4) BPH (benign prostatic hyperplasia): Assessment and plan: As above - continue Flomax to 0.8 mg (5) Discharge planning issues: Status: Acute Assessment and plan: DNR/DNI. Palliative care consulted. PT consulted. Hoping to discharge to [facility]. Subjective Subjective Interval history since last seen: Mr Rodriguez has been chatty today, per his . Otherwise, last night he had an episode of agitation and grasping and forcefully hanging onto the arm of one of the aides and required a prn trazodone to settle him down. He has been cooperative so far today. He is resting at the time of my exam and not answering my questions or waking up to my voice. Exam Narrative Exam Narrative: General: Elderly male who is resting comfortably, not waking up to voice HEENT: eyes closed, MMM Heart: RRR, no m/r/g Lungs: CTAB anteriorly Abdomen: soft, nondistended Extremities: no edema Objective Last Vital Signs Temp 36.1 C L 02/10/22 14:29 Pulse 69 02/10/22 14:29 Resp 16 02/10/22 14:29 BP 126/65 02/10/22 14:29 Pulse Ox 98 02/10/22 14:29 Laboratory Results - last 24 hr 02/10/22 09:47 Plt Count 193
--- NOTE | 2022-02-10 15:45 | PT.INIE ---
Date of service: 02/10/22 Time of Service: 15:45 PT Notes Visit Reasons: Agitation Physical Therapy Inpatient Initial Evaluation Date: 02/10/2022 Referring Doctor: Merna Dewey MD PT Orders: PT CONSULT: Limited ability Precautions: Fall. Standard. Activity as tolerated.? Impaired safety awareness. Patient Profile/Admitting Diagnosis: Zach is a 76-year-old male with past medical history significant for Parkinson's disease and dementia admitted for management of acute agitation. Patient was discharged from services on 01/13/2022 from previous hospitalization able to negotiate up to 400 feet of level surfaces using FWW with contact guard assist and moderate verbal cueing. 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 Agitation due to dementia Basal cell carcinoma of right ear RIGHT EAR CANAL BCCa left upper chest 2018: excised BPH (benign prostatic hyperplasia) Constipation Difficult intubation Dysphagia Elevated PSA a. In April 2013.Glaucoma Hypertension Parkinsons disease Polyp of colon (09/20/10) Skin tear of elbow without complication Surgical History? Colonoscopy - MAC (~2010) 2000; NEG 2010; 2 POLYPSHistory of Surgical Procedure a. Colonoscopy for which he's had excision of a polyp. b. Perirectal abscess treated in the past. c. Tonsillectomy. d. Extraction of molars. Status post left hip replacement (07/31/14) Social History/Home Situation: Lives with in a private home with 4 steps to enter without rails.? There are 15 steps to the second floor of the house where his bedroom is however states that he no longer needs to go upstairs as they have made everything accessible for on the main floor.? Independent with FWW indoors. Equipment Owned/DME: FWW Subjective: Attempted twice for PT evaluation today. With prodding from PT, , and daughter, patient agreed to being seen around 3:45 PM. During the second attempt at the designated time, states that patient has been given Sinemet by Nurse Gong. Patient sat up and stood up with much improved reaction time within a couple of minutes as instructions were given. Per and daughter, caring for the patient at home has become a challenge and both are hoping for placement whenever medically cleared. Objective: General Observation: In NAD.? Supine in bed eyes closed but was able to open eyes as his name was called.? and daughter present throughout session. Bradykinesic. Mental Status: Alert and able to follow single step commands.? Motor and verbal responses delayed. Pain: Denies ROM: Right Upper Extremity: ? Grossly WFL Left Upper Extremity:? Grossly WFL Right Lower Extremity: Grossly WFL Left Lower Extremity: Grossly WFL Strength: Right Upper Extremity: Grossly 4/5 Left Upper Extremity: Grossly 4/5 Right Lower Extremity: Grossly 4/5 Left Lower Extremity: Grossly 4/5 Bed Mobility/Transfers: Supine to sit contact guard assist Sit to stand with contact guard assist Stand to sit with contact guard assist Bed to reclining chair contact guard assist Gait: Instructed patient with level surface ambulation of 250 feet requiring contact guard assist to low back and minimal assist to direct walker and minimize path deviation.? Poor obstacle negotiation as reactions are delayed. Breanne decreased.? Step height decreased. Mildly short of breath after activity but resolved with rest. Balance: Static Sitting: Good Dynamic Sitting: Fair Static Standing: Fair Dynamic Standing: Fair Special Tests: Mobility Limitations Standardized Measure [facility] 6 clicks Basic Mobility Inpatient Short Form: Raw Score: 18 ? CMS Score: 42% deficit? ? ? Informed Consent/Education:? Patient, and daughter were instructed in purpose of PT consult and plan of care and are agreeable to proceed with established PT POC to achieve personal goals. ASSESSMENT: Bradykinesic. Delayed initiation of movement, works a lot better if PT session is done within an hour of anti-PD medications intake as response time to instruction is a lot facilitated. Poor navigational skills due to prison effects of PD and to dementia. Zach requires the assistance of 2 caregivers at this time for safety as patient tends to be compulsive and has difficulty with movement cessation due to PD.? Needs encouragement to participate in therapy, works much better if or daughter is present. Patient presents with clinical signs and symptoms consistent with current/admitting diagnoses that have resulted to mobility limitations, gait instability, generalized weakness, and overall ADL decline as demonstrated by the following impairment level findings: 1.? Decreased strength to B UEs/LE major muscle groups 2.? Impaired sitting/standing balance 3.? Impaired activity tolerance 4.? Impaired safety awareness 5. Delayed verbal and motor responses Impairments are contributing to the following functional limitations: 1.? Decline in bed mobility skills 2.? Decline in transfer skills 3.? Difficulty with ambulation without physical assistance 4.? Increased completion time for mobility ADL performance 5.? Increased risk for falls 6.? Difficulty with managing steps alone safely Patient is assessed as a 42272 moderate complexity based on the following: History: 76-year-old male with past medical history as indicated above Examination: Demonstrable impairment in strength, balance, and mobility level with underlying impairments and functional limitations as exhibited above as well as deficit score of 42% utilizing the [facility] Mobility Inpatient Short Form Presentation: Evolving Decision Makin moderate complexity Goals: Goals X1 week 1. Supine-Sit stand by assist 2. Sit-Supine stand by assist 3. Sit-Stand stand by assist 4. Stand-Sit stand by assist with FWW 5. Bed-Chair stand by assist with FWW 6. Chair-Bed stand by assist with FWW 7.?Stand by assist gait on level surface with use of FWW for at least 300 feet without report of pain nor dyspnea Plan of Care/Treatment Plan: 1-2x/day, 7 days/week x 1 week. Plan of care has been reviewed with the WELL DRILL OPERATOR providing the service under Physical Therapy direction. Initiate Physical Therapy intervention for pain management as needed, strengthening, bed mobility, transfers, gait, stairs, balance training, and use of assistive device. DISCHARGE RECOMMENDATIONS: [] ? Home with no services [] [] ? Home with services [] [] ? Home with outpatient PT [] [X] ? SNF for continued rehabilitation. Patient will benefit from [facility] facility placement for continued skilled physical therapy services in order to progress mobility level, strength, and balance in preparation for a safe discharge to home. [X] ? [facility]. Good LTC candidate as is no longer able to care for patient. [] ? SNF versus LTC based on ability to participate and progress [] TREATMENT CODE/TIME: 36043 x 23 minutes beginning at 15:45 PM. Thank you for the opportunity to participate in the care of this patient. Adali Delvalle PT, DPT, CLT [facility] [place], [place]
[2022-02-10 16:56] LABS: Lab Add On Test QNS
[2022-02-10] MEDS: Latanoprost 0.005% 2.5 ML BTL OU (21:08)
[2022-02-10 23:10] VITALS: BP 121/57; PULSE 65; RESP 16; TEMP 36.8; O2SAT 93
[2022-02-11] MEDS: Carbidopa 25/Levodopa 100 TAB PO ×4 (02:29→14:56)
[2022-02-11] MEDS: traZODone 50 MG TAB PO ×3 (02:38→17:01)
[2022-02-11] MEDS: LORazepam 2 MG/ML VIAL 1 MG IM (05:23)
[2022-02-11 06:41] LABS: Platelet Count 197 10^3/uL (130-400)
[2022-02-11 08:00] VITALS: BP 149/73; PULSE 58; RESP 23; TEMP 36.4; O2SAT 98
[2022-02-11] MEDS: Enoxaparin 40 MG/0.4 ML SYR SC (08:18)
--- NOTE | 2022-02-11 12:59 | PT.INTREAT ---
Date of service: 02/11/22 Time of Service: 12:59 PT Notes Visit Reasons: Agitation 02/11/2022 PT services cancelled for today per discussion with nurse Ware and nurse Quach. Indicated that Zach had a difficult night not able to sleep and was finally able to rest. Will attempt to see tomorrow.
[2022-02-11 14:28] VITALS: BP 133/74; PULSE 71; RESP 22; TEMP 36.4; O2SAT 96
[2022-02-11] MEDS: Acetaminophen 325 MG TAB 650 MG PO (14:55)
[2022-02-11] MEDS: Glycopyrrolate 1 MG TAB PO (14:56)
--- NOTE | 2022-02-11 14:59 | PGE_ITS ---
Date of Service Date of service: 02/11/22 Time of Service: 15:00 Assessment and Plan Assessment and plan (1) Dementia with behavioral disturbance: Status: Acute Assessment and plan: In setting of Parkinson's disease. Still having uncontrolled behaviors on current tx. Will schedule both evening zyprexa and trazodone for 6 pm and add melatonin. Continue fluoxetine at current dose. Add scheduled tylenol at night. Would benefit from going to [facility] for further geripsychiatric stabilization, though his behaviors need to be more controlled prior. (2) Parkinsons disease: Assessment and plan: Continue Sinemet (doses adjusted to outpatient schedule). Physical therapy and palliative care consulted. (3) Acute urinary retention: Status: Acute Assessment and plan: Continue increased dose of flomax. Monitor PVRs. PRN bladder scans. (4) Pityriasis rosea: Status: Acute Assessment and plan: Going on for weeks to months, asymptomatic. Typically self-limited. Will not treat at this time. RPR pending. (5) BPH (benign prostatic hyperplasia): Assessment and plan: As above - continue Flomax to 0.8 mg (6) Discharge planning issues: Status: Acute Assessment and plan: DNR/DNI. Palliative care consulted. PT consulted. Hoping to discharge to [facility] once behaviors are better controlled. Subjective Subjective Interval history since last seen: Mr Rodriguez did not sleep last night and required a dose of IM ativan early this morning for agitation. He sits with his eyes closed but is answering questions when I ask them (specifically, he says no to everything I ask, such as dizziness, chest pain, shortness of breath, nausea, pain anywhere). His does note that sometimes giving tylenol at night makes him sleep. She also notes that at home he is frequently asleep all day and up all night. We discussed how sleep cycle changes can be a feature of dementia. She agreed with my changes of the timing of his night time olanzapine and trazodone as well as with the addition of melatonin. Exam Narrative Exam Narrative: General: Elderly male who is resting comfortably in bed, able to answer simple questions, follows commands (sits up and takes deep breaths for pulmonary exam) HEENT: eyes closed, MMM Heart: RRR, no m/r/g Lungs: CTAB Abdomen: soft, nondistended Extremities: no edema Objective Last Vital Signs Temp 36.4 C L 02/11/22 14:28 Pulse 71 02/11/22 14:28 Resp 22 02/11/22 14:28 BP 133/74 02/11/22 14:28 Pulse Ox 96 02/11/22 14:28 Laboratory Results - last 24 hr 02/10/22 02/11/22 Unknown 06:23 Plt Count 197 Add-On Test Request QNS
[2022-02-11] MEDS: OLANZapine 5 MG TAB PO (17:06)
[2022-02-11 23:23] VITALS: BP 151/78; PULSE 62; RESP 20; TEMP 36.5; O2SAT 98
[2022-02-12 07:31] LABS: Platelet Count 233 10^3/uL (130-400)
[2022-02-12 08:15] VITALS: BP 157/76; PULSE 74; RESP 21; TEMP 36.5; O2SAT 96
[2022-02-12] MEDS: Losartan 50 MG TAB PO (09:10)
[2022-02-12] MEDS: OLANZapine 5 MG TAB PO ×2 (09:10→18:29)
[2022-02-12] MEDS: Glycopyrrolate 1 MG TAB PO ×3 (09:10→20:11)
[2022-02-12] MEDS: amLODIPine 5 MG TAB PO (09:10)
[2022-02-12] MEDS: FLUoxetine 10 MG TAB PO (09:10)
[2022-02-12] MEDS: Carbidopa 25/Levodopa 100 TAB PO ×3 (09:14→20:11)
--- NOTE | 2022-02-12 12:45 | PT.INTREAT ---
Date of service: 02/12/22 Time of Service: 11:05 PT Notes Visit Reasons: Agitation Inpatient Physical Therapy Treatment Note [facility] Date: 02/12/2022 PRECAUTIONS: Activity as tolerated SUBJECTIVE: Able to follow commands to turn to right while walking and for performance of LE exercises while in bed. OBJECTIVE: PAIN: No complaints of pain offered. BED MOBILITY/TRANSFERS Sit-supine: CGA Sit-stand: SBA-CGA Stand-sit: SBA-CGA GAIT Assistive Device: FWW Weight bearing: Full Assist: Mod assist of 2 with navigating walker due to path deviation Distance: 400ft Deviation: Tended to drift to left when walk THEREX: Patient performed AP, QS, supine hip abd/ adduction and hip flexion while in supine post ambulation. Exercises performed with eyes closed entire time, but responding to verbal / tactile commands. See flow sheet for details. ASSESSMENT: Patient was already walking with nursing staff when I assisted in hallway. He was having a difficult time with path deviation requiring assist of 2. Good cooperation with supine exercises post ambulation today. PLAN: Continue with current plan of care. TREATMENT CODE/TIME: 11744, 11:05 to 11:20 am (15')
--- NOTE | 2022-02-12 14:16 | PGE_ITS ---
Date of Service Date of service: 02/12/22 Time of Service: 14:16 Assessment and Plan Assessment and plan (1) Dementia with behavioral disturbance: Status: Acute Assessment and plan: In setting of Parkinson's disease. The last 24 hrs have been without behaviors. Continue zyprexa and trazodone with evening doses of medications being administered circa 6 pm. Continue melatonin. Continue fluoxetine at current dose. Continue scheduled tylenol at night. Would benefit from going to [facility] for further geripsychiatric stabilization. (2) Parkinsons disease: Assessment and plan: Continue Sinemet (doses adjusted to outpatient schedule). Physical therapy and palliative care consulted. (3) Acute urinary retention: Status: Acute Assessment and plan: Continue increased dose of flomax. Monitor PVRs. PRN bladder scans. Patient is now urinating on his own. (4) Pityriasis rosea: Status: Acute Assessment and plan: Going on for weeks to months, asymptomatic. Typically self-limited. Will not treat at this time. RPR pending. (5) BPH (benign prostatic hyperplasia): Assessment and plan: As above - continue Flomax to 0.8 mg (6) Discharge planning issues: Status: Acute Assessment and plan: DNR/DNI. Palliative care consulted. PT consulted. Hoping to discharge to [facility]. Subjective Subjective Interval history since last seen: Mr Rodriguez slept all night, per nursing, and was awake this morning. He is nap ping now and not answering my questions. Exam Narrative Exam Narrative: General: Elderly male who is resting diagonally in bed (this is being addressed) HEENT: eyes closed, MMM Heart: RRR, no m/r/g Lungs: CTAB Abdomen: soft, nondistended Extremities: no edema Objective Last Vital Signs Temp 36.5 C 02/12/22 08:15 Pulse 74 02/12/22 08:15 Resp 21 02/12/22 08:15 BP 157/76 H 02/12/22 08:15 Pulse Ox 96 02/12/22 08:15 Laboratory Results - last 24 hr 02/12/22 06:15 Plt Count 233
[2022-02-12 15:15] VITALS: BP 143/76; PULSE 63; RESP 24; TEMP 36.4; O2SAT 97
[2022-02-12] MEDS: traZODone 50 MG TAB PO ×2 (18:29→20:12)
[2022-02-12] MEDS: Acetaminophen Solution 650 MG/20.3 ML CUP PO (20:12)
[2022-02-12] MEDS: Melatonin 3 MG TAB PO (20:13)
[2022-02-12 23:45] VITALS: BP 118/72; PULSE 79; RESP 18; TEMP 37; O2SAT 98
[2022-02-13 08:21] VITALS: BP 144/72; PULSE 59; RESP 19; TEMP 36.5; O2SAT 97
--- NOTE | 2022-02-13 08:30 | CMPROGNOTE_ITS ---
- If Service Date Differs Date of service: 02/13/22 Time of Service: 08:30 Care Management Progress Note S/O:Zach was lying in bed when CM met with him. He was more awake today and waved at but did not speak. His María was also present at the time. CM contacted [facility] again today to see if there is any possibility they would reconsider Zach for admission. CM left a message but has not received a call back yet. Zach has been much more appropriate for the past 2-3 days with no aggressive episodes noted. It is hoped that if that continues he will be able to secure placement either at the [facility] or a penitentiary facility. A: Dominic is a 76 year old man admitted on 02/05/22 with agitation P:Dominic will likely be transferred to a penitentiary facility for press tender long goods care. [facility] have declined to make a bed offer and [facility] is considering him for admission but would prefer that he go to [facility] first to ensure that his behavioral issues have resolved. Zach will follow up with the facility providers and plan of care and transport via EMS or with family. CM will continue to support Zach and assess for discharge planning needs.
[2022-02-13] MEDS: Enoxaparin 40 MG/0.4 ML SYR SC (09:36)
[2022-02-13] MEDS: Losartan 50 MG TAB PO (09:38)
[2022-02-13] MEDS: Glycopyrrolate 1 MG TAB PO ×3 (09:38→21:33)
[2022-02-13] MEDS: amLODIPine 5 MG TAB PO (09:38)
[2022-02-13] MEDS: OLANZapine 5 MG TAB PO ×2 (09:38→18:01)
[2022-02-13] MEDS: Tamsulosin 0.4 MG CAPCR 0.8 MG PO (09:38)
[2022-02-13] MEDS: FLUoxetine 10 MG TAB PO (09:38)
[2022-02-13] MEDS: Carbidopa 25/Levodopa 100 TAB PO ×3 (09:38→21:33)
--- NOTE | 2022-02-13 15:06 | W.PM.PROGNOT ---
Date of Service Date of service: 02/13/22 Time of Service: 15:06 Assessment and Plan Assessment and plan (1) Dementia with behavioral disturbance: Status: Acute Assessment and plan: In setting of Parkinson's disease. The last 24 hrs have yet again been without behaviors. Because the patient is somnolent during the morning hours, I will back off of his morning zyprexa to 2.5 mg daily from 5 mg daily. Will continue evening zyprexa and trazodone at current doses. Continue melatonin. Continue fluoxetine at current dose. Continue scheduled tylenol at night. Would benefit from going to [facility] for further geripsychiatric stabilization. (2) Parkinsons disease: Assessment and plan: Continue Sinemet (doses adjusted to outpatient schedule). Physical therapy and palliative care consulted. (3) Acute urinary retention: Status: Acute Assessment and plan: Continue increased dose of flomax. Monitor PVRs. PRN bladder scans. Patient is now urinating on his own. (4) Pityriasis rosea: Status: Acute Assessment and plan: Going on for weeks to months, asymptomatic. Typically self-limited. Will not treat at this time. RPR pending. (5) BPH (benign prostatic hyperplasia): Assessment and plan: As above - continue Flomax to 0.8 mg (6) Discharge planning issues: Status: Acute Assessment and plan: DNR/DNI. Palliative care consulted. PT consulted. Hoping to discharge to [facility]. Subjective Subjective Interval history since last seen: Mr Rodriguez slept all night but then he has also been very somnolent all morning. He is just waking up now, per , and wanted to walk. He is about to walk with PT. He opens his eyes to my voice when I came to examine him, but then closes them. His family thinks that he is pretending to sleep now. He did not answer my questions. Exam Narrative Exam Narrative: General: Elderly male, resting comfortably in bed, not answering my questions or following commands HEENT: eyes closed, MMM Heart: RRR, no m/r/g Lungs: CTAB Abdomen: soft, nondistended Extremities: no edema Objective Last Vital Signs Temp 36.5 C 02/13/22 08:21 Pulse 59 L 02/13/22 08:21 Resp 19 04/25/22 08:21 BP 144/72 H 02/13/22 08:21 Pulse Ox 97 02/13/22 08:21
[2022-02-13 15:40] VITALS: BP 92/53; PULSE 61; RESP 22; TEMP 36.8; O2SAT 94
--- NOTE | 2022-02-13 17:11 | PT.INNT ---
Date of service: 02/13/22 Time of Service: 16:00 PT Notes Visit Reasons: Agitation 02/13/2022 Attempted to engage patient for PT session x2, however, I was unable to rouse patient. Will attempt to resume PT services tomorrow morning.
[2022-02-13] MEDS: traZODone 50 MG TAB PO (18:02)
--- NOTE | 2022-02-13 19:07 | PCPN_ITS ---
Date of service: 02/13/22 Time of Service: 15:15 Assessment and Plan Assessment and plan (1) Palliative care patient: Status: Acute Assessment and plan: Will continue to be followed during this admission and at discharge, if he is still in our area. 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 Family reports that a lot of his agitation stems around memories of [place]nandez. [facility]. (3) PTSD (post-traumatic stress disorder): Status: Acute (4) Lewy body Parkinson disease: Status: Acute Assessment and plan: Having more delusions as his PD progresses. Likely part of his PD. Hard to treat as anti-psychotics can worsen the movement deficits of PD. (5) Caregiver stress: Status: Acute Assessment and plan: Both María and Laura are very attentive and strong advocates for Zach. THey are stressed and tired. (6) Goals of care, counseling/discussion: Status: Acute Assessment and plan: Reviewed COLST that Tamara Chi NP filled out with them last week. (7) Parkinsons disease: Status: Chronic Assessment and plan: End-stage. He would qualify for hospice based on his presentation. It is possible that he would improve a bit with medication and with less stressful setting. Subjective Subjective Patient reports: denies tolerating liquids well or tolerating a regular diet Interval history since last seen: I met with Zach's and daughter, Albert. They met with Tamara Chi NP last week to review and fill out his COLST form. He is a DNR/DNI, no feeding tube, abx and IVF for comfort only, comfort measures. He has been declining rapidly over the last few months. His primary diagnosis is end-stage Parkinson's Disease. He has severe dysphagia; he has not been able to swallow his medications. Without the sinemet, his is more frozen, more aphasic and with worse dysphagia. I called and discussed other formulations of carbidopa/levadopa with Verena from pharmacy. There is an ODT formulation that would be easier for Zach to take, as it would melt in his mouth and still be effective. We also reviewed details of his COLST form. Laura and María stated that they understood if Zach developed an aspiration pneumonia or a UTI, both very common in end-stage dementia, and he has end-stage PD associated dementia, that they would want to focus on Zach's comfort. They would want to use antibiotics ONLY IF they contributed to his comfort. Exam Narrative Exam Narrative: General: Elderly male, resting comfortably in bed, not answering my questions or following commands. His daughter and I were able to slide him up in bed as he had slid down. Legs were exposed. Some abrasions, nothing severe. HEENT: eyes closed, dry mM Heart: RRR, no m/r/g Lungs: CTAB, Abdomen: soft, nondistended, no masses : no dutton, wearing depends Extremities: no edema, no mottling psych: not anxious, not agitated skin: some bruising and one laceration Objective Last Vital Signs Temp 98.2 F 02/13/22 15:40 Pulse 61 02/13/22 15:40 Resp 22 02/13/22 15:40 BP 92/53 L 02/13/22 15:40 Pulse Ox 94 02/13/22 15:40
[2022-02-13] MEDS: Melatonin 3 MG TAB PO (21:34)
[2022-02-13] MEDS: Latanoprost 0.005% 2.5 ML BTL OU (21:34)
[2022-02-13 23:10] VITALS: BP 108/57; PULSE 74; RESP 19; TEMP 38.7; O2SAT 93
[2022-02-13] MEDS: Acetaminophen Solution 650 MG/20.3 ML CUP PO (23:33)
--- NOTE | 2022-02-13 23:50 | DI.RAD_ITS ---
Exam(s) XR PORTABLE CHEST AP EXAM: XR PORTABLE CHEST AP CLINICAL HISTORY: fever ? aspiration TECHNIQUE: 2D digital imaging was performed of the chest. One image was obtained. An AP view was ob tained. COMPARISON: CT CT CHEST/ABD/PEL W from 12/30/2021 CR XR PORTABLE CHEST AP from 01/06/2022 FINDINGS: MEDIASTINUM: Normal. HEART: Normal. PULMONARY VASCULATURE: Normal. LUNGS: There is a question of an infiltrate in the left lower lobe medially. Increased lung markings are also suggested in the right lung base. PLEURAL SPACE: No pleural effusion or pneumothorax. BONE:Within normal limits for the patient's age. Stable finding seen in the distal left clavicle. OTHER FINDINGS:Normal. IMPRESSION: Question of a basilar infiltrate, left greater than right. Please correlate clinically. DATA REPOSITORY: RADIATION DOSE DELIVERED:
--- NOTE | 2022-02-14 01:33 | DI.VRAD_ITS ---
PROCEDURE INFORMATION: Exam: XR Chest Exam date and time: 02/13/2022 11:51 PM Age: 76 years old Clinical indication: Patient HX: Fever ? aspiration TECHNIQUE: Imaging protocol: XR of the chest. Views: 1 view. COMPARISON: CR XR PORTABLE CHEST AP 01/06/2022 3:08 PM FINDINGS: Lungs: Chronic interstitial prominence, grossly stable. Question mild retrocardiac opacity. Pleural spaces: No pleural effusion. No pneumothorax. Heart/Mediastinum: No cardiomegaly. Bones/joints: Grossly stable. IMPRESSION: Question mild retrocardiac opacity which may represent subsegmental atelectasis versus developing pneumonia Dictated and Authenticated by: Obed Wren MD. Ordering:BEN Abdullahi MD
[2022-02-14 02:28] VITALS: TEMP 39.6
[2022-02-14 02:40] LABS: Bilirubin Negative (Negative); Blood Negative (Negative); Clarity Cloudy (Clear); Glucose Negative (Negative); Ketones Trace mg/dL (Negative); Leukocyte Esterase Small (Negative); Nitrite Negative (Negative); Specific Gravity 1.025 (1.005-1.025)
[2022-02-14 02:49] LABS: Bacteria Many HPF (Negative); Crystals Rare Calcium Oxalate HPF (Negative); Epithelial Cells Rare HPF (Negative); Mucus Trace (Negative); WBC >50 HPF (0-5)
[2022-02-14 02:50] LABS: C & S Indicated? Yes; Casts Negative LPF (Negative)
[2022-02-14 03:23] LABS: Platelet Count 234 10^3/uL (130-400)
[2022-02-14 03:38] VITALS: TEMP 37.9
[2022-02-14] MEDS: cefTRIAXone 1 GM/50 ML BAG IVPB (04:17)
[2022-02-14 08:04] VITALS: BP 131/67; PULSE 64; RESP 17; TEMP 36.6; O2SAT 96
[2022-02-14] MEDS: Enoxaparin 40 MG/0.4 ML SYR SC (08:54)
[2022-02-14 10:49] LABS: Syphilis Serology (RPR) Negative (Negative)
--- NOTE | 2022-02-14 10:51 | CMPROGNOTE_ITS ---
- If Service Date Differs Date of service: 02/14/22 Time of Service: 10:51 Care Management Progress Note S/O: Zach was very sleepy this morning and could not be woken up, making it impossible to administer his medication. A dissolvable form of Carvodopa/Levodopa was administered successfully late morning and will be the preparation used moving forward. Nursing and Pharmacy are investigating the possibility of administering some of his other medications in this manner. Zach's daughter Laura requested that a family meeting be scheduled within the next couple of days. She specifically requested that Dr. King, the hospitalist, CM and nursing be represented at the meeting. CM reached out to Dr. King to determine availability. Both Laura and María have concerns about the difficulty staff has encountered with Zach's medication administration and feeding. They feel the meeting will be helpful to clarify their goals and expectations. Zach was sitting up in bed when CM met with him and his and daughter. Although he appeared to be sleeping and unaware, when María asked him a direct question he was able to answer appropriately. María and Laura requested that additional referrals be sent to SNFs in [place] and [place] that are [facility]. CM provided them with the list and they chose 3 additional facilities: [facility] in [place], [facility] and [facility] in [place]. the referrals ere sent by CM as requested. A: Dominic is a 76 year old man admitted on 02/05/22 with agitation P:Dominic will likely be transferred to a custodial facility for mcfp care. [facility] have declined to make a bed offer and [facility] is considering him for admission but would prefer that he go to [facility] first to ensure that his behavioral issues have resolved. Additional referrals were sent today to [facility] and [facility] as above. CM will continue to support Zach and assess for discharge planning needs.
[2022-02-14] MEDS: Scopolamine 1 MG/3 DAYS PATCH TD (13:31)
[2022-02-14 16:10] VITALS: BP 107/64; PULSE 63; RESP 21; TEMP 37.2; O2SAT 98
--- NOTE | 2022-02-14 17:30 | INDS_ITS ---
Date of service: 02/20/22 PT Notes Visit Reasons: Agitation Physical Therapy Discharge Summary Date: 02/14/2022 Dates of Service: 02/10/2022 through 02/13/2022 This is a clinical summary of care provided for the duration of dates listed above. No charge was made in the completion of this documentation. Referring Doctor: Merna Dewey MD PT Orders: PT CONSULT: Limited ability Precautions: Fall. Standard. Activity as tolerated.? Impaired safety awareness. Patient Profile/Admitting Diagnosis: Zach is a 76-year-old male with past medical history significant for Parkinson's disease and dementia admitted for management of acute agitation. Patient was discharged from services on 01/13/2022 from previous hospitalization able to negotiate up to 400 feet of level surfaces using FWW with contact guard assist and moderate verbal cueing. 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 Agitation due to dementia Basal cell carcinoma of right ear RIGHT EAR CANAL BCCa left upper chest 2018: excised BPH (benign prostatic hyperplasia) Constipation Difficult intubation Dysphagia Elevated PSA a. In April 2013.Glaucoma Hypertension Parkinsons disease Polyp of colon (09/20/10) Skin tear of elbow without complication Surgical History? Colonoscopy - MAC (~2010) 2000; NEG 2010; 2 POLYPSHistory of Surgical Procedure a. Colonoscopy for which he's had excision of a polyp. b. Perirectal abscess treated in the past. c. Tonsillectomy. d. Extraction of molars. Status post left hip replacement (07/31/14) Social History/Home Situation: Lives with in a private home with 4 steps to enter without rails.? There are 15 steps to the second floor of the house where his bedroom is however states that he no longer needs to go upstairs as they have made everything accessible for on the main floor.? Independent with FWW indoors. Equipment Owned/DME: FWW Subjective: NT. See most recent OUTDOOR EDUCATION TEACHER notes. Objective: General Observation: NT. See most recent OUTDOOR EDUCATION TEACHER notes. Mental Status: NT. See most recent OUTDOOR EDUCATION TEACHER notes. Pain: NT. See most recent OUTDOOR EDUCATION TEACHER notes. ROM: Right Upper Extremity: ? Grossly WFL Left Upper Extremity:? Grossly WFL Right Lower Extremity: Grossly WFL Left Lower Extremity: Grossly WFL Strength: Right Upper Extremity: Grossly 4/5 Left Upper Extremity: Grossly 4/5 Right Lower Extremity: Grossly 4/5 Left Lower Extremity: Grossly 4/5 Bed Mobility/Transfers: Supine to sit assist of 2 Sit to stand assist of 2 Stand to sit assist of 2 Bed to reclining chair assist of 2 Gait: On evaluation, patient was able to tolerate level surface ambulation of 250 feet requiring contact guard assist to low back and minimal assist to direct walker and minimize path deviation.? Now unable to tolerate out of bed activities due to further decline in mentation. Balance: Static Sitting: Good Dynamic Sitting: Fair Static Standing: Fair Dynamic Standing: Fair ASSESSMENT: Has had significant decline in level of alertness. Bradykinesic.? Converts to comfort measures today. Patient presents with clinical signs and symptoms consistent with current/admitting diagnoses that have resulted to mobility limitations, gait instability, generalized weakness, and overall ADL decline as demonstrated by the following impairment level findings: 1.? Decreased strength to B UEs/LE major muscle groups 2.? Impaired sitting/standing balance 3.? Impaired activity tolerance 4.? Impaired safety awareness 5.? Delayed verbal and motor responses Impairments are contributing to the following functional limitations: 1.? Decline in bed mobility skills 2.? Decline in transfer skills 3.? Difficulty with ambulation without physical assistance 4.? Increased completion time for mobility ADL performance 5.? Increased risk for falls 6.? Difficulty with managing steps alone safely Goals: Goals X1 week 1. Supine-Sit stand by assist NOT MET 2. Sit-Supine stand by assist NOT MET 3. Sit-Stand stand by assist NOT MET 4. Stand-Sit stand by assist with FWW NOT MET 5. Bed-Chair stand by assist with FWW NOT MET 6. Chair-Bed stand by assist with FWW NOT MET 7.?Stand by assist gait on level surface with use of FWW for at least 300 feet without report of pain nor dyspnea NOT MET DISCHARGE RECOMMENDATIONS: [] ? Home with no services [] [] ? Home with services [] [] ? Home with outpatient PT [] [X] ? SNF for continued rehabilitation.? Patient will benefit from snf facility placement for continued skilled physical therapy services in order to progress mobility level, strength, and balance in preparation for a safe discharge to home. [X] ? [employer] Care.? Good LTC candidate as is no longer able to care for patient. [] ? SNF versus LTC based on ability to participate and progress [] TREATMENT CODE/TIME: IA Thank you for the opportunity to participate in the care of this patient. Adali Delvalle PT, DPT, CLT [facility] [place], [place]
--- NOTE | 2022-02-14 17:34 | W.PM.PROGNOT ---
Date of Service Date of service: 02/14/22 Time of Service: 09:15 Assessment and Plan Assessment and plan (1) Dementia with behavioral disturbance: Status: Acute Assessment and plan: In setting of Parkinson's disease. The last 48 hrs have yet again been without behaviors. Because the patient is somnolent during the morning hours, yesterda, his morning zyprexa was decreased to 2.5 mg daily from 5 mg daily. Evening zyprexa and trazodone at current doses. Continue melatonin. Continue fluoxetine at current dose. Continue scheduled tylenol at night. Would benefit from going to [facility] for further geripsychiatric stabilization. He did wake later in the day and walked nurse. (2) Parkinsons disease: Assessment and plan: Continue Sinemet (doses adjusted to outpatient schedule and changed to oral dissolvable form). Physical therapy and palliative care consulted. (3) Acute urinary retention: Status: Acute Assessment and plan: Continue increased dose of flomax. Monitor PVRs. PRN bladder scans. Patient is now urinating on his own. (4) Pityriasis rosea: Status: Acute Assessment and plan: Going on for weeks to months, asymptomatic. Typically self-limited. Will not treat at this time. RPR pending. (5) BPH (benign prostatic hyperplasia): Assessment and plan: As above - continue Flomax to 0.8 mg (6) Discharge planning issues: Status: Acute Assessment and plan: DNR/DNI. Palliative care consulted. PT consulted. Hoping to discharge to [facility]. (7) UTI (urinary tract infection): Status: Acute Assessment and plan: Fever and positive UA last PM Rocephin initiated. His desire, or not, for antibiotics is open to some interpretation. His Advanc Directives states to determine use or limitation of antibiotics when infection occurs, with comfort as goal. After discussion that palliative care had with , the antibiotic will be continued. Subjective Subjective Interval history since last seen: Temp of 39.6 last PM UA + and Rocephin initiated. Remains lethargic; keeps eyes closed. Oral meds held today (other than disintegrating form of Sinemet) d/t risk of aspiration; not waking. Exam Narrative Exam Narrative: General: Elderly male, resting comfortably in bed, not answering questions or opening eys. Doesn't follow commands. HEENT: eyes closed, dry mM Heart: RRR, no m/r/g Lungs: CTAB, Abdomen: soft, nondistended, no masses : no dutton, wearing depends Extremities: no edema, no mottling psych: not anxious, not agitated skin: some bruising and one laceration Objective Last Vital Signs Temp 37.2 C 02/14/22 16:10 Pulse 63 02/14/22 16:10 Resp 21 02/14/22 16:10 BP 107/64 02/14/22 16:10 Pulse Ox 98 02/14/22 16:10 Laboratory Results - last 24 hr 02/12/22 02/14/22 02/14/22 06:15 02:22 02:52 Plt Count 234 Urine Color Yellow Urine Clarity Cloudy Urine pH 6.0 Ur Specific [place] 1.025 Urine Protein Negative Urine Ketones Trace H Urine Blood Negative Urine Nitrite Negative Urine Bilirubin Negative Urine Urobilinogen 1.0 H Ur Leukocyte Esterase Small H Urine RBC 3-5 H Urine WBC >50 H Ur Epithelial Cells Rare Urine Crystals Rare Calcium Oxalate Urine Bacteria Many Urine Casts Negative Urine Mucus Trace Ur Culture Indicated? Yes Urine Glucose Negative Syphilis Serology Negative
[2022-02-14] MEDS: OLANZapine 5 MG TAB PO (18:34)
[2022-02-14] MEDS: traZODone 50 MG TAB PO (18:34)
--- NOTE | 2022-02-14 19:43 | W.PALPGNOTE ---
Date of service: 02/14/22 Assessment and Plan Assessment and plan (1) Goals of care, counseling/discussion: Status: Acute Assessment and plan: Clarified with María, Zach's , that she did want antibiotics for this infection. She does. Restarted. No doses missed. She wants Zach to receive his sinemet in a timely fashion. Now that we have ODT forumlation, may be easier to give without fear of aspiration. 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 Would qualify for hospice at time of discharge. (2) Parkinsons disease: Assessment and plan: Advanced. I suspect his agiation is combination of PD associated hallucinations and PTSD from the war. (3) Fever: Status: Acute Assessment and plan: Noted last night. Abx started. Possible that this could be a terminal fever. To be monitored. (4) Caregiver stress: Status: Acute Assessment and plan: María very stressed. Worried that her is leaving her. He's not responsive. HOw much is due to his missing doses of his sinemet and how much is due to his worsening of his end-stage dementia is hard to tell. Once his sinemet is given q 3 hrs, then we can reassess. It is possible that he is entering terminal stage of his disease. and daughter filled out COLST with Tamara Chi last week. (5) Lewy body Parkinson disease: Status: Acute Assessment and plan: Could be the explanation of his hallucinations. 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 and daughter report fear and combat like behaviors when he is hallucinating. (7) [place] of armed forces: Status: Acute Subjective Subjective Patient reports: denies tolerating liquids well or tolerating a regular diet Interval history since last seen: Zach ran a fever last night. Antibiotics were started for a presumed UTI. He is not able to communicate. His ODT/dissolveable sinemet should be in today. Pharmacy special-ordered it yesterday to help ensure that nurses feel comfortable giving him meds q 3 hours. He is quite frozen from his end-stage Parkinson's. Initially, I conveyed to hospitalist that /health care agent did not want to treat any infections with antibiotics UNLESS the infection caused discomfort. Zach did not look uncomfortable. I then called María to discuss this with her. She acknowledged that on 02/13 she said she would not want Zach to receive antibiotics, but now she did. Dr Walsh restarted them. (Zach did not miss any doses). Zach was uncommunicative. Had his eyes closed. No furrowed brow. No grimace. Did not appear sick, but had documeneted fever. Exam Narrative Exam Narrative: General: Elderly male, resting comfortably in bed, not answering questions or opening eys. Doesn't follow commands. HEENT: eyes closed, dry mM Heart: RRR, no m/r/g Lungs: CTAB, Abdomen: soft, nondistended, no masses : no dutton, wearing depends Extremities: no edema, no mottling psych: not anxious, not agitated skin: some bruising and one laceration Objective Last Vital Signs Temp 99.0 F 02/14/22 16:10 Pulse 63 02/14/22 16:10 Resp 21 02/14/22 16:10 BP 107/64 02/14/22 16:10 Pulse Ox 98 02/14/22 16:10 Laboratory Results - last 24 hr 02/12/22 02/14/22 02/14/22 06:15 02:22 02:52 Plt Count 234 Urine Color Yellow Urine Clarity Cloudy Urine pH 6.0 Ur Specific [place] 1.025 Urine Protein Negative Urine Ketones Trace H Urine Blood Negative Urine Nitrite Negative Urine Bilirubin Negative Urine Urobilinogen 1.0 H Ur Leukocyte Esterase Small H Urine RBC 3-5 H Urine WBC >50 H Ur Epithelial Cells Rare Urine Crystals Rare Calcium Oxalate Urine Bacteria Many Urine Casts Negative Urine Mucus Trace Ur Culture Indicated? Yes Urine Glucose Negative Syphilis Serology Negative
--- NOTE | 2022-02-14 21:04 | NUR.NOTE ---
Nursing Note: Pt pulled out IV line. Discussed with Charge nurse. Pt is not scheduled for IV ABX until 02/15/22 0830. Pt is very alert and does not keep IV lines in place. Will place IV line before IV ABX is due or if needed during the night. No medication or implications to place IV tonight. Will continue to monitor.
[2022-02-14] MEDS: Latanoprost 0.005% 2.5 ML BTL OU (22:17)
[2022-02-14 22:50] VITALS: BP 111/64; PULSE 58; RESP 22; TEMP 36.7; O2SAT 93
--- NOTE | 2022-02-14 23:03 | NUR.NOTE ---
Nursing Note: Attempted to administer PO tylenol mixed with pudding. Pt able to take 3 bites of pudding with the HOB at 60 degrees. Pt started coughing. Stopped giving Pt more pudding and wasted the rest of the Tylenol. Charge nurse made aware. Aspiration precautions in place. Will continue to monitor. Pt currently sleeping with HOB greater than 30 degrees
[2022-02-15] MEDS: traZODone 50 MG TAB PO (01:35)
--- NOTE | 2022-02-15 05:46 | NUR.NOTE ---
Nursing Note: Pt only had 1 urine inct at 2100 02/14. Bladder scan performed due to limited urine output. 202 ml present. Charge nurse made aware of low urine output. Order to straight cath for more than 300 ml of urine.
[2022-02-15 06:33] LABS: Abs Immature Grans 0.04 10^3/uL (0.0-0.06); Absolute Basophil Count 0.04 10^3/uL (0.0-0.2); Absolute Eosinophil Count 0.13 10^3/uL (0.0-0.7); Absolute Lymphocyte Count 1.76 10^3/uL (1.2-3.4); Absolute Monocyte Count 0.53 10^3/uL (0.1-0.8); Basophils % 0.5; Eosinophils % 1.7; HGB 11.9 g/dL (13.5-17.5); Immature Grans % 0.5; Lymphocytes % 22.9; MCH 30.5 pg (27.0-33.0); MCHC 32.2 % (32.0-36.0); MCV 94.9 fL (80-95); MPV 9.1 fL (8.0-11.0); Monocytes % 6.9; Neutrophils % 67.5; Platelet Count 213 10^3/uL (130-400); RDW 12.5 % (11.8-14.1); RDW-SD 43.4 fL
[2022-02-15 06:44] LABS: BUN 16 mg/dL (7-18); CREATININE 0.6 mg/dL (0.70-1.30); Calcium 8.8 mg/dL (8.5-10.1); Chloride 105 mmol/L (98-107); Glucose 93 mg/dL (74-106); Potassium 3.6 mmol/L (3.5-5.1); Sodium 139 mmol/L (136-145)
--- NOTE | 2022-02-15 07:13 | NUR.NOTE ---
Nursing Note: 0705: pt rings for assist with TV this morning. pt is alert and voices that he would like to watch the news. pt requesting channel 8 or local news at this time. pt speech is understandable, delayed but clear. pt notes the light is bothering his eyes and is requesting dark glasses; shade pulled on window and lights turned off in room. pt reports that this is okay. call madsen is within reach at this time. continue to monitor .
[2022-02-15 07:45] VITALS: BP 118/70; PULSE 76; RESP 15; TEMP 36.1; O2SAT 94
--- NOTE | 2022-02-15 08:23 | PDOC.CMPRO ---
- If Service Date Differs Date of service: 02/15/22 Time of Service: 08:23 Care Management Progress Note S/O: Zach was sitting up in bed when CM met with him this morning. He was awake and alert and oriented X2. Earlier he had been OOB in a chair and fed himself breakfast. Zach informed CM that he wanted to get out of here. He admitted to feeling a lot better and just wants to go home. María, Zach's and Laura, his daughter, requested that a family meeting be scheduled. They specifically requested that Dr. King be present as well as Tiera Benson from the [place]. has left messages for Dr. King, but, per her office staff, her availability is limited. Laura will return home at the end of the week so it is important that the meeting be held within the next day or two. PARRISH received a call back from [facility] stating that they are closed for admissions due to an increase in Covid cases. [facility] also called stating that they no longer have a contract with the [facility], so will not be able to offer Zach a bed.PARRISH is waiting for a determination from [facility] and [place]. Tamara Chi APRN from Palliative Care, is available to attend the family meeting tomorrow at 12:30 pm. left a message for Tiera Benson as well. Dr. Jillian CM and the clinical coordinator from Med[facility]Surg will also attend. 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 The [facility] have declined to make a bed offer and [facility] is considering him for admission but would prefer that he go to [facility] first to ensure that his behavioral issues have resolved. Additional referrals were sent today to [facility] and [facility] as above. CM will continue to support Zach and assess for discharge planning needs.
[2022-02-15] MEDS: Enoxaparin 40 MG/0.4 ML SYR SC (08:25)
[2022-02-15] MEDS: Losartan 50 MG TAB PO (08:26)
[2022-02-15] MEDS: amLODIPine 5 MG TAB PO (08:26)
[2022-02-15] MEDS: FLUoxetine 10 MG TAB PO (08:26)
[2022-02-15] MEDS: OLANZapine 2.5 MG TAB PO (08:26)
[2022-02-15] MEDS: Tamsulosin 0.4 MG CAPCR 0.8 MG PO (08:26)
[2022-02-15] MEDS: cefTRIAXone 1 GM/50 ML BAG IVPB (08:27)
[2022-02-15] MEDS: Fosfomycin Tromethamine 3 GM PACKET PO (10:07)
--- NOTE | 2022-02-15 15:04 | PGE_ITS ---
Date of Service Date of service: 02/15/22 Time of Service: 15:07 Assessment and Plan Assessment and plan (1) Dementia with behavioral disturbance: Status: Acute Assessment and plan: Pt is now alert, converses (speech is slow), ambulates. Suspecting that he is now at least close to his baseline because he has been getting his Sinamet regularly; now in a dissolvable tab so that he obtains it even if he is poorly responsive. No behavior issues for 3 days now. Working on readjusting his sleep-wake cycle. Up most of last night. (2) Parkinsons disease: Assessment and plan: Continue Sinemet (doses adjusted to outpatient schedule and changed to oral dissolvable form). Physical therapy and palliative care consulted. (3) Acute urinary retention: Status: Acute Assessment and plan: Continue increased dose of flomax. Monitor PVRs. PRN bladder scans. Patient is now urinating on his own. (4) Pityriasis rosea: Status: Acute Assessment and plan: Going on for weeks to months, asymptomatic. Typically self-limited. Will not treat at this time. RPR pending. (5) BPH (benign prostatic hyperplasia): Assessment and plan: As above - continue Flomax to 0.8 mg (6) Discharge planning issues: Status: Acute Assessment and plan: DNR/DNI. Palliative care consulted. Family and provider conference scheduled for 1230 tomorrow. PT consulted. Possible discharge to [facility]. (7) UTI (urinary tract infection): Status: Acute Assessment and plan: Fever and positive UA. Rocephin initiated. His desire, or not, for antibiotics is open to some interpretation. His Advanc Directives states to determine use or limitation of antibiotics when infection occurs, with comfort as goal. After discussion that palliative care had with , the antibiotic will be continued. Subjective Subjective Patient reports: tolerating a regular diet and afebrile; denies nausea, vomiting or shortness of breath Interval history since last seen: Pt is awake and eating breakfast. Ambulated in the room this AM. States he wants to go home. Exam Narrative Exam Narrative: General: Elderly male. Sitting in recliner eating breakfast. Conversant. HEENT: eyes closed, dry mM Heart: RRR, no murmur Lungs: CTAB, Abdomen: soft, nondistended, no masses : no dutton, wearing depends Extremities: no edema, no mottling psych: not anxious, not agitated skin: some bruising and one laceration Objective Last Vital Signs Temp 36.1 C L 02/15/22 07:45 Pulse 76 02/15/22 07:45 Resp 15 02/15/22 07:45 BP 118/70 02/15/22 07:45 Pulse Ox 94 02/15/22 07:45 Laboratory Results - last 24 hr 02/15/22 02/15/22 06:05 06:05 WBC 7.70 RBC 3.90 L Hgb 11.9 L Hct 37.0 L MCV 94.9 MCH 30.5 MCHC 32.2 RDW 12.5 Plt Count 213 MPV 9.1 Immature Gran % 0.5 Neutrophils % 67.5 Lymphocytes % 22.9 Monocytes % 6.9 Eosinophils % 1.7 Basophils % 0.5 Nucleated RBC % 0.0 Absolute Neutrophils 5.20 Absolute Lymphocytes 1.76 Absolute Monocytes 0.53 Absolute Eosinophils 0.13 Absolute Basophils 0.04 Sodium 139 Potassium 3.6 Chloride 105 Carbon Dioxide 29.0 Anion Gap 5.0 BUN 16 Creatinine 0.6 L Estimated GFR/1.73 m2 >= 60.00 Glucose 93 Calcium 8.8
[2022-02-15] MEDS: Refresh PLUS Eye Drops 0.4ml 1 EACH OU ×2 (15:18→16:05)
[2022-02-15 15:52] VITALS: BP 118/60; PULSE 60; RESP 14; TEMP 36.3; O2SAT 100
[2022-02-15] MEDS: LORazepam 2 MG/ML VIAL 1 MG IM ×2 (17:29→17:34)
--- NOTE | 2022-02-15 17:39 | NUR.NOTE ---
Nursing Note:at approximately 1715 this filing writer entered the room to assist a call from the TURBO GENERATOR OILER, pt had gotten out of bed and was using his walker to ambulate. When pt was running into physical barriers this filing writer and TURBO GENERATOR OILER tried to redirect pt. pt then became angry and was becoming unsafe on his feet. The pt was helped back to bed, where he continued to grab this filing writer along with TURBO GENERATOR OILER, kick and hit. 1 mg of ativan was administered IM with no effect. was called and an additional 1 mg Ativan was ordered and given at this time. pt was still aggitated for awhile after second dose but finally started to calm down and rest in bed after approximately 15 mins. pt is safe at this time, bed alarms are on.
--- NOTE | 2022-02-15 18:38 | NUR.NOTE ---
Nursing Note: Went to assist in room d/t bed exit alarms sounding. Patient was very restless, charge nurse asked me to assist by administering 1800 medications. Meds were pulled and scanned , as i went to administer them patient spit them out at me. Attempted 3 times and he spit them out every time. was notified. Peer nurse administered an IM medication
[2022-02-15 23:09] VITALS: BP 120/68; PULSE 54; RESP 20; TEMP 36.6; O2SAT 95
[2022-02-16] VITALS (7 sets, daily range): BP systolic 95–139; BP diastolic 57–76; PULSE 57–77; RESP 16–18; TEMP 35.9–36.7; O2SAT 91–98
[2022-02-16 06:58] LABS: Platelet Count 212 10^3/uL (130-400)
[2022-02-16] MEDS: Enoxaparin 40 MG/0.4 ML SYR SC (08:33)
[2022-02-16] MEDS: OLANZapine 2.5 MG TAB PO ×3 (08:35→16:41)
[2022-02-16] MEDS: Losartan 50 MG TAB PO (08:35)
[2022-02-16] MEDS: amLODIPine 5 MG TAB PO (08:35)
[2022-02-16] MEDS: FLUoxetine 10 MG TAB PO (08:35)
[2022-02-16] MEDS: Tamsulosin 0.4 MG CAPCR 0.8 MG PO (08:36)
--- NOTE | 2022-02-16 09:34 | PDOC.CMPRO ---
- If Service Date Differs Date of service: 02/16/22 Time of Service: 09:34 Care Management Progress Note S/O: Zach was sitting up in bed when CM met with him this morning. He remains awake and alert and is able to move enough to get OOB to the chair. A family meeting was held today with his María and daughter Laura, Dr. Walsh, Tamara Chi, 3 representatives from the [place] including Sybil Benson, manager category and this public relations writer. Laura raised concerns about the nursing care Zach is receiving and noted that he does better with staff that are quiet, calm and unhurried. They feel that too much activity and moving quickly agitates him. They requested that at every meal he be given the opportunity to eat a spoonful of food even if he appears asleep. She shared that Zach often appears to be sleeping when he is in fact awake and aware. Various options for care at home, including increased funding and resources from the [facility], were discussed but María maintains that she will not ever be able to care for him at home again. She feels it is not a safe environment any longer. Additional SNF referrals were sent after the meeting after the family had a chance to review the list of [facility]- contracted facilities again. They agreed to have referrals sent to [facility] in [place], [place], [place] in [place], [place] and [facility] in [place], [place]. Zach had a fall this morning with a small laceration to the right side of his head. He had a CT scan and xrays of his knees which were all negative. A: Dominic is a 76 year old man admitted on 02/05/22 with agitation P:Dominic will likely be transferred to a [facility] facility [facility] [place]. Referrals have been sent to 10 [facility]-contracted facilities in [place] and [place]. No bed offers have been received yet. CM called the facilities who have not responded and requested a follow up phone call. CM will continue to support Zach and assess for discharge planning needs.
[2022-02-16] MEDS: LORazepam 2 MG/ML VIAL 1.5 MG IM (10:03)
--- NOTE | 2022-02-16 10:14 | W.NUTRFU ---
Date of service: 02/16/22 Time of Service: 10:14 Nutrition Note NOTE: Dominic continues on puree diet with moderately thick liquids, supplemented with ensure BID. PO intake remains poor, not meeting nutrient needs. Unable to get updated weight. Suspect further weight loss. At nutritional risk and at risk for skin breakdown. Comfort is main goal at this time. Will continue to follow and support. Time Spent in Nutritional Counseling and Treatment: 5
--- NOTE | 2022-02-16 10:22 | DI.RAD_ITS ---
Exam(s) XR KNEE RT 3V AP,LAT,MARCEL EXAM: XR KNEE RT 3V AP,LAT,MARCEL CLINICAL HISTORY: trauma, fall TECHNIQUE: COMPARISON: No exams were available for comparison FINDINGS: Three views were obtained. Note is made of chondrocalcinosis of the knee. There is mild narrowing o f the cartilaginous joint spaces of all 3 joints of the knee. No gross joint effusion seen on the la teral view. There is mild marginal osteophyte formation of all 3 joints of the knee. No other signi ficant bony abnormality seen. IMPRESSION: Mild tricompartment degenerative changes as described above. No evidence of acute fracture. RADIATION DOSE DELIVERED: Total DLP
--- NOTE | 2022-02-16 10:26 | DI.RAD_ITS ---
Exam(s) XR KNEE LT 3V AP,LAT,MARCEL EXAM: XR KNEE LT 3V AP,LAT,MARCEL CLINICAL HISTORY: trauma fall TECHNIQUE: COMPARISON: CR XR KNEE RT 3V AP,LAT,MARCEL from 02/16/2022 FINDINGS: Three views were obtained. There is marked narrowing of medial tibiofemoral cartilaginous joint spac e presumably on a degenerative basis. Moderate marginal osteophytes are noted at the medial tibiofem oral joint and at the patellofemoral joint. There is no evidence of acute fracture or dislocation. IMPRESSION: DJD, no evidence of acute injury. RADIATION DOSE DELIVERED: Total DLP
--- NOTE | 2022-02-16 10:30 | DI.CT_ITS ---
Exam(s) CT HEAD CERVICAL SPINE WO EXAM: CT HEAD CERVICAL SPINE WO COMPARISON: CT CT HEAD CERVICAL SPINE WO from 12/30/2021 FINDINGS: CT examination of the cervical spine was performed without contrast administration. There are severe degenerative changes of the cervical spine. There is an old C7 vertebral body anter ior compression fracture as noted on prior examinations. There is no evidence of acute cervical spine fracture or dislocation. Tracheolaryngeal structures appear intact. No cervical mass or adenopathy. Noncontrast cranial CT was performed. There is moderate generalized cerebral atrophy.. No evidence of acute intracranial hemorrhage, mass effect, or midline shift. No calvarial fracture. The orbital and temporal bone structures appear intact. Visualized mastoid air cells and paranasal sinuses appear clear. IMPRESSION: No evidence of acute cervical spine injury. No evidence of acute intracranial injury. RADIATION DOSE DELIVERED: 1,490.75mGy.cm Total DLP 1,490.75mGy.cm Total DLP !Error CTDIvol DATA REPOSITORY: All CT scans at this facility are submitted to the National Radiology Data Registry (NRDR) Dose Index Registry (DIR) with the [employer] (ACR). RADIATION OPTIMIZATION: All CT scans at this facility use at least one of these dose optimization te chniques: automated exposure control; mA and/or kV adjustment per patient size (includes targeted exa ms where dose is matched to clinical indication); or iterative reconstruction.
--- NOTE | 2022-02-16 10:54 | W.PM.PROGNOT ---
Date of Service Date of service: 02/16/22 Time of Service: 11:03 Subjective Subjective Patient reports: other Interval history since last seen: Patient had a fall this am. He was sitting up in chair, chair alarm went off, per CHAINSTITCH ELASTIC ATTACHER, she ran to room by the time she got to room patient was on the floor on his knees. He had an approx 1 cm laceration to his right side. This was cleaned with saline, iodine and required 2 selene. Patient was given 1.5 mg IM ativan to tolerate CT of head and neck along with xray of his knees. CT of head and neck no acute cervical spine injury or intracranial injury. Bilateral knees with no acute fractures. Vital signs staple, did not require any lidocaine. In bed at this time, sleeping. Objective Last Vital Signs Temp 36.7 C 02/16/22 10:45 Pulse 65 02/16/22 10:45 Resp 18 02/16/22 10:45 BP 99/57 L 02/16/22 10:45 Pulse Ox 97 02/16/22 10:45 Laboratory Results - last 24 hr 02/16/22 06:24 Plt Count 212 Procedures Laceration Laceration 1: Site: scalp Side (if applicable): right Size (cm): 1 Description: linear Depth: simple, single layer Skin layer closed with: other (selene requiring 2 )
--- NOTE | 2022-02-16 12:48 | PCPN_ITS ---
Date of service: 02/16/22 Time of Service: 12:35 Subjective Subjective Interval history since last seen: Family meeting with Zach's , Anju and daughter, Laura. Also present at the meeting: PARRISH Yung, Tamara Leach, nursing powdered sugar supervisor, Dr. Walsh, Hospitalist, Fay Diallo, VEGETABLE II FARMWORKER hospitalist. Tiera Denton and Cammie León, from [place] present via video conference. Family expresses concern r/t care Zach is receiving. They would like him to be offered bites of food even when his eyes are closed. They report that he often takes bites and swallows despite his eyes being closed. CT offered information on the budget that would be offered at home. His does not think she can take him home even with help. He is hard to care for due to behavioral issues, she does not feel safe taking him home. He had a fall this morning. He has lost approximately 40 pounds over the last 7 months. He has had agitation. Briefly discussed hospice as an option but his family does not feel he is ready for hospice services. Exam Narrative Exam Narrative: patient not present at time of meeting. Objective Last Vital Signs Temp 36.3 C L 02/16/22 12:00 Pulse 75 02/16/22 12:00 Resp 16 02/16/22 12:00 BP 97/59 L 02/16/22 12:00 Pulse Ox 95 02/16/22 12:00 Laboratory Results - last 24 hr 02/16/22 06:24 Plt Count 212
--- NOTE | 2022-02-16 15:16 | PGE_ITS ---
Date of Service Date of service: 02/16/22 Time of Service: 15:16 Assessment and Plan Assessment and plan (1) Dementia with behavioral disturbance: Status: Acute Assessment and plan: Pt is now alert, converses (speech is slow), ambulates. Suspecting that he is now at least close to his baseline because he has been getting his Sinamet regularly; now in a dissolvable tab so that he obtains it even if he is poorly responsive. Agitated yesterday later in afternoon. Given IM ativan 1mg x 2. His voices that he does in the afternoon. Olanzapine dosing changed to 2.5mg in AM, at 1400 and at 1800. (2) Parkinsons disease: Status: Chronic Assessment and plan: Continue Sinemet (doses adjusted to outpatient schedule and changed to oral dissolvable form). Physical therapy and palliative care consulted. (3) Acute urinary retention: Status: Acute Assessment and plan: Continue increased dose of flomax. Monitor PVRs. PRN bladder scans. Patient is now urinating on his own. (4) Pityriasis rosea: Status: Acute Assessment and plan: Going on for weeks to months, asymptomatic. Typically self-limited. Will not treat at this time. RPR pending. (5) BPH (benign prostatic hyperplasia): Assessment and plan: As above - continue Flomax to 0.8 mg (6) Discharge planning issues: Status: Acute Assessment and plan: DNR/DNI. Meeting today with , daughter, palliative, care management and [facility] certified social workers in health care. The explained his home behaviors and how she cannot care for him. Efforts being made for disposition to a facility. (7) UTI (urinary tract infection): Status: Acute Assessment and plan: Fever and positive UA. Rocephin initiated. His desire, or not, for antibiotics is open to some interpretation. His Advanc Directives states to determine use or limitation of antibiotics when infection occurs, with comfort as goal. After discussion that palliative care had with , the antibiotic will be continued. (8) Fall: Status: Acute Assessment and plan: Pt impulsively stood up from chair; alarm sounded, but he had fallen by the time they arrived. Scalp laceration; repaired with selene. CT head and C-spine were negative. Subjective Subjective Patient reports: afebrile; denies nausea, vomiting or shortness of breath Interval history since last seen: Pt was alert this AM; transfer to chair with chair alarm on. He stood; alarm sounded and staff responded. When staff arrived he had fallen and hit his head against the wall then fell to his knees. He had eaten breakfast prior to the fall and was conversant with me prior to the fall. More lethargic after falling. Exam Narrative Exam Narrative: General: Elderly male. Sitting in recliner eating breakfast. Conversant. HEENT: eyes closed, dry mM Heart: RRR, no murmur Lungs: CTAB, Abdomen: soft, nondistended, no masses : no dutton, wearing depends Extremities: no edema, no mottling psych: not anxious, not agitated skin: some bruising and one laceration that was present on admission. Now, s/p fall with fresh laceration of R posterior-lateral scalp. No active bleeding. Objective Last Vital Signs Temp 36.3 C L 02/16/22 14:09 Pulse 68 02/16/22 14:09 Resp 18 02/16/22 14:09 BP 95/59 L 02/16/22 14:09 Pulse Ox 96 02/16/22 14:09 Laboratory Results - last 24 hr 02/16/22 06:24 Plt Count 212
[2022-02-16] MEDS: traZODone 50 MG TAB PO (16:41)
[2022-02-16] MEDS: LORazepam 2 MG/ML VIAL 1 MG IM (17:37)
[2022-02-16] MEDS: Melatonin 3 MG TAB PO (22:07)
[2022-02-16] MEDS: Latanoprost 0.005% 2.5 ML BTL OU (22:07)
[2022-02-17] MEDS: traZODone 50 MG TAB PO ×2 (03:28→17:36)
[2022-02-17 08:18] VITALS: BP 126/62; PULSE 65; RESP 17; TEMP 36.2; O2SAT 98
[2022-02-17] MEDS: amLODIPine 5 MG TAB PO (08:27)
[2022-02-17] MEDS: FLUoxetine 10 MG TAB PO (08:27)
[2022-02-17] MEDS: Losartan 50 MG TAB PO (08:27)
[2022-02-17] MEDS: OLANZapine 2.5 MG TAB PO ×3 (08:27→17:36)
[2022-02-17] MEDS: Enoxaparin 40 MG/0.4 ML SYR SC (09:31)
[2022-02-17] MEDS: LORazepam 2 MG/ML VIAL 1 MG IM (10:45)
--- NOTE | 2022-02-17 10:55 | NUR.NOTE ---
Nursing Note: At 1040, patient became agitated. Patient is hitting and kicking towards staff. Patient is not able to be verbally deesculated. Patient grabbing staff and squeezing hard. 1mg IM ativan given to patient for agitated. Charge nurse made aware of the situation. Will continue to assess.
[2022-02-17 11:22] VITALS: BP 104/61; PULSE 69; RESP 17; TEMP 36.2; O2SAT 96
[2022-02-17] MEDS: Scopolamine 1 MG/3 DAYS PATCH TD (12:28)
--- NOTE | 2022-02-17 12:44 | W.PM.PROGNOT ---
Date of Service Date of service: 02/17/22 Time of Service: 12:57 Assessment and Plan Assessment and plan (1) Dementia with behavioral disturbance: Status: Acute Assessment and plan: He is now more, intermittently, alert and ambulatory. Suspecting that he is now at least close to his baseline because he has been getting his Sinamet regularly; now in a dissolvable tab so that he obtains it even if he is poorly responsive. Olanzapine dosing changed to 2.5mg in AM, at 1400 and at 1800. (2) Parkinsons disease: Status: Chronic Assessment and plan: Continue Sinemet (doses adjusted to outpatient schedule and changed to oral dissolvable form). Physical therapy and palliative care consulted. Olanzapine can decrease the bioavailability of Sinemet; need to keep the olanzapine dosing as low as possible. (3) Acute urinary retention: Status: Acute Assessment and plan: Continue increased dose of flomax. Flomax cannot be crushed or opened so he does not always accept it. Encourage nursing to administer in food. Monitor PVRs. PRN bladder scans. Increase volume to trigger straight cath to 500 mls. Patient is now urinating on his own mostly. (4) Pityriasis rosea: Status: Acute Assessment and plan: Going on for weeks to months, asymptomatic. Typically self-limited. Will not treat at this time. RPR pending. (5) BPH (benign prostatic hyperplasia): Assessment and plan: As above - continue Flomax to 0.8 mg (6) Discharge planning issues: Status: Acute Assessment and plan: DNR/DNI. Meeting today with , daughter, palliative, care management and [facility] public health social worker. The explained his home behaviors and how she cannot care for him. Efforts being made for disposition to a facility. (7) UTI (urinary tract infection): Status: Acute Assessment and plan: Fever and positive UA. Rocephin initiated. His desire, or not, for antibiotics is open to some interpretation. His Advanc Directives states to determine use or limitation of antibiotics when infection occurs, with comfort as goal. After discussion that palliative care had with , the antibiotic will be continued. (8) Fall: Status: Acute Assessment and plan: Pt impulsively stood up from chair; alarm sounded, but he had fallen by the time they arrived. Scalp laceration; repaired with selene. CT head and C-spine were negative. Subjective Subjective Patient reports: afebrile; denies nausea, vomiting or shortness of breath Interval history since last seen: Restless at times this AM Eating. He had a period of agitation mid afternoon yesterday; given IM Ativan. Exam Narrative Exam Narrative: General: Elderly male. Lying in bed. HEENT: eyes closed, dry mM Heart: RRR, no murmur Lungs: CTAB, Abdomen: soft, nondistended, no masses : no dutton, wearing depends Extremities: no edema psych: Fidgets but not angry or anxious appearing. skin: some bruising and one laceration that was present on admission. Now, s/p fall with fresh laceration of R posterior-lateral scalp. No active bleeding. Selene in place. Objective Last Vital Signs Temp 36.2 C L 02/17/22 11:22 Pulse 69 02/17/22 11:22 Resp 17 02/17/22 11:22 BP 104/61 02/17/22 11:22 Pulse Ox 96 02/17/22 11:22
[2022-02-17 15:12] VITALS: BP 128/68; PULSE 69; RESP 19; TEMP 36.5; O2SAT 95
[2022-02-17 15:25] LABS: C Diff PCR Negative (Negative)
--- NOTE | 2022-02-17 17:14 | NUR.NOTE ---
Nursing Note: Around 1630, patients bed alarm going off. This RN walked in and the patient had his feet off the bed. Patient encouraged to stay in bed and keep his feet in the bed. Patient did not listen at this time. This RN asked for assistance with reposition. TYRA Albarado entered the room. Patient was repositioned in bed. Patient had three bed rails up. Patients stated sometimes at home when he is in his wheelchair and he does not sit up, I use the gait belt to tie him into the chair so he will eat. Patients bed alarm back in place. Charge nurse and care managers made aware of the situation.
--- NOTE | 2022-02-17 18:14 | PDOC.CMPRO ---
- If Service Date Differs Date of service: 02/17/22 Time of Service: 18:14 Care Management Progress Note S/O: Zach remains inpatient. On neuro checks for recent fall. CM continues to seek placement, no bed offers at this time. CM continues to follow. Family meeting yesterday: with María and daughter Laura, Dr. Walsh, Tamara Chi, 3 representatives from the [place] including Sybil Benson aerial planting and cultivation manager and this proposal manager writer. Laura raised concerns about the nursing care Zach is receiving and noted that he does better with staff that are quiet, calm and unhurried. They feel that too much activity and moving quickly agitates him. They requested that at every meal he be given the opportunity to eat a spoonful of food even if he appears asleep. She shared that Zach often appears to be sleeping when he is in fact awake and aware. Various options for care at home, including increased funding and resources from the [facility], were discussed but María maintains that she will not ever be able to care for him at home again. She feels it is not a safe environment any longer. Additional SNF referrals were sent after the meeting after the family had a chance to review the list of [facility]- contracted facilities again. They agreed to have referrals sent to [place] in [place], [place], [place] in [place], [place] and [facility] in [place], [place]. 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 Referrals have been sent to 10 [facility]-contracted facilities in [place] and [place]. No bed offers have been received yet. CM called the facilities who have not responded and requested a follow up phone call. CM will continue to support Zach and assess for discharge planning needs.
[2022-02-17 19:30] VITALS: BP 157/69; PULSE 89; RESP 16; TEMP 37.1; O2SAT 100
[2022-02-17] MEDS: Melatonin 3 MG TAB PO (19:58)
[2022-02-17] MEDS: Latanoprost 0.005% 2.5 ML BTL OU (21:11)
[2022-02-18 00:17] VITALS: BP 160/72; PULSE 66; RESP 18; TEMP 36.6; O2SAT 98
[2022-02-18] MEDS: Lidocaine 2% Jelly 11 ML SYR UR (05:32)
[2022-02-18 06:06] VITALS: BP 122/67; PULSE 60; RESP 14; TEMP 36.8; O2SAT 95
[2022-02-18 06:06] LABS: Platelet Count 219 10^3/uL (130-400)
[2022-02-18] MEDS: OLANZapine 2.5 MG TAB PO ×3 (08:11→18:18)
[2022-02-18] MEDS: Tamsulosin 0.4 MG CAPCR 0.8 MG PO (08:11)
[2022-02-18] MEDS: amLODIPine 5 MG TAB PO (08:11)
[2022-02-18] MEDS: Enoxaparin 40 MG/0.4 ML SYR SC (08:11)
[2022-02-18] MEDS: FLUoxetine 10 MG TAB PO (08:11)
[2022-02-18] MEDS: Losartan 50 MG TAB PO (08:12)
[2022-02-18] MEDS: LORazepam 2 MG/ML VIAL 1 MG IM (11:20)
[2022-02-18 11:52] VITALS: BP 115/63; PULSE 70; RESP 16; TEMP 36.7; O2SAT 97
--- NOTE | 2022-02-18 14:18 | W.PM.PROGNOT ---
Date of Service Date of service: 02/18/22 Time of Service: 14:18 Assessment and Plan Assessment and plan (1) Dementia with behavioral disturbance: Status: Acute Assessment and plan: He is now more, intermittently, alert and ambulatory. Suspecting that he is now at least close to his baseline because he has been getting his Sinamet regularly; now in a dissolvable tab so that he obtains it even if he is poorly responsive. Olanzapine dosing changed to 2.5mg in AM, at 1400 and at 1800. Olanzapine and other antipsychotics (typical and atypical) diminish the effect of Sinamet. He is on a 5x dosig of Sinamet and would need to d/w neurology whether to increase to compensate for any decreased effectivenss the Olanzapine is causing. (2) Parkinsons disease: Status: Chronic Assessment and plan: Continue Sinemet (doses adjusted to outpatient schedule and changed to oral dissolvable form). See above. Physical therapy and palliative care consulted. (3) Acute urinary retention: Status: Acute Assessment and plan: Continue increased dose of flomax. Flomax cannot be crushed or opened so he does not always accept it. Encourage nursing to administer in food. Monitor PVRs. PRN bladder scans. Increase volume to trigger straight cath to 500 mls. Patient is now urinating on his own mostly. (4) Pityriasis rosea: Status: Acute Assessment and plan: Going on for weeks to months, asymptomatic. Typically self-limited. Will not treat at this time. RPR pending. (5) BPH (benign prostatic hyperplasia): Assessment and plan: As above - continue Flomax to 0.8 mg (6) Discharge planning issues: Status: Acute Assessment and plan: DNR/DNI. Meeting with , daughter, palliative, care management and [place] social media marketing manager. The explained his home behaviors and how she cannot care for him. Efforts being made for disposition to a facility. (7) UTI (urinary tract infection): Status: Acute Assessment and plan: Fever and positive UA. Rocephin initiated. His desire, or not, for antibiotics is open to some interpretation. His Advanc Directives states to determine use or limitation of antibiotics when infection occurs, with comfort as goal. After discussion that palliative care had with , the antibiotic will be continued. (8) Fall: Status: Acute Assessment and plan: Pt impulsively stood up from chair; alarm sounded, but he had fallen by the time they arrived. Scalp laceration; repaired with selene. CT head and C-spine were negative. Subjective Subjective Patient reports: afebrile; denies nausea, vomiting or shortness of breath Interval history since last seen: Restless at times. Not combative Eating. . Exam Narrative Exam Narrative: General: Elderly male. Lying in bed. Early in AM. Converses very little. Keeps eyes closed most of the time. HEENT: eyes closed, dry mM Heart: RRR, no murmur Lungs: CTAB, Abdomen: soft, nondistended, no masses : no dutton, wearing depends Extremities: no edema psych: Fidgets but not angry or anxious appearing. skin: some bruising and one laceration that was present on admission. Now, s/p fall with fresh laceration of R posterior-lateral scalp. No active bleeding. [place] in place. Objective Last Vital Signs Temp 36.7 C 02/18/22 11:52 Pulse 70 02/18/22 11:52 Resp 16 02/18/22 11:52 BP 115/63 02/18/22 11:52 Pulse Ox 97 02/18/22 11:52 Laboratory Results - last 24 hr 02/17/22 02/18/22 14:30 05:57 Plt Count 219 Stl C.difficile Tox PCR Negative
--- NOTE | 2022-02-18 15:09 | NUR.NOTE ---
Pt's bladder scan was approximately 380, pt was grabbing at his penis and trying to get out of bed. I decided to straight cath him, 200ml out. Nursing Note:
[2022-02-18] MEDS: traZODone 50 MG TAB PO ×2 (18:18→22:50)
[2022-02-18 19:57] VITALS: BP 115/53; PULSE 71; RESP 17; TEMP 36.3; O2SAT 98
[2022-02-18] MEDS: Melatonin 3 MG TAB PO (20:49)
[2022-02-18] MEDS: Acetaminophen Solution 650 MG/20.3 ML CUP PO (21:03)
[2022-02-18] MEDS: Latanoprost 0.005% 2.5 ML BTL OU (22:48)
[2022-02-18 23:21] VITALS: BP 129/72; PULSE 64; RESP 17; TEMP 36.2; O2SAT 95
[2022-02-19 07:35] VITALS: BP 121/67; PULSE 69; RESP 16; TEMP 36.8; O2SAT 100
[2022-02-19] MEDS: Losartan 50 MG TAB PO (08:43)
[2022-02-19] MEDS: FLUoxetine 10 MG TAB PO (08:43)
[2022-02-19] MEDS: amLODIPine 5 MG TAB PO (08:43)
[2022-02-19] MEDS: Tamsulosin 0.4 MG CAPCR 0.8 MG PO (08:43)
[2022-02-19] MEDS: OLANZapine 2.5 MG TAB PO ×3 (08:43→18:23)
[2022-02-19] MEDS: Enoxaparin 40 MG/0.4 ML SYR SC (08:43)
--- NOTE | 2022-02-19 11:19 | W.PM.PROGNOT ---
Date of Service Date of service: 02/19/22 Time of Service: 12:52 Assessment and Plan Assessment and plan (1) Dementia with behavioral disturbance: Status: Acute Assessment and plan: He is now more, intermittently, alert and ambulatory. Suspecting that he is now at least close to his baseline because he has been getting his Sinamet regularly; now in a dissolvable tab so that he obtains it even if he is poorly responsive. Olanzapine: 2.5mg in AM, at 1400 and at 1800. Olanzapine and other antipsychotics (typical and atypical) diminish the effect of Sinamet. He is on a 5x dosig of Sinamet and would need to d/w neurology whether to increase to compensate for any decreased effectivenss the Olanzapine is causing. (2) Parkinsons disease: Status: Chronic Assessment and plan: Continue Sinemet (doses adjusted to outpatient schedule and changed to oral dissolvable form). See above. Physical therapy and palliative care consulted. (3) Acute urinary retention: Status: Acute Assessment and plan: Continue increased dose of flomax. Flomax cannot be crushed or opened so he does not always accept it. Encourage nursing to administer in food. Monitor PVRs. PRN bladder scans. Increase volume to trigger straight cath to 500 mls. Patient is now urinating on his own mostly. Wears a depends. (4) Pityriasis rosea: Status: Acute Assessment and plan: Going on for weeks to months, asymptomatic. Typically self-limited. Will not treat at this time. RPR pending. (5) BPH (benign prostatic hyperplasia): Assessment and plan: As above - continue Flomax to 0.8 mg (6) Discharge planning issues: Status: Acute Assessment and plan: DNR/DNI. Meeting with , daughter, palliative, care management and [facility]. The explained his home behaviors and how she cannot care for him. Efforts being made for disposition to a facility. (7) UTI (urinary tract infection): Status: Acute Assessment and plan: Fever and positive UA. Rocephin initiated. His desire, or not, for antibiotics is open to some interpretation. His Advanc Directives states to determine use or limitation of antibiotics when infection occurs, with comfort as goal. After discussion that palliative care had with , the antibiotic will be continued. (8) Fall: Status: Acute Assessment and plan: Pt impulsively stood up from chair; alarm sounded, but he had fallen by the time they arrived. Scalp laceration; repaired with selene. CT head and C-spine were negative. Subjective Subjective Patient reports: afebrile; denies nausea, vomiting or shortness of breath Interval history since last seen: Restless at times. Not combative Eating. . Exam Narrative Exam Narrative: General: Elderly male. Lying in bed. Early in AM. Converses very little. States he can't move. HEENT: opens eyes, sclera clear. Heart: RRR, no murmur Lungs: CTAB, Abdomen: soft, nondistended, no masses : no dutton, wearing depends Extremities: no edema psych:Flat facies. skin: some bruising and one laceration that was present on admission. Now, s/p fall with fresh laceration of R posterior-lateral scalp. No active bleeding. [place] in place. Objective Last Vital Signs Temp 36.8 C 02/19/22 07:35 Pulse 69 02/19/22 07:35 Resp 16 02/19/22 07:35 BP 121/67 02/19/22 07:35 Pulse Ox 100 02/19/22 07:35
[2022-02-19] MEDS: traZODone 50 MG TAB PO (18:23)
[2022-02-19 20:01] VITALS: BP 123/65; PULSE 74; RESP 17; TEMP 36.5; O2SAT 94
[2022-02-19] MEDS: Melatonin 3 MG TAB PO (21:17)
[2022-02-20 00:09] VITALS: BP 132/68; PULSE 65; RESP 17; TEMP 36.4; O2SAT 95
[2022-02-20 08:44] VITALS: BP 124/64; PULSE 63; RESP 16; TEMP 37.2; O2SAT 97
[2022-02-20] MEDS: Scopolamine 1 MG/3 DAYS PATCH TD (14:22)
[2022-02-20] MEDS: Enoxaparin 40 MG/0.4 ML SYR SC (14:30)
[2022-02-20] MEDS: amLODIPine 5 MG TAB PO (14:50)
[2022-02-20] MEDS: OLANZapine 2.5 MG TAB PO ×2 (14:50→18:28)
[2022-02-20] MEDS: Tamsulosin 0.4 MG CAPCR 0.8 MG PO (14:50)
[2022-02-20 16:29] VITALS: BP 101/50; PULSE 70; RESP 22; TEMP 36.7; O2SAT 94
--- NOTE | 2022-02-20 16:30 | W.PM.PROGNOT ---
Date of Service Date of service: 02/20/22 Time of Service: 16:30 Assessment and Plan Assessment and plan (1) Dementia: Status: Chronic Assessment and plan: Patient is currently on fluoxetine as prescribed by his psychiatric nurse practitioner Rekha Reilly through the [facility]. Olanzapine has been adjusted to 2.5 mg @ 08:30, 14:00 and 18:00 and this regimen seems to be working for him. He is on Trazadone 50 mg at 18:00 to help him go to sleep in the evening. he has a prn dose during the day as needed for agitation but has not needed this since 02/18. (2) Agitation: Status: Acute Assessment and plan: doing much better on his current regimen of olanzapine 2.5 mg tid an(08:30, 14:00 and 18:00) and Trazadone 50 mg q 6 pm (3) Parkinsons disease: Status: Chronic Assessment and plan: now on Sinemet 25/100 two tablets @06:00, 09:00, 12:00, 15:00, 21:00 and a prn dose at 03:00 (4) Acute urinary retention: Status: Acute Assessment and plan: Secondary to underlying BPH plus or minus anticholinergic effects of his antipsychotic medications and trazodone. No longer has dutton. Being straight cath prn. Currently on Flomax 0.8 mg daily (5) BPH (benign prostatic hyperplasia): Assessment and plan: as above (6) UTI (urinary tract infection): Status: Acute Assessment and plan: urine culture grew Enterococcus faecalis and gram negative dimple from 02/14. This was treated w/ Fosfomycin 3 gm on 02/15. I will check repeat UA to check for resolution. (7) Fall: Status: Acute Assessment and plan: Pt impulsively stood up from chair; alarm sounded, but he had fallen by the time they arrived. Scalp laceration; repaired with selene. CT head and C-spine were negative. Note this all occurred on 02/16 and he has had no sequelae and no further falls. (8) Discharge planning issues: Status: Acute Assessment and plan: Zach's dementia and his Parkinsonism are such that his feels that she can no longer care for him at home. She is seeking placement. has placed several ref[facility] to [facility] We are awaiting updates from these referrals. Patient is DNR/DNI status. Subjective Subjective Patient reports: no new complaints Interval history since last seen: Patient had a good day yesterday per his and daughter, actively engaging with them and throwing a ball of yarn to his daughter. Nursing reports no outbursts of behavior. Today he has been sleeping most of the day. Exam Narrative Exam Narrative: Patient was asleep when I entered the room and while I was talking w/ his and daughter, he awoke. He was cooperative although he was non-verbal to me. When I asked him if I could examine him, he nodded yes and cooperated. Lungs: clear Heart: RRRR Abdomen: soft, nondistended, nontender Extremities: he is a bit stiff in his ROM Objective Last Vital Signs Temp 36.7 C 02/20/22 16:29 Pulse 70 02/20/22 16:29 Resp 22 02/20/22 16:29 BP 101/50 L 02/20/22 16:29 Pulse Ox 94 02/20/22 16:29
[2022-02-20] MEDS: traZODone 50 MG TAB PO (18:28)
[2022-02-20] MEDS: Acetaminophen Solution 650 MG/20.3 ML CUP PO (19:53)
[2022-02-20] MEDS: Latanoprost 0.005% 2.5 ML BTL OU (19:54)
[2022-02-20] MEDS: Melatonin 3 MG TAB PO (19:54)
[2022-02-20 22:34] VITALS: BP 117/52; PULSE 73; RESP 20; TEMP 37.3; O2SAT 94
[2022-02-21 07:03] LABS: Platelet Count 237 10^3/uL (130-400)
[2022-02-21 08:26] VITALS: BP 118/64; PULSE 59; RESP 17; TEMP 36.4; O2SAT 96
[2022-02-21] MEDS: Enoxaparin 40 MG/0.4 ML SYR SC (09:50)
--- NOTE | 2022-02-21 09:57 | PT.INIE ---
Date of service: 02/21/22 Time of Service: 09:57 PT Notes Visit Reasons: Agitation Physical Therapy Inpatient Initial Evaluation Date: 02/21/2022 Referring Doctor: Merna Dewey MD PT Orders: PT CONSULT: Extended stay weakness. Reevaluate and treat for generalized weakness; deconditioning Precautions: Fall. Standard. Activity as tolerated.? Impaired safety awareness. Patient Profile/Admitting Diagnosis: Zach is a 76-year-old male with past medical history significant for Parkinson's disease and dementia admitted for management of acute agitation. Patient was discharged from services on 02/14/2022 due to decline in mental status and conversion to comfort measures. New referral was sent by hospitalist to address generalized weakness and functional mobility decline in anticipation of discharge to a residential facility whenever cleared medically. 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 Agitation due to dementia Basal cell carcinoma of right ear RIGHT EAR CANAL BCCa left upper chest 2018: excised BPH (benign prostatic hyperplasia) Constipation Difficult intubation Dysphagia Elevated PSA a. In April 2013.Glaucoma Hypertension Parkinsons disease Polyp of colon (09/20/10) Skin tear of elbow without complication Surgical History? Colonoscopy - MAC (~2010) 2000; NEG 2010; 2 POLYPSHistory of Surgical Procedure a. Colonoscopy for which he's had excision of a polyp. b. Perirectal abscess treated in the past. c. Tonsillectomy. d. Extraction of molars. Status post left hip replacement (07/31/14) Social History/Home Situation: Lives with in a private home with 4 steps to enter without rails.? There are 15 steps to the second floor of the house where his bedroom is however states that he no longer needs to go upstairs as they have made everything accessible for on the main floor.? Independent with FWW indoors. Equipment Owned/DME: FWW Subjective: Agreeable to PT consult. Objective: General Observation: In NAD.? Supine in bed eyes closed but was able to open eyes upon request.? Bradykinesic. Mental Status: Alert and able to follow single step commands.? Motor and verbal responses delayed. Pain: Denies ROM: Right Upper Extremity: ? Grossly WFL Left Upper Extremity:? Grossly WFL Right Lower Extremity: Grossly WFL Left Lower Extremity: Grossly WFL Strength: Right Upper Extremity: Grossly 4/5 Left Upper Extremity: Grossly 4/5 Right Lower Extremity: Grossly 4/5 Left Lower Extremity: Grossly 4/5 Bed Mobility/Transfers: Supine to sit standby assist Sit to stand with standby assist Stand to sit with standby assist Bed to reclining chair standby assist Gait: Instructed patient with level surface ambulation of 300 feet requiring contact guard assist to low back and minimal assist to direct walker and minimize path deviation.? Poor obstacle negotiation as reactions are delayed.? Breanne decreased.? Step height decreased. Mildly short of breath after activity but resolved with rest. Balance: Static Sitting: Good Dynamic Sitting: Fair Static Standing: Fair Dynamic Standing: Fair Special Tests: Mobility Limitations Standardized Measure [facility] AM-PAC 6 clicks Basic Mobility Inpatient Short Form: Raw Score: 22 ? CMS Score: 21% deficit? ? ? Informed Consent/Education:? Patient, and daughter were instructed in purpose of PT consult and plan of care and are agreeable to proceed with established PT POC to achieve personal goals. ASSESSMENT: Agitation now better managed in coordination with psychaitric nurse practictioner [facility]. New dosing and schedule for Sinemet intake has also helped with patient performance. Significantly increased response time. Much improved mobility performance compared to when patient was discharged from services on 02/14/2022. Easily engaged during PT session which is signifincat improvement to when he got admitted. Bradykinesic.? Delayed initiation of movement,? works a lot better if PT session is done within an hour of anti-PD medications intake as response time to instruction is a lot facilitated.? 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 Zach requires the assistance of 1 for safety as patient tends to be compulsive and has difficulty with movement cessation due to PD.? Patient presents with clinical signs and symptoms consistent with current/admitting diagnoses that have resulted to mobility limitations, gait instability, generalized weakness, and overall ADL decline as demonstrated by the following impairment level findings: 1.? Decreased strength to B UEs/LE major muscle groups 2.? Impaired sitting/standing balance 3.? Impaired activity tolerance 4.? Impaired safety awareness 5.? Delayed verbal and motor responses Impairments are contributing to the following functional limitations: 1.? Decline in bed mobility skills 2.? Decline in transfer skills 3.? Difficulty with ambulation without physical assistance 4.? Increased completion time for mobility ADL performance 5.? Increased risk for falls 6.? Difficulty with managing steps alone safely Patient is assessed as a 06633 moderate complexity based on the following: History: 76-year-old male with past medical history as indicated above Examination: Demonstrable impairment in strength, balance, and mobility level with underlying impairments and functional limitations as exhibited above as well as deficit score of 42% utilizing the [facility] Mobility Inpatient Short Form Presentation: Evolving Decision Makin moderate complexity Goals: Goals X1 week 1. Supine-Sit supervision 2. Sit-Supine supervision 3. Sit-Stand supervision 4. Stand-Sit supervision with FWW 5. Bed-Chair stand by assist with FWW 6. Chair-Bed supervision with FWW 7.?Supervision gait on level surface with use of FWW for at least 300 feet without report of pain nor dyspnea Plan of Care/Treatment Plan: 1-2x/day, 7 days/week x 1 week. Plan of care has been reviewed with the KNITTED GARMENT FINISHER providing the service under Physical Therapy direction. Initiate Physical Therapy intervention for pain management as needed, strengthening, bed mobility, transfers, gait, stairs, balance training, and use of assistive device. DISCHARGE RECOMMENDATIONS: [] ? Home with no services [] [] ? Home with services [] [] ? Home with outpatient PT [] [X] ? SNF for continued rehabilitation.? Patient will benefit from residential facility placement for continued skilled physical therapy services in order to progress mobility level, strength, and balance in preparation for a safe discharge to home. [X] ? [facility]it[facility].? Good LTC candidate as is no longer able to care for patient. [] ? SNF versus LTC based on ability to participate and progress [] TREATMENT CODE/TIME: 36265 x 28 minutes beginning at 9:57 AM. Thank you for the opportunity to participate in the care of this patient. Adali Delvalle PT, DPT, CLT [facility] [place], [place]
--- NOTE | 2022-02-21 12:21 | PDOC.CMPRO ---
- If Service Date Differs Date of service: 02/21/22 Time of Service: 12:21 Care Management Progress Note S/O: Zach remains inpatient. Updated clinicals sent to [facility] facilities. CM continues to follow. A: Dominic is a 76 year old man admitted on 02/05/22 with agitation P: Dominic will likely be transferred to a correction facility for prison care. Referrals have been sent to 10 [place]-contracted facilities [place]. No bed offers have been received yet. CM called the facilities who have not responded and requested a follow up phone call. CM will continue to support Zach and assess for discharge planning needs. Remaining [facility] connected facilities that have not declined referral: [facility]
--- NOTE | 2022-02-21 13:38 | PT.INTREAT ---
Date of service: 02/21/22 Time of Service: 13:38 PT Notes Visit Reasons: Agitation Physical Therapy Inpatient Treatment Note Date: 02/21/2022 Precautions: Fall. Standard. Activity as tolerated.? Impaired safety awareness. Subjective: Agreeable to PT session. Objective: General Observation: In NAD.? Awake. and daughter present in the majority of the session. Mental Status: Alert and able to follow single step commands.? Pain: Denies Gait: Instructed patient with level surface ambulation of 450 feet + 100 feet requiring contact guard assist to low back and minimal assist to direct walker and minimize path deviation.? Impaired obstacle negotiation as reactions are delayed and left visual acuity is decreased from glaucoma. Step height decreased. Mildly short of breath after activity but resolved with rest. THERA EX: NuStep x 3 minutes with resistance (load) of 5 with report of fatigue. UE range of motion exercises throwing and catching ball for 3 minutes with PT, , and daughter Laura. Balance: Static Sitting: Good Dynamic Sitting: Fair Static Standing: Fair Dynamic Standing: Fair ASSESSMENT: Much improved mentation this afternoon. Reflexes better with ball catching/throwing. Agitation now better managed in coordination with [facility] nurse practictioner [facility] the [facility].? New dosing and schedule for Sinemet intake has also helped with patient performance.? Significantly increased response time.? Much improved mobility performance compared to when patient was discharged from services on 02/14/2022. Easily engaged during PT session which is signifincat improvement to when he got admitted.? Works a lot better if PT session is done within an hour of anti-PD medications intake as response time to instruction is a lot facilitated.? 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 Zach requires the assistance of 1 for safety as patient tends to be compulsive and has difficulty with movement cessation due to PD.? DISCHARGE RECOMMENDATIONS: [] ? Home with no services [] [] ? Home with services [] [] ? Home with outpatient PT [] [X] ? SNF for continued rehabilitation.? Patient will benefit from custodial facility placement for continued skilled physical therapy services in order to progress mobility level, strength, and balance in preparation for a safe discharge to home. [X] ? Nursing Home Care.? Good LTC candidate as is no longer able to care for patient. [] ? SNF versus LTC based on ability to participate and progress [] TREATMENT CODE/TIME: 94725 x 20 minutes, 15048 x 10 minutes beginning at 13:38 PM.
--- NOTE | 2022-02-21 15:24 | PGE_ITS ---
Date of Service Date of service: 02/21/22 Time of Service: 15:24 Assessment and Plan Assessment and plan (1) Dementia: Status: Chronic Assessment and plan: Patient is currently on fluoxetine as prescribed by his psychiatric nurse practitioner Rekha Reilly through the [facility]. Olanzapine has been adjusted to 2.5 mg @ 08:30, 14:00 and 18:00 and this regimen seems to be working for him. He is on Trazadone 50 mg at 18:00 to help him go to sleep in the evening. he has a prn dose during the day as needed for agitation but has not needed this since 02/18. (2) Agitation: Status: Acute Assessment and plan: doing much better on his current regimen of olanzapine 2.5 mg tid an(08:30, 14:00 and 18:00) and Trazadone 50 mg q 6 pm (3) Parkinsons disease: Status: Chronic Assessment and plan: now on Sinemet 25/100 two tablets @06:00, 09:00, 12:00, 15:00, 21:00 and a prn dose at 03:00 (4) Acute urinary retention: Status: Acute Assessment and plan: Secondary to underlying BPH plus or minus anticholinergic effects of his antipsychotic medications and trazodone. No longer has dutton. Being straight cath prn. Currently on Flomax 0.8 mg daily. I will discuss w/ urology any further recommendations. (5) BPH (benign prostatic hyperplasia): Assessment and plan: as above (6) UTI (urinary tract infection): Status: Acute Assessment and plan: urine culture grew Enterococcus faecalis and gram negative dimple from 02/14. This was treated w/ Fosfomycin 3 gm on 02/15. I will check repeat UA to check for resolution. Patient has external dutton to try to obtain urine specimen. I recommended that nursing obtain a straight cath specimen. (7) Fall: Status: Acute Assessment and plan: Pt impulsively stood up from chair; alarm sounded, but he had fallen by the time they arrived. Scalp laceration; repaired with selene. CT head and C-spine were negative. Note this all occurred on 02/16 and he has had no sequelae and no further falls. (8) Discharge planning issues: Status: Acute Assessment and plan: Zach's dementia and his Parkinsonism are such that his feels that she can no longer care for him at home. She is seeking placement. has placed several [facility] We are awaiting updates from these referrals. Patient is DNR/DNI status. Subjective Subjective Patient reports: no new complaints Interval history since last seen: Patient was seen this afternoon while his and daughter were there. He was sleeping throughout most of the visit but did briefly open his eyes and look at me. His and daughter report that he was worn down from yesterday's activities. His inquired about consulting with urology regarding his urinary retention. Explained to her that short of placing an indwelling Dutton catheter or suprapubic catheter there were doing everything we can by maximizing his Flomax however he did indicate that I would discuss his case with urology. Exam Narrative Exam Narrative: Patient initially was somnolent when I came in the room but then awakened open his eyes and basically had parkinsonian stare at the ceiling. When asked if he had any discomfort he nodded his head no. Lungs are mostly clear he did have little bit of moist congestion left lung base that cleared with deep breathing and coughing Heart is regular rate and rhythm Abdomen soft nondistended Extremities seem to be less stiff less rigid today more pliant with passive range of motion. No peripheral edema Objective Last Vital Signs Temp 36.4 C L 02/21/22 08:26 Pulse 59 L 02/21/22 08:26 Resp 17 02/21/22 08:26 BP 118/64 02/21/22 08:26 Pulse Ox 96 02/21/22 08:26 Laboratory Results - last 24 hr 02/21/22 06:25 Plt Count 237
[2022-02-21 15:31] VITALS: BP 129/65; PULSE 67; RESP 22; TEMP 36.5; O2SAT 97
[2022-02-21] MEDS: traZODone 50 MG TAB PO (17:13)
[2022-02-21] MEDS: OLANZapine 2.5 MG TAB PO (17:14)
[2022-02-21 18:13] VITALS: BP 130/65; PULSE 78; RESP 39; TEMP 37; O2SAT 93
--- NOTE | 2022-02-21 18:28 | NUR.NOTE ---
Nursing Note: Pt c/o I cant breathe RR 30-35, SAT's 92%, placed on 3L NC, afebrile, BP135/70, HR 72. LS clear, Acapella used x10, pt states it helped but c/o inabilty to catch breath MD notified, no new orders at this time.
[2022-02-21 19:38] VITALS: BP 134/64; PULSE 71; RESP 20; TEMP 37.1; O2SAT 95
[2022-02-21] MEDS: Melatonin 3 MG TAB PO (19:42)
[2022-02-21] MEDS: Acetaminophen Solution 650 MG/20.3 ML CUP PO (19:43)
[2022-02-21] MEDS: Latanoprost 0.005% 2.5 ML BTL OU (19:43)
[2022-02-21] MEDS: Lidocaine 2% Jelly 11 ML SYR UR (22:45)
[2022-02-21 23:10] VITALS: BP 101/61; PULSE 60; RESP 22; TEMP 36.7; O2SAT 94
[2022-02-21 23:17] LABS: Bilirubin Negative (Negative); Blood Negative (Negative); Clarity Clear (Clear); Glucose Negative (Negative); Ketones Trace mg/dL (Negative); Leukocyte Esterase Negative (Negative); Nitrite Negative (Negative); Specific Gravity >= 1.030 (1.005-1.025)
[2022-02-22] VITALS (7 sets, daily range): BP systolic 106–137; BP diastolic 57–71; PULSE 58–71; RESP 1–22; TEMP 36.5–36.7; O2SAT 92–97
[2022-02-22] MEDS: Enoxaparin 40 MG/0.4 ML SYR SC (09:19)
[2022-02-22] MEDS: FLUoxetine 10 MG TAB PO (09:19)
[2022-02-22] MEDS: amLODIPine 5 MG TAB PO (09:20)
[2022-02-22] MEDS: Losartan 50 MG TAB PO (09:20)
[2022-02-22] MEDS: OLANZapine 2.5 MG TAB PO ×3 (09:20→18:02)
[2022-02-22] MEDS: Tamsulosin 0.4 MG CAPCR 0.8 MG PO (09:21)
--- NOTE | 2022-02-22 12:41 | PT.INTREAT ---
Date of service: 02/22/22 Time of Service: 11:26 PT Notes Visit Reasons: Agitation Inpatient Physical Therapy Treatment Note [facility] Date: 02/22/2022 PRECAUTIONS: Activity as tolerated, Fall, PD SUBJECTIVE: OBJECTIVE: PAIN: No c/o pain BED MOBILITY/TRANSFERS Supine-sit: I Sit-stand: Min A Stand-sit: CGA GAIT Assistive Device: FWW Weight bearing: Full Assist: CGA Distance: 450' +150' Deviation: Fast pacing, minimal spatial awareness THEREX: Patient was instructed in a global strengthening program, to include: NuStep biking x5 minutes with SBA Biceps curls with 3# dumbbells x20 Punchouts with 3# dumbbells x10 Shoulder abduction with 3# dumbbells x20 Step-ups on 6 step with B UE support x10 each ASSESSMENT: Patient expressed fatigue following PT session. Patient requires cueing for navigation with gait training with FWW and cueing to look ahead. PLAN: Continue with strengthening and conditioning efforts, as tolerated. TREATMENT CODE/TIME: 26 minutes; 81192, [id number] (11:26)
--- NOTE | 2022-02-22 14:33 | PGE_ITS ---
Date of Service Date of service: 02/22/22 Time of Service: 14:33 Assessment and Plan Assessment and plan (1) Parkinsons disease: Status: Chronic Assessment and plan: Continue current Sinemet regimen as recommended by Dr. Smith as well as neurology from [facility] movement clinic (2) Lewy body Parkinson disease: Status: Acute Assessment and plan: Continue current antipsychotic medications with Olanzapine 2.5 mg in the morning and at 1418 100 along with Desyrel 50 mg daily at 1800 as well as Desyrel 50 mg at night as needed for agitation. Continue fluoxetine 10 mg daily. (3) Dementia with behavioral disturbance: Status: Acute (4) Acute urinary retention: Status: Chronic Assessment and plan: Has chronic urinary retention that is been exacerbated lately by his antipsychotic medications. He has underlying BPH currently on Flomax 0.8 mg daily. Continue to monitor for high urinary residuals and straight cath as needed residual greater than 400 mL. Case discussed with Wilma Gomez nurse practitioner from the urology clinic. (5) Dysphagia: Assessment and plan: Patient remains on a regular diet with pur?ed and moderately thickened liquids. Nursing staff and family have been educated by speech therapy in the past regarding proper feeding techniques including feeding him upright in a chair with head tucked chin turning and double swallowing and alternating solids and liquids. Patient does have trouble controlling his secretions and is on a Transderm scopolamine patch which seems to help. His lungs sound a bit rhonchorous today and therefore I have added scheduled DuoNeb treatments. (6) Discharge planning issues: Status: Acute Assessment and plan: Care management is working with the family on placement. Referrals been placed to various area detention facilities that are acceptable to the [facility]. If were unable to get him placed then we should talk with the [facility] about transferring him there. Subjective Subjective Interval history since last seen: Patient with no acute complaints this afternoon. Does have a bit of a moist cough. No problems with agitation or behavioral issues today. states he was up in a chair for quite a while and just recently was put back to bed after lunch. Zach has required straight catheterization for high bladder residuals. I discussed his urinary retention situation with his who seems to be content with the explanations given to her by Wilma Gomez from urology clinic. We have limited options in treating his urinary retention as he does require number psychiatric medications to control his behavioral issues and he is on Parkinson medicine medicines and parkinsonism itself can lead to bladder retention. Other options beside straight cath at home as needed for high residuals would be to perform a suprapubic catheter. This would be a less than desirable option because of his behavioral issues he may be prone to pulling out his catheter. For now his does not want to pursue suprapubic catheter placement. Exam Narrative Exam Narrative: Zach is awake and alert and answers me appropriately. He denies any discomfort or dyspnea. He was cooperative with simple commands. He had good range of motion with his arms reaching up in the air when I asked him to and putting his arms down when I asked him to. Lungs with scattered expiratory wheezes or rhonchi Heart is regular rate and rhythm Abdomen soft and nontender Lower extremities without edema with normal range of motion and fairly good strength. Objective Last Vital Signs Temp 36.5 C 02/22/22 08:13 Pulse 59 L 02/22/22 08:13 Resp 16 02/22/22 08:13 BP 130/71 02/22/22 08:13 Pulse Ox 97 02/22/22 08:13 Laboratory Results - last 24 hr 02/21/22 23:00 Urine Color Philomena Urine Clarity Clear Urine pH 6.0 Ur Specific [place] >= 1.030 H Urine Protein Negative Urine Ketones Trace H Urine Blood Negative Urine Nitrite Negative Urine Bilirubin Negative Urine Urobilinogen 1.0 H Ur Leukocyte Esterase Negative Urine Glucose Negative
[2022-02-22] MEDS: Albuterol/Ipratropium 3 ML UPD VIAL UPD ×2 (16:14→19:46)
--- NOTE | 2022-02-22 17:20 | CMPROGNOTE_ITS ---
- If Service Date Differs Date of service: 02/22/22 Time of Service: 17:20 Care Management Progress Note S/O: Zach remains inpatient. Updated clinicals sent to [place] contracted facilities. CM consulted ANNIA Mott at [place] who agreed to respond with recommendations for [facility] funding, as Dominic appears stable on medications at this time, and will need to transition to swing bed. PT reports Dominic is able to be skilled. CM continues to follow. 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 Referrals have been sent to 10 [place]-contracted facilities in [place] and [place]. No bed offers have been received yet. CM called the facilities who have not responded and requested a follow up phone call. CM will continue to support Zach and assess for discharge planning needs. Remaining [place] connected facilities that have not declined referral: [facility]
--- NOTE | 2022-02-22 17:20 | PDOC.CMPRO ---
- If Service Date Differs Date of service: 02/22/22 Time of Service: 17:20 Care Management Progress Note S/O: Zach remains inpatient. Updated clinicals sent to [place] contracted facilities. CM consulted ANNIA Mott at [place] who agreed to respond with recommendations for [facility] funding, as Dominic appears stable on medications at this time, and will need to transition to swing bed. PT reports Dominic is able to be skilled. CM continues to follow. 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 Referrals have been sent to 10 [place]-contracted facilities in [place] and [place]. No bed offers have been received yet. CM called the facilities who have not responded and requested a follow up phone call. CM will continue to support Zach and assess for discharge planning needs. Remaining [place] connected facilities that have not declined referral: [facility]
[2022-02-22] MEDS: traZODone 50 MG TAB PO ×2 (18:02→19:49)
[2022-02-22] MEDS: Acetaminophen Solution 650 MG/20.3 ML CUP PO (19:27)
[2022-02-22] MEDS: Melatonin 3 MG TAB PO (19:28)
[2022-02-22] MEDS: Latanoprost 0.005% 2.5 ML BTL OU (21:08)
[2022-02-23 07:26] VITALS: BP 148/73; PULSE 61; RESP 16; TEMP 36.9; O2SAT 94
[2022-02-23 07:47] VITALS: RESP 1; O2SAT 94
[2022-02-23] MEDS: Albuterol/Ipratropium 3 ML UPD VIAL UPD ×2 (07:47→11:34)
[2022-02-23 07:50] VITALS: RESP 1
[2022-02-23] MEDS: Acetaminophen Solution 650 MG/20.3 ML CUP PO (08:09)
[2022-02-23] MEDS: amLODIPine 5 MG TAB PO (08:09)
[2022-02-23] MEDS: Enoxaparin 40 MG/0.4 ML SYR SC (08:10)
[2022-02-23] MEDS: FLUoxetine 10 MG TAB PO (08:11)
[2022-02-23] MEDS: Losartan 50 MG TAB PO (08:11)
[2022-02-23] MEDS: OLANZapine 2.5 MG TAB PO (08:11)
[2022-02-23] MEDS: Tamsulosin 0.4 MG CAPCR 0.8 MG PO (08:11)
--- NOTE | 2022-02-23 08:41 | CMPROGNOTE_ITS ---
- If Service Date Differs Date of service: 02/23/22 Time of Service: 08:41 Care Management Progress Note S/O: Zach remains inpatient. Updated clinicals sent to [place] contracted facilities. CM consulted ANNIA Mott at [place] who agreed to respond with recommendations for [facility] funding, as Dominic appears stable on medications at this time, and will need to transition to swing bed. PT reports Dominic is able to be skilled. CM continues to follow. CM provided contact information and case review for Dr. Yates who outreached to [facility] for acute transfer to seek ongoing support through Neurology and Psychiatry. A: Dominic is a 76 year old man admitted on 02/05/22 with agitation P: Dominic will likely be transferred to a [facility] facility for retirement care. Referrals have been sent to 10 [place]-contracted facilities in [place] and [place]. No bed offers have been received yet. CM called the facilities who have not responded and requested a follow up phone call. CM will continue to support Zach and assess for discharge planning needs. Remaining [place] connected facilities that have not declined referral: [facility]
--- NOTE | 2022-02-23 08:41 | PDOC.CMPRO ---
- If Service Date Differs Date of service: 02/23/22 Time of Service: 08:41 Care Management Progress Note S/O: Zach remains inpatient. Updated clinicals sent to [place] contracted facilities. CM consulted ANNIA Mott at [place] who agreed to respond with recommendations for [facility] funding, as Dominic appears stable on medications at this time, and will need to transition to swing bed. PT reports Dominic is able to be skilled. CM continues to follow. CM provided contact information and case review for Dr. Yates who outreached to [facility] for acute transfer to seek ongoing support through Neurology and Psychiatry. A: Dominic is a 76 year old man admitted on 02/05/22 with agitation P: Dominic will likely be transferred to a senior living facility for halfway care. Referrals have been sent to 10 [place]-contracted facilities in [place] and [place]. No bed offers have been received yet. CM called the facilities who have not responded and requested a follow up phone call. CM will continue to support Zach and assess for discharge planning needs. Remaining [place] connected facilities that have not declined referral: [facility]
--- NOTE | 2022-02-23 10:38 | W.PM.DS.N ---
Date of service: 02/23/22 Time of Service: 10:41 DS: Diagnosis Discharge Diagnosis (1) Parkinsons disease: Start date: 02/23/22 Start time: 10:41 Status: Chronic Asessment and Plan: Continue current Sinemet regimen as recommended by Dr. Smith as well as neurology from [facility] movement clinic He is going in to SB status level 1 while awaiting home vs placement as he is no longer requiring acute care management (2) Lewy body Parkinson disease: Start date: 02/23/22 Start time: 10:42 Status: Acute Asessment and Plan: Continue current antipsychotic medications with Olanzapine 2.5 mg in the morning and at 1418 100 along with Desyrel 50 mg daily at 1800 as well as Desyrel 50 mg at night as needed for agitation.? Continue fluoxetine 10 mg daily. Sublingal ativan PRN (3) Dementia with behavioral disturbance: Start date: 02/23/22 Start time: 10:43 Status: Acute Asessment and Plan: He has no had any outbreaks or issues with behaviour. (4) Acute urinary retention: Start date: 02/23/22 Start time: 10:47 Status: Chronic Asessment and Plan: Has chronic urinary retention that is been exacerbated lately by his antipsychotic medications.? He has underlying BPH currently on Flomax 0.8 mg daily. Will continue to monitor for high urinary residuals and straight cath as needed residual greater than 400 mL while on SB status.? Case discussed with Wilma Gomez nurse practitioner from the urology clinic. (5) Dysphagia: Start date: 02/23/22 Start time: 10:50 Asessment and Plan: Patient remains on a regular diet with pur?ed and moderately thickened liquids.? Nursing staff and family have been educated by speech therapy in the past regarding proper feeding techniques including feeding him upright in a chair with head tucked chin turning and double swallowing and alternating solids and liquids.? Patient does have trouble controlling his secretions and is on a Transderm scopolamine patch which seems to help.?However, his does not help, she does not follow the standards explained to her and therefore patient is high risk for aspiration, was having rhochi lung sounds after being fed by yesterday. Will continue duonebs to prevent issues. Discharge Plan Disposition Patient Disposition: [facility] SWING BED LEVEL 1 Condition: Stable Discharge Details Reason For Visit: Agitation Admit Date/Time: 02/05/22 21:19 Admit Provider: Bradly Randall Attending Provider: Bradly Randall Primary Care Provider: Raad Strauss Hospital Course Hospital Course: 76 male with parkinson's and dementia, had ongoing issues with agitation and aggressive behaviors, multiple visits for same was brought in by on 02/05 due to agitation and he was physically aggressive towards her to the point where she felt unsafe. Laboratory workup unrevealing, and declined imaging. Due to unsafe nature of circumstance he was admitted for further management. Over course of stay he did have bouts of aggressive behaviour requiring medications changes and administration of IV antixyolitics. He fell on 02/16, sitting in chair, alarm on, nursing tried to get to him, he hit his head requiring 2 stable, CT for head and neck negative. Neuro checks normal. ?No problems with agitation or behavioral issues yesterday.? states he was up in a chair for quite a while yesterday. Zach has required straight catheterization for high bladder residuals. Urinary retention situation was with his who seems to be content with the explanations given to her by Wilma Gomez from urology clinic.? We have limited options in treating his urinary retention as he does require number psychiatric medications to control his behavioral issues and he is on Parkinson medicine medicines and parkinsonism itself can lead to bladder retention. Other options beside straight cath at home as needed for high residuals would be to perform a suprapubic catheter.? This would be a less than desirable option because of his behavioral issues he may be prone to pulling out his catheter.? For now his does not want to pursue suprapubic catheter placement. Patient has been working with PT/OT. Waiting placement therefore he is going in to SB status until placement Home Meds and New Rx's Prescriptions: No Action tamsulosin 0.4 mg capsule 0.4 mg PO DAILY 0RF carboxymethylcellulose sodium 0.5 % drops 1 drp ophthalmic (eye) 4-6XD PRN0RF latanoprost 0.005 % drops 1 drp ophthalmic (eye) QPM 0RF Label Comments: both eyes per the pt's glycopyrrolate 1 mg tablet 1 mg PO TID 0RF multivitamin [One Daily] 1 EACH tablet 1 tab PO DAILY 0RF amlodipine [Norvasc] 5 MG tablet 1 tab PO QAM Qty: 90 4RF simvastatin 20 MG tablet 1 tab PO DAILY Qty: 90 4RF carbidopa-levodopa 25-100 mg tablet 2 tab PO 5X/DAY 0RF Rx Instructions: Take 2 tablets by mouth 6am and take 2 tabs 9am and take 2 tabs 12pm and 2 tabs 3pm and 2 tabs 6pm and 2 tabs 3am as needed per [facility] Neurology. polyethylene glycol 3350 [Miralax] 17 gram/dose powder 17 gm PO DAILY Qty: 510 8RF losartan 50 mg tablet 50 mg PO DAILY Qty: 90 3RF megestrol 400 mg/10 mL (40 mg/mL) Suspension 800 mg PO DAILY Qty: 240 0RF carbidopa-levodopa 50-200 mg Tablet Extended Release 1 tab PO HS Qty: 7 0RF docusate sodium [Colace] 100 mg Capsule 100 mg PO TID PRN PRNQty: 21 0RF quetiapine 25 mg Tablet 25 mg PO DAILY@2000 Qty: 7 0RF quetiapine 25 mg Tablet 12.5 mg PO DAILY PRN PRNQty: 10 0RF ondansetron 4 mg Tablet,Disintegrating 4 mg PO Q6H PRN PRNQty: 10 0RF Bio-K plus 50 billion cell capsule,delayed release(DR/EC) 1 cap PO DAILY Qty: 7 0RF carbidopa-levodopa 25-100 mg tablet 2 tab PO HS PRN PRN0RF spironolactone 25 mg Tablet 25 mg PO DAILY 0RF dorzolamide-timolol 22.3-6.8 mg/mL Drops 1 drp ophthalmic (eye) BID 0RF Label Comments: both eyes per pt's polyethylene glycol 3350 17 gram Powder In Packet 17 g PO DAILY PRN PRN (Reason: Constipation) Qty: 0 0RF olanzapine 2.5 mg tablet 2.5 mg PO HS 0RF Label Comments: TAKE ONE TABLET BY MOUTH AT BEDTIME FOR 1 WEEK THEN TAKE TWO TABLETS BY MOUTH AT BEDTIME Rx Instructions: Take 1 at bedtime for a week then 2 at bedtime following. trazodone 50 mg Tablet 50 mg PO TID 0RF Rx Instructions: Take one half tab by mouth twice daily as needed and take one half tablet at bedtime as needed for insomnia. fluoxetine 10 mg Capsule 10 mg PO DAILY 0RF aspirin 325 mg tablet 81 mg PO DAILY 0RF Discharge Instructions Additional Instructions: Transfer to SB Stand Alone Forms: Nursing Discharge Form Activity:: Activity as Tolerated Equipment/Supplies:: No Equipment Needed Diet:: As Tolerated Discharge Orders Discharge Orders: Discharge Order (Routine); Ordered 02/23/22 Ordered By: Minnie Goodrich DS: Summary Time Spent with Patient providing and/or coordinating discharge services: Greater than 30 minutes Status at Discharge Functional status at discharge: uses cane/walker Overall status at discharge: patient is back to baseline Mental Status: other Speech and Movement: other Mood: other Affect: other Exam Narrative Exam Narrative: Zach is awake and alert and answers appropriately. He denies any discomfort or dyspnea. He was cooperative with simple commands. He had good range of motion . C Heart is regular rate and rhythm Abdomen soft and nontender Lower extremities without edema with normal range of motion and fairly good strength. Psych Mental Status: other Speech and Movement: other Mood: other Affect: other DS: Data Vitals/I&O Vitals and I&O: Vital Signs Temperature 36.9 C 02/23/22 07:26 Temperature Source Tympanic 02/23/22 07:26 Pulse 61 02/23/22 07:26 Pulse Rhythm Regular 02/23/22 03:26 Pulse 79 02/05/22 21:46 Respiratory Rate 16 02/23/22 07:26 Respiratory Effort 02/23/22 03:26 Respiratory Depth Normal 02/23/22 03:26 Respiratory Pattern Normal 02/23/22 03:26 Blood Pressure 148/73 H 02/23/22 07:26 Blood Pressure Mean 86 02/05/22 21:46 Blood Pressure Position Supine 02/05/22 18:57 Pulse Oximetry 94 02/23/22 07:47 Oxygen Delivery Method Room Air 02/23/22 07:47 Oxygen Flow Rate 0 02/23/22 07:47 Pain Level 3 02/23/22 08:09 Comment 02/22/22 23:53 Intake & Output 02/22/22 02/22/22 02/23/22 11:59 23:59 11:59 Intake Total 200 / 200 Output Total 850 / 850 0 / 850 700 / 700 Balance -850 / -850 0 / -850 -500 / -500 Intake: Oral 200 / 200 Output: Urine 850 / 850 0 / 850 400 / 400 Post Void Residual 300 / 300 Other: Urine Color Light Philomena Yellow Urine Appearance Clear Clear Clear Urine Odor Strong Normal Comment pT was incontinent, just a very small amount. dry at this time unmeasured output Pt incontinent Stool Size Small Smear Stool Characteristics Soft Soft Brown Black Voiding Methods Diaper Incontinent Data Completed and Pending Completed studies during hospitalization [Text1]: FINDINGS: Lungs:? Chronic interstitial prominence, grossly stable.? Question mild retrocardiac opacity. Pleural spaces: No pleural effusion. No pneumothorax. Heart/Mediastinum: No cardiomegaly. Bones/joints:? Grossly stable. IMPRESSION: Question mild retrocardiac opacity which may represent subsegmental atelectasis versus developing pneumonia MEDIASTINUM: Normal.? HEART: Normal. PULMONARY VASCULATURE: Normal. LUNGS: There is a question of an infiltrate in the left lower lobe medially.? Increased lung markings are also suggested in the right lung base. ? PLEURAL SPACE: No pleural effusion or pneumothorax. BONE:Within normal limits for the patient's age. Stable finding seen in the distal left clavicle. OTHER FINDINGS:Normal.? IMPRESSION: Question of a basilar infiltrate, left greater than right.? Please correlate clinically.? FINDINGS: Three views were obtained.? Note is made of chondrocalcinosis of the knee.? There is mild narrowing of the cartilaginous joint spaces of all 3 joints of the knee.? No gross joint effusion seen on the lateral view.? There is mild marginal osteophyte formation of all 3 joints of the knee.? No other significant bony abnormality seen. IMPRESSION: Mild tricompartment degenerative changes as described above.? No evidence of acute fracture.? FINDINGS: Three views were obtained.? There is marked narrowing of medial tibiofemoral cartilaginous joint space presumably on a degenerative basis.? Moderate marginal osteophytes are noted at the medial tibiofemoral joint and at the patellofemoral joint. There is no evidence of acute fracture or dislocation. IMPRESSION: DJD, no evidence of acute injury. IMPRESSION: No evidence of acute cervical spine injury. No evidence of acute intracranial injury. 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 (Acute) [place] [employer] vet PTSD (post-traumatic stress disorder) (Acute) Lewy body Parkinson disease (Acute) Caregiver stress (Acute) Pityriasis rosea (Acute) DNI (do not intubate) (Acute) DNR (do not resuscitate) (Acute) Physician orders for life-sustaining treatment (POLST) form indicates patient wish for [id number] status (Acute) Goals of care, counseling/discussion (Acute) Dementia with behavioral disturbance (Acute) Discharge planning issues (Acute) Acute urinary retention (Chronic) Dementia (Chronic) Agitation (Acute) Subcutaneous emphysema due to trauma (Acute) Pain in left hip (Chronic) Hearing decreased (Chronic) Elevated lipids (Chronic) Abnormal gait (Chronic 11/19/17) Glaucoma (Chronic) decreased vision left Hyperlipidemia (Chronic) Raised prostate specific antigen (Chronic 03/05/13) 6.82 06/19/16, 8.29 05/19/15 [facility] Sensorineural hearing loss of both ears (Acute) Foot pain (Acute) Postoperative anemia (Acute) Anemia (Chronic) Conductive hearing loss, external ear (Acute) Medical History Agitation due to dementia Basal cell carcinoma of right ear RIGHT EAR CANAL BCCa left upper chest 2018: excised BPH (benign prostatic hyperplasia) Constipation Difficult intubation Dysphagia Elevated PSA a. In April 2013. Fx femur shaft-closed left ORIF Glaucoma Hypertension Swapna-prosthetic fracture around prosthetic hip Polyp of colon (09/20/10) Skin tear of elbow without complication Surgical History Colonoscopy - MAC (~2010) 2000; NEG 2010; 2 POLYPS History of Surgical Procedure a. Colonoscopy for which he's had excision of a polyp. b. Perirectal abscess treated in the past. c. Tonsillectomy. d. Extraction of molars. Status post left hip replacement (07/31/14) Family History Mother Diabetes Personal history of malignant neoplasm breast Father Heart disease Sister No problems noted. Brother No problems noted. Brother No problems noted. Social History Smoking/Tobacco Use Status: Never Second Hand Exposure: No Smoking risk assessment performed?: Yes Alcohol Intake: never Drug use: Never Substance use type: does not use Household members: spouse and children Housing: house Communication Needs: Hard of Hearing and Corrective Lenses Do you need help understanding health information?: Often Pets and animals: Yes Pets and animals: dog(s) Sexually active: No Do you think of yourself as: straight/heterosexual Current gender identity: male What is your relationship status?: How often do you talk on the phone with friends or family?: once per week How often do you attend scientologist or alevism services?: 1-3 times per year Do you belong to any clubs or organized social groups?: no Panel score (0-1 are the most socially isolated patients): 1 What type of physical activity do you participate in: other Details: boxing Frequency: 1-2 times per week Kenna/Nondenominational: Restorationism Seatbelt use: always Helmet use: No Drive intox or ride w/intox package delivery driver: No Do you feel safe at home: Yes Do you feel safe in your relationship?: Yes
[2022-02-23 11:34] VITALS: RESP 1
[2022-02-23] MEDS: Scopolamine 1 MG/3 DAYS PATCH TD (12:00)
[2022-02-23] MEDS: Refresh PLUS Eye Drops 0.4ml 1 EACH OU (12:04)
--- NOTE | 2022-02-24 13:27 | INDS_ITS ---
Date of service: 02/24/22 Time of Service: 13:27 PT Notes Visit Reasons: Agitation Physical Therapy Inpatient Discharge Summary Date: 02/24/2022 Dates of Service: 02/21/2022 through 02/22/2022 This is a clinical summary of care provided for the duration of dates listed above. No charge was made in the completion of this documentation. Referring Doctor: Merna Dewey MD PT Orders: PT CONSULT: Extended stay weakness.? Reevaluate and treat for generalized weakness; deconditioning Precautions: Fall. Standard. Activity as tolerated.? Impaired safety awareness. Patient Profile/Admitting Diagnosis: Zahc is a 76-year-old male with past medical history significant for Parkinson's disease and dementia admitted for management of acute agitation. Patient was discharged from services on 02/14/2022 due to decline in mental status and conversion to comfort measures.? New referral was sent by hospitalist to address generalized weakness and functional mobility decline in anticipation of discharge to a prison facility whenever cleared medically. ? 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 Agitation due to dementia Basal cell carcinoma of right ear RIGHT EAR CANAL BCCa left upper chest 2018: excised BPH (benign prostatic hyperplasia) Constipation Difficult intubation Dysphagia Elevated PSA a. In April 2013.Glaucoma Hypertension Parkinsons disease Polyp of colon (09/20/10) Skin tear of elbow without complication Surgical History? Colonoscopy - MAC (~2010) 2000; NEG 2010; 2 POLYPSHistory of Surgical Procedure a. Colonoscopy for which he's had excision of a polyp. b. Perirectal abscess treated in the past. c. Tonsillectomy. d. Extraction of molars. Status post left hip replacement (07/31/14) Social History/Home Situation: Lives with in a private home with 4 steps to enter without rails.? There are 15 steps to the second floor of the house where his bedroom is however states that he no longer needs to go upstairs as they have made everything accessible for on the main floor.? Independent with FWW indoors. Equipment Owned/DME: FWW Subjective: NT. See most recent AIR BAG CURER notes. Objective: General Observation: NT. See most recent AIR BAG CURER notes. Mental Status: NT. See most recent AIR BAG CURER notes. Pain: NT. See most recent AIR BAG CURER notes. ROM: Right Upper Extremity: ? Grossly WFL Left Upper Extremity:? Grossly WFL Right Lower Extremity: Grossly WFL Left Lower Extremity: Grossly WFL Strength: Right Upper Extremity: Grossly 4/5 Left Upper Extremity: Grossly 4/5 Right Lower Extremity: Grossly 4/5 Left Lower Extremity: Grossly 4/5 Bed Mobility/Transfers: Supine to sit standby assist Sit to stand with standby assist Stand to sit with standby assist Bed to reclining chair standby assist Gait: Instructed patient with level surface ambulation of 600 feet + 100 feet requiring minimal assist to walker to minimize path deviation.? Poor obstacle negotiation as reactions are delayed.? Breanne decreased.? Step height decreased. Mildly short of breath after activity but resolved with rest. Balance: Static Sitting: Good Dynamic Sitting: Fair Static Standing: Fair Dynamic Standing: Fair ASSESSMENT: Has had no behavioral issues during PT session. Has been compliant with PT sessions. New dosing and schedule for Sinemet intake has also helped with pat ient performance.? Significantly increased response time.? Much improved mobility performance compared to when patient was discharged from services on 02/14/2022. Easily engaged during PT session which is signifincat improvement to when he got admitted.? Bradykinesic.? Delayed initiation of movement,? works a lot better if PT session is done within an hour of anti-PD medications intake as response time to instruction is a lot facilitated.? Poor navigational skills due to retirement effects of PD and to dementia.? Zach requires the assistance of 1 for safety as patient tends to be compulsive and has difficulty with movement cessation due to PD.? Patient presents with clinical signs and symptoms consistent with current/admitting diagnoses that have resulted to mobility limitations, gait instability, generalized weakness, and overall ADL decline as demonstrated by the following impairment level findings: 1.? Decreased strength to B UEs/LE major muscle groups 2.? Impaired sitting/standing balance 3.? Impaired activity tolerance 4.? Impaired safety awareness 5.? Delayed verbal and motor responses Impairments are contributing to the following functional limitations: 1.? Decline in bed mobility skills 2.? Decline in transfer skills 3.? Difficulty with ambulation without physical assistance 4.? Increased completion time for mobility ADL performance 5.? Increased risk for falls 6.? Difficulty with managing steps alone safely Goals: Goals X1 week 1. Supine-Sit supervision NOT MET 2. Sit-Supine supervision NOT MET 3. Sit-Stand supervision NOT MET 4. Stand-Sit supervision with FWW NOT MET 5. Bed-Chair stand by assist with FWW NOT MET 6. Chair-Bed supervision with FWW NOT MET 7.?Supervision gait on level surface with use of FWW for at least 300 feet without report of pain nor dyspnea NOT MET Plan of Care/Treatment Plan: Re-[place]alaute under SB1 today. DISCHARGE RECOMMENDATIONS: [] ? Home with no services [] [] ? Home with services [] [] ? Home with outpatient PT [] [X] ? SNF for continued rehabilitation.? Patient will benefit from prison facility placement for continued skilled physical therapy services in order to progress mobility level, strength, and balance in preparation for a safe discharge to home. [X] ? [facility].? Good LTC candidate as is no longer able to care for patient. [] ? SNF versus LTC based on ability to participate and progress [] TREATMENT CODE/TIME: GA Thank you for the opportunity to participate in the care of this patient. Adali Delvalle PT, DPT, CLT [facility] [place], [place]
== END 2022-02-23 12:26 | disposition swing bed (61) | DRG 57 ==
LOC: ER 20:34 → MS 23:20
PROVIDERS: Family Medicine; Internal Medicine; Nurse Practitioner Family; Admitting Provider General Practice; Emergency Provider Physician Assistant; PCP Family Medicine; Visit Provider General Practice
DX: G20 Parkinson's disease (principal); F02.81 Dementia in other diseases classified elsewhere, unspecified severity, with behavioral disturbance; N39.0 Urinary tract infection, site not specified; R45.1 Restlessness and agitation; K59.00 Constipation, unspecified; R13.10 Dysphagia, unspecified; H40.9 Unspecified glaucoma; I10 Essential (primary) hypertension; D64.9 Anemia, unspecified; R26.9 Unspecified abnormalities of gait and mobility; E78.5 Hyperlipidemia, unspecified; N40.1 Benign prostatic hyperplasia with lower urinary tract symptoms; R33.9 Retention of urine, unspecified; Z66 Do not resuscitate; L42 Pityriasis rosea; F43.11 Post-traumatic stress disorder, acute; Y36.90XA War operations, unspecified, initial encounter; W07.XXXA Fall from chair, initial encounter; Y92.230 Patient room in hospital as the place of occurrence of the external cause; S01.01XA Laceration without foreign body of scalp, initial encounter; B95.2 Enterococcus as the cause of diseases classified elsewhere; T43.595A Adverse effect of other antipsychotics and neuroleptics, initial encounter
CPT/HCPCS: 12001; 36415; 36416; 51701; 73562; 80048; 80053; 82962; 87040; 87077; 87493; 87635; 93005; 96372; 97110; 97161; 97162; 97530; 99285; J1650; 70450; 71045; 72125; 81003; 81015; 85025; 85049; 86592; 87086; 87186; 93010; 94640; 99219; 99225; 99231; 99232; 99233; 99239; G0378; J0696; J2060; J3490; J7620

== ENCOUNTER 2022-02-23 12:03 | Inpatient (IN) | payer OTHER, SELFPAY ==
[2022-02-23] VITALS (7 sets, daily range): BP systolic 118–121; BP diastolic 53–62; PULSE 60–67; RESP 1–18; TEMP 36.8–36.9; O2SAT 92–98
--- NOTE | 2022-02-23 12:14 | W.PM.HP.N ---
Date of service: 02/23/22 Time of Service: 12:46 Assessment and Plan Assessment and plan (1) Parkinsons disease: Start date: 02/23/22 Start time: 13:27 Status: Chronic Assessment and plan: Continue current Sinemet regimen as recommended by Dr. Smith as well as neurology from [facility] movement clinic In until placement (2) Lewy body Parkinson disease: Start date: 02/23/22 Start time: 13:33 Status: Acute Assessment and plan: Continue current antipsychotic medications with Olanzapine 2.5 mg in the morning and at 1418 100 along with Desyrel 50 mg daily at 1800 as well as Desyrel 50 mg at night as needed for agitation.? Continue fluoxetine 10 mg daily. (3) Dementia: Start date: 02/23/22 Start time: 13:34 Status: Chronic Assessment and plan: He has had appropriate behavior with no outbreaks or issues (4) Acute urinary retention: Start date: 02/23/22 Start time: 13:34 Status: Chronic Assessment and plan: Has chronic urinary retention that is been exacerbated lately by his antipsychotic medications.? He has underlying BPH currently on Flomax 0.8 mg daily.? Will continue to monitor for high urinary residuals and straight cath as needed residual greater than 400 mL? Case discussed with Wilma Gomez nurse practitioner from the urology clinic. (5) Dysphagia: Start date: 02/23/22 Start time: 13:38 Status: Acute Assessment and plan: Patient remains on a regular diet with pur?ed and moderately thickened liquids.? Nursing staff and family have been educated by speech therapy in the past regarding proper feeding techniques including feeding him upright in a chair with head tucked chin turning and double swallowing and alternating solids and liquids.? Patient does have trouble controlling his secretions and is on a Transderm scopolamine patch which seems to help.?However, his does not help, she does not follow the standards explained to her and therefore patient is high risk for aspiration, was having rhochi lung sounds after being fed by yesterday. Will continue duonebs to prevent issues. (6) Discharge planning issues: Start date: 02/23/22 Start time: 13:38 Status: Acute Assessment and plan: does not want to take patient home, he needs placement[facility] Yates History of Present Illness History of Present Illness Chief Complaint: agitation, parkinson Narrative: 76 male with parkinson's and dementia, had ongoing issues with agitation and aggressive behaviors, multiple visits for same was brought in by on 02/05 due to agitation and he was physically aggressive towards her to the point where she felt unsafe. Laboratory workup unrevealing, and declined imaging. Due to unsafe nature of circumstance he was admitted for further management. Over course of stay he did have bouts of aggressive behaviour requiring medications changes and administration of IV antixyolitics. He fell on 02/16, sitting in chair, alarm on, nursing tried to get to him, he hit his head requiring 2 stable, CT for head and neck negative. Neuro checks normal. ?No problems with agitation or behavioral issues yesterday.? states he was up in a chair for quite a while yesterday. Zach has required straight catheterization for high bladder residuals. Urinary retention situation was with his who seems to be content with the explanations given to her by Wilma Gomez from urology clinic.? We have limited options in treating his urinary retention as he does require number psychiatric medications to control his behavioral issues and he is on Parkinson medicine medicines and parkinsonism itself can lead to bladder retention. Other options beside straight cath at home as needed for high residuals would be to perform a suprapubic catheter.? This would be a less than desirable option because of his behavioral issues he may be prone to pulling out his catheter.? For now his does not want to pursue suprapubic catheter placement. ?Patient has been working with PT/OT. Waiting placement therefore he is going in to SB status until placement Review of Systems All systems reviewed & are unremarkable except as noted in HPI and below PFSH All Active Problems (Updated 02/23/22 @ 13:38 by Minnie Goodrich NP) Dysphagia (Acute) Parkinsons disease (Chronic) has not been getting his sinemet Lewy body Parkinson disease (Acute) Discharge planning issues (Acute) Acute urinary retention (Chronic) Dementia (Chronic) Medical History Abnormal gait (11/19/17) Agitation Agitation due to dementia Anemia Basal cell carcinoma of right ear RIGHT EAR CANAL BCCa left upper chest 2018: excised BPH (benign prostatic hyperplasia) Caregiver stress Conductive hearing loss, external ear Constipation Dementia with behavioral disturbance Difficult intubation DNI (do not intubate) DNR (do not resuscitate) Elevated lipids Elevated PSA a. In April 2013. Fall Fever Foot pain Fx femur shaft-closed left ORIF Glaucoma Glaucoma decreased vision left Goals of care, counseling/discussion Hearing decreased Hyperlipidemia Hypertension Pain in left hip Palliative care patient Swapna-prosthetic fracture around prosthetic hip Physician orders for life-sustaining treatment (POLST) form indicates patient wish for [id number] status Pityriasis rosea Polyp of colon (09/20/10) Postoperative anemia PTSD (post-traumatic stress disorder) Raised prostate specific antigen (03/05/13) 6.82 06/19/16, 8.29 05/19/15 [facility] june Sensorineural hearing loss of both ears Skin tear of elbow without complication Subcutaneous emphysema due to trauma UTI (urinary tract infection) [place] of [email or web address] [facility] 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 Colonoscopy for which he's had excision of a polyp. b. Perirectal abscess treated in the past. c. Tonsillectomy. d. Extraction of molars. Status post left hip replacement (07/31/14) Family History Mother Diabetes Personal history of malignant neoplasm breast Father Heart disease Sister No problems noted. Brother No problems noted. Brother No problems noted. Social History Smoking/Tobacco Use Status: Never Second Hand Exposure: No Smoking risk assessment performed?: Yes Alcohol Intake: never Drug use: Never Substance use type: does not use Household members: spouse and children Housing: house Communication Needs: Hard of Hearing and Corrective Lenses Do you need help understanding health information?: Often Pets and animals: Yes Pets and animals: dog(s) Sexually active: No Do you think of yourself as: straight/heterosexual Current gender identity: male What is your relationship status?: How often do you talk on the phone with friends or family?: once per week How often do you attend latter-day or confucianist services?: 1-3 times per year Do you belong to any clubs or organized social groups?: no Panel score (0-1 are the most socially isolated patients): 1 What type of physical activity do you participate in: other Details: boxing Frequency: 1-2 times per week Kenna/Scientologist: Moravian Seatbelt use: always Helmet use: No Drive intox or ride w/intox lumber stacker driver: No Do you feel safe at home: Yes Do you feel safe in your relationship?: Yes Meds Allergies and Home Medications Allergies Allergy/AdvReac Type Severity Reaction Status Date / Time No Known Allergies Allergy Verified 02/05/22 19:10 Home Medications Medication Instructions Recorded Confirmed Type amlodipine 5 mg tablet (Norvasc) 1 tab PO QAM #90 01/22/13 02/05/22 History multivitamin (One Daily) 1 tab PO DAILY 01/22/13 02/05/22 History simvastatin 20 mg tablet 1 tab PO DAILY #90 tab 01/22/13 01/06/22 History tamsulosin 0.4 mg capsule 0.4 mg PO DAILY tab-cap 10/03/18 02/05/22 History carbidopa 25 mg-levodopa 100 mg 2 tab PO 5X/DAY tab 11/29/18 02/05/22 History tablet polyethylene glycol 3350 17 17 gm PO DAILY #510 gm 06/23/20 01/06/22 Rx gram/dose oral powder (Miralax) losartan 50 mg tablet 50 mg PO DAILY #90 tab 12/02/20 02/05/22 Rx carboxymethylcellulose sodium 0.5 1 drp OPHTHALMIC (EYE) 4-6XD PRN 03/29/21 01/06/22 History % eye drops glycopyrrolate 1 mg tablet 1 mg PO TID 03/29/21 02/05/22 History latanoprost 0.005 % eye drops 1 drp OPHTHALMIC (EYE) QPM 03/29/21 02/05/22 History carbidopa 25 mg-levodopa 100 mg 2 tab PO HS PRN PRN 12/16/21 02/05/22 History tablet dorzolamide 22.3 mg-timolol 6.8 1 drp OPHTHALMIC (EYE) BID 12/16/21 02/05/22 History mg/mL eye drops spironolactone 25 mg tablet 25 mg PO DAILY 12/16/21 01/06/22 History polyethylene glycol 3350 17 gram 17 g PO DAILY PRN PRN #0 ea 12/17/21 01/06/22 Rx oral powder packet L. acidophilus,casei,rhamnosus 50 1 cap PO DAILY #7 cap 01/12/22 Rx billion cell capsule,delayed release (Bio-K plus) carbidopa ER 50 mg-levodopa 200 mg 1 tab PO HS #7 tab 01/12/22 02/05/22 Rx tablet,extended release docusate sodium 100 mg capsule 100 mg PO TID PRN PRN #21 cap 01/12/22 Rx (Colace) megestrol 400 mg/10 mL (40 mg/mL) 800 mg (20 mL) PO DAILY #240 ml 01/12/22 Rx oral suspension ondansetron 4 mg disintegrating 4 mg PO Q6H PRN PRN #10 tab 01/12/22 Rx tablet quetiapine 25 mg tablet 12.5 mg PO DAILY PRN PRN #10 tab 01/12/22 Rx quetiapine 25 mg tablet 25 mg PO DAILY@2000 #7 tab 01/12/22 Rx aspirin 325 mg tablet 81 mg PO DAILY 02/05/22 History fluoxetine 10 mg capsule 10 mg PO DAILY 02/05/22 02/05/22 History olanzapine 2.5 mg tablet 2.5 mg PO HS 02/05/22 02/05/22 History trazodone 50 mg tablet 50 mg PO TID 02/05/22 02/05/22 History Exam Const General: cooperative, comfortable and no acute distress Orientation: alert and awake Eyes Eyelids: eyelids normal Pupils: PERRL EOM: EOM intact bilaterally Neck Neck: normal visual inspection and no JVD Lymphatic: no lymphadenopathy noted Resp Effort & Inspection: normal respiratory effort Auscultation: clear to auscultation bilaterally Cardio Jugular venous pressure: no JVD Rhythm: regular rhythm Heart Sounds: S1 normal GI Auscultation: normal bowel sounds General: No CVA tenderness and deferred Skin General skin exam: no rashes or lesions noted Neuro General: patient alert and patient awake Speech: speech normal Gait: normal gait Extrem General: normal to inspection, full ROM and no clubbing, cyanosis or edema Left lower extremity: foot (left foot with wart)
--- NOTE | 2022-02-23 12:42 | CM.SWINGPC ---
- If Service Date Differs Date of service: 02/23/22 Time of Service: 12:42 Swingbed Plan of Care Plan of care: SWING BED PROGRAM ACTIVITIES/DISCHARGE PLAN OF CARE ACTIVITIES PLAN Date: 02/23/22 Identified Need: Life enrichment during extended hospitalization. Advocating for [facility] disposition. Intervention/Plan: Activities CART and therapies to be offered. Initials: VICTOR HUGO DISCHARGE PLAN Date: 02/23/22 Identified Need: Disposition coordination, ongoing rehabilitation. Intervention/Plan: Ongoing coordination, family meetings, Palliative consults, VA contacts-disposition support. Initials: VICTOR HUGO
--- NOTE | 2022-02-23 12:48 | CMSA_ITS ---
- If Service Date Differs Date of service: 02/23/22 Time of Service: 12:49 SB Psychosocial/Act.Assessment - Hospital Admission Admission Date: 03/07/22 Admission From:: Home Diagnosis:: Lewy body Parkinsons - Swing Bed Admission Swing Bed Admit Date:: 02/23/22 Swing Bed Level of Care: Level 1/SNF - Social Supports PREVIOUS FUNCTIONAL STATUS/SOCIAL/FAMILY SUPPORTS:: Dominic lives in [place] with his , Shaila. He has Parkinson's Disease, mild dementia, and has 100% service connected disability through the [facility]. His provides assistance with meals and is his caregiver. - Prior to Admission Living Arrangements/Environment Prior to Admission:: Dominic lives in [place] with his , Shaila. He has Parkinson's Disease, mild dementia, and has 100% service connected disability through the [facility]. His provides assistance with meals and is his caregiver. - : Yes - Benefits Financial: 's Pension, VA Health Benefits ([facility] unwilling to accept in [facility]. ) - Medical History PAST MEDICAL HISTORY/PAST SURGICAL HISTORY:: All Active Problems (Updated 02/05/22 @ 21:14 by Bradly Randall MD). Agitation (Acute). Subcutaneous emphysema due to trauma (Acute). Pain in left hip (Chronic). Hearing decreased (Chronic). Elevated lipids (Chronic). Abnormal gait (Chronic 11/19/17). Glaucoma (Chronic). decreased vision left. Hyperlipidemia (Chronic). Raised prostate specific antigen (Chronic 03/05/13). 6.82 06/19/16, 8.29 05/19/15 [facility] value in december and june. Sensorineural hearing loss of both ears (Acute). Foot pain (Acute). Swapna-prosthetic fracture around prosthetic hip (Acute). Postoperative anemia (Acute). Fx femur shaft-closed (Acute). left ORIF. Anemia (Chronic). Conductive hearing loss, external ear (Acute). Medical History . Agitation due to dementia. Basal cell carcinoma of right ear. RIGHT EAR CANAL. BCCa left upper chest 2018: excised. BPH (benign prostatic hyperplasia). Constipation. Difficult intubation. Dysphagia. Elevated PSA. a. In April 2013. Glaucoma. Hypertension. Parkinsons disease. Polyp of colon (09/20/10). Skin tear of elbow without complication. Surgical History . Colonoscopy - MAC (~2010). 2000; NEG. 2010; 2 POLYPS. History of Surgical Procedure. a. Colonoscopy for which he's had excision of a polyp. b. Perirectal abscess treated in the past. c. Tonsillectomy. d. Extraction of molars. Status post left hip replacement (07/31/14) - Admission Data Reason for Swing Bed Admission:: Disposition support, family unable to take home. Discharge Plan:: Undetermined. Assessment: Disposition Coordination. Reimbursement Representative: Marlys Bergeron Date Assessment was completed:: 02/23/22
[2022-02-23] MEDS: Albuterol/Ipratropium 3 ML UPD VIAL UPD ×2 (15:08→20:34)
[2022-02-23] MEDS: OLANZapine 2.5 MG TAB PO ×2 (15:16→17:58)
[2022-02-23] MEDS: Refresh PLUS Eye Drops 0.4ml 1 EACH OU (16:21)
[2022-02-23] MEDS: traZODone 50 MG TAB PO (17:58)
[2022-02-23] MEDS: Melatonin 3 MG TAB PO (20:34)
[2022-02-23] MEDS: Latanoprost 0.005% 2.5 ML BTL OU (20:35)
[2022-02-24] VITALS (8 sets, daily range): BP systolic 97–125; BP diastolic 54–63; PULSE 61–69; RESP 1–20; TEMP 36.6–37; O2SAT 93–95
[2022-02-24] MEDS: Albuterol/Ipratropium 3 ML UPD VIAL UPD ×3 (07:31→20:23)
--- NOTE | 2022-02-24 09:25 | NT_ITS ---
Occupational Therapy Notes 02/24/22 OT consult received and pts chart was reviewed. Nursing was in with pt when OT arrived. Pt is fatigued and not verbally responding today due to his fatigue. Nursing reports that this comes and goes. Due to pt not being able to verbally respond, OT will attempt to evaluate on Sunday. Charlene Myrick OTR/[facility] [place], [place]
--- NOTE | 2022-02-24 10:22 | CMPROGNOTE_ITS ---
- If Service Date Differs Date of service: 02/24/22 Time of Service: 10:22 Care Management Progress Note S/O:Zach was sitting up in bed when CM met with him and his Shaila. Zach had not had one of his medications normally taken at 9 am until shortly before CM came to see him at 1pm. His commented on that fact and attributed her inability to get him to speak to her to the missed dose. Yesterday the provider contacted the AR himself to try to facilitate transfer to the [facility] in [place]. The request was denied as Zach does not have an acute reason to be in the hospital. It was suggested that a referral be sent to the [facility] in [place], [place] where there is a geriatric psychiatric unit. This was presented today to María, Zach's , by CM, but she was not willing to consider this option. She cited the fact that it is too far to travel and she does not want him to be without family support. She did agree to have the referral sent but indicated that she would be unlikely to accept a bed, if offered. The referral was sent. CM also contacted the 4 facilities that have not responded to the original referrals sent. Messages were left at 2 facilities ([facility] in [place], [place] and [facility] in [place], [place]) with no response. One facility, [facility], was unable to locate the original referral so it was resent today. The 4th facility, [facility] in [place], [place] has a waiting list. They have not accepted Zach but have also not declined him. The admission director indicated that she would contact CM if a bed offer was to be made. A:Zach is a 76 year old man admitted on 02/09/22 with agitation and dementia P:Dominic will likely be transferred to a detention facility for detention care. He will follow up with the facility providers and plan of care and transport via EMS or with family. CM will continue to support Zach and assess for discharge planning needs.
[2022-02-24] MEDS: amLODIPine 5 MG TAB PO (12:52)
[2022-02-24] MEDS: Losartan 50 MG TAB PO (12:53)
[2022-02-24] MEDS: FLUoxetine 10 MG TAB PO (12:53)
[2022-02-24] MEDS: Enoxaparin 40 MG/0.4 ML SYR SC (12:53)
[2022-02-24] MEDS: Tamsulosin 0.4 MG CAPCR 0.8 MG PO (13:03)
--- NOTE | 2022-02-24 13:27 | IN_ITS ---
Date of service: 02/24/22 Time of Service: 13:27 PT Notes Visit Reasons: AGITATION,PARKINSON,DEMENTIA Swing Bed Level I Physical Therapy Initial Evaluation Date: 02/24/2022 Referring Doctor: Minnie Goodrich NP PT Orders: PT CONSULT: Extended stay weakness.? Reevaluate and treat for generalized weakness; deconditioning Precautions: Fall. Standard. Activity as tolerated.? Impaired safety awareness. Patient Profile/Admitting Diagnosis: Zach converted to swing bed level II on 02/23/2022 and is being evalauted today for continued PT services under said level of care. He is a 76-year-old male with past medical history significant for Parkinson's disease and dementia admitted for management of acute agitation. Patient was discharged from services on 02/14/2022 due to decline in mental status and conversion to comfort measures.? New referral was sent by hospitalist to address generalized weakness and functional mobility decline in anticipation of discharge to a snf facility whenever cleared medically. ? 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 Agitation due to dementia Basal cell carcinoma of right ear RIGHT EAR CANAL BCCa left upper chest 2018: excised BPH (benign prostatic hyperplasia) Constipation Difficult intubation Dysphagia Elevated PSA a. In April 2013.Glaucoma Hypertension Parkinsons disease Polyp of colon (09/20/10) Skin tear of elbow without complication Surgical History? Colonoscopy - MAC (~2010) 2000; NEG 2010; 2 POLYPSHistory of Surgical Procedure a. Colonoscopy for which he's had excision of a polyp. b. Perirectal abscess treated in the past. c. Tonsillectomy. d. Extraction of molars. Status post left hip replacement (07/31/14) Social History/Home Situation: Lives with in a private home with 4 steps to enter without rails.? There are 15 steps to the second floor of the house where his bedroom is however states that he no longer needs to go upstairs as they have made everything accessible for on the main floor.? Independent with FWW indoors. Equipment Owned/DME: FWW Subjective: states that patient may be having a hard time breathing. Nurse Machine Maintenance Servicer Alaina checked vital signs with oxygen saturation at 96% on room air. Objective: General Observation: In NAD.? No dyspnea at rest when PT arrived. Supine in bed eyes closed but was able to open them upon request.? Bradykinesic. Mental Status: Alert and able to follow single step commands.? Motor and verbal responses delayed. Pain: Denies ROM: Right Upper Extremity: ? Grossly WFL Left Upper Extremity:? Grossly WFL Right Lower Extremity: Grossly WFL Left Lower Extremity: Grossly WFL Strength: Right Upper Extremity: Grossly 4/5 Left Upper Extremity: Grossly 4/5 Right Lower Extremity: Grossly 4/5 Left Lower Extremity: Grossly 4/5 Bed Mobility/Transfers: Supine to sit standby assist Sit to stand with standby assist Stand to sit with standby assist Bed to reclining chair standby assist Gait: Instructed patient with level surface ambulation of 600 feet + 100 feet requiring minimal assist to walker to minimize path deviation.? Poor obstacle negotiation as reactions are delayed and vision impaired.? Breanne decreased.? Step height decreased. Mildly short of breath after activity but resolved with rest. Balance: Static Sitting: Good Dynamic Sitting: Fair Static Standing: Fair Dynamic Standing: Fair Special Tests: Mobility Limitations Standardized Measure [facility] AM-PAC 6 clicks Basic Mobility Inpatient Short Form: Raw Score: 22 ? CMS Score: 21% deficit? ? ? Informed Consent/Education:? Patient and were instructed in purpose of PT consult and plan of care and are agreeable to proceed with established PT POC to achieve family goals. ASSESSMENT: Continued PT services to be provided under SB1 to determine if goals below are achievable. Continues to be pleasant and compliant during PT sessions. Bradykinesic.? Delayed initiation of movement,? works a lot better if PT session is done within an hour of anti-PD medications intake as response time to instruction is a lot facilitated.? Poor navigational skills due to intermodal customer service effects of PD and to dementia.? Zach requires the assistance of 1 for safety as patient tends to be compulsive and has difficulty with movement cessation due to PD.? Good candidate for LTC placement. May walk with nursing staff with assist of 1. Patient presents with clinical signs and symptoms consistent with cur rent/admitting diagnoses that have resulted to mobility limitations, gait instability, generalized weakness, and overall ADL decline as demonstrated by the following impairment level findings: 1.? Decreased strength to B UEs/LE major muscle groups 2.? Impaired sitting/standing balance 3.? Impaired activity tolerance 4.? Impaired safety awareness 5.? Delayed verbal and motor responses Impairments are contributing to the following functional limitations: 1.? Decline in bed mobility skills 2.? Decline in transfer skills 3.? Difficulty with ambulation without physical assistance 4.? Increased completion time for mobility ADL performance 5.? Increased risk for falls 6.? Difficulty with managing steps alone safely Patient is assessed as a [id number] moderate complexity based on the following: History: 76-year-old male with past medical history as indicated above Examination: Demonstrable impairment in strength, balance, and mobility level with underlying impairments and functional limitations as exhibited above as well as deficit score of 42% utilizing the [facility] Mobility Inpatient Short Form Presentation: Evolving Decision Makin moderate complexity Goals: Goals X1 week 1. Supine-Sit supervision 2. Sit-Supine supervision 3. Sit-Stand supervision 4. Stand-Sit supervision with FWW 5. Bed-Chair stand by assist with FWW 6. Chair-Bed supervision with FWW 7.?Supervision gait on level surface with use of FWW for at least 300 feet without report of pain nor dyspnea Plan of Care/Treatment Plan: 1-2x/day, 7 days/week x 1 week. Plan of care has been reviewed with the POWER STATION OPERATOR providing the service under Physical Therapy direction. Initiate Physical Therapy intervention for pain management as needed, strengthening, bed mobility, transfers, gait, stairs, balance training, and use of assistive device. DISCHARGE RECOMMENDATIONS: [] ? Home with no services [] [] ? Home with services [] [] ? Home with outpatient PT [] [X] ? SNF for continued rehabilitation.? Patient will benefit from snf facility placement for continued skilled physical therapy services in order to progress mobility level, strength, and balance in preparation for a safe discharge to home. [X] ? [facility].? Good LTC candidate as is no longer able to care for patient. [] ? SNF versus LTC based on ability to participate and progress [] TREATMENT CODE/TIME: 54004 x 20 minutes, 05957 x 13 minutes beginning at 13:27 PM. Thank you for the opportunity to participate in the care of this patient. Adali Delvalle PT, DPT, CLT [facility] [place], [place]
[2022-02-24] MEDS: Refresh PLUS Eye Drops 0.4ml 1 EACH OU (14:43)
[2022-02-24] MEDS: OLANZapine 2.5 MG TAB PO ×2 (14:43→18:01)
[2022-02-24] MEDS: Acetaminophen Solution 650 MG/20.3 ML CUP PO (16:30)
[2022-02-24] MEDS: traZODone 50 MG TAB PO (17:59)
--- NOTE | 2022-02-24 19:09 | WOUNDCONS_ITS ---
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 Patient is now on swing bed status, he is awaiting placement. Due to the behavioral disturbances, spouse now feels unsafe to care for him at home. Patient has a history of Lewy body Parkinson's, Dementia with behavioral disturbances, Agitation R/T dementia, BPH, which has required multiple straight cathing D/T retention. Patient had a stage 2 on the sacral area on admission. D/T cognitive deficits, keeping the patient off loading pressure has been very difficult. Called by charge nurse Pavithra Fallon this afternoon, as provider has reported a wart on his left heel. Wound nursing will assess and recommend a treatment. H&P labs, allergies and other pertinent information was reviewed prior to visiting the patient. Patient's spouse has signed the consent for consult - Wound Left Foot Wound Type: Deep Tissue Injury (DTI) Wound General Appearance: Open to air, Reddened, Other (blister) Wound Bed Greatest Portion: Other (cannot visualize wound bed) Wound Surrounding Tissue Appearance: Dark Red Wound Length: 2.3 cm Wound Width: 2 cm Wound Depth: 0.1 cm (greater than) Wound Drainage Amount: None Wound Drainage Odor: None/Absent Wound Drainage Description: No drainage Wound Topical Solution/Irrigant: Saline Irrigant Wound Debridement Method: Gauze Wound Debridement Result: Other (no change) Lumbar/Sacral Wound Type: Pressure Ulcer Pressure Ulcer Stage: II Wound General Appearance: Reddened, Unapproximated, Other (area of excoriation around the wound) Wound Bed Greatest Portion: Red (Granulation) Wound Surrounding Tissue Appearance: [place] Percent of Wound Bed Granulated/Red: 100 Wound Length: 1.2 cm Wound Width: 1.1 cm Wound Depth: 0.1 cm Wound Drainage Amount: None Wound Drainage Odor: None/Absent Wound Drainage Description: No drainage Wound Topical Solution/Irrigant: Saline Irrigant Wound Debridement Method: Gauze Wound Debridement Result: Healthy Tissue Revealed - Circulation, Sensation, Motion Edema Degree: Other (none) Peripheral Pulse Strength: Normal Capillary Refill: Less than 3 seconds Skin Temperature: Warm Skin Color: Normal - BONY Comment:: not applicable - Pain Pain Level: 0 (Does not appear in pain) Pain Scale Used: Visual Analog Scale 0-10 Patient who has limited cognition and is not aware of the importance of offloading pressure. Patient may benefit from the use of an alternating air mat tress. Have asked charge nurse to pass this on to the provider's tomorrow for morning meeting. At this point I have reminded nursing to attempt to assist patient in off loading the pressure. - Photo Photo: - Treatment/Dressing Change Topicals/Ointments: None Cleanse With: Saline Dressing Types: Mepilex w/Border, Other (heel protector) - Recomendation Recomendation:: Sacrum. Cleanse with warm water and soap, then pat dry. Apply Mepilex sacral to the wound bed. Change weekly or PRN. Check placement every shift. Offload pressure as patient will tolerate. Left heel DTI Wash with warm water and soap. Then pat dry. Apply heel protector as patient will tolerate. Check placement every shift. Offload pressure off heels as patient will tolerate. Notify wound nurse and provider should blister open. Recommend consider alternating air mattress. Physcian/Nurse Practioner Notified: Yes (Fay Rivero) Treatment Time - Time Total Time Spent with Patient: 1 hour - Patient Will be Seen Weekly Treatment: daily - For: For:: 1 week
[2022-02-24] MEDS: Melatonin 3 MG TAB PO (20:22)
[2022-02-25 08:44] VITALS: BP 121/64; PULSE 67; RESP 24; TEMP 36.6; O2SAT 93
[2022-02-25] MEDS: Albuterol/Ipratropium 3 ML UPD VIAL UPD ×4 (08:51→21:19)
[2022-02-25] MEDS: Enoxaparin 40 MG/0.4 ML SYR SC (08:51)
[2022-02-25] MEDS: OLANZapine 2.5 MG TAB PO ×3 (08:52→18:23)
[2022-02-25] MEDS: FLUoxetine 10 MG TAB PO (08:52)
[2022-02-25] MEDS: amLODIPine 5 MG TAB PO (08:52)
[2022-02-25] MEDS: Tamsulosin 0.4 MG CAPCR 0.8 MG PO (08:52)
[2022-02-25] MEDS: Losartan 50 MG TAB PO (08:52)
[2022-02-25 11:19] VITALS: RESP 16; RESP 8; O2SAT 94
[2022-02-25 14:36] VITALS: BP 102/52; PULSE 67; RESP 22; TEMP 37; O2SAT 97
[2022-02-25 15:30] VITALS: RESP 16; RESP 8; O2SAT 95
[2022-02-25] MEDS: traZODone 50 MG TAB PO (18:23)
[2022-02-25 21:15] VITALS: BP 140/57; PULSE 70; RESP 22; TEMP 37.2; O2SAT 95
[2022-02-25] MEDS: Melatonin 3 MG TAB PO (21:18)
[2022-02-25] MEDS: Acetaminophen Solution 650 MG/20.3 ML CUP PO (21:18)
[2022-02-26] MEDS: Lidocaine 2% Jelly 11 ML SYR UR (03:18)
[2022-02-26 07:25] VITALS: BP 111/63; PULSE 61; RESP 20; TEMP 36.3; O2SAT 97
[2022-02-26 08:38] VITALS: PULSE 66; RESP 16; RESP 8; O2SAT 95
[2022-02-26] MEDS: Albuterol/Ipratropium 3 ML UPD VIAL UPD ×2 (08:38→11:27)
[2022-02-26] MEDS: FLUoxetine 10 MG TAB PO (09:14)
[2022-02-26] MEDS: Enoxaparin 40 MG/0.4 ML SYR SC (09:14)
[2022-02-26] MEDS: OLANZapine 2.5 MG TAB PO ×3 (09:14→18:10)
[2022-02-26] MEDS: Tamsulosin 0.4 MG CAPCR 0.8 MG PO (09:14)
[2022-02-26] MEDS: Losartan 50 MG TAB PO (09:14)
[2022-02-26] MEDS: amLODIPine 5 MG TAB PO (09:14)
[2022-02-26] MEDS: Docusate Sodium 100 MG/10 ML CUP PO (10:34)
[2022-02-26] MEDS: Bisacodyl 10 MG SUPP PR (10:35)
[2022-02-26 11:27] VITALS: PULSE 71; RESP 16; RESP 8; O2SAT 95
[2022-02-26] MEDS: Scopolamine 1 MG/3 DAYS PATCH TD (12:12)
[2022-02-26 15:57] VITALS: BP 114/54; PULSE 72; RESP 22; TEMP 36.6; O2SAT 92
[2022-02-26] MEDS: traZODone 50 MG TAB PO (18:10)
[2022-02-26 23:36] VITALS: BP 111/62; PULSE 70; RESP 22; TEMP 36.8; O2SAT 93
[2022-02-27] MEDS: Albuterol 2.5 MG/3 ML INH SOLN VIAL UPD (03:13)
[2022-02-27 07:26] VITALS: BP 133/65; PULSE 67; RESP 20; TEMP 36.9; O2SAT 95
--- NOTE | 2022-02-27 08:55 | PDOC.CMACT ---
- If Service Date Differs Date of service: 02/27/22 Time of Service: 08:55 Care Management Activity Note S/O:Zach continues to slowly improve. He has not had any episodes of aggression and has not required any PRN medications for agitation for the past 10 days or so. Zach has been able to ambulate in the halls with his walker with staff and is conversing more. It takes Zach some time to formulate the words, but he is able to communicate much more effectively now that his Parkinson's Disease is better controlled. Placement has still not been secured for Zach. Referrals have been sent to about 10 SNFs in [place] and [place] that have contracts with the [place]. While there are more facilities with [facility] contracts, they are further than his is willing to travel. CM re-faxed referrals to [facility] and [facility] today. Both [facility] and [facility] are actively reviewing his information and plan to contact CM tomorrow. 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 He will follow up with the facility providers and plan of care and transport via EMS or with family. CM will continue to support Zach and assess for discharge planning needs.
--- NOTE | 2022-02-27 08:57 | OT.INNT ---
Occupational Therapy Notes 02/27/22 OT consult received and pts chart was reviewed. OT went to see pt who was sleeping this morning. Per nursing- hold till pt wakes up as he has been having nightmares. OT will attempt to consult again tomorrow. Charlene Myrick, OTR/L
--- NOTE | 2022-02-27 10:18 | W.NUTRFU ---
Date of service: 02/27/22 Time of Service: 10:18 Nutrition Note NOTE: Dominic continues on puree diet with moderatly thick liquids and supplemented with ensure TID. DIfficult to weigh, no recent weight. Noted with stage 2 pressure wound on sacral area. PO intake has improved in last week. Will continue to encourage po intake to meet macronutrient needs. Awaiting placement to SNF. Time Spent in Nutritional Counseling and Treatment: 5
[2022-02-27] MEDS: OLANZapine 2.5 MG TAB PO ×2 (14:20→18:00)
--- NOTE | 2022-02-27 15:34 | PT.INNT ---
Date of service: 02/27/22 Time of Service: 15:34 PT Notes Visit Reasons: AGITATION,PARKINSON,DEMENTIA 02/27/2022 Hold morning PT session, per nursing. Patient refused afternoon PT session this afternoon. Will attempt to resume PT services tomorrow morning.
[2022-02-27 16:12] VITALS: BP 101/58; PULSE 62; RESP 18; TEMP 37.1; O2SAT 92
[2022-02-27] MEDS: Acetaminophen Solution 650 MG/20.3 ML CUP PO (16:29)
[2022-02-27] MEDS: traZODone 50 MG TAB PO ×2 (18:00→22:04)
[2022-02-27 21:08] LABS: C Diff PCR Negative (Negative)
[2022-02-27] MEDS: Melatonin 3 MG TAB PO (22:04)
[2022-02-27 23:04] VITALS: BP 134/63; PULSE 65; RESP 20; TEMP 36.9; O2SAT 94
[2022-02-28 07:14] VITALS: BP 153/78; PULSE 77; RESP 32; TEMP 36.9; O2SAT 91
[2022-02-28] MEDS: FLUoxetine 10 MG TAB PO (08:48)
[2022-02-28] MEDS: OLANZapine 2.5 MG TAB PO ×3 (08:48→17:51)
[2022-02-28] MEDS: amLODIPine 5 MG TAB PO (08:48)
[2022-02-28] MEDS: Tamsulosin 0.4 MG CAPCR 0.8 MG PO (08:48)
[2022-02-28] MEDS: Enoxaparin 40 MG/0.4 ML SYR SC (08:49)
[2022-02-28] MEDS: Losartan 50 MG TAB PO (08:49)
[2022-02-28 11:01] VITALS: BP 110/70; PULSE 65; RESP 17; TEMP 36.1; O2SAT 95
--- NOTE | 2022-02-28 12:38 | NUR.NOTE ---
Pt's standing at the bedside feeding pt. Patient heard gurgling loudly during this feeding. Pt, Dionisio suctioned for a small amount of fluid at the back of his throat with some relief of the gurgling episode. Pt noted to have a poor gag reflex when suctioned. Discussed with pt's to make sure she is not putting food in pt's mouth when he doesn't appear to be awake or alert enough to swallow. Pt's reports he has been awake during this feeding. Informed pt's she could call nursing staff anytime while she was visiting.
--- NOTE | 2022-02-28 13:39 | PT.INTREAT ---
PT Notes Visit Reasons: AGITATION,PARKINSON,DEMENTIA Inpatient Physical Therapy Treatment Note [facility] Date: 02/28/2022 PRECAUTIONS: Activity as tolerated, dementia, fall SUBJECTIVE: Zach states yes when asked if he would like to go for a walk. OBJECTIVE: Held further PT as patient laid down on treatment table in PT gym and said rest when asked if he would like to exercise more or rest. PAIN: No c/o pain BED MOBILITY/TRANSFERS Supine-sit: Min A (for movement initiation) Sit-stand: CGA Stand-sit:Min A - Mod A due to limited safety awareness GAIT: Assistive Device: FWW RECRUITMENT MANAGER Weight bearing: Full Assist: Min A Distance: 300' with FWW 100' x2 with RECRUITMENT MANAGER Deviation: Limited safety awareness with use of FWW - path deviation, increased speed, hitting stationary objects THEREX: Patient completed NuStep biking x7 minutes with direct supervision. He refused further ther ex. ASSESSMENT: Patient's activity tolerance appeared limited today. He requested a rest post gait training and NuStep biking. PLAN: Continue with global strengthening and general conditioning for improved mobility and activity tolerance. TREATMENT CODE/TIME: 27 minutes; 99377 x2 (10:16)
[2022-02-28 15:32] VITALS: BP 123/66; PULSE 67; RESP 23; TEMP 36.6; O2SAT 94
[2022-02-28] MEDS: traZODone 50 MG TAB PO (17:51)
[2022-02-28 23:59] VITALS: BP 144/71; PULSE 62; RESP 17; TEMP 37.5; O2SAT 92
[2022-03-01 07:34] VITALS: BP 95/56; PULSE 59; RESP 17; TEMP 36.2; O2SAT 95
[2022-03-01] MEDS: Enoxaparin 40 MG/0.4 ML SYR SC (08:54)
[2022-03-01] MEDS: OLANZapine 2.5 MG TAB PO ×3 (08:55→18:14)
[2022-03-01] MEDS: FLUoxetine 10 MG TAB PO (08:55)
[2022-03-01] MEDS: Tamsulosin 0.4 MG CAPCR 0.8 MG PO (08:55)
[2022-03-01] MEDS: Losartan 50 MG TAB PO (08:55)
[2022-03-01] MEDS: amLODIPine 5 MG TAB PO (08:55)
--- NOTE | 2022-03-01 09:28 | OTIE_ITS ---
Occupational Therapy Notes Inpatient Occupational Therapy [facility] B1 Evaluation Date: 03/01/22 Referring Doctor:Merna Dewey MD OT Orders: Non Urgent Precautions: Fall, standard, DNR/DNI PATIENT PROFILE/ADMITTING DIAGNOSIS: Pt is a 76 year old male who is admitted to Med Surg via SWG B1 status for a dx of palliative care patient, dysphagia, PArk insons disease, lewy body, acute urinary retention, demenita. Past Medical History: All Active Problems?(Updated 02/23/22 @ 13:38 by Minnie Goodrich NP) Dysphagia (Acute) Parkinsons disease (Chronic) has not been getting his sinemetLewy body Parkinson disease (Acute) Discharge planning issues (Acute) Acute urinary retention (Chronic) Dementia (Chronic) Medical History Abnormal gait (11/19/17) Agitation Agitation due to dementia Anemia Basal cell carcinoma of right ear RIGHT EAR CANAL BCCa left upper chest 2018: excised BPH (benign prostatic hyperplasia) Caregiver stress Conductive hearing loss, external ear Constipation Dementia with behavioral disturbance Difficult intubation DNI (do not intubate) DNR (do not resuscitate) Elevated lipids Elevated PSA a. In April 2013.Fall Fever Foot pain Fx femur shaft-closed left ORIF Glaucoma Glaucoma decreased vision left Goals of care, counseling/discussion Hearing decreased Hyperlipidemia Hypertension Pain in left hip Palliative care patient Swapna-prosthetic fracture around prosthetic hip Physician orders for life-sustaining treatment (POLST) form indicates patient wish for xr-nxk-[id number] status Pityriasis rosea Polyp of colon (09/20/10) Postoperative anemia PTSD (post-traumatic stress disorder) Raised prostate specific antigen (03/05/13) 6.82 06/19/16, 8.29 05/19/15 @ [facility] check value in december and june Sensorineural hearing loss of both ears Skin tear of elbow without complication Subcutaneous emphysema due to trauma UTI (urinary tract infection) [place] of armed [employer]etic [facility] vet Surgical History? Colonoscopy - MAC (~2010) 2000; NEG 2010; 2 POLYPSHistory of Surgical Procedure a. Colonoscopy for which he's had excision of a polyp. b. Perirectal abscess treated in the past. c. The Tonsillectomy. d. Extraction of molars. Status post left hip replacement (10/10/14) Social History/Home Situation: Pt tells OT that he lives in a private home with his and that his helps him with everything. He reports that he has 3 children- a daughter and 2 sons. He reports that his daughter lives in [facility] [place]. 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 He notes that at baseline his has to help him and that he can't do his ADLs on his own. He currently requires increased performance time for his ADLs and this is due to his task initiation and performance of tasks without verbal cues (vc). Equipment owned/DME: Unable to assess SUBJECTIVE: Pt was sitting in chair with nursing at his side when OT arrived. He at first states that he does not need Occupational Therapy but was receptive and pleasant throughout his session. OBJECTIVE: General Observation: Pleasant individual with obvious cognitive deficit due to dementia, requires vc for task initiation, decreased safety awareness Mental Status: Alert to name Pain: no c/o pain ROM: RUE AROM WFL L UE AROM WFL STRENGTH: RUE 5/5 throughout with min vc for strength testing set up LUE 5/5 throughout with min vc for strength testing set up FUNCTIONAL MOBILITY/ADLS: EATING Pt was eating breakfast with nursing when OT arrived, he was sitting in chair. He requires thickened liquids which he was able to swallow (I), he does cough every so often while eating. He was sitting up right, OT was able to provide pt with mod vc throughout. It is important with pts dementia that (I) eating is promoted. He was able to (I) bring cup to mouth and scoop and hold his own bowl and bring hand to mouth/hold silverware appropriately. Pt requires (A) with eating because he is not able to perform task initiation without vc. He is not able to (I) grab food off his tray but with vc of would you like a drink? pt was able to verbalize yes or no and do this with (A) verbally with task initiation. Pt does perform his eating with increased performance time. This is due to cognitive deficit as well as decreased initiation and performance of task. So pt will need increased time to perform his eating and proper breaks in between bites to decrease risk of aspiration and choking. OT will refer to INTERIOR DECORATOR recommendations for eating routines and continue to promote (I) for him. BALANCE: Static sitting Normal Dynamic Sitting Normal Static Standing NT Dynamic Standing NT SPECIAL TESTS: Daily Activity Limitations Standardized Measure [facility] AM -PAC ?6 clicks? Daily Activity Inpatient Short Form: Raw score: 9 Standardized score: 25.33 CMS score: 79.59% INFORMED CONSENT/EDUCATION: Pt instructed in purpose of OT Consult and plan of care. ASSESSMENT: Patient is a 76-year-old male referred to occupational therapy services with diagnosis of palliative care patient, dysphagia, PArkinsons diseas e, lewy body, acute urinary retention, demenita. Patient presents with clinical signs and symptoms consistent with dx, as demonstrated by the following impairment level findings/functional limitations: Impairments in ADL/IADL and leisure activities, cognitive impairments, decreased safety awareness, requires vc throughout, decrease functional use of his (B) UE, decreased (I) in his ADLs limited by his cognitive awareness, decreased performance of ADLs without vc and (A). AMPAC score 9 Patient is assessed as a Moderate 19859 complexity based on the following: History: see above Examination: see functional limitations as noted above Presentation: evolving Decision Making: AMPAC score 9 GOALS Goals x1 week 1. Grooming- sitting in chair pt will be able to perform his oral hygiene with min vc 2. Dressing- sitting in chair pt will be mod (A) with don and doffing socks and mod (A) with hospital gown 3. Bathing- sitting in chair mod vc (I) UE 4. Eating- Mod vc (I) PLAN OF CARE/TREATMENT PLAN: 1x/day, 5 days/ week x 1week Initiate Occupational Therapy Services for bathing, dressing, grooming, toileting, eating, transfer training. DISCHARGE RECOMMENDATIONS SNF vs. LTC facility TREATMENT TIME/MINUTES/CODES 74612, [id number] Charlene Myrick OTR/L [facility]
[2022-03-01] MEDS: Scopolamine 1 MG/3 DAYS PATCH TD (11:22)
--- NOTE | 2022-03-01 15:15 | PT.INTREAT ---
Date of service: 03/01/22 Time of Service: 15:15 PT Notes Visit Reasons: Agitation,Parkinson,Dementia Physical Therapy Swing Bed Level I Treatment Note Date: 03/01/2022 Precautions: Fall. Standard. Activity as tolerated.? Impaired safety awareness. Subjective: asked if patient can go out on a wheelchair for fresh air. Patient appeared happy that PT could take him out on such a pretty day. Objective: General Observation: Eyes wide open. Patient much more conversant, able to make eye contact better and verbalize 3-4 word sentences. Mental Status: Alert and able to follow single step commands.? Pain: Denies Gait: Ambulated 400 feet on pavement in front of hospital main entrance using FWW with PT providing contact guard assist to FWW for redirection as needed. María providing wheelchair follow. Minimally out of breath but was able to recover with seated rest on bench by the front [place] garden. Walked again for another 100 feet to stay out of the sun into the shade at the front hospital entrance. THERA EX: Completed seated marches x 20, bilateral LAQs x 20, seated hip abduction x 20 with good response. Balance: Static Sitting: Normal Dynamic Sitting: Normal Static Standing: Fair Dynamic Standing: Fair ASSESSMENT: Pleasant and cooperative throughout session. Tends to move quick while walking, compromising ability to safely manage walker. Pre-existing visual impairment, impaired ability to either start or cease a movement, freezing episodes all limit ability of patient to achieve initially established goals. Prognosis for achieving goals is fair. PLAN: Will continue to work with patient to see if walking without walker is a safe progression/goal for the coming week while awaiting SNF placement. Initiate parallel bar gait training as tolerated for ambulation upgrade. Ensure that coordination with nurse is made so that PT sessions are done within an hour of anti PD medication intake to maximize performance. DISCHARGE RECOMMENDATIONS: [] ? Home with no services [] [] ? Home with services [] [] ? Home with outpatient PT [] [X] ? SNF for continued rehabilitation.? Patient will benefit from [facility] facility placement for continued skilled physical therapy services in order to progress mobility level, strength, and balance in preparation for a safe discharge to home. [X] ? [facility].? Good LTC candidate as is no longer able to care for patient. [] ? SNF versus LTC based on ability to participate and progress [] TREATMENT CODE/TIME: 47773 x 20 minutes, 46070 x 15 minutes beginning at 15:15 PM.
[2022-03-01 15:58] VITALS: BP 117/60; PULSE 62; RESP 18; TEMP 36.4; O2SAT 94
[2022-03-01] MEDS: traZODone 50 MG TAB PO (18:14)
[2022-03-01 19:55] VITALS: BP 106/50; PULSE 60; RESP 18; TEMP 36.7; O2SAT 96
[2022-03-01] MEDS: Melatonin 3 MG TAB PO (21:06)
[2022-03-01] MEDS: Latanoprost 0.005% 2.5 ML BTL OU (21:09)
[2022-03-01] MEDS: Acetaminophen Solution 650 MG/20.3 ML CUP PO (21:10)
[2022-03-02 02:36] VITALS: BP 125/67; PULSE 55; RESP 18; TEMP 36.5; O2SAT 95
[2022-03-02 07:54] VITALS: BP 103/68; PULSE 74; RESP 20; TEMP 36.3; O2SAT 95
[2022-03-02] MEDS: Tamsulosin 0.4 MG CAPCR 0.8 MG PO (08:30)
[2022-03-02] MEDS: FLUoxetine 10 MG TAB PO (08:30)
[2022-03-02] MEDS: amLODIPine 5 MG TAB PO (08:30)
[2022-03-02] MEDS: OLANZapine 2.5 MG TAB PO ×3 (08:31→17:52)
[2022-03-02] MEDS: Losartan 50 MG TAB PO (08:31)
[2022-03-02] MEDS: Enoxaparin 40 MG/0.4 ML SYR SC (08:31)
--- NOTE | 2022-03-02 09:04 | OTTR_ITS ---
Occupational Therapy Notes Occupational Therapy Inpatient Treatment Note Date: 03/02/22 PRECAUTIONS: Fall, Standard, DNR/DNI SUBJECTIVE: Pt was sitting in the chair when OT arrived. He was getting ready to eat his breakfast and was alert this morning. OBJECTIVE: PAIN:unable to assess EATING: Sitting in chair following JAVA WEB SERVICES DEVELOPER recommendations- Pt was able to verbalize what food type he would like. All foods were thickened by nursing and pt was able to verbalize yes/no for which food choice he would like. This type of (I) is important for pt as he to provide him with preference of his choice. Pt is (I) with hand to mouth, he has appropriate grasp on his silverware. He requires mod vc throughout for small bites and for swallowing his food fully. He is able to get the food into his mouth and he only swallows slightly. With mod-max vc throughout pt requires cues to swallow his food fully before he places the next bite. Pt also requires (A) with small bites and taking time to perform his eating. Pt at first was trying to eat his food too quickly. This elicits a cough from not fully swallowing. With vc his eating routine was much better and he was able to grab items on the tray and put them back. Pts eating routine takes him increased performance time for safety and proper (I) throughout. OT recommends that pt have someone sit with him to provide vc while eating but allow pt to pick his food and (A) with bite size to increase his functional (I). Due to pts dementia this type of (I) is importance and is meaningful to pts. ASSESSMENT/PLAN: OT will continue to progress pts (I) in his ADL/IADL, next session- OT will work with pt on bathing while sitting in the chair to see what pt needs to be more (I). TREATMENT CODES/TIME: [id number], 60 minutes Charlene Myrick, OTR/L [facility]
--- NOTE | 2022-03-02 09:20 | PDOC.CMACT ---
- If Service Date Differs Date of service: 03/02/22 Time of Service: 09:21 Care Management Activity Note Dominic continues to enjoy ambulating (2 assist) on the M/S floor and visiting with his family, especially his and daughter. His daughter reports throwing a ball of yarn back and forth with her Dad while visiting.
--- NOTE | 2022-03-02 10:18 | PTTR_ITS ---
Date of service: 03/02/22 Time of Service: 10:18 PT Notes Visit Reasons: Agitation,Parkinson,Dementia Physical Therapy Swing Bed Level I Treatment Note Date: 03/02/2022 Precautions: Fall. Standard. Activity as tolerated.? Impaired safety awareness. Subjective: Pleasant and cooperative throughout session. Agreeable to working with PT and doind strengthening/balance exercises. Denies pain, headache, dizziness throughout session. Objective: General Observation: Supine in bed. Eyes wide open, watching TV.? Patient much more conversant,? able to make eye contact better and verbalize 3-4 word sentences. Continues to make guttural sounds specially after exercises. Mental Status: Much improved mentation since restarting working with patient yesterday and today. Able to participate in conversation and respind using 3-4 wors sentences. Speech remains unclear sometimes. Pain: Denies Gait: Ambulated 200 feet + 200 feet in Oculogica surg hallway with hand-held assist to R and occasional contact guard assist to low back to minimize path deviation. No LOB. Mild SOB that resolved with rest. THERA EX: Completed seated marches x 20,? bilateral LAQs x 20,? seated hip abduction x 20 with 3 lb ankle weights. THERA ACT: Worked on increasing balance reflexes/awareness during side stepping to R and L x 3, forward and backwards walking x 3 with bilateral hand held assist only. Balance: Static Sitting: Normal Dynamic Sitting: Normal Static Standing: Fair Dynamic Standing: Fair ASSESSMENT: Pleasant and cooperative throughout session.? Much more clear today than yesterday. Able to follow 2-step directions. More conversant. Movement i nitiation/cessation improving. If behaviors continue to be managed, patient may safely return home with with PT/OT services, otherwise SNF placement. Discussed current overall level with palliative care nurse Tamara after session. PLAN: Will continue to work with patient to see if walking without walker is a safe progression/goal for the coming week while awaiting SNF placement. ? Initiate parallel bar gait training as tolerated for ambulation upgrade.? Ensure that coordination with nurse is made so that PT sessions are done within an hour of anti PD medication intake to maximize performance. DISCHARGE RECOMMENDATIONS: [] ? Home with no services [] [] ? Home with services [] [] ? Home with outpatient PT [] [X] ? SNF for continued rehabilitation.? Patient will benefit from longterm facility placement for continued skilled physical therapy services in order to progress mobility level, strength, and balance in preparation for a safe discharge to home. [X] ? [facility].? Good LTC candidate as is no longer able to care for patient. [] ? SNF versus LTC based on ability to participate and progress [] TREATMENT CODE/TIME: 57455 x 20 minutes, 03699 x 18 minutes beginning at 10:18 AM.
--- NOTE | 2022-03-02 12:55 | PGE_ITS ---
Date of Service Date of service: 03/02/22 Time of Service: 11:55 Assessment and Plan Assessment and plan (1) Lewy body Parkinson disease: Status: Acute Assessment and plan: Continue current antipsychotic medications with Olanzapine 2.5 mg, Desyrel 50 mg daily at 1800 as well as Desyrel 50 mg at night as needed for agitation.? Continue fluoxetine 10 mg daily. (2) Dysphagia: Status: Acute Assessment and plan: Patient remains on a regular diet with pur?ed and moderately thickened liquids.? Nursing staff and family have been educated by speech therapy in the past regarding proper feeding techniques including feeding him upright in a chair with head tucked chin turning and double swallowing and alternating solids and liquids.? Patient does have trouble controlling his secretions; he has a Transderm scopolamine patch which seems to help.?Teaching family proper technique for feeding. OT had him trying to eat on his own this am. He was somewhat successful and suspect he will improve the more he does it. (3) Parkinsons disease: Status: Chronic Assessment and plan: Continue current Sinemet regimen as recommended by Dr. Smith as well as neurology from [facility] movement clinic In until placement (4) Acute urinary retention: Status: Chronic Assessment and plan: Has chronic urinary retention that is been exacerbated lately by his antipsychotic medications.? He has underlying BPH currently on Flomax 0.8 mg daily.? Will continue to monitor for high urinary residuals and straight cath as needed residual greater than 400 mL? (5) Dementia: Status: Chronic Assessment and plan: He has had appropriate behavior with no outbreaks or issues today Continue to seek placement. (6) Palliative care patient: Status: Acute Assessment and plan: Palliative care consult Subjective Subjective Patient reports: no new complaints Interval history since last seen: Patient with no acute complaints this afternoon. No problems with agitation or behavioral issues today. states he was up in a chair today. Continues to work with PT and OT. This am he fed himself successfully - not a lot. Exam Narrative Exam Narrative: General: cooperative, comfortable and no acute distress Orientation: alert and awake Eyes Eyelids: eyelids normal Pupils: PERRL EOM: EOM intact bilaterally Neck Neck: normal visual inspection and no JVD Lymphatic: no lymphadenopathy noted Resp Effort & Inspection: normal respiratory effort Auscultation: clear to auscultation bilaterally Cardio No JVD Rhythm: regular rhythm Heart Sounds: S1 normal GI Auscultation: normal bowel sounds General: No CVA tenderness and deferred Skin General skin exam: no rashes or lesions noted Neuro General: patient alert and patient awake Speech: speech normal Gait: normal gait Extrem General: normal to inspection, full ROM and no clubbing, cyanosis or edema Left lower extremity: foot (left foot with wart) Objective Last Vital Signs Temp 36.3 C L 03/02/22 07:54 Pulse 74 03/02/22 07:54 Resp 20 03/02/22 07:54 BP 103/68 03/02/22 07:54 Pulse Ox 95 03/02/22 07:54 Reviewed Pertinent PMH: Yes
--- NOTE | 2022-03-02 13:10 | W.PALLCONSUL ---
Date of service: 03/02/22 Time of Service: 11:00 History of Present Illness Narrative: Dominic was seen for Palliative care follow up. He is now on swing bed for PT at [facility]. When I entered his room, he had just worked with Rachele PT. Rachele reports that he was able to ambulate around the loop x1 with 1 assist. He was pleasant to work with today. She did not personally work with him the 2 days prior to today, but it was reported to her that he did not have any aggressive behaviors or agitation while working with PT the last 2 days either. Rachele agrees that he could potentially discharge home with PT if he continues to work with PT without the previously noted behaviors. It is currently recommended that he discharge to SNF due to his not being able to continue caring for him at home. He has not been accepted to a rehab at this point. [facility]. Dominic was laying in bed looking at the TV at the time of the visit. He said, hi. He thought he had been in the hospital for, about 5 days. He did not recall how well he was eating but reports that he fed himself this morning, staff report that he required assistance. He denies pain. He requires assistance with personal care. He has lost approximately 40 pounds over the last 7 months. He has had falls. I was able to speak to his , Shaila via phone after the visit. Shaila reports that she is pleased with how well he is doing. She was able to take him outside yesterday and again today. She reports that he is calm and chatty. She denies having any concerns today. Assessment and Plan Assessment and plan (1) Goals of care, counseling/discussion: Assessment and plan: Family seeking placement, unable to care for him at home any longer. 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 Would qualify for hospice at time of discharge. (2) Parkinsons disease: Status: Chronic Assessment and plan: Advanced. He is on swing bed for PT. PT reports the he was able to ambulate around the loop x1 with 1 assist today. He was not aggressive or agitated. (3) Caregiver stress: Assessment and plan: His , Shaila was previously his caregiver at home. She is unable to continue caring for him. He is [facility]. He has not yet bed accepted to a SNF. 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 (6) [place] [employer]: (7) Palliative care patient: Status: Acute Assessment and plan: Dominic was seen for palliative follow up. He is now on SWB. He has done well with PT for the last few days. He is calm and pleasant at the time of the visit. CM is seeking placement for him. His is pleased with how well he is doing. Palliative will continue to follow along. Review of Systems All systems reviewed & are unremarkable except as noted in HPI and below PFSH All Active Problems Palliative care patient (Acute) Dysphagia (Acute) Parkinsons disease (Chronic) has not been getting his sinemet Lewy body Parkinson disease (Acute) Acute urinary retention (Chronic) Dementia (Chronic) Medical History Abnormal gait (11/19/17) Agitation Agitation due to dementia Anemia Basal cell carcinoma of right ear RIGHT EAR CANAL BCCa left upper chest 2018: excised BPH (benign prostatic hyperplasia) Caregiver stress Conductive hearing loss, external ear Constipation Dementia with behavioral disturbance Difficult intubation DNI (do not intubate) DNR (do not resuscitate) Elevated lipids Elevated PSA a. In April 2013. Fall Fever Foot pain Fx femur shaft-closed left ORIF Glaucoma Glaucoma decreased vision left Goals of care, counseling/discussion Hearing decreased Hyperlipidemia Hypertension Pain in left hip Swapna-prosthetic fracture around prosthetic hip Physician orders for life-sustaining treatment (POLST) form indicates patient wish for [id number]-[id number] status Pityriasis rosea Polyp of colon (09/20/10) Postoperative anemia PTSD (post-traumatic stress disorder) Raised prostate specific antigen (03/05/13) 6.82 06/19/16, 8.29 05/19/15 [facility] and june Sensorineural hearing loss of both ears Skin tear of elbow without complication Subcutaneous emphysema due to trauma UTI (urinary tract infection) [place] [employer] [facility] 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 Colonoscopy for which he's had excision of a polyp. b. Perirectal abscess treated in the past. c. Tonsillectomy. d. Extraction of molars. Status post left hip replacement (07/31/14) Family History Mother Diabetes Personal history of malignant neoplasm breast Father Heart disease Sister No problems noted. Brother No problems noted. Brother No problems noted. Social History Smoking/Tobacco Use Status: Never Second Hand Exposure: No Smoking risk assessment performed?: Yes Alcohol Intake: never Drug use: Never Substance use type: does not use Household members: spouse and children Housing: house Communication Needs: Hard of Hearing and Corrective Lenses Do you need help understanding health information?: Often Pets and animals: Yes Pets and animals: dog(s) Sexually active: No Do you think of yourself as: straight/heterosexual Current gender identity: male What is your relationship status?: How often do you talk on the phone with friends or family?: once per week How often do you attend yazdanism or taoist services?: 1-3 times per year Do you belong to any clubs or organized social groups?: no Panel score (0-1 are the most socially isolated patients): 1 What type of physical activity do you participate in: other Details: boxing Frequency: 1-2 times per week Kenna/Amish: Pentecostalism Seatbelt use: always Helmet use: No Drive intox or ride w/intox short haul driver: No Do you feel safe at home: Yes Do you feel safe in your relationship?: Yes Exam Narrative Exam Narrative: General: thin, elderly man, laying in his bed, watching TV. He is calm and pleasant, answers some questions. Occasionally calls out during visit. HEENT: Normocephalic, atraumatic, EOMI, mucous membranes moist. Neck: supple, no JVD. Cardiovascular: heart sounds regular, nontachycardic. Respiratory: Respirations appear even and unlabored, lung sounds are clear on limited anterior and lateral exam. GI: +BS, abdomen is flat, soft, nondistended, does not appear to be tender on palpation. Extremities: no edema, moves all 4 extremities. Results Last Vital Signs Temp 36.3 C L 03/02/22 07:54 Pulse 74 05/12/22 07:54 Resp 20 03/02/22 07:54 BP 103/68 03/02/22 07:54 Pulse Ox 95 03/02/22 07:54
[2022-03-02 14:52] VITALS: BP 103/51; PULSE 67; RESP 20; TEMP 36.4; O2SAT 95
[2022-03-02] MEDS: traZODone 50 MG TAB PO (17:51)
[2022-03-02] MEDS: Melatonin 3 MG TAB PO (21:33)
[2022-03-02] MEDS: Acetaminophen Solution 650 MG/20.3 ML CUP PO (21:33)
[2022-03-02] MEDS: Latanoprost 0.005% 2.5 ML BTL OU (21:33)
[2022-03-02 23:10] VITALS: BP 100/61; PULSE 56; RESP 20; TEMP 36.5; O2SAT 94
[2022-03-03] MEDS: FLUoxetine 10 MG TAB PO (08:27)
[2022-03-03] MEDS: Tamsulosin 0.4 MG CAPCR 0.8 MG PO (08:27)
[2022-03-03] MEDS: amLODIPine 5 MG TAB PO (08:27)
[2022-03-03] MEDS: OLANZapine 2.5 MG TAB PO ×3 (08:27→19:08)
[2022-03-03] MEDS: Losartan 50 MG TAB PO (08:27)
[2022-03-03] MEDS: Enoxaparin 40 MG/0.4 ML SYR SC (08:28)
[2022-03-03 08:45] VITALS: BP 129/67; PULSE 69; RESP 18; TEMP 36.6; O2SAT 95
--- NOTE | 2022-03-03 11:36 | PT.INPN ---
Date of service: 03/03/22 Time of Service: 11:36 PT Notes Visit Reasons: Agitation,Parkinson,Dementia Swing Bed Level I Physical Therapy Progress Note Date: 03/03/2022 Dates of Service: 02/24/2022 through 03/03/2022 Referring Doctor: Minnie Goodrich NP PT Orders: PT CONSULT: Extended stay weakness.? Reevaluate and treat for generalized weakness; deconditioning Precautions: Fall. Standard. Activity as tolerated.? Impaired safety awareness. Patient Profile/Admitting Diagnosis: Zach converted to swing bed level II on 02/23/2022 and is being evalauted today for continued PT services under said level of care.? He is a 76-year-old male with past medical history significant for Parkinson's disease and dementia admitted for management of acute agitation. Patient was discharged from services on 02/14/2022 due to decline in mental status and conversion to comfort measures.? New referral was sent by hospitalist to address generalized weakness and functional mobility decline in anticipation of discharge to a correction facility whenever cleared medically. ? 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 Agitation due to dementia Basal cell carcinoma of right ear RIGHT EAR CANAL BCCa left upper chest 2018: excised BPH (benign prostatic hyperplasia) Constipation Difficult intubation Dysphagia Elevated PSA a. In April 2013.Glaucoma Hypertension Parkinsons disease Polyp of colon (09/20/10) Skin tear of elbow without complication Surgical History? Colonoscopy - MAC (~2010) 2000; NEG 2011; 2 POLYPSHistory of Surgical Procedure a. Colonoscopy for which he's had excision of a polyp. b. Perirectal abscess treated in the past. c. Tonsillectomy. d. Extraction of molars. Status post left hip replacement (07/31/14) Social History/Home Situation: Lives with in a private home with 4 steps to enter without rails.? There are 15 steps to the second floor of the house where his bedroom is however states that he no longer needs to go upstairs as they have made everything accessible for on the main floor.? Independent with FWW indoors. Equipment Owned/DME: FWW Subjective: Patient is agreeable to two short sessions today. Objective: General Observation: Supine in bed.? Eyes wide open, watching TV.? Patient much more conversant,? able to make eye contact better and verbalize 3-4 word sentences.? Continues to make guttural sounds specially after exercises. Mental Status: Much improved mentation since restarting working with patient yesterday and today.? Able to participate in conversation and respind using 3-4 wors sentences.? Speech remains unclear sometimes.? Pain: Denies ROM: Right Upper Extremity: Shoulder Flexion WFL. Shoulder abduction WFL. Elbow flexion WFL. Wrist flexion WFL. Functional opening and closing of hand WFL. Left Upper Extremity: Shoulder Flexion WFL. Shoulder abduction WFL. Elbow flexion WFL. Wrist flexion WFL. Functional opening and closing of hand WFL. Right Lower Extremity: Hip flexion WFL. Hip abduction WFL. Knee flexion WFL. Ankle dorsiflexion WFL. Ankle plantarflexion WFL. Left Lower Extremity: Hip flexion WFL. Hip abduction WFL. Knee flexion WFL. Ankle dorsiflexion WFL. Ankle plantarflexion WFL. Strength: Right Upper Extremity: Shoulder flexors 4/5. Shoulder abductors 4/5. Elbow flexors 5/5. Elbow extensors 5/5. Network Support strong. Left Upper Extremity: Shoulder flexors 4/5. Shoulder abductors 4/5. Elbow flexors 5/5. Elbow extensors 5/5. Network Support strong. Right Lower Extremity: Hip flexors 4/5. Hip abductors 4/5. Knee flexors 5/5. Knee extensors 4/5. Ankle dorsiflexors 4/5. Ankle plantarflexors 5/5. Left Lower Extremity:Hip flexors 4/5. Hip abductors 4/5. Knee flexors 5/5. Knee extensors 4/5. Ankle dorsiflexors 4/5. Ankle plantarflexors 5/5. Bed Mobility/Transfers: Supine to sit supervision Sit to supine supervision Sit to stand stand by assist Stand to sit supervision Bed to chair stand by assist Chair to bed stand by assist Gait: Ambulated 200 feet + 200 feet in [facility] with hand-held assist to R and occasional contact guard assist to low back to minimize path deviation.? No LOB. Mild SOB that resolved with rest.? THERA EX: Completed seated marches x 20,? bilateral LAQs x 20,? seated hip abduction x 20 with 3 lb ankle weights. THERA ACT: Worked on increasing balance reflexes/awareness during side stepping to R and L x 3,? forward and backwards walking x 3 with bilateral hand held assist only incorporated into slow dancing. Balance: Static Sitting: Normal Dynamic Sitting: Normal Static Standing: Fair Dynamic Standing: Fair Special Tests: Mobility Limitations Standardized Measure [facility] 6 clicks Basic Mobility Inpatient Short Form: Raw Score: 22 ?CMS Score: 21% deficit? ? ? Informed Consent/Education:? Patient and were instructed in purpose of PT consult and plan of care and are agreeable to proceed with established PT POC to achieve family goals. ASSESSMENT: Pleasant and cooperative throughout session.? Mental status continuing to clear.? Able to follow 2-step directions.? More conversant.? Movement initiation/cessation improving.? If behaviors continue to be managed,? patient may safely return home with with PT/OT services, otherwise SNF placement.? Discussed current overall level with palliative care nurse Tamara after session. Patient presents with clinical signs and symptoms consistent with current/admitting diagnoses that have resulted to mobility limitations, gait instability, generalized weakness, and overall ADL decline as demonstrated by the following impairment level findings: 1.? Decreased strength to B UEs/LE major muscle groups 2.? Impaired sitting/standing balance 3.? Impaired safety awareness Impairments are contributing to the following functional limitations: 3.? Difficulty with ambulation without physical assistance 4.? Increased completion time for mobility ADL performance 5.? Increased risk for falls 6.? Difficulty with managing steps alone safely Patient is assessed as a 30487 moderate complexity based on the following: History: 76-year-old male with past medical history as indicated above Examination: Demonstrable impairment in strength, balance, and mobility level with underlying impairments and functional limitations as exhibited above as well as deficit score of 42% utilizing the [facility] Mobility Inpatient Short Form Presentation: Evolving Decision Makin moderate complexity Goals: Goals X1 week 1. Supine-Sit supervision 2. Sit-Supine supervision 3. Sit-Stand supervision 4. Stand-Sit supervision with FWW 5. Bed-Chair stand by assist with FWW 6. Chair-Bed supervision with FWW 7.?Supervision gait on level surface with use of FWW for at least 300 feet without report of pain nor dyspnea PLAN: Will continue to work with patient to see if walking without walker is a safe progression/goal for the coming week while awaiting SNF placement. ? Initiate parallel bar gait training as tolerated for ambulation upgrade.? Ensure that coordination with nurse is made so that PT sessions are done within an hour of anti PD medication intake to maximize performance. DISCHARGE RECOMMENDATIONS: [] ? Home with no services [] [] ? Home with services [] [] ? Home with outpatient PT [] [X] ? SNF for continued rehabilitation.? Patient will benefit from correction facility placement for continued skilled physical therapy services in order to progress mobility level, strength, and balance in preparation for a safe discharge to home. [X] ? Care Home Care.? Good LTC candidate as is no longer able to care for patient. [] ? SNF versus LTC based on ability to participate and progress [] TREATMENT CODE/TIME: 41269 x 25 minutes, 97745 x 16 minutes beginning at 11:12 and 11:36 AM. Thank you for the opportunity to participate in the care of this patient. Adali Delvalle PT, DPT, CLT [facility] [place], [place]
[2022-03-03] MEDS: traZODone 50 MG TAB PO (19:08)
[2022-03-03] MEDS: Acetaminophen Solution 650 MG/20.3 ML CUP PO (21:02)
[2022-03-03] MEDS: Melatonin 3 MG TAB PO (21:02)
[2022-03-03] MEDS: Latanoprost 0.005% 2.5 ML BTL OU (21:03)
[2022-03-03 23:40] VITALS: BP 95/56; PULSE 60; RESP 18; TEMP 36.3; O2SAT 93
[2022-03-04] MEDS: Lidocaine 2% Jelly 11 ML SYR UR (05:02)
[2022-03-04] MEDS: Tamsulosin 0.4 MG CAPCR 0.8 MG PO (09:03)
[2022-03-04] MEDS: OLANZapine 2.5 MG TAB PO ×3 (09:03→18:03)
[2022-03-04] MEDS: FLUoxetine 10 MG TAB PO (09:03)
[2022-03-04] MEDS: Enoxaparin 40 MG/0.4 ML SYR SC (09:04)
[2022-03-04 09:20] VITALS: BP 100/59; PULSE 73; RESP 18; TEMP 37.1; O2SAT 87
[2022-03-04] MEDS: Scopolamine 1 MG/3 DAYS PATCH TD (11:38)
[2022-03-04] MEDS: LORazepam 2 MG/ML VIAL 1 MG IM (12:21)
[2022-03-04] MEDS: traZODone 50 MG TAB PO (18:03)
[2022-03-04 19:10] VITALS: BP 115/80; PULSE 77; RESP 18; TEMP 36.6; O2SAT 97
[2022-03-04] MEDS: Melatonin 3 MG TAB PO (21:31)
[2022-03-04] MEDS: Acetaminophen Solution 650 MG/20.3 ML CUP PO (21:31)
[2022-03-04] MEDS: Latanoprost 0.005% 2.5 ML BTL OU (21:32)
[2022-03-05] MEDS: amLODIPine 5 MG TAB PO (09:35)
[2022-03-05] MEDS: Acetaminophen Solution 650 MG/20.3 ML CUP PO (09:35)
[2022-03-05] MEDS: FLUoxetine 10 MG TAB PO (09:36)
[2022-03-05] MEDS: Enoxaparin 40 MG/0.4 ML SYR SC (09:36)
[2022-03-05] MEDS: Losartan 50 MG TAB PO (09:36)
[2022-03-05] MEDS: OLANZapine 2.5 MG TAB PO ×3 (09:36→17:42)
[2022-03-05] MEDS: Tamsulosin 0.4 MG CAPCR 0.8 MG PO (09:37)
[2022-03-05 10:15] VITALS: BP 111/65; PULSE 61; RESP 18; TEMP 36.1; O2SAT 92
--- NOTE | 2022-03-05 16:30 | DI.CT_ITS ---
Exam(s) CT HEAD WO EXAM: CT HEAD WO CLINICAL HISTORY: post fall headache. TECHNIQUE: Imaging Protocol: Axial computed tomography images with coronal and sagittal reformatted images were created and reviewed COMPARISON: CT CT HEAD CERVICAL SPINE WO from 02/16/2022 FINDINGS: There are no skull fractures nor fluid in the visualized paranasal sinuses. There is no evidence of intracranial hemorrhage, mass effect, or shift of midline structures. There are no extra-axial fluid collections. The ventricles are not enlarged or shifted and there is no blo od within the ventricular system nor within the basal cisterns. Mild periventricular white matter hypodensity consistent with chronic small vessel ischemic changes a gain noted IMPRESSION: No acute intracranial findings on this noninfused CT scan of the brain. RADIATION DOSE DELIVERED: 816.83mGy.cm Total DLP DATA REPOSITORY: All CT scans at this facility are submitted to the National Radiology Data Registry (NRDR) Dose Index Registry (DIR) with the [employer] (ACR). RADIATION OPTIMIZATION: All CT scans at this facility use at least one of these dose optimization te chniques: automated exposure control; mA and/or kV adjustment per patient size (includes targeted exa ms where dose is matched to clinical indication); or iterative reconstruction.
[2022-03-05] MEDS: traZODone 50 MG TAB PO (17:42)
--- NOTE | 2022-03-05 17:43 | DI.VRAD_ITS ---
PROCEDURE INFORMATION: Exam: CT Head Without Contrast Exam date and time: 03/05/2022 4:59 PM Age: 76 years old Clinical indication: Injury or trauma; Blunt trauma (contusions or hematomas); Consciousness not specified; Injury details: Post fall headache TECHNIQUE: Imaging protocol: Computed tomography of the head without contrast. COMPARISON: CT HEAD CERVICAL SPINE WO 02/16/2022 10:32 AM FINDINGS: Brain: Normal. No hemorrhage. Unremarkable white matter. No mass effect. Cerebral ventricles: No ventriculomegaly. Paranasal sinuses: Visualized sinuses are unremarkable. No fluid levels. Mastoid air cells: Visualized mastoid air cells are well aerated. Vasculature: Vascular calcifications. Bones/joints: Unremarkable. No acute fracture. Soft tissues: Unremarkable. IMPRESSION: No acute intracranial abnormality Dictated and Authenticated by: Missy Dent MD. Ordering:CHERYL Hartman MD
[2022-03-05 19:30] VITALS: BP 105/57; PULSE 54; RESP 17; TEMP 37; O2SAT 94
[2022-03-05 21:25] VITALS: BP 102/68; PULSE 60; RESP 18; TEMP 37.2; O2SAT 98
[2022-03-05] MEDS: Melatonin 3 MG TAB PO (22:14)
[2022-03-05] MEDS: Latanoprost 0.005% 2.5 ML BTL OU (22:17)
[2022-03-05 22:35] VITALS: BP 125/71; PULSE 58; RESP 19; TEMP 36.3; O2SAT 93
[2022-03-06] VITALS (8 sets, daily range): BP systolic 85–126; BP diastolic 40–70; PULSE 54–63; RESP 18–24; TEMP 36.2–37; O2SAT 92–97
[2022-03-06] MEDS: FLUoxetine 10 MG TAB PO (08:50)
[2022-03-06] MEDS: amLODIPine 5 MG TAB PO (08:50)
[2022-03-06] MEDS: Losartan 50 MG TAB PO (08:50)
[2022-03-06] MEDS: Tamsulosin 0.4 MG CAPCR 0.8 MG PO (08:50)
[2022-03-06] MEDS: OLANZapine 2.5 MG TAB PO ×3 (08:51→17:32)
--- NOTE | 2022-03-06 08:59 | OT.INTREAT ---
Occupational Therapy Notes Occupational Therapy Inpatient Treatment Note Date: 03/06/22 PRECAUTIONS: Fall, standard, DNR/DNI SUBJECTIVE: Pt was sitting in chair when OT arrived. He was eating with nursing and seemed semi-alert today. OBJECTIVE: EATING: Sitting in chair with mod vc throughout pt is able to hold his container and bring the spoon to his mouth (I). He does require (A) with vc throughout for performance. He has nursing sitting with him and requires max (A) for thickening liquids and monitoring pts ability to swallow his food appropriately. OT feels that pts (I) in his eating routine in important. Pts eating routines take increased performance time and pt requires support for positioning per J2EE ANDROID DEVELOPER recommendations. OT does not feel that pt will need any other adaptive equipment but will continue to require those vc throughout. TREATMENT CODES/TIME: 24279, 15 minutes (08:40) Charlene Myrick OTR/[facility]
--- NOTE | 2022-03-06 14:27 | PT.INTREAT ---
Date of service: 03/06/22 Time of Service: 14:03 PT Notes Visit Reasons: Agitation,Parkinson,Dementia Inpatient Physical Therapy Treatment Note [facility] Date: 03/06/2022 PRECAUTIONS: PD, dementia, Activity as tolerated, fall SUBJECTIVE: Zach is pleasant and indicates that he is agreeable to participating in PT. OBJECTIVE: PAIN: No c/o pain BED MOBILITY/TRANSFERS Sit-supine: I Sit-stand: CGA Stand-sit: CGA GAIT Assistive Device: FWW Weight bearing: Full Assist: CGA Distance: 400' + 200' Deviation: Unable to look ahead, assist with FWW management, path deviation, appropriate pacing today THEREX: Patient completes NuStep biking x4 minutes with direct supervision. He participates in dancing activity with TENTERING MACHINE OFF BEARER x3 minutes. Patient declines further ther ex due to fatigue. ASSESSMENT: Patient tolerated session well. He continues to demonstrate path deviation and requires assist for FWW management, although does demonstrate appropriate pacing today without cueing. PLAN: Continue with general conditioning and global strengthening for improved activity tolerance. TREATMENT CODE/TIME: 24 minutes; 42762 x2 (14:03)
[2022-03-06] MEDS: traZODone 50 MG TAB PO (17:32)
[2022-03-06] MEDS: Melatonin 3 MG TAB PO (19:44)
[2022-03-06] MEDS: Latanoprost 0.005% 2.5 ML BTL OU (21:22)
[2022-03-06] MEDS: Acetaminophen Solution 650 MG/20.3 ML CUP PO (21:22)
[2022-03-07] VITALS (8 sets, daily range): BP systolic 95–137; BP diastolic 50–66; PULSE 56–65; RESP 16–22; TEMP 36–37.1; O2SAT 92–98
[2022-03-07] MEDS: OLANZapine 2.5 MG TAB PO ×3 (08:22→17:39)
[2022-03-07] MEDS: FLUoxetine 10 MG TAB PO (08:22)
[2022-03-07] MEDS: Losartan 50 MG TAB PO (08:22)
[2022-03-07] MEDS: amLODIPine 5 MG TAB PO (08:22)
[2022-03-07] MEDS: Tamsulosin 0.4 MG CAPCR 0.8 MG PO (08:22)
--- NOTE | 2022-03-07 08:41 | NT_ITS ---
Occupational Therapy Notes Occupational Therapy Inpatient Treatment Note Date: 03/07/22 PRECAUTIONS: Fall, standard, DNR/DNI SUBJECTIVE:?Pt was sitting in bed when OT arrived. He was eating with nursing and seemed alert today. OBJECTIVE:? EATING:?Sitting in bed with mod vc throughout pt is able to hold his container and bring the spoon to his mouth (I). He does require (A) with vc throughout for performance. He has nursing sitting with him and requires max (A) for thickening liquids and monitoring pts ability to swallow his food appropriately. OT feels that pts (I) in his eating routine in important. Pts eating routines take increased performance time and pt requires support for positioning per GROUTER HELPER recommendations including sitting straight up and with vc for swallowing allowing time to swallow between bites. OT does not feel that pt will need any other adaptive equipment but will continue to require those vc throughout. ? TREATMENT CODES/TIME:?[id number], 30 minutes (08:05) ? Charlene Myrick, OTR/L [facility]
--- NOTE | 2022-03-07 08:43 | NUR.NOTE ---
Nursing Note: At this time, patient's bed exit alarm is ringing. This RN walks into the room to see the patient trying to climb over one of the bed rails. Patient educated on the importance of staying in bed when no one is in the room with him. Patient states I just need to get out of here. Patients eyes appeared wet, as if he was crying. Emotional support provided at this time. Patient appears to be calm after emotional support. Charge nurse notified of the situation.
--- NOTE | 2022-03-07 09:39 | PT.INTREAT ---
Date of service: 03/07/22 Time of Service: 08:55 PT Notes Visit Reasons: Agitation,Parkinson,Dementia Inpatient Physical Therapy Treatment Note [facility] Date: 03/07/2022 PRECAUTIONS: PD, dementia, Activity as tolerated, fall SUBJECTIVE: Zach is pleasant and indicates that he is agreeable to participating in PT. OBJECTIVE: PAIN: No c/o pain BED MOBILITY/TRANSFERS Sit-supine: I Sit-stand: CGA Stand-sit: CGA GAIT Assistive Device: FWW Weight bearing: Full Assist: CGA Distance: 200' Deviation: Does not look straight ahead, path deviation, appropriate pacing today, was able to avoid some obstacles today THEREX: Patient completes NuStep biking x10 minutes with direct supervision. ASSESSMENT: Patient tolerated session well. He continues to demonstrate path deviation, although does demonstrate ability to navigate around some objects today, and demonstrates appropriate pacing today without cueing. PLAN: Continue with general conditioning and global strengthening for improved activity tolerance. TREATMENT CODE/TIME: 15 minutes; [id number] (08:55)
--- NOTE | 2022-03-07 11:48 | NUR.NOTE ---
Nursing Note: Yesterday at lunch, patient's , María, reported to this RN someone thought it would be a good idea to bring a clear ensure instead of the milk ones. These do not thicken though. I put some thickener in it but it didn't do anything. I gave it to him and he did fine with it. SRUTHI Palacios stated she did not feed him the ensure for breakfast because it did not thicken.
[2022-03-07] MEDS: Scopolamine 1 MG/3 DAYS PATCH TD (12:20)
--- NOTE | 2022-03-07 15:26 | CMPROGNOTE_ITS ---
- If Service Date Differs Date of service: 03/07/22 Time of Service: 15:26 Care Management Progress Note S/O:CM met with María, Zach's , this afternoon and explained that he will need to transition to SB-2 soon. He no longer has any skilled need to require SB-1. The financial implications of that are considerable. While the [place] pay for longterm care in a facility, they will not cover intermediate care in a hospital. Medicare does not cover SB-2 either, so he would be in self pay status, which is $912/day. CM requested that María agree to have referrals sent to [facility] and other contracted facilities in [place] and [place]. María declined, verbalizing that she does not want him to be alone. She is not willing or able to drive long distances every day to visit him and she cannot afford to stay in a hotel or motel. María has determined that she will take Zach home at the end of the week and resume caring for him. She acknowledged that he is much better than he was on admission and is no longer exhibiting aggressive behavior. Zach wants to go home and María wants him to be happy. She identified some safety concerns with their physical environment. CM has requested that home health be ordered and a full home safety evaluation be completed. [facility] and need for medications and services. In addition to home health, a referral will be made for caregiver respite and support, also through the [place].. A:Zach is a 76 year old man admitted on 02/09/22 with agitation and dementia P:Dominic will likely be discharged home at the end of the week with a resumption of home health nursing and PT with the addition of OT, speech and BARREL ASSEMBLER HELPER. A request has been submitted for additional caregiver time as well. Zach will transport via private vehicle with his and follow up with his providers at the [place] as well as his local providers. with family. CM will continue to support Zach and assess for discharge planning needs.
[2022-03-07] MEDS: traZODone 50 MG TAB PO (17:39)
[2022-03-07] MEDS: Acetaminophen Solution 650 MG/20.3 ML CUP PO (21:11)
[2022-03-07] MEDS: Melatonin 3 MG TAB PO (21:11)
[2022-03-07] MEDS: Latanoprost 0.005% 2.5 ML BTL OU (21:12)
[2022-03-07] MEDS: LORazepam 2 MG/ML VIAL 1 MG IM (21:37)
[2022-03-08 04:06] VITALS: BP 128/64; PULSE 60; RESP 16; TEMP 36; O2SAT 99
[2022-03-08 07:45] VITALS: BP 84/50; PULSE 62; RESP 21; TEMP 36; O2SAT 97
[2022-03-08] MEDS: OLANZapine 2.5 MG TAB PO ×3 (08:22→18:04)
[2022-03-08] MEDS: FLUoxetine 10 MG TAB PO (08:23)
[2022-03-08] MEDS: Tamsulosin 0.4 MG CAPCR 0.8 MG PO (08:23)
--- NOTE | 2022-03-08 09:01 | OT.INDS ---
Occupational Therapy Notes Occupational Therapy Inpatient Discharge Summary Date: 03/08/22 Dates of Service: 03/01/22-03/08/22 Referring Doctor:Merna Dewey MD OT Orders: Non Urgent Precautions: Fall, standard, DNR/DNI PATIENT PROFILE/ADMITTING DIAGNOSIS: Pt is a 76 year old male who is admitted to Med Surg via SWG B1 status for a dx of? palliative care patient, dysphagia, PArkinsons disease, lewy body, acute urinary retention, demenita. Past Medical History: All Active Problems?(Updated 02/23/22 @ 13:38 by Minnie Goodrich NP) Dysphagia (Acute) Parkinsons disease (Chronic) has not been getting his sinemetLewy body Parkinson disease (Acute) Discharge planning issues (Acute) Acute urinary retention (Chronic) Dementia (Chronic) Medical History Abnormal gait (11/19/17) Agitation Agitation due to dementia Anemia Basal cell carcinoma of right ear RIGHT EAR CANAL BCCa left upper chest 2018: excised BPH (benign prostatic hyperplasia) Caregiver stress Conductive hearing loss, external ear Constipation Dementia with behavioral disturbance Difficult intubation DNI (do not intubate) DNR (do not resuscitate) Elevated lipids Elevated PSA a. In April 2013.Fall Fever Foot pain Fx femur shaft-closed left ORIF Glaucoma Glaucoma decreased vision left Goals of care, counseling/discussion Hearing decreased Hyperlipidemia Hypertension Pain in left hip Palliative care patient Swapna-prosthetic fracture around prosthetic hip Physician orders for life-sustaining treatment (POLST) form indicates patient wish for en-xqo-slkiqpzlvmu status Pityriasis rosea Polyp of colon (09/20/10) Postoperative anemia PTSD (post-traumatic stress disorder) Raised prostate specific antigen (03/05/13) 6.82 06/19/16, 8.29 05/19/15 [facility] june Sensorineural hearing loss of both ears Skin tear of elbow without complication Subcutaneous emphysema due to trauma UTI (urinary tract infection) [place] [facility] armed [employer] [facility] vet Surgical History? Colonoscopy - MAC (~2010) 2000; NEG 2010; 2 POLYPSHistory of Surgical Procedure a. Colonoscopy for which he's had excision of a polyp. b. Perirectal abscess treated in the past. c. The Tonsillectomy. d. Extraction of molars. Status post left hip replacement (07/31/14) Social History/Home Situation: Pt tells OT that he lives in a private home with his and that his helps him with everything. He reports that he has 3 children- a daughter and 2 sons. He reports that his daughter lives in [place]. 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 He notes that at baseline his has to help him and that he can't do his ADLs on his own. He currently requires increased performance time for his ADLs and this is due to his task initiation and performance of tasks without verbal cues (vc). Equipment owned/DME: Unable to assess SUBJECTIVE:?NT OBJECTIVE:? ROM: RUE AROM WFL L UE AROM WFL STRENGTH: RUE 5/5 throughout with min vc for strength testing set up LUE 5/5 throughout with min vc for strength testing set up FUNCTIONAL MOBILITY/ADLS:? EATING:?Sitting in chair with mod vc throughout pt is able to hold his container and bring the spoon to his mouth (I). He does require (A) with vc throughout for performance. He has nursing sitting with him and requires max (A) for thickening liquids and monitoring pts ability to swallow his food appropriately. OT feels that pts (I) in his eating routine in important. Pts eating routines take increased performance time and pt requires support for positioning per CARD TAPE CONVERTER OPERATOR recommendations.?With vc pt is able to perform this with increased (I). BALANCE: ? Static sitting Normal Dynamic Sitting Normal Static Standing Good Dynamic Standing Good ASSESSMENT:?? Patient is a 76-year-old male referred to occupational therapy services with diagnosis of palliative care patient, dysphagia, Parkinsons disease, lewy body, acute urinary retention, dementia. Pt has been receptive to OT services, he has improved his functional (I) with his eating demands. He does require vc throughout but is receptive to this and performance of this. OT feels that after discussion with nursing that pt would benefit from HH services if he returns home. OT does feel that if pt returns home that he will be high risk for re-admission and OT recommends that pt go to SNF vs. LTC for pts safety, and support with his ADLS and functional (I). GOALS 1.? Grooming- sitting in chair pt will be able to perform his oral hygiene with min vc 2.? Dressing- sitting in chair pt will be mod (A) with don and doffing socks and mod (A) with hospital gown 3.? Bathing- sitting in chair mod vc (I) UE 4.? Eating- Mod vc (I) PLAN OF CARE/TREATMENT PLAN: Discharge from skilled OT services. DISCHARGE RECOMMENDATIONS SNF vs. LTC facility TREATMENT TIME/MINUTES/CODES N/A Charlene Myrick OTR/L [facility]
[2022-03-08 11:40] VITALS: BP 127/32; PULSE 56
--- NOTE | 2022-03-08 12:18 | NUR.NOTE ---
Nursing Note:At this time, this RN walked by patients room to see patient using his arms to dance and copy SRUTHI Quach. Patient had a smile on his face. Patient then noticed this RN was watching and patient asked are you going to eat with me? I stated No Philomena is going to help you eat the patient states I'm sorry Philomena you may proceed. 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 Patient appeared happy talking about his past.
--- NOTE | 2022-03-08 12:42 | NUR.NOTE ---
Nursing Note: At this time, the patients call light was ringing. Upon entering the room, the patients states I think he needs to be suctioned. Everything he is eating he is gagging on and seems to be gurgling. This RN asked Zach are you okay? The patient reached for the water and took a small sip. This RN asked patient do you want pudding? Patient states Yes, vanilla. This RN went and retrieved vanilla pudding. This RN took the clear ensure off patients tray, as these do not thicken. The states Yeah I put three of those thickeners in it and it didn't get thick. He does okay with it. This RN stated I do not like him having it if it does not thicken. The then states I thinned down this (pointing to pureed food on the tray), because I thought maybe it was too thick causing him to gag. Patient seen eating thickened soup independently, without difficulty. Patient encouraged to swallow frequently with small bites. Charge nurse notified of the situation.
--- NOTE | 2022-03-08 14:35 | CHAPLAIN ---
Zach was watching a Red Sox game on TV when I visited. María was with him. I spoke with Zach about his [place] upbringing and some of the [employer] he and his family visited when they lived in [place] and his kids were studying [employer] churches. He told me that María brought him from [place] to [place] because she is from here. But he likes to ski so that helped him adjust. I didn't always understand everything Zach said but he was clearly making an effort to engage and María helped interpret some. I left as Zach began to fall asleep. María will be taking Zach home at the end of the week.
[2022-03-08] MEDS: traZODone 50 MG TAB PO (18:04)
[2022-03-08] MEDS: Melatonin 3 MG TAB PO (20:43)
[2022-03-09 07:40] VITALS: BP 106/66; PULSE 58; RESP 16; TEMP 36.2; O2SAT 94
[2022-03-09 09:55] VITALS: BP 136/73; PULSE 61; RESP 19; TEMP 36.5; O2SAT 96
[2022-03-09] MEDS: Tamsulosin 0.4 MG CAPCR 0.8 MG PO (10:30)
[2022-03-09] MEDS: Losartan 50 MG TAB PO (10:30)
[2022-03-09] MEDS: OLANZapine 2.5 MG TAB PO ×3 (10:30→18:15)
[2022-03-09] MEDS: FLUoxetine 10 MG TAB PO (10:30)
[2022-03-09] MEDS: amLODIPine 5 MG TAB PO (10:30)
--- NOTE | 2022-03-09 16:45 | PT.INTREAT ---
Date of service: 03/09/22 Time of Service: 16:45 PT Notes Visit Reasons: Agitation,Parkinson,Dementia Physical Therapy Swing Bed Level I Treatment Note Date: 03/02/2022 Precautions: Fall. Standard. Activity as tolerated.? Impaired safety awareness. Subjective: Repeatedly said I'm restless throughout session and would want to move about. Able to stop and rest once he started feeling tired aeter several trips with nursing and with this Pt in the hallway using his FWW. expressed her dread over taking home as she does not feel entirely capable of managing on her own. She still hopes that he can be placed. She states zenadia she in communication with a case management social worker at the [place] regardning the matter. Objective: General Observation: Supine in bed.? Eyes wide open, watching TV.? Patient much more conversant,? able to make eye contact better and verbalize 3-4 word sentences.? Continues to make guttural sounds specially after exercises. Mental Status: Much improved mentation since restarting working with patient yesterday and today.? Able to participate in conversation and respind using 3-4 wors sentences.? Speech remains unclear sometimes.? Pain: Denies Gait: Ambulated 600 feet with Nurse Saeid and SRUTHI Quach in med surg hallway with FWW requiring contact guard assist from both of them. With PT patient continued to do another 260 feet + 260 feet using same device with contact guard assist. Obstacle negotiation not as impaired as it used to as patient is able to better avoid leonard, carts, and moving persons in the hallway with minimal verbal and occasional tactile cueing. No LOB. Mild SOB that resolved with rest.? THERA ACT: Worked on increasing B LE strength with sit to sstand activity using regular chair inside room. Worked on increasing balance reflexes/awareness during side stepping to R and L x 3,? forward and backwards walking x 3 with bilateral hand held assist only. PATIENT EDUCATION/TRAININ. Gave ideas to regarding creating a schedule of daily activities to minimize episodes of restlessness and or potential agitation using the following: -cycle ergometer for B UE -cycle ergometer for B LE -throwing activities using soft ball -punching bag with satnd that patient can do seated -sit<>stand on chair parked against a wall and padded 2. Utilizing calm music once activities have been done to facilitate relaxation 3. Do not work/exercise patient to the point of exhaustion and ensure that activities are done in coordination with his antiPD med intake Balance: Static Sitting: Normal Dynamic Sitting: Normal Static Standing: Fair Dynamic Standing: Fair ASSESSMENT: Improving obstacle negotiation and walker management today but continues to need occasional help from caregiver with walker management when he gets fatigued. Ability to perform directional changes improving using FWW with minimal cueing. Also now able to pace self better on command if speed begins to go beyond safety limits. Much more responsive to conversation with speed of response significantly improved. However, despite demonstrable improvement in mobility level, patient will still require placement in a SNF or a [place] home as potential variations in behavior, level of awareness, and mental status on top of Parkinson's Disease progression can become out of control and beyond the 's ability to provide effective care for patient and can put patient and at risk for falls and or injury. DISCHARGE RECOMMENDATIONS: [] ? Home with no services [] [] ? Home with services [] [] ? Home with outpatient PT [] [X] ? SNF for continued rehabilitation.? Patient will benefit from shelter facility placement for continued skilled physical therapy services in order to progress mobility level, strength, and balance in preparation for a safe discharge to home. [X] ? Senior [facility] Care.? Good LTC candidate as is no longer able to care for patient. [] ? SNF versus LTC based on ability to participate and progress [] TREATMENT CODE/TIME: 00868 x 23 minutes beginning at 16:45 PM.
[2022-03-09] MEDS: traZODone 50 MG TAB PO (18:15)
[2022-03-09] MEDS: Latanoprost 0.005% 2.5 ML BTL OU (20:54)
[2022-03-09] MEDS: Melatonin 3 MG TAB PO (20:54)
[2022-03-10 07:38] VITALS: BP 123/65; PULSE 55; RESP 18; TEMP 36.7; O2SAT 95
[2022-03-10] MEDS: Losartan 50 MG TAB PO (09:10)
[2022-03-10] MEDS: FLUoxetine 10 MG TAB PO (09:10)
[2022-03-10] MEDS: amLODIPine 5 MG TAB PO (09:10)
[2022-03-10] MEDS: OLANZapine 2.5 MG TAB PO ×2 (09:10→13:45)
[2022-03-10] MEDS: Tamsulosin 0.4 MG CAPCR 0.8 MG PO (09:11)
--- NOTE | 2022-03-10 10:40 | CMDISCH_ITS ---
- If Service Date Differs Date of service: 03/10/22 Time of Service: 10:40 LACE Index Scoring Tool - Questions: Length of Stay (in days): 14 or more Acuity (Admit via E.D.?): Yes Comorbidities: Any Tumor, Dementia E.D. Visits: 6 - Answers: Total Score: 19 Risk of Readmission: High Risk Care Management Discharge Reason for Hospitalization: Parkinson's Dementia Discharge Plan: Dominic will discharge home with a resumption of home health nursing and PT with the addition of OT, speech and PRISON WARDEN. A request has been submitted for additional caregiver time as well. Zach will transport via private vehicle with his and follow up with his providers at the [place] as well as his local providers. DC summary [facility]. Patient/Family Education Needs: Review discharge instructions, discuss Ask Me Three. Services Needed at Discharge: Home Health Care Services ([facility], with [facility] funding support)
--- NOTE | 2022-03-10 10:43 | PDOC.HHF2F ---
Home Health Certification Home Health Certification: 1. Encounter Date and Reason I certify that Dominic Rodriguez was seen by Fay Rivero NP on 03/10/22 and that I had a [id number] encounter with this patient that meets the physician face to face encounter requirements. 2. Clinical Findings Supporting Skilled Need and Homebound Status I certify that home health services are medically necessary, include either intermittent group home and/or physical/speech therapy, and that this patient is homebound in that absences from the home require considerable and taxing effort and are infrequent or of short duration, or are attributable to the need to receive medical care. [X] (a) Attached documentation from encounter provides clinical findings supporting skilled need and homebound status (including what assistance patient requires to leave the home). The encounter with the patient was in whole, or in part, for the following medical condition, which is the primary reason for home health care: Agitation,Parkinson, Dementia Fdc: Resume group home care: overall management and evaluation of care; medication instruction; , GI, neurological, skin, cardiac and respiratory assessment Physical Therapy/Occupational Therapy: Evaluation and resumption of normal routines and activities; device training, fall prevention, develop safe and effective maintenance program Speech Therapy: Assess, recommend plan of care Homebound: Leaving home requires a considerable and taxing effort due to his illness and progression of his disease and is not safe 3. Certification and Authentication I certify that I composed the above information based on my clinical judgement relating to this patient's medical condition and, if applicable, clinical findings communicated to me by the NPP or inpatient physician who performed the Home Health Referral. All further orders will be obtained through Dr. Glover
--- NOTE | 2022-03-10 11:22 | W.PM.DS.N ---
Date of service: 03/10/22 Time of Service: 10:22 DS: Diagnosis Discharge Diagnosis (1) Lewy body Parkinson disease: Status: Acute (2) Dysphagia: Status: Acute (3) Parkinsons disease: Status: Chronic (4) Acute urinary retention: Status: Chronic Discharge Plan Disposition Patient Disposition: HOME W/HOME HEALTH SERVICE Condition: Fair Discharge Details Reason For Visit: Agitation,Parkinson,Dementia Admit Date/Time: 02/23/22 12:03 Admit Provider: Ananth Yates Attending Provider: Ananth Yates Primary Care Provider: Raad Strauss Hospital Course Hospital Course: 76yo male with parkinson's and dementia, has had ongoing issues with agitation and aggressive behaviors, multiple visits and admissions for same -- brought him to the hospital because he was being physically aggressive towards her and she felt unsafe. He has not exhibited behaviors in many days [facility]; we have tried to get him placed and he has not been accepted. His is willing to take him home. We will resume home health orders. Reviewed with Dr Yates Home Meds and New Rx's Prescriptions: New carbidopa-levodopa 25-100 mg tablet,disintegrating See Rx Instructions .ROUTE .COMPLEX Qty: 60 0RF Rx Instructions: Take 2 tablets by mouth 6am and take 2 tabs 9am and take 2 tabs 12pm and 2 tabs 3pm and 2 tabs 6pm and 2 tabs 3am as needed per [facility] Neurology. scopolamine base 1 mg over 3 days patch 3 day 1 patch transdermal Q3D Qty: 4 0RF lorazepam 0.5 mg tablet 0.5 mg PO TID PRNQty: 20 0RF Continued tamsulosin 0.4 mg capsule 0.8 mg PO DAILY amlodipine [Norvasc] 5 MG tablet 1 tab PO QAM Qty: 90 carbidopa-levodopa 25-100 mg tablet 2 tab PO 5X/DAY Rx Instructions: Take 2 tablets by mouth 6am and take 2 tabs 9am and take 2 tabs 12pm and 2 tabs 3pm and 2 tabs 6pm and 2 tabs 3am as needed per [facility] Neurology. losartan 50 mg tablet 50 mg PO DAILY Qty: 90 3RF trazodone 50 mg Tablet 25 mg PO DAILY PRN (Reason: Agitation) Qty: 10 0RF dorzolamide-timolol 22.3-6.8 mg/mL Drops 1 drp ophthalmic (eye) BID Label Comments: both eyes per pt's olanzapine 2.5 mg tablet 2.5 mg PO TID Label Comments: TAKE ONE TABLET BY MOUTH AT BEDTIME FOR 1 WEEK THEN TAKE TWO TABLETS BY MOUTH AT BEDTIME Rx Instructions: Take 1 at bedtime for a week then 2 at bedtime following. fluoxetine 10 mg Capsule 10 mg PO DAILY Discharge Instructions Instructions: Parkinson Disease (DC), Dementia (GEN) Stand Alone Forms: Nursing Discharge Form Referrals: Raad Strauss MD [Primary Care Provider] - 03/15/22 10:40 am () Activity:: supervised Equipment/Supplies:: Walker Diet:: As Tolerated Discharge Orders Discharge Orders: Discharge Order (Routine); Ordered 03/10/22 Ordered By: Fay Rivero Discharge Data Discharge Date/Time-TO BE ENTERED AT DEPARTURE: 03/10/22 14:55 DS: Summary Time Spent with Patient providing and/or coordinating discharge services: Less than 30 minutes Status at Discharge Functional status at discharge: uses cane/walker Overall status at discharge: patient is not back to baseline Mental Status: mental status grossly normal (oriented to self) Speech and Movement: slowed movement Mood: congruent mood Affect: blunted Quality: AMI Clinical Trial Participant: No Exam Narrative Exam Narrative: General: Elderly male, resting comfortably in bed, not answering questions or opening eyes. Doesn't? follow commands. HEENT: eyes closed, dry MM Heart: RRR, no m/r/g Lungs: CTAB, Abdomen: soft, nondistended, no masses : no dut[place], wearing depends Extremities: no edema, no mottling psych: not anxious, not agitated skin: some bruising and one laceration Psych Mental Status: mental status grossly normal (oriented to self) Speech and Movement: slowed movement Mood: congruent mood Affect: blunted DS: Data Vitals/I&O Vitals and I&O: Vital Signs Temperature 36.7 C 03/10/22 07:38 Temperature Source Tympanic 03/10/22 07:38 Pulse 55 L 03/10/22 07:38 Pulse Rhythm Regular 03/10/22 09:29 Respiratory Rate 18 03/10/22 07:38 Respiratory Effort 03/10/22 09:29 Respiratory Depth Normal 03/10/22 09:29 Respiratory Pattern Normal 03/10/22 09:29 Blood Pressure 123/65 03/10/22 07:38 Pulse Oximetry 95 03/10/22 07:38 Oxygen Delivery Method Room Air 03/10/22 07:38 Oxygen Flow Rate 0 03/10/22 07:38 Pain Level 0 03/09/22 09:55 Comment 03/07/22 14:25 Intake & Output 03/09/22 03/09/22 03/10/22 11:59 23:59 11:59 Other: Urine Color Yellow Yellow Yellow Urine Appearance Cloudy Cloudy Urine Odor Normal Normal Comment pT was incontinent of urine. dry at this time pT was dry and has not voided yet. Voiding Methods Diaper Diaper Diaper Incontinent Incontinent Incontinent PFSH All Active Problems Palliative care patient (Acute) Dysphagia (Acute) Parkinsons disease (Chronic) has not been getting his sinemet Lewy body Parkinson disease (Acute) Acute urinary retention (Chronic) Dementia (Chronic) Medical History Abnormal gait (11/19/17) Agitation Agitation due to dementia Anemia Basal cell carcinoma of right ear RIGHT EAR CANAL BCCa left upper chest 2018: excised BPH (benign prostatic hyperplasia) Caregiver stress Conductive hearing loss, external ear Constipation Dementia with behavioral disturbance Difficult intubation DNI (do not intubate) DNR (do not resuscitate) Elevated lipids Elevated PSA a. In April 2013. Fall Fever Foot pain Fx femur shaft-closed left ORIF Glaucoma Glaucoma decreased vision left Goals of care, counseling/discussion Hearing decreased Hyperlipidemia Hypertension Pain in left hip Swapna-prosthetic fracture around prosthetic hip Physician orders for life-sustaining treatment (POLST) form indicates patient wish for bu-ajm-[id number] status Pityriasis rosea Polyp of colon (09/20/10) Postoperative anemia PTSD (post-traumatic stress disorder) Raised prostate specific antigen (03/05/13) 6.82 06/19/16, 8.29 05/19/15 [facility]une Sensorineural hearing loss of both ears Skin tear of elbow without complication Subcutaneous emphysema due to trauma UTI (urinary tract infection) [employer] [facility] vet Surgical History Colonoscopy - MAC (~2010) 2000; NEG 2011; 2 POLYPS History of Surgical Procedure a. Colonoscopy for which he's had excision of a polyp. b. Perirectal abscess treated in the past. c. Tonsillectomy. d. Extraction of molars. Status post left hip replacement (07/31/14) Family History Mother Diabetes Personal history of malignant neoplasm breast Father Heart disease Sister No problems noted. Brother No problems noted. Brother No problems noted. Social History Smoking/Tobacco Use Status: Never Second Hand Exposure: No Smoking risk assessment performed?: Yes Alcohol Intake: never Drug use: Never Substance use type: does not use Household members: spouse and children Housing: house Communication Needs: Hard of Hearing and Corrective Lenses Do you need help understanding health information?: Often Pets and animals: Yes Pets and animals: dog(s) Sexually active: No Do you think of yourself as: straight/heterosexual Current gender identity: male What is your relationship status?: How often do you talk on the phone with friends or family?: once per week How often do you attend judaism or yarsanism services?: 1-3 times per year Do you belong to any clubs or organized social groups?: no Panel score (0-1 are the most socially isolated patients): 1 What type of physical activity do you participate in: other Details: boxing Frequency: 1-2 times per week Kenna/Sikh: Hinduism Seatbelt use: always Helmet use: No Drive intox or ride w/intox tram driver: No Do you feel safe at home: Yes Do you feel safe in your relationship?: Yes
[2022-03-10] MEDS: Scopolamine 1 MG/3 DAYS PATCH TD (11:38)
== END 2022-03-10 14:55 | disposition home health service (06) | DRG 57 ==
PROVIDERS: Internal Medicine; Admitting Provider Internal Medicine; PCP Family Medicine; Visit Provider Internal Medicine
DX: G20 Parkinson's disease (principal); F02.81 Dementia in other diseases classified elsewhere, unspecified severity, with behavioral disturbance; R33.8 Other retention of urine; F43.10 Post-traumatic stress disorder, unspecified; R13.10 Dysphagia, unspecified; R26.9 Unspecified abnormalities of gait and mobility; N40.1 Benign prostatic hyperplasia with lower urinary tract symptoms; K59.00 Constipation, unspecified; Z66 Do not resuscitate; E78.5 Hyperlipidemia, unspecified; H40.9 Unspecified glaucoma; D64.9 Anemia, unspecified; I10 Essential (primary) hypertension; L42 Pityriasis rosea; H90.3 Sensorineural hearing loss, bilateral; R45.1 Restlessness and agitation; L89.152 Pressure ulcer of sacral region, stage 2; L89.626 Pressure-induced deep tissue damage of left heel
CPT/HCPCS: 87493; 97110; 97162; 97166; 97530; 97535; 99305; 99315; J1650; 70450; 94640; 94760; J2060; J3490; J7613; J7620

== ENCOUNTER 2022-03-13 23:58 | Emergency (ER) | payer OTHER, SELFPAY ==
[2022-03-13 23:58] VITALS: BP 109/56; PULSE 65; RESP 18; TEMP 36.6; O2SAT 95
--- NOTE | 2022-03-14 00:12 | NUR.NOTE ---
EMS called by for girgling noise when he was breathing and puffing. Pt nonverbal. reports pt at baseline mental state.
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
[2022-03-14 00:50] VITALS: RESP 18
[2022-03-14 01:14] VITALS: PULSE 74; RESP 18; O2SAT 99
== END 2022-03-14 01:15 | disposition home or self-care (01) ==
PROVIDERS: Emergency Provider Student in an Organized Health Care Education/Training Program
DX: G20 Parkinson's disease (principal); F02.81 Dementia in other diseases classified elsewhere, unspecified severity, with behavioral disturbance
CPT/HCPCS: 99283

== ENCOUNTER 2022-03-14 21:53 | Inpatient (IN) | payer OTHER, SELFPAY ==
[2022-03-14] VITALS (33 sets, daily range): BP systolic 131–141; BP diastolic 58–63; PULSE 83–95; RESP 19–54; TEMP 34; O2SAT 85–95
--- NOTE | 2022-03-14 22:00 | RT.EKG_ITS ---
APPROVED REPORT Exam: Resting ECG Reason for Exam: sob Patient Location: E HR:91 bpm ECG Measurements Heart Rate 91 AXIS KS 178 P 69 QRSd 93 QRS -10 QT 361 T 48 QTc 443 Conclusion Sinus rhythm...normal P axis, V-rate 60- 99 Physician: Rate 91, sinus rhythm, PVC noted, no significant ST elevation. Minimal depression in V2, V3. No STEMI.
--- NOTE | 2022-03-14 22:15 | DI.RAD_ITS ---
Exam(s) XR PORTABLE CHEST AP EXAM: XR PORTABLE CHEST AP CLINICAL HISTORY: sob, suspect aspiration pneumonia TECHNIQUE: 2D digital imaging was performed of the chest. One image was obtained. An AP view was ob tained. COMPARISON: CR XR PORTABLE CHEST AP from 01/06/2022 CR,XR XR PORTABLE CHEST AP from 02/13/2022 FINDINGS: MEDIASTINUM: Normal. HEART: Normal. PULMONARY VASCULATURE: Normal. LUNGS: Bilateral basilar infiltrates, right greater than left. PLEURAL SPACE: No pleural effusion or pneumothorax. BONE:Within normal limits for the patient's age. OTHER FINDINGS:Normal. IMPRESSION: Bilateral pulmonary infiltrates suspicious for pneumonia. DATA REPOSITORY: RADIATION DOSE DELIVERED:
[2022-03-14 22:28] LABS: Source Nasal/Nares
[2022-03-14 22:34] LABS: BE (Venous) 1 mmol/L (-2-3); HCO3 (Venous) 28 mmol/L (23-28); pCO2 (Venous) 58 mmHg (41-51); pH (Venous) 7.29 (7.31-7.41); pO2 (Venous) 90 mmHg
[2022-03-14 22:35] LABS: O2 Sat (Venous) > 99 %
[2022-03-14 22:36] LABS: TCO2 (Venous) 27 mmol/L (24-29)
[2022-03-14 22:46] LABS: Abs Immature Grans 0.05 10^3/uL (0.0-0.06); Absolute Basophil Count 0.03 10^3/uL (0.0-0.2); Absolute Lymphocyte Count 0.91 10^3/uL (1.2-3.4); Absolute Monocyte Count 0.79 10^3/uL (0.1-0.8); Basophils % 0.2; HCT 38.3 % (40.0-50.0); HGB 12.1 g/dL (13.5-17.5); Immature Grans % 0.3; Lymphocytes % 5.3; MCH 30.3 pg (27.0-33.0); MCHC 31.6 % (32.0-36.0); MCV 96 fL (80-95); MPV 9.3 fL (8.0-11.0); Monocytes % 4.6; Neutrophils % 89.6; Platelet Count 272 10^3/uL (130-400); RBC 3.99 10^6/uL (4.36-5.78); RDW 13.4 % (11.8-14.1); RDW-SD 47.9 fL; WBC 17.18 10^3/uL (4.4-10.8)
[2022-03-14 22:47] LABS: Absolute Neutrophil Count 15.39 10^3/uL (1.2-6.7)
[2022-03-14 22:50] LABS: Troponin I < 50 ng/L (<or=60)
[2022-03-14 22:51] LABS: ALT 7 U/L (16-63); AST 11 U/L (15-37); Albumin 2.8 g/dL (3.4-5.0); Alkaline Phosphatase 93 U/L (46-116); BUN 19 mg/dL (7-18); Bilirubin, Total 0.5 mg/dL (0.2-1.0); CREATININE 0.7 mg/dL (0.70-1.30); Chloride 104 mmol/L (98-107); Glucose 208 mg/dL (74-106); Potassium 4.5 mmol/L (3.5-5.1); Sodium 138 mmol/L (136-145); Total Protein 7.2 g/dL (6.4-8.2)
--- NOTE | 2022-03-14 23:03 | DI.VRAD_ITS ---
PROCEDURE INFORMATION: Exam: XR Chest Exam date and time: 03/14/2022 10:18 PM Age: 76 years old Clinical indication: Other: SOB, suspect aspiration pneumonia TECHNIQUE: Imaging protocol: XR of the chest. Views: 1 view. COMPARISON: XR PORTABLE CHEST AP 02/13/2022 11:51 PM FINDINGS: Lungs: Development of a focal opacification within the right lower lobe, suspicious for an acute process. Mildly prominent interstitial lung markings bilaterally. Pleural spaces: Unremarkable. No pleural effusion. No pneumothorax. Heart/Mediastinum: Unremarkable. No cardiomegaly. Bones/joints: Unremarkable. IMPRESSION: Development of focal opacification within the right lower lung, suspicious for pneumonia. Dictated and Authenticated by: Joe Severino MD. Ordering:EZRA James MD
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
[2022-03-14] MEDS: Albuterol/Ipratropium 3 ML UPD VIAL UPD (23:09)
[2022-03-14] MEDS: AMPICILLIN/SULBACTAM 3 GM in Normal Saline 100 ML IVPB (23:16)
[2022-03-14 23:19] LABS: COVID-19 PCR POSITIVE (Negative)
[2022-03-15] VITALS (18 sets, daily range): BP systolic 100–143; BP diastolic 54–70; PULSE 70–89; RESP 26–56; TEMP 36.3–37.9; O2SAT 92–100
--- NOTE | 2022-03-15 00:02 | W.PM.HP.N ---
Date of service: 03/15/22 Time of Service: 23:02 Assessment and Plan Assessment and plan (1) Pneumonia: Status: Acute Assessment and plan: Pneumonia, likely aspiration, with COVID as well playing an unknown role. Respiratory insufficiency evident. I reviewed situation with in detail, making clear that outlook here is guarded at best. She states she wishes to have somewhat limited curative therapy, with greater focus on patient comfort. Specifically, she wishes us to trial antibiotics, and nasal cannula for oxygen, but declines intubation or BiPap/CPAP). She is also agreeable to use of prn morphine for discomfort or SOB, but not at this time, unless situation deteriorates. In short, will continue present regimen of Unasyn and O2 as is. Will also add Dexa and Remdesivir for COVID as it remains unclear whether the pulmonary findings are of bacterial origin solely, or COVID related as well. History of Present Illness History of Present Illness Chief Complaint: SOB Narrative: 76 male with h/o Parkinson's, dysphagia, dementia -- here with acute SOB. In ER findings of note for initial O2 sats in 80s (up to mid 90s on hi-flow), tachypnea, diffuse rhonchi; white count 17, CXR with RLL infiltrate and increased interstitial markings, and COVID positive. VBG shows pH 7.29, pCO2 58. Patient given Duoneb and initial dose of Unasyn. I was asked to evaluate for admission. Review of Systems Narrative: per HPI PFSH All Active Problems (Updated 03/15/22 @ 00:09 by Bradly Randall MD) Pneumonia (Acute) Encounter for medical assessment (Acute) Palliative care patient (Acute) Dysphagia (Acute) Parkinsons disease (Chronic) has not been getting his sinemet Lewy body Parkinson disease (Acute) Dementia (Chronic) Medical History Abnormal gait (11/19/17) Agitation Agitation due to dementia Anemia Basal cell carcinoma of right ear RIGHT EAR CANAL BCCa left upper chest 2018: excised BPH (benign prostatic hyperplasia) Caregiver stress Conductive hearing loss, external ear Constipation Dementia with behavioral disturbance Difficult intubation DNI (do not intubate) DNR (do not resuscitate) Elevated lipids Elevated PSA a. In April 2013. Fall Fever Foot pain Fx femur shaft-closed left ORIF Glaucoma Glaucoma decreased vision left Goals of care, counseling/discussion Hearing decreased Hyperlipidemia Hypertension Pain in left hip Swapna-prosthetic fracture around prosthetic hip Physician orders for life-sustaining treatment (POLST) form indicates patient wish for [id number] status Pityriasis rosea Polyp of colon (09/20/10) Postoperative anemia PTSD (post-traumatic stress disorder) Raised prostate specific antigen (03/05/13) 6.82 06/19/16, 8.29 05/19/15 [facility] Sensorineural hearing loss of both ears Skin tear of elbow without complication Subcutaneous emphysema due to trauma UTI (urinary tract infection) [place] 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 Colonoscopy for which he's had excision of a polyp. b. Perirectal abscess treated in the past. c. Tonsillectomy. d. Extraction of molars. Status post left hip replacement (07/31/14) Family History Mother Diabetes Personal history of malignant neoplasm breast Father Heart disease Sister No problems noted. Brother No problems noted. Brother No problems noted. Social History Smoking/Tobacco Use Status: Never Second Hand Exposure: No Smoking risk assessment performed?: Yes Alcohol Intake: never Drug use: Never Substance use type: does not use Household members: spouse and children Housing: house Communication Needs: Hard of Hearing and Corrective Lenses Do you need help understanding health information?: Often Pets and animals: Yes Pets and animals: dog(s) Sexually active: No Do you think of yourself as: straight/heterosexual Current gender identity: male What is your relationship status?: How often do you talk on the phone with friends or family?: once per week How often do you attend jainism or lutheran services?: 1-3 times per year Do you belong to any clubs or organized social groups?: no Panel score (0-1 are the most socially isolated patients): 1 What type of physical activity do you participate in: other Details: boxing Frequency: 1-2 times per week Kenna/Sikhism: Religious Seatbelt use: always Helmet use: No Drive intox or ride w/intox wagon driver: No Do you feel safe at home: Yes Do you feel safe in your relationship?: Yes Meds Allergies and Home Medications Allergies Allergy/AdvReac Type Severity Reaction Status Date / Time No Known Allergies Allergy Verified 02/05/22 19:10 Home Medications Medication Instructions Recorded Confirmed Type amlodipine 5 mg tablet (Norvasc) 1 tab PO QAM ##90 01/22/13 03/14/22 History tamsulosin 0.4 mg capsule 0.8 mg PO DAILY 10/03/18 03/14/22 History carbidopa 25 mg-levodopa 100 mg 2 tab PO 5X/DAY 11/29/18 03/14/22 History tablet losartan 50 mg tablet 50 mg PO DAILY #90 tabs 12/02/20 03/14/22 Rx dorzolamide 22.3 mg-timolol 6.8 1 drp ophthalmic (eye) BID 12/16/21 03/14/22 History mg/mL eye drops fluoxetine 10 mg capsule 10 mg PO DAILY 02/05/22 03/14/22 History olanzapine 2.5 mg tablet 2.5 mg PO TID 02/05/22 03/14/22 History carbidopa 25 mg-levodopa 100 mg See Rx Instructions .Route 03/10/22 03/14/22 Rx disintegrating tablet .COMPLEX #60 tabs lorazepam 0.5 mg tablet 0.5 mg PO TID PRN #20 tabs 03/10/22 03/14/22 Rx scopolamine base 1 mg over 3 days 1 patch transdermal Q3D #4 ea 03/10/22 03/14/22 Rx transdermal patch trazodone 50 mg tablet 25 mg PO DAILY PRN Agitation #10 03/10/22 03/14/22 Rx tabs Exam Narrative Exam Narrative: 139/63, 85, 36.6, 50, 95% Hi-flow. HEENT atraumatic; neck supple; lungs diffuse rhonchi; heart RRR; abdomen soft and NT; extremities w/o edema; neuro somnolent, no response to voice or light touch Results Labs Result diagrams: 03/14/22 22:20 03/14/22 22:20 Labs: Laboratory Results - last 24 hr 03/14/22 03/14/22 03/14/22 22:20 22:20 22:20 WBC 17.18 H RBC 3.99 L Hgb 12.1 L Hct 38.3 L MCV 96 H MCH 30.3 MCHC 31.6 L RDW 13.4 Plt Count 272 MPV 9.3 Immature Gran % 0.3 Neutrophils % 89.6 Lymphocytes % 5.3 Monocytes % 4.6 Eosinophils % 0.0 Basophils % 0.2 Nucleated RBC % 0.0 Absolute Neutrophils 15.39 H Absolute Lymphocytes 0.91 L Absolute Monocytes 0.79 Absolute Eosinophils 0.00 Absolute Basophils 0.03 VBG pH VBG pCO2 VBG pO2 VBG HCO3 VBG Total CO2 VBG O2 Saturation VBG Base Excess Sodium 138 Potassium 4.5 Chloride 104 Carbon Dioxide 29.0 Anion Gap 5.0 BUN 19 H Creatinine 0.7 Estimated GFR/1.73 m2 >= 60.00 Glucose 208 H Calcium 9.0 Total Bilirubin 0.5 AST 11 L ALT 7 L Alkaline Phosphatase 93 Troponin I Total Protein 7.2 Albumin 2.8 L COVID-19 Source Nasal/Nares SARS-CoV-2 (PCR) POSITIVE A* 03/14/22 03/14/22 22:20 22:20 WBC RBC Hgb Hct MCV MCH MCHC RDW Plt Count MPV Immature Gran % Neutrophils % Lymphocytes % Monocytes % Eosinophils % Basophils % Nucleated RBC % Absolute Neutrophils Absolute Lymphocytes Absolute Monocytes Absolute Eosinophils Absolute Basophils VBG pH 7.29 L VBG pCO2 58 H VBG pO2 90 VBG HCO3 28 VBG Total CO2 27 VBG O2 Saturation > 99 VBG Base Excess 1 Sodium Potassium Chloride Carbon Dioxide Anion Gap BUN Creatinine Estimated GFR/1.73 m2 Glucose Calcium Total Bilirubin AST ALT Alkaline Phosphatase Troponin I < 50 Total Protein Albumin COVID-19 Source SARS-CoV-2 (PCR) Last Vital Signs Pulse 85 03/14/22 23:10 Resp 50 H 03/14/22 23:10 BP 139/63 03/14/22 21:56 Pulse Ox 95 03/14/22 23:10
[2022-03-15] MEDS: REMDESIVIR 200 MG in Normal Saline 250 ML 250 MG IVPB (02:05)
[2022-03-15] MEDS: Dexamethasone 10 MG/ML VIAL 6 MG IVP (02:05)
[2022-03-15] MEDS: AMPICILLIN/SULBACTAM 3 GM in Normal Saline 100 ML IVPB ×3 (05:55→18:29)
[2022-03-15] MEDS: ACETAMINOPHEN 1,000 MG/100 ML BTL 400 MG IVPB ×2 (08:25→19:44)
--- NOTE | 2022-03-15 11:20 | W.PM.PROGNOT ---
Date of Service Date of service: 03/15/22 Time of Service: 10:20 Assessment and Plan Assessment and plan (1) Pneumonia: Status: Acute Assessment and plan: Aspiration pneumonia -increased respiratory effort, rate - high-fllo oxygen; antibiotics; morphine (2) Acute respiratory distress: Status: Acute Assessment and plan: Increased work of breathing, rapid respiratory rate- steroids, antibiotics, high-dayan oxygen (3) Parkinsons disease: Status: Chronic Assessment and plan: holding carbidopa 25 mg-levodopa, plan to continue if status improves (4) Family circumstance: Status: Acute Assessment and plan: Difficult situation with Dominic being Covid positive and having had so many trips to the hospital. He is not allowed visitors. His , María, wants to come see him, it is against policy. We have explained that to her. She would like to take him to continue to be treated moderately. She would like for us to discharge him to home on hospice. We are facilitating that process. Exam Narrative Exam Narrative: I saw the patient through the window and on camera several times today and he remained sidelying in bed, mostly unresponsive with varying respiratory rates. With being covid positive and the plan of care being to go home with hospice, I did not go in the room and assess him. Resp Effort & Inspection: tachypneic and uses accessory muscles Objective Last Vital Signs Temp 37.6 C H 03/15/22 10:19 Pulse 74 03/15/22 10:19 Resp 26 H 03/15/22 10:19 BP 102/56 L 03/15/22 10:19 Pulse Ox 99 03/15/22 10:19 Laboratory Results - last 24 hr 03/14/22 03/14/22 03/14/22 22:20 22:20 22:20 WBC 17.18 H RBC 3.99 L Hgb 12.1 L Hct 38.3 L MCV 96 H MCH 30.3 MCHC 31.6 L RDW 13.4 Plt Count 272 MPV 9.3 Immature Gran % 0.3 Neutrophils % 89.6 Lymphocytes % 5.3 Monocytes % 4.6 Eosinophils % 0.0 Basophils % 0.2 Nucleated RBC % 0.0 Absolute Neutrophils 15.39 H Absolute Lymphocytes 0.91 L Absolute Monocytes 0.79 Absolute Eosinophils 0.00 Absolute Basophils 0.03 VBG pH VBG pCO2 VBG pO2 VBG HCO3 VBG Total CO2 VBG O2 Saturation VBG Base Excess Sodium 138 Potassium 4.5 Chloride 104 Carbon Dioxide 29.0 Anion Gap 5.0 BUN 19 H Creatinine 0.7 Estimated GFR/1.73 m2 >= 60.00 Glucose 208 H Calcium 9.0 Total Bilirubin 0.5 AST 11 L ALT 7 L Alkaline Phosphatase 93 Troponin I Total Protein 7.2 Albumin 2.8 L COVID-19 Source Nasal/Nares SARS-CoV-2 (PCR) POSITIVE A* 03/14/22 03/14/22 22:20 22:20 WBC RBC Hgb Hct MCV MCH MCHC RDW Plt Count MPV Immature Gran % Neutrophils % Lymphocytes % Monocytes % Eosinophils % Basophils % Nucleated RBC % Absolute Neutrophils Absolute Lymphocytes Absolute Monocytes Absolute Eosinophils Absolute Basophils VBG pH 7.29 L VBG pCO2 58 H VBG pO2 90 VBG HCO3 28 VBG Total CO2 27 VBG O2 Saturation > 99 VBG Base Excess 1 Sodium Potassium Chloride Carbon Dioxide Anion Gap BUN Creatinine Estimated GFR/1.73 m2 Glucose Calcium Total Bilirubin AST ALT Alkaline Phosphatase Troponin I < 50 Total Protein Albumin COVID-19 Source SARS-CoV-2 (PCR)
--- NOTE | 2022-03-15 12:52 | PDOC.CMIN ---
- If Service Date Differs Date of service: 03/15/22 Time of Service: 12:52 Care Management Initial Assess REASON FOR HOSPITALIZATION:: pneumonia PAST MEDICAL HISTORY/PAST SURGICAL HISTORY:: All Active Problems (Updated 03/15/22 @ 00:09 by Bradly Randall MD). Pneumonia (Acute). Encounter for medical assessment (Acute). Palliative care patient (Acute). Dysphagia (Acute). Parkinsons disease (Chronic). has not been getting his sinemet. Lewy body Parkinson disease (Acute). Dementia (Chronic). Medical History. Abnormal gait (11/19/17). Agitation. Agitation due to dementia. Anemia. Basal cell carcinoma of right ear. RIGHT EAR CANAL. BCCa left upper chest 2018: excised. BPH (benign prostatic hyperplasia). Caregiver stress. Conductive hearing loss, external ear. Constipation. Dementia with behavioral disturbance. Difficult intubation. DNI (do not intubate). DNR (do not resuscitate). Elevated lipids. Elevated PSA. a. In April 2013. Fall. Fever. Foot pain. Fx femur shaft-closed. left ORIF. Glaucoma. Glaucoma. decreased vision left. Goals of care, counseling/discussion. Hearing decreased. Hyperlipidemia. Hypertension. Pain in left hip. Swapna-prosthetic fracture around prosthetic hip. Physician orders for life-sustaining treatment (POLST) form indicates patient wish for [id number] status. Pityriasis rosea. Polyp of colon (09/20/10). Postoperative anemia. PTSD (post-traumatic stress disorder). Raised prostate specific antigen (03/05/13). 6.82 06/19/16, 8.29 [facility] december and june. Sensorineural hearing loss of both ears. Skin tear of elbow without complication. Subcutaneous emphysema due to trauma. UTI (urinary tract infection). [place] [employer]. [employer] vet. Surgical History . [place] [facility] [place]; NEG. 2010; 2 POLYPS. History of Surgical Procedure. a. Colonoscopy for which he's had excision of a polyp. b. Perirectal abscess treated in the past. c. Tonsillectomy. d. Extraction of molars. Status post left hip replacement (07/31/14) PREVIOUS FUNCTIONAL STATUS/SOCIAL/FAMILY SUPPORTS:: Dominic lives in [place] with his , Shaila. He has Parkinson's Disease, mild dementia, and has 100% service connected disability through the [facility]. His provides assistance with meals and is his caregiver. CURRENT FUNCTIONAL STATUS:: Zach remains on Covid precautions so CM unable to meet with him. He is obtunded so conversation via phone was not possible either. CM did speak to María today who expresed her frustration at not being able to come and visit due to his Covid status and her likely exposure. She vaccillated between wanting to take him home on hospice or transferring him to a SNF or other hospital if an accepting institution could be found that would allow visitation. At the end of the day Shaila decided to take Zach home on hospice but it was too late in the day to be able to arrange for oxygen delivery.He will likely be discharged home on hospice tomorrow morning. ADVANCE DIRECTIVES:: is DPOA Has patient been provided with info about the portal/API?: Yes Did the patient sign up for the portal?: Yes (previously) CODE STATUS:: DNR/DNI INSURANCE COVERAGE / FINANCIAL ISSUES:: Zach is 100% [facility] connected. In addition he has Medicare and [employer] CURRENT HOME/COMMUNITY SERVICES/EQUIPMENT:: Zach has [employer], [facility] and his is his paid caregiver PRIMARY CARE PHYSICIAN:: Has medical follow up at [place] POTENTIAL DISCHARGE NEEDS:: Zach will likely transition to hospice at [facility] or at home. PATIENT/FAMILY EDUCATION NEEDS:: Expectations and limitations, Ask Me Three TRANSPORTATION:: to be determined by disposition PLAN:: Zach will likely be discharged home on hospice tomorrow. [facility] will do a same day admission and the oxygen has already been ordered from [facility]. Zach has a hospital bed and any needed equipment at home. He will transport via ambulance coordinated by [facility]. CM will continue to support Shaila and Zach and address discharge concerns.
--- NOTE | 2022-03-15 12:56 | NUR.NOTE ---
Nursing Note: Nursing calls spouse as so she can speak to the . He responds to her voice by opening his eyes and increased respiration. She did not want to speak to the nurse for any further update
--- NOTE | 2022-03-15 18:25 | CHAPLAIN ---
Zach was discharged home on 03/10 and readmitted today. He returned being COVID positive. His , María, is also COVID positive so can not visit. She requested that Zach received last rites. Fr. Natarajan was called and came up, dressed in PPE and offered last rites to Zach. Zach's nurse, Beltran Cortez RN, called María was Fr. Natarajan was with Zach so she could listen in. The current plan is for Zach to return home tomorrow on hospice.
--- NOTE | 2022-03-15 19:01 | NUR.NOTE ---
Nursing Note: was contacted on the phone so She could hear father Rosa Isela give the patient the last rights. she attempted to speak to the patient afterwards, he was barely responsive. Spouse updated as to condition
[2022-03-15] MEDS: MORPHine 2 MG/ML SYR 1 MG IVP (19:46)
[2022-03-15] MEDS: Dexamethasone 4 MG/ML VIAL 6 MG IVP (22:28)
[2022-03-16] MEDS: AMPICILLIN/SULBACTAM 3 GM in Normal Saline 100 ML IVPB ×3 (00:04→11:51)
[2022-03-16 00:08] VITALS: BP 117/71; PULSE 66; TEMP 37; O2SAT 97
[2022-03-16] MEDS: REMDESIVIR 100 MG in Normal Saline 250 ML 250 MG IVPB (01:11)
[2022-03-16] MEDS: MORPHine 2 MG/ML SYR 1 MG IVP ×4 (04:07→14:38)
[2022-03-16 04:12] VITALS: BP 111/60; PULSE 70; RESP 32; TEMP 36.8; O2SAT 98
[2022-03-16 07:09] LABS: Anion Gap 8.2 mmol/L (3-11); BUN 22 mg/dL (7-18); CO2 27.8 mmol/L (21.0-32.0); CREATININE 0.7 mg/dL (0.70-1.30); Calcium 8.7 mg/dL (8.5-10.1); Chloride 108 mmol/L (98-107); Glucose 136 mg/dL (74-106); Potassium 3.8 mmol/L (3.5-5.1); Sodium 144 mmol/L (136-145)
[2022-03-16 07:14] LABS: Abs Immature Grans 0.02 10^3/uL (0.0-0.06); Absolute Lymphocyte Count 1.03 10^3/uL (1.2-3.4); Absolute Monocyte Count 0.22 10^3/uL (0.1-0.8); Absolute Neutrophil Count 8.26 10^3/uL (1.2-6.7); HCT 31.9 % (40.0-50.0); HGB 10.6 g/dL (13.5-17.5); Immature Grans % 0.2; Lymphocytes % 10.8; MCH 31.3 pg (27.0-33.0); MCHC 33.2 % (32.0-36.0); MCV 94 fL (80-95); MPV 9.8 fL (8.0-11.0); Monocytes % 2.3; Neutrophils % 86.7; Platelet Count 244 10^3/uL (130-400); RBC 3.39 10^6/uL (4.36-5.78); RDW 13.9 % (11.8-14.1); RDW-SD 48.3 fL; WBC 9.53 10^3/uL (4.4-10.8)
[2022-03-16 08:42] VITALS: BP 120/61; PULSE 72; RESP 30; TEMP 36.8; O2SAT 99
--- NOTE | 2022-03-16 11:36 | CMDISCH_ITS ---
- If Service Date Differs Date of service: 03/16/22 Time of Service: 11:36 LACE Index Scoring Tool - Questions: Length of Stay (in days): 1 Acuity (Admit via E.D.?): Yes Comorbidities: Dementia E.D. Visits: 8 - Answers: Total Score: 11 Risk of Readmission: High Risk Care Management Discharge Reason for Hospitalization: pneumonia Discharge Plan: Zach will be discharged home and admitted to hospice this afternoon. He has a hospital bed and all needed equipment. His oxygen will be delivered by [email or web address] by 2 pm today. He will transport home via ambulance coordinated by CM. Patient/Family Education Needs: Hospice program, Expectations and limitations, Ask Me Three Services Needed at Discharge: Home Health Care Services, Oxygen Therapy, Transportation
--- NOTE | 2022-03-16 12:32 | DSE_ITS ---
Date of service: 03/16/22 Time of Service: 11:32 DS: Diagnosis Discharge Diagnosis (1) Pneumonia: Status: Acute Asessment and Plan: Aspiration pneumonia; covid. Going home on hospice. Will have oxygen at home. (2) Acute respiratory distress: Status: Acute Asessment and Plan: Continues to have increased work of breathing, not improving, family has decided to take him home on studies. (3) Parkinsons disease: Status: Chronic Asessment and Plan: continue home medications Discharge Plan Disposition Patient Disposition: HOME W/HOME HEALTH SERVICE Condition: Serious Discharge Details Reason For Visit: Pneumonia Admit Date/Time: 03/15/22 00:17 Admit Provider: Bradly Randall Attending Provider: Bradly Randall Primary Care Provider: [facility] Hospital Course Hospital Course: This is a 76 year old male with with a past medical history of Parkinson d isease, dementia. He was hospitalized for aggression and inability to sleep. He was not accepted for placement; his wanted to take him home and he discharged on Sunday03/10/22. he returned 03/14 to the ED for acute shortness of breath. His didn't want any diagnostic testing or admission. He improved and went back home. 03/15 he again became acutely short of breath, returned to the ED and his allowed labs and xrays. He was diagnosed with aspiration pneumonia and was also found to have covid. He did have a fever. He was admitted to the medical surgical floor and started on high dayan oxygen and unaysn IV. He is mostly unresponsive. In discussion with his on the phone, she is not able to visit secondary to covid, she has chosen to take him home with no further treatment on home hospice care. Hospice was notified and will admit him to their service today. He will go home via EMS. He will have oxygen delivered to the home prior to his arrival. Home Meds and New Rx's Prescriptions: Continued carbidopa-levodopa 25-100 mg tablet,disintegrating See Rx Instructions .ROUTE .COMPLEX Qty: 60 0RF Rx Instructions: Take 2 tablets by mouth 6am and take 2 tabs 9am and take 2 tabs 12pm and 2 tabs 3pm and 2 tabs 6pm and 2 tabs 3am as needed per [facility]. dorzolamide-timolol 22.3-6.8 mg/mL Drops 1 drp ophthalmic (eye) BID Label Comments: both eyes per pt's olanzapine 2.5 mg tablet 2.5 mg PO TID Label Comments: TAKE ONE TABLET BY MOUTH AT BEDTIME FOR 1 WEEK THEN TAKE TWO TABLETS BY MOUTH AT BEDTIME Rx Instructions: Take 1 at bedtime for a week then 2 at bedtime following. Discontinued tamsulosin 0.4 mg capsule 0.8 mg PO DAILY amlodipine [Norvasc] 5 MG tablet 1 tab PO QAM Qty: 90 carbidopa-levodopa 25-100 mg tablet 2 tab PO 5X/DAY Rx Instructions: Take 2 tablets by mouth 6am and take 2 tabs 9am and take 2 tabs 12pm and 2 tabs 3pm and 2 tabs 6pm and 2 tabs 3am as needed per [facility] Neurology. losartan 50 mg tablet 50 mg PO DAILY Qty: 90 3RF trazodone 50 mg Tablet 25 mg PO DAILY PRN (Reason: Agitation) Qty: 10 0RF scopolamine base 1 mg over 3 days patch 3 day 1 patch transdermal Q3D Qty: 4 0RF lorazepam 0.5 mg tablet 0.5 mg PO TID PRNQty: 20 0RF fluoxetine 10 mg Capsule 10 mg PO DAILY Discharge Instructions Instructions: Hospice Care (GEN) Care Plan Goals: Home with Hospice Stand Alone Forms: Nursing Discharge Form Referrals: Jessica King MD [ [facility]YSICIAN] - () Activity:: bed rest Equipment/Supplies:: Oxygen (L/min Below) Diet:: As Tolerated Discharge Orders Discharge Orders: Discharge Order (Routine); Ordered 03/16/22 Ordered By: Fay Rivero DS: Summary Time Spent with Patient providing and/or coordinating discharge services: Less than 30 minutes Status at Discharge Functional status at discharge: bed bound Overall status at discharge: patient is not back to baseline Mental Status: other Speech and Movement: other (sleeping) Mood: other Affect: other (sleeping) Exam Narrative Exam Narrative: I saw the patient through the window and on camera several times again today. He remained sidelying in bed, mostly unresponsive with varying respiratory rates. Being Covid positive and the plan of care being is to go home with hospice, I did not go in the room and assess him. Resp Effort & Inspection: tachypneic and uses accessory muscles Psych Mental Status: other Speech and Movement: other (sleeping) Mood: other Affect: other (sleeping) DS: Data Vitals/I&O Vitals and I&O: Vital Signs Temperature 36.8 C 03/16/22 08:42 Temperature Source Tympanic 03/16/22 08:42 Pulse 72 03/16/22 08:42 Pulse Rhythm Regular 03/16/22 09:35 Respiratory Rate 30 H 03/16/22 08:42 Respiratory Effort Incrsd Work of Breathing 03/16/22 09:35 Respiratory Depth Shallow 03/16/22 09:35 Respiratory Pattern Tachypnea 03/16/22 09:35 Blood Pressure 120/61 03/16/22 08:42 Blood Pressure Position Sitting 03/14/22 21:53 Pulse Oximetry 99 03/16/22 08:42 Oxygen Delivery Method Hi Flow System 03/16/22 08:42 Oxygen Flow Rate 45 03/16/22 00:08 Fraction of Inspired Oxygen (FIO2) 91 03/16/22 00:08 Pain Level 6 03/16/22 11:52 Comment 03/16/22 08:42 Intake & Output 03/15/22 03/16/22 03/16/22 23:59 11:59 23:59 Intake Total 300 / 890 436.667 / 436.667 Balance 300 / 890 436.667 / 436.667 Intake: IV 300 / 890 436.667 / 436.667 Other: Urine Color Dark Philomena Yellow Urine Appearance Cloudy Urine Odor Strong Strong Comment patient had not voided Voiding Methods Incontinent Diaper Incontinent Data Completed and Pending Labs on day of discharge: Labs from last 24 hours 03/16/22 03/16/22 06:30 06:30 WBC 9.53 RBC 3.39 L Hgb 10.6 L Hct 31.9 L MCV 94 MCH 31.3 MCHC 33.2 D RDW 13.9 Plt Count 244 MPV 9.8 Immature Gran % 0.2 Neutrophils % 86.7 Lymphocytes % 10.8 Monocytes % 2.3 Eosinophils % 0.0 Basophils % 0.0 Nucleated RBC % 0.0 Absolute Neutrophils 8.26 H Absolute Lymphocytes 1.03 L Absolute Monocytes 0.22 Absolute Eosinophils 0.00 Absolute Basophils 0.00 Sodium 144 Potassium 3.8 Chloride 108 H Carbon Dioxide 27.8 Anion Gap 8.2 BUN 22 H Creatinine 0.7 Estimated GFR/1.73 m2 >= 60.00 Glucose 136 H Calcium 8.7 PFSH All Active Problems (Updated 03/15/22 @ 05:37 by Jacob Anand DO) Family circumstance (Acute) Aspiration pneumonia (Acute) Acute respiratory distress (Acute) Pneumonia (Acute) Encounter for medical assessment (Acute) Palliative care patient (Acute) Dysphagia (Acute) Parkinsons disease (Chronic) has not been getting his sinemet Lewy body Parkinson disease (Acute) Dementia (Chronic) Medical History Abnormal gait (11/19/17) Agitation Agitation due to dementia Anemia Basal cell carcinoma of right ear RIGHT EAR CANAL BCCa left upper chest 2018: excised BPH (benign prostatic hyperplasia) Caregiver stress Conductive hearing loss, external ear Constipation Dementia with behavioral disturbance Difficult intubation DNI (do not intubate) DNR (do not resuscitate) Elevated lipids Elevated PSA a. In April 2013. Fall Fever Foot pain Fx femur shaft-closed left ORIF Glaucoma Glaucoma decreased vision left Goals of care, counseling/discussion Hearing decreased Hyperlipidemia Hypertension Pain in left hip Swapna-prosthetic fracture around prosthetic hip Physician orders for life-sustaining treatment (POLST) form indicates patient wish for ke-vno-cebqjoijtyz status Pityriasis rosea Polyp of colon (09/20/10) Postoperative anemia PTSD (post-traumatic stress disorder) Raised prostate specific antigen (03/05/13) 6.82 06/19/16, 8.29 05[facility] june Sensorineural hearing loss of both ears Skin tear of elbow without complication Subcutaneous emphysema due to trauma UTI (urinary tract infection) of [employer] [facility] 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 Colonoscopy for which he's had excision of a polyp. b. Perirectal abscess treated in the past. c. Tonsillectomy. d. Extraction of molars. Status post left hip replacement (07/31/14) Family History Mother Diabetes Personal history of malignant neoplasm breast Father Heart disease Sister No problems noted. Brother No problems noted. Brother No problems noted. Social History (Reviewed 03/15/22 @ 03:53 by PHILIP White Smoking/Tobacco Use Status: Never Second Hand Exposure: No Smoking risk assessment performed?: Yes Alcohol Intake: never Drug use: Never Substance use type: does not use Household members: spouse and children Housing: house Communication Needs: Hard of Hearing and Corrective Lenses Do you need help understanding health information?: Often Pets and animals: Yes Pets and animals: dog(s) Sexually active: No Do you think of yourself as: straight/heterosexual Current gender identity: male What is your relationship status?: How often do you talk on the phone with friends or family?: once per week How often do you attend rastafarian or buddhist services?: 1-3 times per year Do you belong to any clubs or organized social groups?: no Panel score (0-1 are the most socially isolated patients): 1 What type of physical activity do you participate in: other Details: boxing Frequency: 1-2 times per week Kenna/Faith: Restorationist Seatbelt use: always Helmet use: No Drive intox or ride w/intox cdl driver: No Do you feel safe at home: Yes Do you feel safe in your relationship?: Yes
== END 2022-03-16 15:01 | disposition home health service (06) | DRG 177 ==
LOC: ER 03-15 00:45 → MS 03-15 01:14
PROVIDERS: Nurse Practitioner Family; Admitting Provider General Practice; Emergency Provider Student in an Organized Health Care Education/Training Program; Visit Provider General Practice
DX: J69.0 Pneumonitis due to inhalation of food and vomit (principal); U07.1 COVID-19; G20 Parkinson's disease; F02.80 Dementia in other diseases classified elsewhere, unspecified severity, without behavioral disturbance, psychotic disturbance, mood disturbance, and anxiety; I10 Essential (primary) hypertension; R06.03 Acute respiratory distress; R13.10 Dysphagia, unspecified; E78.5 Hyperlipidemia, unspecified; L42 Pityriasis rosea; F43.10 Post-traumatic stress disorder, unspecified; H90.3 Sensorineural hearing loss, bilateral; Z96.642 Presence of left artificial hip joint
CPT/HCPCS: 36415; 80048; 80053; 82805; 87635; 93005; 94640; 96365; 99285; 71045; 84484; 85025; 93010; 99222; 99238; J0131; J0248; J0295; J1100; J2270; J3490; J7620